=== PATIENT | female | born 1945 | race Caucasian/White ===

== ENCOUNTER → 2018-05-07 13:58 | Outpatient (CLI) | payer MEDICARE, OTHER, SELFPAY ==
--- NOTE | 2018-05-07 | DI.MG.S_ITS ---
BILATERAL DIGITAL SCREENING MAMMOGRAM 3D/2D WITH CAD: 05/07/2018 CLINICAL: Routine screening. Family history of breast cancer. Comparison is made to exams dated: 04/27/2017 mammogram, 04/04/2016 mammogram, and 10/21/2014 mammogram - [facility]. The tissue of both breasts is heterogeneously dense. This may lower the sensitivity of mammography. Current study was also evaluated with a Computer Aided Detection (CAD) system. No significant masses, calcifications, or other findings are seen in either breast. There has been no significant interval change. IMPRESSION: NEGATIVE There is no mammographic evidence of malignancy. A 1 year screening mammogram is recommended. This exam was interpreted at Station ID: [id number]. NOTE: For mammograms, a report in lay terms will be sent to the patient. Approximately 15% of breast malignancies will not be visualized mammographically. In the management of a palpable breast mass, a negative mammogram must not discourage biopsy of a clinically suspicious lesion. Electronically Signed By: Janene odom/allie:05/08/2018 08:43:14 letter sent: Normal Exam ACR BI-RADS Category 1: Negative [id number]
== END ==
PROVIDERS: PCP Family Medicine; Visit Provider Family Medicine
DX: Z12.31 Encounter for screening mammogram for malignant neoplasm of breast (principal); Z80.3 Family history of malignant neoplasm of breast
CPT/HCPCS: 77063; 77067

== ENCOUNTER → 2018-07-06 10:30 | Outpatient (CLI) | payer MEDICARE, OTHER, SELFPAY ==
--- NOTE | 2018-07-06 | DI.RAD.S_ITS ---
PROCEDURE: XR LUMBAR SPINE 2-3V INDICATIONS: LOW BACK PAIN S/P FALL TECHNIQUE: 3 views of the lumbar spine were acquired. COMPARISON: None. FINDINGS: Bones: 5 [id number] vertebrae are present. There is trace retrolithesis of L1 on L2, L2 on L3, L3 on L4. Moderate disc space narrowing is present at L1-2, L2-3. Moderate foraminal narrowing at L5-S1. No vertebral body compression fractures. No suspicious bony lesions. Soft tissues: Overlying bowel gas pattern is normal. No suspicious soft tissue calcifications. IMPRESSION: Multilevel degenerative changes including prominent foraminal narrowing at L5-S1. Dictated by: Deborah El M.D. on 07/06/2018 at 15:38 Approved by: Deborah El M.D. on 07/06/2018 at 15:42
== END ==
PROVIDERS: PCP Family Medicine; Visit Provider Family Medicine
DX: M54.5 Low back pain (principal); M51.36 Other intervertebral disc degeneration, lumbar region; M48.07 Spinal stenosis, lumbosacral region
CPT/HCPCS: 72100

== ENCOUNTER → 2018-07-28 08:38 | Outpatient (CLI) | payer MEDICARE, OTHER, SELFPAY ==
--- NOTE | 2018-07-28 | DI.MRI.S_ITS ---
PROCEDURE: MR LUMBAR SPINE WO CON INDICATIONS: LUMBAR RADICULOPATHY TECHNIQUE: Noncontrast sagittal T1 spin echo and T2 fast echo, sagittal STIR, axial T1 and T2 fast spin echo through the lumbar spine. In cases with scoliosis, additional coronal T2 fast spin echo may be performed. COMPARISON: [facility], CR, XR LUMBAR SPINE 2-3V, 07/06/2018, 10:31. FINDINGS: Image quality: Excellent. Alignment and Curvature: There is trace L1-L2 and L2-L3 retrolisthesis. There is mild L4-L5 anterolisthesis. Bone Marrow: Reactive endplate changes noted adjacent to the L1-L2 and L2-L3 discs. No acute vertebral body compression fractures. Spinal Cord: Conus medullaris terminates at the L1 level. Visualized cord demonstrates normal signal and size. Paraspinous Soft Tissues: No paravertebral masses. L1-L2: Loss of disc signal and height. Mild, diffuse disc bulge. No central stenosis. Mild bilateral neural foraminal narrowing. No neural impingement. L2-L3: Loss of disc signal. Mild, diffuse disc bulge. Mild bilateral facet hypertrophy. Mild narrowing of the central canal. Mild right and moderate left neural foraminal narrowing. No neural impingement. L3-L4: Loss of disc signal. Mild, diffuse disc bulge. Mild bilateral facet hypertrophy. Mild to moderate narrowing of the central canal. Moderate bilateral neural foraminal narrowing. No neural impingement. L4-L5: Loss of disc signal. Mild, diffuse disc bulge. Moderate facet hypertrophy. Moderate narrowing of the central canal. Moderate to severe right and moderate left neural foraminal narrowing with slight flattening deformity exiting right L5 nerve root. Focal high intensity zone noted in the posterior annulus compatible with a fissure. L5-S1: Loss of disc signal. Mild, diffuse disc bulge. Mild bilateral facet hypertrophy. No central stenosis. Mild bilateral neural foraminal narrowing. No neural impingement. Focal high intensity zone noted in the posterior annulus compatible with a fissure. IMPRESSION: 1. Multilevel degenerative disc disease. 2. Multilevel facet arthropathy. 3. Moderate L4-L5 central canal narrowing. [id number] L3-L4 central canal narrowing. Mild L2-L3 central canal narrowing. 4. Moderate to severe right and moderate left L4-L5 neural foraminal narrowing. Moderate bilateral L3-L4 neural foraminal narrowing. Mild right and moderate left L2 and L3 neural foraminal narrowing. Mild bilateral L1-L2 and L2-L3 neural foraminal narrowing. 5. L4-L5 and L5-S1 disc annulus fissures. Dictated by: Genet Oneal MD, PhD on 07/28/2018 at 22:02 Approved by: Genet Oneal MD, PhD on 07/28/2018 at 22:06
== END ==
PROVIDERS: PCP Family Medicine; Visit Provider Family Medicine
DX: M51.16 Intervertebral disc disorders with radiculopathy, lumbar region (principal); M48.061 Spinal stenosis, lumbar region without neurogenic claudication; M47.26 Other spondylosis with radiculopathy, lumbar region
CPT/HCPCS: 72148

== ENCOUNTER 2018-08-02 09:00 | Outpatient (RCR) | payer MEDICARE, OTHER, SELFPAY ==
--- NOTE | 2018-05-31 11:59 | PT.OIE ---
Current Diagnoses Low back pain (05/30/18) Provider Visit Care Team Role Provider Type Clare Hinkle MD Attending Provider Physician Primary Care Provider Specialty: Family Practice Address: [address] [place] [address], [facility] Email: Physical Therapy Initial Evaluation PT-OP-A Visit Information Start: 05/30/18 14:23 Freq: Status: Active Protocol: Document 05/30/18 11:24 [facility] (Rec: 05/31/18 11:58 [facility] [email or web address]) Out-Patient Physical Therapy Visit Information Visit Information Visit Type Initial Evaluation Visit Start Time 10:00 Visit Stop Time 10:45 Total Visit Minutes 45 Visit Number ` Evaluation Information Evaluation Date 05/30/18 PT-OP-B Current Condition Start: 05/30/18 14:23 Freq: Status: Active Protocol: Document 05/30/18 11:24 [facility] (Rec: 05/31/18 11:58 [facility] [email or web address]) Current Condition History of Current Condition Onset Date February 2017 Current Complaints c/o distal hamstring pain and LBP since injury in February2017 History of Current Condition Sophia describes c/o right sided hamstring pain and pain across the low back since a Injury in 2016 in which she was shaving her legs in the shower and slipped falling on her right side in the tub. She heard a audible pop and felt immediate pain into her hamstrings on the right side. Thinking symptoms would get better on their own she went for a road trip a few days later and driving aggravaged her symptoms and she began noticing a considerable amount of swelling in her right thigh region. At one point she measured her thight and it was 2 more in diameter than the left thigh. She began noticing a weakness in her right foot and she notes she was expereincing drop foot. This caused her to fall approximately 3 times in the next month. SHe began noticing low back pain around that time and this low back pain began limiting her activity level. It became difficult for Sophia to do her abdominal work out as crunches bothered her back. She is trying to keep up her activity level but she reports she is sore after a long walk or hike and the next day she has to rest. Treatment Goals Patient/Caregiver Goals Sophia's goals include being able to return to a core strengthening program with out pain and decreasing her LBP and hamstring pain Prior Functional Status Baseline Function- Recreation/Hobbies no limitations Current Functional Impairments (Reported) Functional Limitations- Recreation/ walking and hiking increase Hobbies low back pain and hamstring pain limited in a core strengthening program due to pain PT-OP-C Subjective Start: 05/30/18 14:23 Freq: Status: Active Protocol: Document 05/30/18 11:24 [facility] (Rec: 05/31/18 11:58 [facility] [email or web address]) OP-PT Pain Assessment Pain Assessment Grid Paper Pain Assessment Grid Completed Yes: pain 3/10 Location across the low back and right hamstring Intensity 3 PT-OP-F Manual Assessment Start: 05/30/18 14:23 Freq: Status: Active Protocol: Document 05/30/18 11:24 [facility] (Rec: 05/31/18 11:58 [facility] [email or web address]) Manual Assessments Soft Tissue Assessment Soft Tissue Mobility Assessment atrophy noted of the right medial hamstring attachements as compared to the left, decreased lumbar flexion in standing Joint Mobility Assessment Joint Mobility Assessment + september test for SI instability on the left decreased left sacral nutation , pain with lumbar extension PT-OP-L Special Tests Start: 05/30/18 14:23 Freq: Status: Active Protocol: Document 05/31/18 11:58 [facility] (Rec: 05/31/18 11:59 [facility] [email or web address]) Special Tests Knee Special Tests Straight Leg Raise Comments 75 right with discomfort at the end range 70 left PT-OP-M Strength Start: 05/30/18 14:23 Freq: Status: Active Protocol: Document 05/30/18 11:24 [facility] (Rec: 05/31/18 11:58 [facility] [email or web address]) Trunk Strength Trunk Manual Muscle Testing Core Stabilization decreased core stabilization of the transverse abdominal musculature, + ASLR test B Hip Strength Hip Manual Muscle Testing Right Extension (S1) 4 Good External Rotation 4+ Good+ Knee Strength Knee Manual Muscle Testing Right Flexion (S2) 3+ Fair+ Ankle/Foot Strength Ankle and Foot Manual Muscle Testing Right Dorsiflexion (L4) 4+ Good+ PT-OP-Q Treatments Start: 05/30/18 14:23 Freq: Status: Active Protocol: Document 05/30/18 14:23 [facility] (Rec: 05/30/18 14:25 [facility] [email or web address]) Therapeutic Exercises Other Exercises 2 Other Exercise Name quadraped TA facilitation Reps/Minutes 10 reps 1 Other Exercise Name quadraped cat cow and rose pose PT-OP-T Assessment and Plan Start: 05/30/18 14:23 Freq: Status: Active Protocol: Document 05/30/18 11:24 [facility] (Rec: 05/31/18 11:58 [facility] [email or web address]) Physical Therapy Assessment Rehab Potential Rehabilitation Potential Good Evaluation Complexity Number of Personal Factors/Comorbidities 0 Number of Body Systems Impaired 1-2 Clinical Presentation at Evaluation Stable Impairments Impairments Activity Tolerance Edema Functional Mobility Pain ROM Soft Tissue Mobility Strength Goals Four Impairment SI dysfunction with + tests for instability Short Term Goal (STG) Correct SI dysfunction with manual therapy techniqes and stabilizing exercises STG Duration 6 weeks Three Impairment Sophia is unable to perform her abdominal exercises due to pain Short Term Goal (STG) Sophia is instruced in dymanic core stabilization exercises that she can do without pain. Starting out with transverse abdominal activation statically and progressing to dynamic activation exercises on the ball STG Duration 6 weeks Two Impairment medial hamstring tenderness to palpation and atrophy Aerodynamics Engineer Goal (LTG) Work on strengthening the medial hamstring and decrease tenderness to palpation at the distal attachment site LTG Duration 8 weeks One Impairment pain in the low back and right hamstring aggravated with walking and hiking Mcfp Goal (LTG) Decrease pain enabling Sophia to continue with her recreational activities. Sophia is able to walk without expereincing pain the following day LTG Duration 8 weeks + Assessment Summary Assessment Sophia presents to physical therapy today 15 months s/p hamstring strain and fall. With palpation she is atrophied in the distal medial hamstring attachments and it is possible she suffered a medial hamsting tear. She has weakness on the right with MMT of the hamstrings as compared to the left and increased pain with medial hamstring testing. She is presenting with a SI dysfuction as well as the sacrum is locked in a counter nutated position on the left side. Lumbar extension exercises are difficult to perform and this may be contributing to her back pain following walking. She is trying to stay active but has noticed increasing weakness in her core as she has been unable to lay on her back for abdominal exercises or lay over the ball for crunches as she has done in the past to keep her abdominal wall strong . She is weak in her inner core and has difficulty lifting a straight leg without the pelvis moving. Hamstring length is actually quite good for her injury with SLR of 75 deg right and actually a bit tighter at 70 degrees on the left. She does have pain at end range stretch. Treatment for Sophia will include rehab for the right hamstring, STM, ultrasound, and gradual strengthening as she can tolerate. She would benefit from manual therapy work on her sacrum for improved nutation and to help with low back extension. Stabilization exercises will be introduced for improved SI stability and inner core strength. Thank you for this referral. Physical Therapy Plan Frequency and Duration Frequency of Treatment 2x/Week Duration of Treatment 8 weeks Plan of Care Start Date 05/30/18 Plan of Care End Date 07/25/18 Therapeutic Interventions Therapeutic Interventions Home Exercise Program Joint Mobilizations Manual Therapy Neuromuscular Re-education Patient/Caregiver Education Self-Care/Home Management Soft Tissue Mobilization Therapeutic Exercises
--- NOTE | 2018-06-05 11:57 | PT.OTN ---
Current Diagnoses Low back pain (06/05/18) Physical Therapy Treatment Note PT-OP-A Visit Information Start: 05/30/18 14:23 Freq: Status: Active Protocol: Document 06/05/18 11:50 [facility] (Rec: 06/05/18 11:55 [facility] [email or web address]) Out-Patient Physical Therapy Visit Information Visit Information Visit Type Treatment Note Visit Start Time 09:00 Visit Stop Time 09:45 Total Visit Minutes 45 Visit Number 2 PT-OP-B Current Condition Start: 05/30/18 14:23 Freq: Status: Active Protocol: Document 05/30/18 11:24 [facility] (Rec: 05/31/18 11:58 [facility] [email or web address]) Current Condition History of Current Condition Onset Date February 2017 Current Complaints c/o distal hamstring pain and LBP since injury in February2017 History of Current Condition Sophia describes c/o right sided hamstring pain and pain across the low back since a Injury in 2016 in which she was shaving her legs in the shower and slipped falling on her right side in the tub. She heard a audible pop and felt immediate pain into her hamstrings on the right side. Thinking symptoms would get better on their own she went for a road trip a few days later and driving aggravaged her symptoms and she began noticing a considerable amount of swelling in her right thigh region. At one point she measured her thight and it was 2 more in diameter than the left thigh. She began noticing a weakness in her right foot and she notes she was expereincing drop foot. This caused her to fall approximately 3 times in the next month. SHe began noticing low back pain around that time and this low back pain began limiting her activity level. It became difficult for Sophia to do her abdominal work out as crunches bothered her back. She is trying to keep up her activity level but she reports she is sore after a long walk or hike and the next day she has to rest. Treatment Goals Patient/Caregiver Goals Sophia's goals include being able to return to a core strengthening program with out pain and decreasing her LBP and hamstring pain Prior Functional Status Baseline Function- Recreation/Hobbies no limitations Current Functional Impairments (Reported) Functional Limitations- Recreation/ walking and hiking increase Hobbies low back pain and hamstring pain limited in a core strengthening program due to pain PT-OP-C Subjective Start: 05/30/18 14:23 Freq: Status: Active Protocol: Document 06/05/18 11:50 [facility] (Rec: 06/05/18 11:55 [facility] [email or web address]) OP-PT Subjective Patient Comments Patient Comments Kalie reports her back was a little sore with cat cow. It hurts to go into low back extension. She was a little sore in the hamstring as well PT-OP-F Manual Assessment Start: 05/30/18 14:23 Freq: Status: Active Protocol: Document 05/30/18 11:24 [facility] (Rec: 05/31/18 11:58 [facility] [email or web address]) Manual Assessments Soft Tissue Assessment Soft Tissue Mobility Assessment atrophy noted of the right medial hamstring attachements as compared to the left, decreased lumbar flexion in standing Joint Mobility Assessment Joint Mobility Assessment + september test for SI instability on the left decreased left sacral nutation , pain with lumbar extension PT-OP-L Special Tests Start: 05/30/18 14:23 Freq: Status: Active Protocol: Document 05/31/18 11:58 [facility] (Rec: 05/31/18 11:59 [facility] [email or web address]) Special Tests Knee Special Tests Straight Leg Raise Comments 75 right with discomfort at the end range 70 left PT-OP-M Strength Start: 05/30/18 14:23 Freq: Status: Active Protocol: Document 05/30/18 11:24 [facility] (Rec: 05/31/18 11:58 [facility] [email or web address]) Trunk Strength Trunk Manual Muscle Testing Core Stabilization decreased core stabilization of the transverse abdominal musculature, + ASLR test B Hip Strength Hip Manual Muscle Testing Right Extension (S1) 4 Good External Rotation 4+ Good+ Knee Strength Knee Manual Muscle Testing Right Flexion (S2) 3+ Fair+ Ankle/Foot Strength Ankle and Foot Manual Muscle Testing Right Dorsiflexion (L4) 4+ Good+ PT-OP-Q Treatments Start: 05/30/18 14:23 Freq: Status: Active Protocol: Document 06/05/18 11:50 [facility] (Rec: 06/05/18 11:55 [facility] [email or web address]) Therapeutic Exercises Other Exercises 4 Other Exercise Name supine ball rolls Reps/Minutes 2x10 3 Other Exercise Name prone knee flexion Reps/Minutes x 10 2 Other Exercise Name quadraped TA facilitation Reps/Minutes 10 reps 1 Other Exercise Name quadraped cat cow and rose pose Manual Therapy Treatment Soft Tissue Mobilization 1 Body Location right medial hamstring distal insertion Body Position Prone Joint Mobilizations 1 Joint sacral mobilizations nutation/ counternutation Manual Techniques 1 Type manual piriformis stretch, hip ER Body Position Prone PT-OP-R Modalities Start: 06/05/18 11:56 Freq: Status: Active Protocol: Document 06/05/18 11:56 [facility] (Rec: 06/05/18 11:57 [facility] [email or web address]) Ultrasound Therapy Treatment right medial hamstring attachment Treatment Duration (minutes) 8 Patient Position Prone Applicator Size (cm2) 5 Frequency Setting (mHz) 1 Mode Setting Continuous Duty Cycle 100% Intensity Setting (w/cm2) 1.5 PT-OP-T Assessment and Plan Start: 05/30/18 14:23 Freq: Status: Active Protocol: Document 06/05/18 11:50 [facility] (Rec: 06/05/18 11:55 [facility] [email or web address]) Physical Therapy Assessment Assessment Summary Assessment tender to STM right distal medial hamstring attachment. Much tighter on the right in the piriformis with a lack of hip ER Physical Therapy Plan Frequency and Duration Frequency of Treatment 2x/Week Duration of Treatment 8 weeks Plan of Care Start Date 05/30/18 Plan of Care End Date 07/25/18 Therapeutic Interventions Therapeutic Interventions Home Exercise Program Joint Mobilizations Manual Therapy Neuromuscular Re-education Patient/Caregiver Education Self-Care/Home Management Soft Tissue Mobilization Therapeutic Exercises Next Visit Focus/Plan Next Note Type Treatment Note Next Visit Plan continue working on soft tissue mobility of the hamstring attachment and stability of the spine along with sacral mobilizations
--- NOTE | 2018-06-14 11:27 | PT.OTN ---
Current Diagnoses Low back pain (06/12/18) Physical Therapy Treatment Note PT-OP-A Visit Information Start: 05/30/18 14:23 Freq: Status: Active Protocol: Document 06/12/18 11:21 [facility] (Rec: 06/14/18 11:27 [facility] [email or web address]) Out-Patient Physical Therapy Visit Information Visit Information Visit Type Treatment Note Visit Start Time 09:00 Visit Stop Time 09:45 Total Visit Minutes 45 Visit Number 3 PT-OP-B Current Condition Start: 05/30/18 14:23 Freq: Status: Active Protocol: Document 05/30/18 11:24 [facility] (Rec: 05/31/18 11:58 [facility] [email or web address]) Current Condition History of Current Condition Onset Date February 2017 Current Complaints c/o distal hamstring pain and LBP since injury in February2017 History of Current Condition Sophia describes c/o right sided hamstring pain and pain across the low back since a Injury in 2016 in which she was shaving her legs in the shower and slipped falling on her right side in the tub. She heard a audible pop and felt immediate pain into her hamstrings on the right side. Thinking symptoms would get better on their own she went for a road trip a few days later and driving aggravaged her symptoms and she began noticing a considerable amount of swelling in her right thigh region. At one point she measured her thight and it was 2 more in diameter than the left thigh. She began noticing a weakness in her right foot and she notes she was expereincing drop foot. This caused her to fall approximately 3 times in the next month. SHe began noticing low back pain around that time and this low back pain began limiting her activity level. It became difficult for Sophia to do her abdominal work out as crunches bothered her back. She is trying to keep up her activity level but she reports she is sore after a long walk or hike and the next day she has to rest. Treatment Goals Patient/Caregiver Goals Sophia's goals include being able to return to a core strengthening program with out pain and decreasing her LBP and hamstring pain Prior Functional Status Baseline Function- Recreation/Hobbies no limitations Current Functional Impairments (Reported) Functional Limitations- Recreation/ walking and hiking increase Hobbies low back pain and hamstring pain limited in a core strengthening program due to pain PT-OP-C Subjective Start: 05/30/18 14:23 Freq: Status: Active Protocol: Document 06/12/18 11:21 [facility] (Rec: 06/14/18 11:27 [facility] [email or web address]) OP-PT Subjective Patient Comments Patient Comments Kalie reports she was really sore in her low back again following last visit PT-OP-F Manual Assessment Start: 05/30/18 14:23 Freq: Status: Active Protocol: Document 05/30/18 11:24 [facility] (Rec: 05/31/18 11:58 [facility] [email or web address]) Manual Assessments Soft Tissue Assessment Soft Tissue Mobility Assessment atrophy noted of the right medial hamstring attachements as compared to the left, decreased lumbar flexion in standing Joint Mobility Assessment Joint Mobility Assessment + september test for SI instability on the left decreased left sacral nutation , pain with lumbar extension PT-OP-L Special Tests Start: 05/30/18 14:23 Freq: Status: Active Protocol: Document 05/31/18 11:58 [facility] (Rec: 05/31/18 11:59 [facility] [email or web address]) Special Tests Knee Special Tests Straight Leg Raise Comments 75 right with discomfort at the end range 70 left PT-OP-M Strength Start: 05/30/18 14:23 Freq: Status: Active Protocol: Document 05/30/18 11:24 [facility] (Rec: 05/31/18 11:58 [facility] [email or web address]) Trunk Strength Trunk Manual Muscle Testing Core Stabilization decreased core stabilization of the transverse abdominal musculature, + ASLR test B Hip Strength Hip Manual Muscle Testing Right Extension (S1) 4 Good External Rotation 4+ Good+ Knee Strength Knee Manual Muscle Testing Right Flexion (S2) 3+ Fair+ Ankle/Foot Strength Ankle and Foot Manual Muscle Testing Right Dorsiflexion (L4) 4+ Good+ PT-OP-Q Treatments Start: 05/30/18 14:23 Freq: Status: Active Protocol: Document 06/12/18 11:21 [facility] (Rec: 06/14/18 11:27 [facility] [email or web address]) Therapeutic Exercises Other Exercises 5 Other Exercise Name supine SKTC, DKTC, long sitting stretch 2 Other Exercise Name quadraped TA facilitation Reps/Minutes 10 reps 1 Other Exercise Name quadraped cat cow and rose pose Manual Therapy Treatment Soft Tissue Mobilization 3 Body Location piriformis release bilaterally 2 Body Location prone over body pillow STM to the low back paraspinals and sacral region Manual Techniques 1 Type manual piriformis stretch, hip ER Body Position Prone PT-OP-R Modalities Start: 06/05/18 11:56 Freq: Status: Active Protocol: Document 06/05/18 11:56 [facility] (Rec: 06/05/18 11:57 [facility] [email or web address]) Ultrasound Therapy Treatment right medial hamstring attachment Treatment Duration (minutes) 8 Patient Position Prone Applicator Size (cm2) 5 Frequency Setting (mHz) 1 Mode Setting Continuous Duty Cycle 100% Intensity Setting (w/cm2) 1.5 PT-OP-T Assessment and Plan Start: 05/30/18 14:23 Freq: Status: Active Protocol: Document 06/12/18 11:21 [facility] (Rec: 06/14/18 11:27 [facility] [email or web address]) Physical Therapy Assessment Assessment Summary Assessment tight left greater than right piriformis but limited hip ER on the right. working on flexion based exercises as any extension is causing pain Physical Therapy Plan Frequency and Duration Frequency of Treatment 2x/Week Duration of Treatment 8 weeks Plan of Care Start Date 05/30/18 Plan of Care End Date 07/25/18 Therapeutic Interventions Therapeutic Interventions Home Exercise Program Joint Mobilizations Manual Therapy Neuromuscular Re-education Patient/Caregiver Education Self-Care/Home Management Soft Tissue Mobilization Therapeutic Exercises Next Visit Focus/Plan Next Note Type Treatment Note Next Visit Plan continue working on soft tissue mobility of the hamstring attachment and stability of the spine along with sacral mobilizations
--- NOTE | 2018-06-14 14:19 | PT.OTN ---
Current Diagnoses Low back pain (06/14/18) Physical Therapy Treatment Note PT-OP-A Visit Information Start: 05/30/18 14:23 Freq: Status: Active Protocol: Document 06/14/18 14:05 [facility] (Rec: 06/14/18 14:14 [facility] [email or web address]) Out-Patient Physical Therapy Visit Information Visit Information Visit Type Treatment Note Visit Start Time 13:00 Visit Stop Time 13:55 Total Visit Minutes 45 Visit Number 4 PT-OP-B Current Condition Start: 05/30/18 14:23 Freq: Status: Active Protocol: Document 05/30/18 11:24 [facility] (Rec: 05/31/18 11:58 [facility] [email or web address]) Current Condition History of Current Condition Onset Date February 2017 Current Complaints c/o distal hamstring pain and LBP since injury in February2017 History of Current Condition Sophia describes c/o right sided hamstring pain and pain across the low back since a Injury in 2016 in which she was shaving her legs in the shower and slipped falling on her right side in the tub. She heard a audible pop and felt immediate pain into her hamstrings on the right side. Thinking symptoms would get better on their own she went for a road trip a few days later and driving aggravaged her symptoms and she began noticing a considerable amount of swelling in her right thigh region. At one point she measured her thight and it was 2 more in diameter than the left thigh. She began noticing a weakness in her right foot and she notes she was expereincing drop foot. This caused her to fall approximately 3 times in the next month. SHe began noticing low back pain around that time and this low back pain began limiting her activity level. It became difficult for Sophia to do her abdominal work out as crunches bothered her back. She is trying to keep up her activity level but she reports she is sore after a long walk or hike and the next day she has to rest. Treatment Goals Patient/Caregiver Goals Sophia's goals include being able to return to a core strengthening program with out pain and decreasing her LBP and hamstring pain Prior Functional Status Baseline Function- Recreation/Hobbies no limitations Current Functional Impairments (Reported) Functional Limitations- Recreation/ walking and hiking increase Hobbies low back pain and hamstring pain limited in a core strengthening program due to pain PT-OP-C Subjective Start: 05/30/18 14:23 Freq: Status: Active Protocol: Document 06/14/18 14:05 [facility] (Rec: 06/14/18 14:14 [facility] [email or web address]) OP-PT Subjective Patient Comments Patient Comments Kalie reports she did really well following last visit and has been pretty pain free the last couple of days PT-OP-F Manual Assessment Start: 05/30/18 14:23 Freq: Status: Active Protocol: Document 05/30/18 11:24 [facility] (Rec: 05/31/18 11:58 [facility] [email or web address]) Manual Assessments Soft Tissue Assessment Soft Tissue Mobility Assessment atrophy noted of the right medial hamstring attachements as compared to the left, decreased lumbar flexion in standing Joint Mobility Assessment Joint Mobility Assessment + september test for SI instability on the left decreased left sacral nutation , pain with lumbar extension PT-OP-L Special Tests Start: 05/30/18 14:23 Freq: Status: Active Protocol: Document 05/31/18 11:58 [facility] (Rec: 05/31/18 11:59 [facility] [email or web address]) Special Tests Knee Special Tests Straight Leg Raise Comments 75 right with discomfort at the end range 70 left PT-OP-M Strength Start: 05/30/18 14:23 Freq: Status: Active Protocol: Document 05/30/18 11:24 [facility] (Rec: 05/31/18 11:58 [facility] [email or web address]) Trunk Strength Trunk Manual Muscle Testing Core Stabilization decreased core stabilization of the transverse abdominal musculature, + ASLR test B Hip Strength Hip Manual Muscle Testing Right Extension (S1) 4 Good External Rotation 4+ Good+ Knee Strength Knee Manual Muscle Testing Right Flexion (S2) 3+ Fair+ Ankle/Foot Strength Ankle and Foot Manual Muscle Testing Right Dorsiflexion (L4) 4+ Good+ PT-OP-Q Treatments Start: 05/30/18 14:23 Freq: Status: Active Protocol: Document 06/14/18 14:05 [facility] (Rec: 06/14/18 14:14 [facility] [email or web address]) Therapeutic Exercises Supine Exercises 1 Supine Exercise Name isometric ball squeeze with pelvic floor activation Other Exercises 2 Other Exercise Name quadraped TA facilitation Reps/Minutes 10 reps 1 Other Exercise Name quadraped cat cow and rose pose Comments walk hands to the right with rose pose to open up left side Manual Therapy Treatment Soft Tissue Mobilization 3 Body Location piriformis release bilaterally 2 Body Location prone over body pillow STM to the low back paraspinals and sacral region Manual Techniques 1 Type manual piriformis stretch, hip ER Body Position Prone PT-OP-R Modalities Start: 06/05/18 11:56 Freq: Status: Active Protocol: Document 06/14/18 14:14 [facility] (Rec: 06/14/18 14:15 [facility] [email or web address]) Hot Pack/Cold Pack Treatment Cold Pack Location low back Patient Position Hooklying Patient Tolerance Fair Comments Kalie reports she feels stiff after the ice today Ultrasound Therapy Treatment Left Back Treatment Duration (minutes) 8 Patient Position Prone Coupling Medium Ultrasound Gel Applicator Size (cm2) 5 Frequency Setting (mHz) 1 Mode Setting Continuous Intensity Setting (w/cm2) 1.5 PT-OP-T Assessment and Plan Start: 05/30/18 14:23 Freq: Status: Active Protocol: Document 06/14/18 14:05 [facility] (Rec: 06/14/18 14:14 [facility] [email or web address]) Physical Therapy Assessment Assessment Summary Assessment Kalie tends to tighten her abdominals from the upper abdominal wall, used ball squeeze today to help her faclitate her inner core Physical Therapy Plan Frequency and Duration Frequency of Treatment 2x/Week Duration of Treatment 8 weeks Plan of Care Start Date 05/30/18 Plan of Care End Date 07/25/18 Therapeutic Interventions Therapeutic Interventions Home Exercise Program Joint Mobilizations Manual Therapy Neuromuscular Re-education Patient/Caregiver Education Self-Care/Home Management Soft Tissue Mobilization Therapeutic Exercises Next Visit Focus/Plan Next Note Type Treatment Note Next Visit Plan reassess TA facilitation in supine, quadraped, and standing. Pt notes ice made her stiff so assess ice verses heat next visit
--- NOTE | 2018-06-19 14:20 | PT.OTN ---
Current Diagnoses Low back pain (06/19/18) Physical Therapy Treatment Note PT-OP-A Visit Information Start: 05/30/18 14:23 Freq: Status: Active Protocol: Document 06/19/18 14:11 [facility] (Rec: 06/19/18 14:20 [facility] [email or web address]) Out-Patient Physical Therapy Visit Information Visit Information Visit Type Treatment Note Visit Start Time 09:00 Visit Stop Time 09:45 Total Visit Minutes 45 Visit Number 4 PT-OP-B Current Condition Start: 05/30/18 14:23 Freq: Status: Active Protocol: Document 05/30/18 11:24 [facility] (Rec: 05/31/18 11:58 [facility] [email or web address]) Current Condition History of Current Condition Onset Date February 2017 Current Complaints c/o distal hamstring pain and LBP since injury in February2017 History of Current Condition Sophia describes c/o right sided hamstring pain and pain across the low back since a Injury in 2016 in which she was shaving her legs in the shower and slipped falling on her right side in the tub. She heard a audible pop and felt immediate pain into her hamstrings on the right side. Thinking symptoms would get better on their own she went for a road trip a few days later and driving aggravaged her symptoms and she began noticing a considerable amount of swelling in her right thigh region. At one point she measured her thight and it was 2 more in diameter than the left thigh. She began noticing a weakness in her right foot and she notes she was expereincing drop foot. This caused her to fall approximately 3 times in the next month. SHe began noticing low back pain around that time and this low back pain began limiting her activity level. It became difficult for Sophia to do her abdominal work out as crunches bothered her back. She is trying to keep up her activity level but she reports she is sore after a long walk or hike and the next day she has to rest. Treatment Goals Patient/Caregiver Goals Sophia's goals include being able to return to a core strengthening program with out pain and decreasing her LBP and hamstring pain Prior Functional Status Baseline Function- Recreation/Hobbies no limitations Current Functional Impairments (Reported) Functional Limitations- Recreation/ walking and hiking increase Hobbies low back pain and hamstring pain limited in a core strengthening program due to pain PT-OP-C Subjective Start: 05/30/18 14:23 Freq: Status: Active Protocol: Document 06/19/18 14:11 [facility] (Rec: 06/19/18 14:20 [facility] [email or web address]) OP-PT Subjective Patient Comments Patient Comments Kalie states she did a 6 mile hike monday and was sore in both LE lateral hamstrings afterwards. She also did not tolerate the ice very well after last visit. She is feeling like her back is starting to loosen up some now . PT-OP-F Manual Assessment Start: 05/30/18 14:23 Freq: Status: Active Protocol: Document 05/30/18 11:24 [facility] (Rec: 05/31/18 11:58 [facility] [email or web address]) Manual Assessments Soft Tissue Assessment Soft Tissue Mobility Assessment atrophy noted of the right medial hamstring attachements as compared to the left, decreased lumbar flexion in standing Joint Mobility Assessment Joint Mobility Assessment + september test for SI instability on the left decreased left sacral nutation , pain with lumbar extension PT-OP-L Special Tests Start: 05/30/18 14:23 Freq: Status: Active Protocol: Document 05/31/18 11:58 [facility] (Rec: 05/31/18 11:59 [facility] [email or web address]) Special Tests Knee Special Tests Straight Leg Raise Comments 75 right with discomfort at the end range 70 left PT-OP-M Strength Start: 05/30/18 14:23 Freq: Status: Active Protocol: Document 05/30/18 11:24 [facility] (Rec: 05/31/18 11:58 [facility] [email or web address]) Trunk Strength Trunk Manual Muscle Testing Core Stabilization decreased core stabilization of the transverse abdominal musculature, + ASLR test B Hip Strength Hip Manual Muscle Testing Right Extension (S1) 4 Good External Rotation 4+ Good+ Knee Strength Knee Manual Muscle Testing Right Flexion (S2) 3+ Fair+ Ankle/Foot Strength Ankle and Foot Manual Muscle Testing Right Dorsiflexion (L4) 4+ Good+ PT-OP-Q Treatments Start: 05/30/18 14:23 Freq: Status: Active Protocol: Document 06/19/18 14:11 [facility] (Rec: 06/19/18 14:20 [facility] [email or web address]) Therapeutic Exercises Supine Exercises 4 Supine Exercise Name TA with marching 3 Supine Exercise Name isometric bent knee press with core engagement 2 Supine Exercise Name supine arm slides with core engaged 1 Supine Exercise Name isometric ball squeeze with pelvic floor activation Manual Therapy Treatment Soft Tissue Mobilization 3 Body Location piriformis release bilaterally 2 Body Location prone over body pillow STM to the low back paraspinals and sacral region Joint Mobilizations 1 Joint sacral mobilizations nutation/ counternutation Manual Techniques 1 Type manual piriformis stretch, hip ER Body Position Prone PT-OP-R Modalities Start: 06/05/18 11:56 Freq: Status: Active Protocol: Document 06/14/18 14:14 [facility] (Rec: 06/14/18 14:15 [facility] [email or web address]) Hot Pack/Cold Pack Treatment Cold Pack Location low back Patient Position Hooklying Patient Tolerance Fair Comments Kalie reports she feels stiff after the ice today Ultrasound Therapy Treatment Left Back Treatment Duration (minutes) 8 Patient Position Prone Coupling Medium Ultrasound Gel Applicator Size (cm2) 5 Frequency Setting (mHz) 1 Mode Setting Continuous Intensity Setting (w/cm2) 1.5 PT-OP-T Assessment and Plan Start: 05/30/18 14:23 Freq: Status: Active Protocol: Document 06/19/18 14:11 [facility] (Rec: 06/19/18 14:20 [facility] [email or web address]) Physical Therapy Assessment Assessment Summary Assessment able to get some core facilitation today with isometric bent knee press and added in TA facilitation with annalisa Physical Therapy Plan Frequency and Duration Frequency of Treatment 2x/Week Duration of Treatment 8 weeks Plan of Care Start Date 05/30/18 Plan of Care End Date 07/25/18 Therapeutic Interventions Therapeutic Interventions Home Exercise Program Joint Mobilizations Manual Therapy Neuromuscular Re-education Patient/Caregiver Education Self-Care/Home Management Soft Tissue Mobilization Therapeutic Exercises Next Visit Focus/Plan Next Note Type Treatment Note Next Visit Plan slowly improving TA facilitation. If Kalie is feeling good next visit try shuttle press and foam roll stretch next visit
--- NOTE | 2018-06-21 11:42 | PT.OTN ---
Current Diagnoses Low back pain (06/21/18) Physical Therapy Treatment Note PT-OP-A Visit Information Start: 05/30/18 14:23 Freq: Status: Active Protocol: Document 06/21/18 11:36 [facility] (Rec: 06/21/18 11:42 [facility] [email or web address]) Out-Patient Physical Therapy Visit Information Visit Information Visit Type Treatment Note Visit Start Time 10:30 Visit Stop Time 11:15 Total Visit Minutes 45 Visit Number 5 PT-OP-B Current Condition Start: 05/30/18 14:23 Freq: Status: Active Protocol: Document 05/30/18 11:24 [facility] (Rec: 05/31/18 11:58 [facility] [email or web address]) Current Condition History of Current Condition Onset Date February 2017 Current Complaints c/o distal hamstring pain and LBP since injury in February2017 History of Current Condition Sophia describes c/o right sided hamstring pain and pain across the low back since a Injury in 2016 in which she was shaving her legs in the shower and slipped falling on her right side in the tub. She heard a audible pop and felt immediate pain into her hamstrings on the right side. Thinking symptoms would get better on their own she went for a road trip a few days later and driving aggravaged her symptoms and she began noticing a considerable amount of swelling in her right thigh region. At one point she measured her thight and it was 2 more in diameter than the left thigh. She began noticing a weakness in her right foot and she notes she was expereincing drop foot. This caused her to fall approximately 3 times in the next month. SHe began noticing low back pain around that time and this low back pain began limiting her activity level. It became difficult for Sophia to do her abdominal work out as crunches bothered her back. She is trying to keep up her activity level but she reports she is sore after a long walk or hike and the next day she has to rest. Treatment Goals Patient/Caregiver Goals Sophia's goals include being able to return to a core strengthening program with out pain and decreasing her LBP and hamstring pain Prior Functional Status Baseline Function- Recreation/Hobbies no limitations Current Functional Impairments (Reported) Functional Limitations- Recreation/ walking and hiking increase Hobbies low back pain and hamstring pain limited in a core strengthening program due to pain PT-OP-C Subjective Start: 05/30/18 14:23 Freq: Status: Active Protocol: Document 06/21/18 11:36 [facility] (Rec: 06/21/18 11:42 [facility] [email or web address]) OP-PT Subjective Patient Comments Patient Comments Doing better now and feels much looser in her lumbar musculature PT-OP-F Manual Assessment Start: 05/30/18 14:23 Freq: Status: Active Protocol: Document 05/30/18 11:24 [facility] (Rec: 05/31/18 11:58 [facility] [email or web address]) Manual Assessments Soft Tissue Assessment Soft Tissue Mobility Assessment atrophy noted of the right medial hamstring attachements as compared to the left, decreased lumbar flexion in standing Joint Mobility Assessment Joint Mobility Assessment + september test for SI instability on the left decreased left sacral nutation , pain with lumbar extension PT-OP-L Special Tests Start: 05/30/18 14:23 Freq: Status: Active Protocol: Document 05/31/18 11:58 [facility] (Rec: 05/31/18 11:59 [facility] [email or web address]) Special Tests Knee Special Tests Straight Leg Raise Comments 75 right with discomfort at the end range 70 left PT-OP-M Strength Start: 05/30/18 14:23 Freq: Status: Active Protocol: Document 05/30/18 11:24 [facility] (Rec: 05/31/18 11:58 [facility] [email or web address]) Trunk Strength Trunk Manual Muscle Testing Core Stabilization decreased core stabilization of the transverse abdominal musculature, + ASLR test B Hip Strength Hip Manual Muscle Testing Right Extension (S1) 4 Good External Rotation 4+ Good+ Knee Strength Knee Manual Muscle Testing Right Flexion (S2) 3+ Fair+ Ankle/Foot Strength Ankle and Foot Manual Muscle Testing Right Dorsiflexion (L4) 4+ Good+ PT-OP-Q Treatments Start: 05/30/18 14:23 Freq: Status: Active Protocol: Document 06/21/18 11:36 [facility] (Rec: 06/21/18 11:42 [facility] [email or web address]) Cardio Equipment Rowing Machine Duration (Minutes) 5 Gym Equipment Cable Column (Body Solid) Rows Details seated ROWS Resistance 20# Reps/Time 3x10 Shuttle Recovery Bilateral Squats Details 50 # Shuttle Recovery Platform Stable Reps/Time 3 x10 Therapeutic Exercises Supine Exercises 5 Supine Exercise Name ball rolls 4 Supine Exercise Name TA with marching 3 Supine Exercise Name isometric bent knee press with core engagement 1 Supine Exercise Name isometric ball squeeze with pelvic floor activation Comments with abdominal crunch Manual Therapy Treatment Soft Tissue Mobilization 3 Body Location piriformis release bilaterally 2 Body Location prone over body pillow STM to the low back paraspinals and sacral region Joint Mobilizations 1 Joint sacral mobilizations nutation/ counternutation Manual Techniques 1 Type manual piriformis stretch, hip ER Body Position Prone PT-OP-R Modalities Start: 06/05/18 11:56 Freq: Status: Active Protocol: Document 06/14/18 14:14 [facility] (Rec: 06/14/18 14:15 [facility] [email or web address]) Hot Pack/Cold Pack Treatment Cold Pack Location low back Patient Position Hooklying Patient Tolerance Fair Comments Kalie reports she feels stiff after the ice today Ultrasound Therapy Treatment Left Back Treatment Duration (minutes) 8 Patient Position Prone Coupling Medium Ultrasound Gel Applicator Size (cm2) 5 Frequency Setting (mHz) 1 Mode Setting Continuous Intensity Setting (w/cm2) 1.5 PT-OP-T Assessment and Plan Start: 05/30/18 14:23 Freq: Status: Active Protocol: Document 06/21/18 11:36 [facility] (Rec: 06/21/18 11:42 [facility] [email or web address]) Physical Therapy Assessment Progress Towards Goals Progress Towards Goals Progressing Toward Goals Assessment Summary Assessment Decreased muscle tightness today, improving flexion of the lumbar spine Physical Therapy Plan Frequency and Duration Frequency of Treatment 2x/Week Duration of Treatment 8 weeks Plan of Care Start Date 05/30/18 Plan of Care End Date 07/25/18 Therapeutic Interventions Therapeutic Interventions Home Exercise Program Joint Mobilizations Manual Therapy Neuromuscular Re-education Patient/Caregiver Education Self-Care/Home Management Soft Tissue Mobilization Therapeutic Exercises Next Visit Focus/Plan Next Note Type Treatment Note Next Visit Plan review new exercises next visit and reassess lumbar flexion, trial of foam roll stretch as we did not do that today
--- NOTE | 2018-06-26 16:41 | PT.OTN ---
Current Diagnoses Low back pain (06/26/18) Physical Therapy Treatment Note PT-OP-A Visit Information Start: 05/30/18 14:23 Freq: Status: Active Protocol: Document 06/21/18 11:36 [facility] (Rec: 06/21/18 11:42 [facility] [email or web address]) Out-Patient Physical Therapy Visit Information Visit Information Visit Type Treatment Note Visit Start Time 10:30 Visit Stop Time 11:15 Total Visit Minutes 45 Visit Number 5 PT-OP-B Current Condition Start: 05/30/18 14:23 Freq: Status: Active Protocol: Document 05/30/18 11:24 [facility] (Rec: 05/31/18 11:58 [facility] [email or web address]) Current Condition History of Current Condition Onset Date February 2017 Current Complaints c/o distal hamstring pain and LBP since injury in February2017 History of Current Condition Sophia describes c/o right sided hamstring pain and pain across the low back since a Injury in 2016 in which she was shaving her legs in the shower and slipped falling on her right side in the tub. She heard a audible pop and felt immediate pain into her hamstrings on the right side. Thinking symptoms would get better on their own she went for a road trip a few days later and driving aggravaged her symptoms and she began noticing a considerable amount of swelling in her right thigh region. At one point she measured her thight and it was 2 more in diameter than the left thigh. She began noticing a weakness in her right foot and she notes she was expereincing drop foot. This caused her to fall approximately 3 times in the next month. SHe began noticing low back pain around that time and this low back pain began limiting her activity level. It became difficult for Sophia to do her abdominal work out as crunches bothered her back. She is trying to keep up her activity level but she reports she is sore after a long walk or hike and the next day she has to rest. Treatment Goals Patient/Caregiver Goals Sophia's goals include being able to return to a core strengthening program with out pain and decreasing her LBP and hamstring pain Prior Functional Status Baseline Function- Recreation/Hobbies no limitations Current Functional Impairments (Reported) Functional Limitations- Recreation/ walking and hiking increase Hobbies low back pain and hamstring pain limited in a core strengthening program due to pain PT-OP-C Subjective Start: 05/30/18 14:23 Freq: Status: Active Protocol: Document 06/26/18 16:34 [facility] (Rec: 06/26/18 16:40 [facility] [email or web address]) OP-PT Subjective Patient Comments Patient Comments Sophia reports she tightened up again on monday after last visit. Not as tight as she had been but still tight. PT-OP-F Manual Assessment Start: 05/30/18 14:23 Freq: Status: Active Protocol: Document 05/30/18 11:24 [facility] (Rec: 05/31/18 11:58 [facility] [email or web address]) Manual Assessments Soft Tissue Assessment Soft Tissue Mobility Assessment atrophy noted of the right medial hamstring attachements as compared to the left, decreased lumbar flexion in standing Joint Mobility Assessment Joint Mobility Assessment + september test for SI instability on the left decreased left sacral nutation , pain with lumbar extension PT-OP-L Special Tests Start: 05/30/18 14:23 Freq: Status: Active Protocol: Document 05/31/18 11:58 [facility] (Rec: 05/31/18 11:59 [facility] [email or web address]) Special Tests Knee Special Tests Straight Leg Raise Comments 75 right with discomfort at the end range 70 left PT-OP-M Strength Start: 05/30/18 14:23 Freq: Status: Active Protocol: Document 05/30/18 11:24 [facility] (Rec: 05/31/18 11:58 [facility] [email or web address]) Trunk Strength Trunk Manual Muscle Testing Core Stabilization decreased core stabilization of the transverse abdominal musculature, + ASLR test B Hip Strength Hip Manual Muscle Testing Right Extension (S1) 4 Good External Rotation 4+ Good+ Knee Strength Knee Manual Muscle Testing Right Flexion (S2) 3+ Fair+ Ankle/Foot Strength Ankle and Foot Manual Muscle Testing Right Dorsiflexion (L4) 4+ Good+ PT-OP-Q Treatments Start: 05/30/18 14:23 Freq: Status: Active Protocol: Document 06/26/18 16:34 [facility] (Rec: 06/26/18 16:40 [facility] [email or web address]) Manual Therapy Treatment Soft Tissue Mobilization 3 Body Location piriformis release bilaterally 2 Body Location prone over body pillow STM to the low back paraspinals and sacral region Manual Techniques 1 Type manual piriformis stretch, hip ER Body Position Prone PT-OP-R Modalities Start: 06/05/18 11:56 Freq: Status: Active Protocol: Document 06/26/18 16:40 [facility] (Rec: 06/26/18 16:41 [facility] [email or web address]) Spinal Traction Traction Treatment Lumbar Method Mechanical Patient Position Supine Force Applied (Pounds) 60 Duration of Treatment (Minutes) 10 Heating Pad Applied Yes Ultrasound Therapy Treatment Left Back Treatment Duration (minutes) 8 Patient Position Prone Coupling Medium Ultrasound Gel Applicator Size (cm2) 5 Frequency Setting (mHz) 1 Mode Setting Continuous Intensity Setting (w/cm2) 1.5 PT-OP-T Assessment and Plan Start: 05/30/18 14:23 Freq: Status: Active Protocol: Document 06/26/18 16:34 [facility] (Rec: 06/26/18 16:40 [facility] [email or web address]) Physical Therapy Assessment Assessment Summary Assessment trial of lumbar traction today with supine dexter unit. Assess next visit how this felt Physical Therapy Plan Frequency and Duration Frequency of Treatment 2x/Week Duration of Treatment 8 weeks Plan of Care Start Date 05/30/18 Plan of Care End Date 07/25/18 Therapeutic Interventions Therapeutic Interventions Home Exercise Program Joint Mobilizations Manual Therapy Neuromuscular Re-education Patient/Caregiver Education Self-Care/Home Management Soft Tissue Mobilization Therapeutic Exercises Next Visit Focus/Plan Next Note Type Treatment Note Next Visit Plan review exercises next visit is Kalie is able to and second trial of lumbar traction
--- NOTE | 2018-06-28 13:16 | PT.OTN ---
Current Diagnoses Low back pain (06/28/18) Physical Therapy Treatment Note PT-OP-A Visit Information Start: 05/30/18 14:23 Freq: Status: Active Protocol: Document 06/21/18 11:36 [facility] (Rec: 06/21/18 11:42 [facility] [email or web address]) Out-Patient Physical Therapy Visit Information Visit Information Visit Type Treatment Note Visit Start Time 10:30 Visit Stop Time 11:15 Total Visit Minutes 45 Visit Number 5 PT-OP-B Current Condition Start: 05/30/18 14:23 Freq: Status: Active Protocol: Document 05/30/18 11:24 [facility] (Rec: 05/31/18 11:58 [facility] [email or web address]) Current Condition History of Current Condition Onset Date February 2017 Current Complaints c/o distal hamstring pain and LBP since injury in February2017 History of Current Condition Sophia describes c/o right sided hamstring pain and pain across the low back since a Injury in 2016 in which she was shaving her legs in the shower and slipped falling on her right side in the tub. She heard a audible pop and felt immediate pain into her hamstrings on the right side. Thinking symptoms would get better on their own she went for a road trip a few days later and driving aggravaged her symptoms and she began noticing a considerable amount of swelling in her right thigh region. At one point she measured her thight and it was 2 more in diameter than the left thigh. She began noticing a weakness in her right foot and she notes she was expereincing drop foot. This caused her to fall approximately 3 times in the next month. SHe began noticing low back pain around that time and this low back pain began limiting her activity level. It became difficult for Sophia to do her abdominal work out as crunches bothered her back. She is trying to keep up her activity level but she reports she is sore after a long walk or hike and the next day she has to rest. Treatment Goals Patient/Caregiver Goals Sophia's goals include being able to return to a core strengthening program with out pain and decreasing her LBP and hamstring pain Prior Functional Status Baseline Function- Recreation/Hobbies no limitations Current Functional Impairments (Reported) Functional Limitations- Recreation/ walking and hiking increase Hobbies low back pain and hamstring pain limited in a core strengthening program due to pain PT-OP-C Subjective Start: 05/30/18 14:23 Freq: Status: Active Protocol: Document 06/28/18 13:11 [facility] (Rec: 06/28/18 13:16 [facility] [email or web address]) OP-PT Subjective Patient Comments Patient Comments Back was sore following the traction but then Sophia notes she did better the next day. Feeling overall better today but does not want to do traction today as she is having dinner guests and she does not want to be sore PT-OP-F Manual Assessment Start: 05/30/18 14:23 Freq: Status: Active Protocol: Document 05/30/18 11:24 [facility] (Rec: 05/31/18 11:58 [facility] [email or web address]) Manual Assessments Soft Tissue Assessment Soft Tissue Mobility Assessment atrophy noted of the right medial hamstring attachements as compared to the left, decreased lumbar flexion in standing Joint Mobility Assessment Joint Mobility Assessment + september test for SI instability on the left decreased left sacral nutation , pain with lumbar extension PT-OP-L Special Tests Start: 05/30/18 14:23 Freq: Status: Active Protocol: Document 05/31/18 11:58 [facility] (Rec: 05/31/18 11:59 [facility] [email or web address]) Special Tests Knee Special Tests Straight Leg Raise Comments 75 right with discomfort at the end range 70 left PT-OP-M Strength Start: 05/30/18 14:23 Freq: Status: Active Protocol: Document 05/30/18 11:24 [facility] (Rec: 05/31/18 11:58 [facility] [email or web address]) Trunk Strength Trunk Manual Muscle Testing Core Stabilization decreased core stabilization of the transverse abdominal musculature, + ASLR test B Hip Strength Hip Manual Muscle Testing Right Extension (S1) 4 Good External Rotation 4+ Good+ Knee Strength Knee Manual Muscle Testing Right Flexion (S2) 3+ Fair+ Ankle/Foot Strength Ankle and Foot Manual Muscle Testing Right Dorsiflexion (L4) 4+ Good+ PT-OP-Q Treatments Start: 05/30/18 14:23 Freq: Status: Active Protocol: Document 06/28/18 13:11 [facility] (Rec: 06/28/18 13:16 [facility] [email or web address]) Manual Therapy Treatment Soft Tissue Mobilization 3 Body Location piriformis release bilaterally 2 Body Location prone over body pillow STM to the low back paraspinals and sacral region Joint Mobilizations 1 Joint sacral mobilizations nutation/ counternutation PT-OP-R Modalities Start: 06/05/18 11:56 Freq: Status: Active Protocol: Document 06/28/18 13:11 [facility] (Rec: 06/28/18 13:16 [facility] [email or web address]) Ultrasound Therapy Treatment Left Back Treatment Duration (minutes) 8 Patient Position Prone Coupling Medium Ultrasound Gel Applicator Size (cm2) 5 Frequency Setting (mHz) 1 Mode Setting Continuous Intensity Setting (w/cm2) 1.5 PT-OP-T Assessment and Plan Start: 05/30/18 14:23 Freq: Status: Active Protocol: Document 06/28/18 13:11 [facility] (Rec: 06/28/18 13:16 [facility] [email or web address]) Physical Therapy Assessment Assessment Summary Assessment decreased lumbar tightness today. Will do a trial of ther ex and lumbar traction again next visit Physical Therapy Plan Frequency and Duration Frequency of Treatment 2x/Week Duration of Treatment 8 weeks Plan of Care Start Date 05/30/18 Plan of Care End Date 07/25/18 Therapeutic Interventions Therapeutic Interventions Home Exercise Program Joint Mobilizations Manual Therapy Neuromuscular Re-education Patient/Caregiver Education Self-Care/Home Management Soft Tissue Mobilization Therapeutic Exercises Next Visit Focus/Plan Next Note Type Treatment Note Next Visit Plan possible trial of lumbar traction again next visit, continue with gently stabilizing the spine avoiding increased extension
--- NOTE | 2018-07-05 16:23 | PT.OTN ---
Current Diagnoses Low back pain (07/05/18) Physical Therapy Treatment Note PT-OP-A Visit Information Start: 05/30/18 14:23 Freq: Status: Active Protocol: Document 06/21/18 11:36 [facility] (Rec: 06/21/18 11:42 [facility] [email or web address]) Out-Patient Physical Therapy Visit Information Visit Information Visit Type Treatment Note Visit Start Time 10:30 Visit Stop Time 11:15 Total Visit Minutes 45 Visit Number 5 PT-OP-B Current Condition Start: 05/30/18 14:23 Freq: Status: Active Protocol: Document 05/30/18 11:24 [facility] (Rec: 05/31/18 11:58 [facility] [email or web address]) Current Condition History of Current Condition Onset Date February 2017 Current Complaints c/o distal hamstring pain and LBP since injury in February2017 History of Current Condition Sophia describes c/o right sided hamstring pain and pain across the low back since a Injury in 2016 in which she was shaving her legs in the shower and slipped falling on her right side in the tub. She heard a audible pop and felt immediate pain into her hamstrings on the right side. Thinking symptoms would get better on their own she went for a road trip a few days later and driving aggravaged her symptoms and she began noticing a considerable amount of swelling in her right thigh region. At one point she measured her thight and it was 2 more in diameter than the left thigh. She began noticing a weakness in her right foot and she notes she was expereincing drop foot. This caused her to fall approximately 3 times in the next month. SHe began noticing low back pain around that time and this low back pain began limiting her activity level. It became difficult for Sophia to do her abdominal work out as crunches bothered her back. She is trying to keep up her activity level but she reports she is sore after a long walk or hike and the next day she has to rest. Treatment Goals Patient/Caregiver Goals Sophia's goals include being able to return to a core strengthening program with out pain and decreasing her LBP and hamstring pain Prior Functional Status Baseline Function- Recreation/Hobbies no limitations Current Functional Impairments (Reported) Functional Limitations- Recreation/ walking and hiking increase Hobbies low back pain and hamstring pain limited in a core strengthening program due to pain PT-OP-C Subjective Start: 05/30/18 14:23 Freq: Status: Active Protocol: Document 07/05/18 16:17 [facility] (Rec: 07/05/18 16:23 [facility] [email or web address]) OP-PT Subjective Patient Comments Patient Comments Sophia reports she tolerated last visit well and has been trying to do her exercises but then she had a massage and her pelvis was worked on. She felt pain afterward for the past 3 days. The hamstring is better overall but the low back is still up and down Patient Reported Progress Same PT-OP-F Manual Assessment Start: 05/30/18 14:23 Freq: Status: Active Protocol: Document 05/30/18 11:24 [facility] (Rec: 05/31/18 11:58 [facility] [email or web address]) Manual Assessments Soft Tissue Assessment Soft Tissue Mobility Assessment atrophy noted of the right medial hamstring attachements as compared to the left, decreased lumbar flexion in standing Joint Mobility Assessment Joint Mobility Assessment + september test for SI instability on the left decreased left sacral nutation , pain with lumbar extension PT-OP-L Special Tests Start: 05/30/18 14:23 Freq: Status: Active Protocol: Document 05/31/18 11:58 [facility] (Rec: 05/31/18 11:59 [facility] [email or web address]) Special Tests Knee Special Tests Straight Leg Raise Comments 75 right with discomfort at the end range 70 left PT-OP-M Strength Start: 05/30/18 14:23 Freq: Status: Active Protocol: Document 05/30/18 11:24 [facility] (Rec: 05/31/18 11:58 [facility] [email or web address]) Trunk Strength Trunk Manual Muscle Testing Core Stabilization decreased core stabilization of the transverse abdominal musculature, + ASLR test B Hip Strength Hip Manual Muscle Testing Right Extension (S1) 4 Good External Rotation 4+ Good+ Knee Strength Knee Manual Muscle Testing Right Flexion (S2) 3+ Fair+ Ankle/Foot Strength Ankle and Foot Manual Muscle Testing Right Dorsiflexion (L4) 4+ Good+ PT-OP-Q Treatments Start: 05/30/18 14:23 Freq: Status: Active Protocol: Document 07/05/18 16:17 [facility] (Rec: 07/05/18 16:23 [facility] [email or web address]) Manual Therapy Treatment Soft Tissue Mobilization 3 Body Location piriformis release bilaterally 2 Body Location prone over body pillow STM to the low back paraspinals and sacral region Joint Mobilizations 1 Joint sacral mobilizations nutation/ counternutation Manual Techniques 1 Type manual piriformis stretch, hip ER Body Position Prone PT-OP-R Modalities Start: 06/05/18 11:56 Freq: Status: Active Protocol: Document 07/05/18 16:17 [facility] (Rec: 07/05/18 16:23 [facility] [email or web address]) Ultrasound Therapy Treatment Left Back Treatment Duration (minutes) 8 Patient Position Prone Coupling Medium Ultrasound Gel Applicator Size (cm2) 5 Frequency Setting (mHz) 1 Mode Setting Continuous Intensity Setting (w/cm2) 1.5 PT-OP-T Assessment and Plan Start: 05/30/18 14:23 Freq: Status: Active Protocol: Document 07/05/18 16:17 [facility] (Rec: 07/05/18 16:23 [facility] [email or web address]) Physical Therapy Assessment Assessment Summary Assessment Muscle tightness seemed less today but she reports she was sore the past 3 days. Sophia can tolerate any flexion exercises but not tolerating anything that puts her into extension. The hamstring is doing better overall with decreased swelling. I did put a call in to Dr. Hinkle for possible X-ray Physical Therapy Plan Frequency and Duration Frequency of Treatment 2x/Week Duration of Treatment 8 weeks Plan of Care Start Date 05/30/18 Plan of Care End Date 07/25/18 Therapeutic Interventions Therapeutic Interventions Home Exercise Program Joint Mobilizations Manual Therapy Neuromuscular Re-education Patient/Caregiver Education Self-Care/Home Management Soft Tissue Mobilization Therapeutic Exercises Next Visit Focus/Plan Next Note Type Progress Note Next Visit Plan possible trial of lumbar traction again next visit, continue with gently stabilizing the spine avoiding increased extension
--- NOTE | 2018-07-19 12:07 | PT.OTN ---
Current Diagnoses Low back pain (07/19/18) Physical Therapy Treatment Note PT-OP-A Visit Information Start: 05/30/18 14:23 Freq: Status: Active Protocol: Document 07/19/18 11:54 [facility] (Rec: 07/19/18 12:07 [facility] [email or web address]) Out-Patient Physical Therapy Visit Information Visit Information Visit Type Progress Note Visit Start Time 09:00 Visit Stop Time 09:45 Total Visit Minutes 45 Visit Number 6 Evaluation Information Evaluation Date 05/30/18 PT-OP-B Current Condition Start: 05/30/18 14:23 Freq: Status: Active Protocol: Document 07/19/18 11:54 [facility] (Rec: 07/19/18 12:07 [facility] [email or web address]) Current Condition History of Current Condition Onset Date February 2017 Current Complaints c/o distal hamstring pain and LBP since injury in February2017 History of Current Condition Sophia describes c/o right sided hamstring pain and pain across the low back since a Injury in 2016 in which she was shaving her legs in the shower and slipped falling on her right side in the tub. She heard a audible pop and felt immediate pain into her hamstrings on the right side. Thinking symptoms would get better on their own she went for a road trip a few days later and driving aggravaged her symptoms and she began noticing a considerable amount of swelling in her right thigh region. At one point she measured her thight and it was 2 more in diameter than the left thigh. She began noticing a weakness in her right foot and she notes she was expereincing drop foot. This caused her to fall approximately 3 times in the next month. SHe began noticing low back pain around that time and this low back pain began limiting her activity level. It became difficult for Sophia to do her abdominal work out as crunches bothered her back. She is trying to keep up her activity level but she reports she is sore after a long walk or hike and the next day she has to rest. Future Testing and Treatments Planned x-ray taken 07/06/19 PT-OP-C Subjective Start: 05/30/18 14:23 Freq: Status: Active Protocol: Document 07/19/18 11:54 [facility] (Rec: 07/19/18 12:07 [facility] [email or web address]) OP-PT Subjective Patient Comments Patient Comments Sophia states she has been really sore the past few days and has been staying in the hospital room with her mother as she had a hip replacement. She has noticed pain and coldness down the left leg from her back and she notes her back feels locked up. She reports PT and manual soft tissue work helps her back but as soon as she tries her exercises she flares up again. Patient Reported Progress Same PT-OP-F Manual Assessment Start: 05/30/18 14:23 Freq: Status: Active Protocol: Document 05/30/18 11:24 [facility] (Rec: 05/31/18 11:58 [facility] [email or web address]) Manual Assessments Soft Tissue Assessment Soft Tissue Mobility Assessment atrophy noted of the right medial hamstring attachements as compared to the left, decreased lumbar flexion in standing Joint Mobility Assessment Joint Mobility Assessment + september test for SI instability on the left decreased left sacral nutation , pain with lumbar extension PT-OP-L Special Tests Start: 05/30/18 14:23 Freq: Status: Active Protocol: Document 05/31/18 11:58 [facility] (Rec: 05/31/18 11:59 [facility] [email or web address]) Special Tests Knee Special Tests Straight Leg Raise Comments 75 right with discomfort at the end range 70 left PT-OP-M Strength Start: 05/30/18 14:23 Freq: Status: Active Protocol: Document 05/30/18 11:24 [facility] (Rec: 05/31/18 11:58 [facility] [email or web address]) Trunk Strength Trunk Manual Muscle Testing Core Stabilization decreased core stabilization of the transverse abdominal musculature, + ASLR test B Hip Strength Hip Manual Muscle Testing Right Extension (S1) 4 Good External Rotation 4+ Good+ Knee Strength Knee Manual Muscle Testing Right Flexion (S2) 3+ Fair+ Ankle/Foot Strength Ankle and Foot Manual Muscle Testing Right Dorsiflexion (L4) 4+ Good+ PT-OP-Q Treatments Start: 05/30/18 14:23 Freq: Status: Active Protocol: Document 07/19/18 11:54 [facility] (Rec: 07/19/18 12:07 [facility] [email or web address]) Manual Therapy Treatment Soft Tissue Mobilization 2 Body Location prone over body pillow STM to the low back paraspinals and sacral region Mobilization Type Myofascial Release Comments soft tissue massage to the low back and sacral region, piriformis and gluteals Joint Mobilizations 1 Joint sacral mobilizations nutation/ counternutation Manual Techniques 1 Type manual piriformis stretch, hip ER Body Position Prone Self-Care/Home Management Treatment Education Patient Education Body Mechanics Home Exercise Program Posture Other Education education on avoiding lumbar extension as this aggravates her symptoms PT-OP-R Modalities Start: 06/05/18 11:56 Freq: Status: Active Protocol: Document 07/05/18 16:17 [facility] (Rec: 07/05/18 16:23 [facility] [email or web address]) Ultrasound Therapy Treatment Left Back Treatment Duration (minutes) 8 Patient Position Prone Coupling Medium Ultrasound Gel Applicator Size (cm2) 5 Frequency Setting (mHz) 1 Mode Setting Continuous Intensity Setting (w/cm2) 1.5 PT-OP-T Assessment and Plan Start: 05/30/18 14:23 Freq: Status: Active Protocol: Document 07/19/18 11:54 [facility] (Rec: 07/19/18 12:07 [facility] [email or web address]) Physical Therapy Assessment Impairments Impairments Activity Tolerance Functional Mobility Pain ROM Soft Tissue Mobility Strength Progress Towards Goals Progress Towards Goals Slow Progress due to Activity Tolerance Assessment Summary Assessment Sophia has been seen in PT since May 30. She is continuing to experience low back and sacral pain. Her hamstring pain appears better but as her back flares up this tends to aggravate her hamstring as well. She responds well to soft tissue release of the lumbar paraspinals and gluteals however is not tolerating any exercise. We have been very cautious with her exercise program but she flares up with even gentle exercises. She likes to hike and walk and she has been very limited in this due to pain the next day in her back. I feel at this point she may benefit from a referral to a specialist for further work up. Kalie would like to continue PT over this next month for continued short term relief while she awaits her referral. Thank you and please feel free to call with any questions. Physical Therapy Plan Frequency and Duration Frequency of Treatment 2x/Week Duration of Treatment 6 weeks Plan of Care Start Date 07/19/18 Plan of Care End Date 08/30/18 Therapeutic Interventions Therapeutic Interventions Home Exercise Program Joint Mobilizations Manual Therapy Neuromuscular Re-education Patient/Caregiver Education Self-Care/Home Management Soft Tissue Mobilization Therapeutic Exercises Next Visit Focus/Plan Next Note Type Treatment Note Next Visit Plan possible trial of lumbar traction again next visit, continue with gently stabilizing the spine avoiding increased extension
--- NOTE | 2018-07-19 12:09 | PT.OPPOC ---
Current Diagnoses Low back pain (07/19/18) Provider Visit Care Team Role Provider Type Clare Hinkle MD Attending Provider Physician Primary Care Provider Specialty: Family Practice Address: [address] [place] [address], [id number] Email: Plan Of Care PT-OP-T Assessment and Plan Start: 05/30/18 14:23 Freq: Status: Active Protocol: Document 07/19/18 11:54 [facility] (Rec: 07/19/18 12:07 [facility] [email or web address]) Physical Therapy Assessment Impairments Impairments Activity Tolerance Functional Mobility Pain ROM Soft Tissue Mobility Strength Progress Towards Goals Progress Towards Goals Slow Progress due to Activity Tolerance Assessment Summary Assessment Sophia has been seen in PT since May 30. She is continuing to experience low back and sacral pain. Her hamstring pain appears better but as her back flares up this tends to aggravate her hamstring as well. She responds well to soft tissue release of the lumbar paraspinals and gluteals however is not tolerating any exercise. We have been very cautious with her exercise program but she flares up with even gentle exercises. She likes to hike and walk and she has been very limited in this due to pain the next day in her back. I feel at this point she may benefit from a referral to a specialist for further work up. Kalie would like to continue PT over this next month for continued short term relief while she awaits her referral. Thank you and please feel free to call with any questions. Physical Therapy Plan Frequency and Duration Frequency of Treatment 2x/Week Duration of Treatment 6 weeks Plan of Care Start Date 07/19/18 Plan of Care End Date 08/30/18 Therapeutic Interventions Therapeutic Interventions Home Exercise Program Joint Mobilizations Manual Therapy Neuromuscular Re-education Patient/Caregiver Education Self-Care/Home Management Soft Tissue Mobilization Therapeutic Exercises Next Visit Focus/Plan Next Note Type Treatment Note Next Visit Plan possible trial of lumbar traction again next visit, continue with gently stabilizing the spine avoiding increased extension Plan of Care Dates Plan of Care Start Date 07/19/18 Plan of Care End Date 08/30/18 Please Sign and Return: I have reviewed this Plan of Care and certify that the skilled therapy services above are required to meet the patient?s needs. Physician Signature Date Printed Name and Credentials Clinical Instructor Signature Printed Name and Credentials
--- NOTE | 2018-07-26 10:38 | PT.OTN ---
Current Diagnoses Low back pain (07/26/18) Physical Therapy Treatment Note PT-OP-A Visit Information Start: 05/30/18 14:23 Freq: Status: Active Protocol: Document 07/26/18 10:32 [facility] (Rec: 07/26/18 10:37 [facility] [email or web address]) Out-Patient Physical Therapy Visit Information Visit Information Visit Type Treatment Note Visit Start Time 09:00 Visit Stop Time 09:45 Total Visit Minutes 45 Visit Number 7 Evaluation Information Evaluation Date 05/30/18 PT-OP-B Current Condition Start: 05/30/18 14:23 Freq: Status: Active Protocol: Document 07/19/18 11:54 [facility] (Rec: 07/19/18 12:07 [facility] [email or web address]) Current Condition History of Current Condition Onset Date February 2017 Current Complaints c/o distal hamstring pain and LBP since injury in February2017 History of Current Condition Sophia describes c/o right sided hamstring pain and pain across the low back since a Injury in 2016 in which she was shaving her legs in the shower and slipped falling on her right side in the tub. She heard a audible pop and felt immediate pain into her hamstrings on the right side. Thinking symptoms would get better on their own she went for a road trip a few days later and driving aggravaged her symptoms and she began noticing a considerable amount of swelling in her right thigh region. At one point she measured her thight and it was 2 more in diameter than the left thigh. She began noticing a weakness in her right foot and she notes she was expereincing drop foot. This caused her to fall approximately 3 times in the next month. SHe began noticing low back pain around that time and this low back pain began limiting her activity level. It became difficult for Sophia to do her abdominal work out as crunches bothered her back. She is trying to keep up her activity level but she reports she is sore after a long walk or hike and the next day she has to rest. Future Testing and Treatments Planned x-ray taken 07/06/19 PT-OP-C Subjective Start: 05/30/18 14:23 Freq: Status: Active Protocol: Document 07/26/18 10:32 [facility] (Rec: 07/26/18 10:37 [facility] [email or web address]) OP-PT Subjective Patient Comments Patient Comments Sophia reports she has a MRI scheduled for Monday. She reports she is feeling better overall this week PT-OP-F Manual Assessment Start: 05/30/18 14:23 Freq: Status: Active Protocol: Document 05/30/18 11:24 [facility] (Rec: 05/31/18 11:58 [facility] [email or web address]) Manual Assessments Soft Tissue Assessment Soft Tissue Mobility Assessment atrophy noted of the right medial hamstring attachements as compared to the left, decreased lumbar flexion in standing Joint Mobility Assessment Joint Mobility Assessment + september test for SI instability on the left decreased left sacral nutation , pain with lumbar extension PT-OP-L Special Tests Start: 05/30/18 14:23 Freq: Status: Active Protocol: Document 07/19/18 12:08 [facility] (Rec: 07/19/18 12:09 [facility] [email or web address]) Special Tests Knee Special Tests Straight Leg Raise Comments 80 degrees bilaterally PT-OP-M Strength Start: 05/30/18 14:23 Freq: Status: Active Protocol: Document 05/30/18 11:24 [facility] (Rec: 05/31/18 11:58 [facility] [email or web address]) Trunk Strength Trunk Manual Muscle Testing Core Stabilization decreased core stabilization of the transverse abdominal musculature, + ASLR test B Hip Strength Hip Manual Muscle Testing Right Extension (S1) 4 Good External Rotation 4+ Good+ Knee Strength Knee Manual Muscle Testing Right Flexion (S2) 3+ Fair+ Ankle/Foot Strength Ankle and Foot Manual Muscle Testing Right Dorsiflexion (L4) 4+ Good+ PT-OP-Q Treatments Start: 05/30/18 14:23 Freq: Status: Active Protocol: Document 07/26/18 10:32 [facility] (Rec: 07/26/18 10:37 [facility] [email or web address]) Therapeutic Exercises Supine Exercises 5 Supine Exercise Name seated forward bend 4 Supine Exercise Name piriformis stretch 2 Supine Exercise Name hamstring stretch with strap 1 Supine Exercise Name foam roll stretch Comments vertical and horizontal roll placement Manual Therapy Treatment Soft Tissue Mobilization 2 Body Location prone over body pillow STM to the low back paraspinals and sacral region Mobilization Type Myofascial Release Comments soft tissue massage to the thoracic and low back region Joint Mobilizations 2 Joint thoracic spinal mobilizations Grade II Body Position Prone PT-OP-R Modalities Start: 06/05/18 11:56 Freq: Status: Active Protocol: Document 07/05/18 16:17 [facility] (Rec: 07/05/18 16:23 [facility] [email or web address]) Ultrasound Therapy Treatment Left Back Treatment Duration (minutes) 8 Patient Position Prone Coupling Medium Ultrasound Gel Applicator Size (cm2) 5 Frequency Setting (mHz) 1 Mode Setting Continuous Intensity Setting (w/cm2) 1.5 PT-OP-T Assessment and Plan Start: 05/30/18 14:23 Freq: Status: Active Protocol: Document 07/26/18 10:32 [facility] (Rec: 07/26/18 10:37 [facility] [email or web address]) Physical Therapy Assessment Assessment Summary Assessment Low bakc pain has calmed down from where it was last visit. Trial of foam roll stretching today and gentle thoracic mobilizations. PT to have MRI sat Physical Therapy Plan Frequency and Duration Frequency of Treatment 2x/Week Duration of Treatment 6 weeks Plan of Care Start Date 07/19/18 Plan of Care End Date 08/30/18 Therapeutic Interventions Therapeutic Interventions Home Exercise Program Joint Mobilizations Manual Therapy Neuromuscular Re-education Patient/Caregiver Education Self-Care/Home Management Soft Tissue Mobilization Therapeutic Exercises Next Visit Focus/Plan Next Note Type Treatment Note Next Visit Plan continue working on muscle relaxation, gentle stretching and pain relief
--- NOTE | 2018-08-02 11:58 | PT.OTN ---
Current Diagnoses Low back pain (08/02/18) Physical Therapy Treatment Note PT-OP-A Visit Information Start: 05/30/18 14:23 Freq: Status: Active Protocol: Document 08/02/18 11:47 [facility] (Rec: 08/02/18 11:58 [facility] [email or web address] Out-Patient Physical Therapy Visit Information Visit Information Visit Type Treatment Note Visit Start Time 09:00 Visit Stop Time 09:35 Total Visit Minutes 35 Visit Number 8 Evaluation Information Evaluation Date 05/30/18 PT-OP-B Current Condition Start: 05/30/18 14:23 Freq: Status: Active Protocol: Document 07/19/18 11:54 [facility] (Rec: 07/19/18 12:07 [facility] [email or web address]) Current Condition History of Current Condition Onset Date February 2017 Current Complaints c/o distal hamstring pain and LBP since injury in February2017 History of Current Condition Sophia describes c/o right sided hamstring pain and pain across the low back since a Injury in 2016 in which she was shaving her legs in the shower and slipped falling on her right side in the tub. She heard a audible pop and felt immediate pain into her hamstrings on the right side. Thinking symptoms would get better on their own she went for a road trip a few days later and driving aggravaged her symptoms and she began noticing a considerable amount of swelling in her right thigh region. At one point she measured her thight and it was 2 more in diameter than the left thigh. She began noticing a weakness in her right foot and she notes she was expereincing drop foot. This caused her to fall approximately 3 times in the next month. SHe began noticing low back pain around that time and this low back pain began limiting her activity level. It became difficult for Sophia to do her abdominal work out as crunches bothered her back. She is trying to keep up her activity level but she reports she is sore after a long walk or hike and the next day she has to rest. Future Testing and Treatments Planned x-ray taken 07/06/19 PT-OP-C Subjective Start: 05/30/18 14:23 Freq: Status: Active Protocol: Document 08/02/18 11:47 [facility] (Rec: 08/02/18 11:58 [facility] [email or web address]) OP-PT Subjective Patient Comments Patient Comments Sophia reports she saw Dr. Hinkle last week and was given Meloxicam. This has helped a great deal and her back is not hurting today. She has been very busy helping her mother recover from a broken hip so needs to cx her next visit. She is then leaving for [place] so this may be her last visit for awhile PT-OP-F Manual Assessment Start: 05/30/18 14:23 Freq: Status: Active Protocol: Document 05/30/18 11:24 [facility] (Rec: 05/31/18 11:58 [facility] [email or web address]) Manual Assessments Soft Tissue Assessment Soft Tissue Mobility Assessment atrophy noted of the right medial hamstring attachements as compared to the left, decreased lumbar flexion in standing Joint Mobility Assessment Joint Mobility Assessment + september test for SI instability on the left decreased left sacral nutation , pain with lumbar extension PT-OP-L Special Tests Start: 05/30/18 14:23 Freq: Status: Active Protocol: Document 07/19/18 12:08 [facility] (Rec: 07/19/18 12:09 [facility] [email or web address]) Special Tests Knee Special Tests Straight Leg Raise Comments 80 degrees bilaterally PT-OP-M Strength Start: 05/30/18 14:23 Freq: Status: Active Protocol: Document 05/30/18 11:24 [facility] (Rec: 05/31/18 11:58 [facility] [email or web address]) Trunk Strength Trunk Manual Muscle Testing Core Stabilization decreased core stabilization of the transverse abdominal musculature, + ASLR test B Hip Strength Hip Manual Muscle Testing Right Extension (S1) 4 Good External Rotation 4+ Good+ Knee Strength Knee Manual Muscle Testing Right Flexion (S2) 3+ Fair+ Ankle/Foot Strength Ankle and Foot Manual Muscle Testing Right Dorsiflexion (L4) 4+ Good+ PT-OP-Q Treatments Start: 05/30/18 14:23 Freq: Status: Active Protocol: Document 08/02/18 11:47 [facility] (Rec: 08/02/18 11:58 [facility] [email or web address]) Manual Therapy Treatment Soft Tissue Mobilization 3 Body Location piriformis release bilaterally 2 Body Location prone over body pillow STM to the low back paraspinals and sacral region Mobilization Type Myofascial Release Comments soft tissue massage to the thoracic and low back region 1 Body Location right medial hamstring distal insertion Body Position Prone Joint Mobilizations 2 Joint thoracic spinal mobilizations Grade II Body Position Prone 1 Joint sacral mobilizations nutation/ counternutation Manual Techniques 1 Type manual piriformis stretch, hip ER Body Position Prone PT-OP-R Modalities Start: 06/05/18 11:56 Freq: Status: Active Protocol: Document 07/05/18 16:17 [facility] (Rec: 07/05/18 16:23 [facility] [email or web address]) Ultrasound Therapy Treatment Left Back Treatment Duration (minutes) 8 Patient Position Prone Coupling Medium Ultrasound Gel Applicator Size (cm2) 5 Frequency Setting (mHz) 1 Mode Setting Continuous Intensity Setting (w/cm2) 1.5 PT-OP-T Assessment and Plan Start: 05/30/18 14:23 Freq: Status: Active Protocol: Document 08/02/18 11:47 [facility] (Rec: 08/02/18 11:58 [facility] [email or web address]) Physical Therapy Assessment Assessment Summary Assessment pain levels decreased with anti-infamatory on board. Will review MRI results with Physical Therapy Plan Next Visit Focus/Plan Next Note Type Treatment Note Next Visit Plan continue working on muscle relaxation, gentle stretching and pain relief
--- NOTE | 2018-08-15 11:47 | PT.OPDS ---
Current Diagnoses Low back pain (08/02/18) Provider Visit Care Team Role Provider Type Clare Hinkle MD Attending Provider Physician Primary Care Provider Specialty: Family Practice Address: [address] [place] [address], [facility] Email: Visit Number Visit Number 8 Discharge Summary PT-OP-B Current Condition Start: 05/30/18 14:23 Freq: Status: Active Protocol: Document 07/19/18 11:54 [facility] (Rec: 07/19/18 12:07 AMH [email or web address]) Current Condition History of Current Condition Onset Date February 2017 Current Complaints c/o distal hamstring pain and LBP since injury in February2017 History of Current Condition Sohpia describes c/o right sided hamstring pain and pain across the low back since a Injury in 2016 in which she was shaving her legs in the shower and slipped falling on her right side in the tub. She heard a audible pop and felt immediate pain into her hamstrings on the right side. Thinking symptoms would get better on their own she went for a road trip a few days later and driving aggravaged her symptoms and she began noticing a considerable amount of swelling in her right thigh region. At one point she measured her thight and it was 2 more in diameter than the left thigh. She began noticing a weakness in her right foot and she notes she was expereincing drop foot. This caused her to fall approximately 3 times in the next month. SHe began noticing low back pain around that time and this low back pain began limiting her activity level. It became difficult for Sophia to do her abdominal work out as crunches bothered her back. She is trying to keep up her activity level but she reports she is sore after a long walk or hike and the next day she has to rest. Future Testing and Treatments Planned x-ray taken 07/06/19 PT-OP-C Subjective Start: 05/30/18 14:23 Freq: Status: Active Protocol: Document 08/02/18 11:47 AM[facility] (Rec: 08/02/18 11:58 AMH [email or web address]) OP-PT Subjective Patient Comments Patient Comments Sophia reports she saw Dr. Hinkle last week and was given Meloxicam. This has helped a great deal and her back is not hurting today. She has been very busy helping her mother recover from a broken hip so needs to cx her next visit. She is then leaving for [place] so this may be her last visit for awhile PT-OP-F Manual Assessment Start: 05/30/18 14:23 Freq: Status: Active Protocol: Document 05/30/18 11:24 AMH (Rec: 05/31/18 11:58 AMH [email or web address]) Manual Assessments Soft Tissue Assessment Soft Tissue Mobility Assessment atrophy noted of the right medial hamstring attachements as compared to the left, decreased lumbar flexion in standing Joint Mobility Assessment Joint Mobility Assessment + september test for SI instability on the left decreased left sacral nutation , pain with lumbar extension PT-OP-L Special Tests Start: 05/30/18 14:23 Freq: Status: Active Protocol: Document 07/19/18 12:08 AMH (Rec: 07/19/18 12:09 AMH [email or web address]) Special Tests Knee Special Tests Straight Leg Raise Comments 80 degrees bilaterally PT-OP-M Strength Start: 05/30/18 14:23 Freq: Status: Active Protocol: Document 05/30/18 11:24 AMH (Rec: 05/31/18 11:58 AMH [email or web address]) Trunk Strength Trunk Manual Muscle Testing Core Stabilization decreased core stabilization of the transverse abdominal musculature, + ASLR test B Hip Strength Hip Manual Muscle Testing Right Extension (S1) 4 Good External Rotation 4+ Good+ Knee Strength Knee Manual Muscle Testing Right Flexion (S2) 3+ Fair+ Ankle/Foot Strength Ankle and Foot Manual Muscle Testing Right Dorsiflexion (L4) 4+ Good+ PT-OP-T Assessment and Plan Start: 05/30/18 14:23 Freq: Status: Active Protocol: Document 08/15/18 11:45 AMH (Rec: 08/15/18 11:46 AMH [email or web address]) Physical Therapy Assessment Assessment Summary Assessment per conversation with Kalie she is doing better and she will hold off on PT at this time as she is headed out of town soon for [place] Physical Therapy Plan Discharge Physical Therapy Discharge Reasons Patient Request
== END 2018-08-15 14:15 ==
LOC: PHYS 09:00
PROVIDERS: PCP Family Medicine; Visit Provider Family Medicine
DX: M54.5 Low back pain (principal)
CPT/HCPCS: 97035; 97110; 97140; 97161

== ENCOUNTER 2019-01-04 13:00 | Outpatient (RCR) | payer MEDICARE, OTHER, SELFPAY ==
--- NOTE | 2018-11-15 17:57 | PT.OIE ---
Current Diagnoses Strain of muscle, fascia and tendon of the posterior muscle group at thigh level, unspecified thigh, initial encounter (11/15/18) Provider Visit Care Team Role Provider Type Clare Hinkle MD Primary Care Provider Physician Specialty: Family Practice Address: [address] [place] [address], [id number] Email: Jhonatan Asencio DO Attending Provider Physician Specialty: Physiatry Pain Management Address: [address] [place] [address], [id number] Email: Physical Therapy Initial Evaluation PT-OP-A Visit Information Start: 11/15/18 12:49 Freq: Status: Active Protocol: Document 11/15/18 12:05 HH (Rec: 11/15/18 13:03 [email or web address]) Out-Patient Physical Therapy Visit Information Visit Information Visit Type Initial Evaluation Visit Start Time 12:05 Visit Stop Time 12:50 Total Visit Minutes 45 Visit Number 1 Number of PIECE HAND Visits 0 Evaluation Information Evaluation Date 11/15/18 PT-OP-B Current Condition Start: 11/15/18 12:49 Freq: Status: Active Protocol: Document 11/15/18 12:05 (Rec: 11/15/18 13:03 [email or web address]) Current Condition History of Current Condition Onset Date February 2017 Current Complaints R distal hamstring weakness, limited activity tolerance History of Current Condition Pt had a partial hamstring tear in Feb, 2017 after a fall in the tub. Pt went throught outpatient rehab from May, 2018 to Jul, 2018 with good progress. Pt denies hamstring pain at this point but she went to see Dr. Asencio last week and had ultrasound screening. Result showed there is still scarring at lateral hamstring tissue. Dr. Asencio referred her to outpatient PT with a prescription of eccentric hamstring strengthening. Pt's current only c/o is R LE weakness and some achy / soreness sensation with hiking or after a long walk. Pt also stated she had difficult time picking up her R LE over curbs and kick her R ankle back at seated position sometimes. Prior Treatments and Tests Ultrasound screen with Dr. Asencio from last week which show poor healing process at R lateral hamstring Prior outpatient rehab at for LBP and hamstring strengthening and flexibility training. Treatment Goals Patient/Caregiver Goals 1. To be able to constantly clear off curbs/ obstacles safely 2. To be able to tolerate long walk and hike without soreness/ pain sensation 3. To strengthen her lower back and hamstring. Current Functional Impairments (Reported) Functional Limitations- Mobility/Gait prolonged walking and hiking increase hamstring discomfort and soreness Functional Limitations- Recreation/ prolonged walking and hiking Hobbies increase hamstring discomfort and soreness PT-OP-C Subjective Start: 11/15/18 12:49 Freq: Status: Active Protocol: Document 11/15/18 12:05 (Rec: 11/15/18 13:03 [email or web address]) OP-PT Subjective Patient Comments Patient Comments My hamstring feels pretty good but there is still noticeable weakness. Patient Questionnaires Lower Extremity Functional Scale LEFS Score 71 LEFS Impairment 1 to 19% Impaired (Score 63-79 ) OP-PT Pain Assessment Location R hamstring Intensity 2 Scale Used Numeric (1 - 10) Description Aching Dull Frequency Frequent Pain Aggravating Factors Exercise Walking Pain Alleviating Factors Inactivity Massage PT-OP-F Manual Assessment Start: 11/15/18 12:49 Freq: Status: Active Protocol: Document 11/15/18 12:05 (Rec: 11/15/18 13:22 [email or web address]) Manual Assessments Soft Tissue Assessment Soft Tissue Mobility Assessment Moderate tenderness with pressure at R lateral distal hamstring mild atrophy noted of B distal hamstring PT-OP-K Range of Motion Start: 11/15/18 12:49 Freq: Status: Active Protocol: Document 11/15/18 12:05 (Rec: 11/15/18 13:22 [email or web address]) Knee Goniometric Range of Motion Knee Measured in Degrees Right Knee ROM WFL Yes Patient Position Supine Flexion Active (degrees) 127 Flexion Passive (degrees) 135 Extension Active (degrees) 0 Extension Passive (degrees) 0 Left Knee ROM WFL Yes Patient Position Supine Flexion Active (degrees) 135 Flexion Passive (degrees) 145 Extension Passive (degrees) 0 Knee ROM Limitations Knee ROM Limitations Soft Tissue Tightness Muscle Weakness Pain Comments Pain reproduced during resisted R knee active flexion from 60degrees to end range pain reproduced during R TKE PT-OP-L Special Tests Start: 11/15/18 12:49 Freq: Status: Active Protocol: Document 11/15/18 12:05 (Rec: 11/15/18 13:22 [email or web address]) Special Tests Hip Special Tests Mihai Test Results +Ve Comments R thigh non paralle to table Knee Special Tests Straight Leg Raise Comments discomfort with pain at 80 degrees on RLE stretching sensation only at L LE PT-OP-M Strength Start: 11/15/18 12:49 Freq: Status: Active Protocol: Document 11/15/18 12:05 (Rec: 11/15/18 13:22 [email or web address]) Hip Strength Hip Manual Muscle Testing Right Flexion (L2) 4+ Good+ Extension (S1) 4- Good- Abduction 4 Good Adduction 4+ Good+ Left Flexion (L2) 4+ Good+ Extension (S1) 4+ Good+ Abduction 4+ Good+ Adduction 4+ Good+ Knee Strength Knee Manual Muscle Testing Right Flexion (S2) 4- Good- Extension (L3) 4 Good Comments pain reproduced during resisted R knee flexion and R TKE Left Flexion (S2) 4+ Good+ Extension (L3) 4+ Good+ PT-OP-Q Treatments Start: 11/15/18 12:49 Freq: Status: Active Protocol: Document 11/15/18 12:05 (Rec: 11/15/18 13:22 [email or web address]) Therapeutic Exercises Standing Exercises R lateral HS stretch Side right Reps/Minutes 5 mins Comments stagger stance with R foot turn in to bias R lateral hamstring R hip flexor stretch Side right Reps/Minutes 5 mins Comments foot on table Manual Therapy Treatment Soft Tissue Mobilization R lateral HS Mobilization Type Cross-Friction Myofascial Release Strumming Sustained Pressure Intensity/Depth Moderate Body Position Prone Comments with passive knee flexion and extension Manual Techniques MET Type knee flexion and extension Body Position Prone Reps/Duration 5 secs tempo Comments eccentric knee flexion on R PT-OP-T Assessment and Plan Start: 11/15/18 12:49 Freq: Status: Active Protocol: Document 11/15/18 12:05 (Rec: 11/15/18 13:22 [email or web address]) Physical Therapy Assessment Rehab Potential Rehabilitation Potential Excellent Evaluation Complexity Number of Personal Factors/Comorbidities 1-2 Number of Body Systems Impaired 1-2 Clinical Presentation at Evaluation Stable Impairments Impairments Activity Tolerance Functional Activities Functional Mobility Gait Pain ROM Soft Tissue Mobility Strength Goals HEP Impairment does not have a HS flexibility and strengthening home program Alf Goal (LTG) Pt will safely perform HEP independently with proper body mechanics to improve her overall HS flexibility and strength. LTG Duration 6 weeks Pain Impairment tenderness with pressure on HS and pain during active flexion Alf Goal (LTG) Decrease her overall discomfort and pain enabling pt to cont with her recreational activities such as prolonged walking/ hiking. LTG Duration 8 weeks Strength Impairment decreased knee flexor strength Alf Goal (LTG) Pt will increase 1 MMT on R knee flexor and extensor strength in order to perform seated heel slide with same ranged as L LE so she could reach for her stool at home without difficulty. LTG Duration 8 weeks LEFS Impairment pt scores LEFS at 71 (1-19% impairments) Alf Goal (LTG) Pt will be able to reach 0% impairment to improver overall quality of life, such as no difficulty with squatting and hiking. LTG Duration 8 weeks Assessment Summary Assessment Pt is low complexity with a partial hamstring tear from [address] Asencio referred pt to outpatient PT with a prescription of eccentric hamstring strengthening. Pt currently does not have any major functional limitation or significant ROM/ strength loss. However, pt c/o discomfort at R distal lateral hamstring during resisted R active knee flexion, R TKE. There's also noticeable R hip flexors tightness, along with slight muscle atrophy at R hamstring. Today's tx focused on manual therapy both quad and HS, isotonic (conc/ eccentric) knee flexion exercises and gave HEP with hip flexor and quad stretch along with lateral HS stretch in stagger stance position ( foot turn in). Pt will benefit from skilled physical therapy to improve her overall HS mobility, strength in order to improver her quality of life such as returning to running, hiking in pain free. Physical Therapy Plan Frequency and Duration Frequency of Treatment 2x/Week Duration of Treatment 8 weeks Plan of Care Start Date 11/15/18 Plan of Care End Date 01/15/19 Therapeutic Interventions Therapeutic Interventions Aquatic Therapy Balance Training Gait Training Home Exercise Program Joint Mobilizations Manual Therapy Neuromuscular Re-education Patient/Caregiver Education Self-Care/Home Management Soft Tissue Mobilization Taping Therapeutic Activities Therapeutic Exercises Modalities Cold Pack/Ice Massage Electric Stimulation Hot Packs Infrared Therapy Ultrasound Next Visit Focus/Plan Next Note Type Treatment Note Next Visit Plan reassess HEP HS flexibility training supine SAQ with hip 90 degrees toe in hamstring stretch machine knee extension RDL hip hinge
--- NOTE | 2018-11-15 17:57 | PT.OPPOC ---
Current Diagnoses Strain of muscle, fascia and tendon of the posterior muscle group at thigh level, unspecified thigh, initial encounter (11/15/18) Provider Visit Care Team Role Provider Type Clare Hinkle MD Primary Care Provider Physician Specialty: Family Practice Address: [address] [place] [address], [id number] Email: Jhonatan Asencio DO Attending Provider Physician Specialty: Physiatry Pain Management Address: [address] [place] [address], [id number] Email: Plan Of Care PT-OP-T Assessment and Plan Start: 11/15/18 12:49 Freq: Status: Active Protocol: Document 11/15/18 12:05 (Rec: 11/15/18 13:22 [email or web address]) Physical Therapy Assessment Rehab Potential Rehabilitation Potential Excellent Evaluation Complexity Number of Personal Factors/Comorbidities 1-2 Number of Body Systems Impaired 1-2 Clinical Presentation at Evaluation Stable Impairments Impairments Activity Tolerance Functional Activities Functional Mobility Gait Pain ROM Soft Tissue Mobility Strength Goals HEP Impairment does not have a HS flexibility and strengthening home program Group Home Goal (LTG) Pt will safely perform HEP independently with proper body mechanics to improve her overall HS flexibility and strength. LTG Duration 6 weeks Pain Impairment tenderness with pressure on HS and pain during active flexion Group Home Goal (LTG) Decrease her overall discomfort and pain enabling pt to cont with her recreational activities such as prolonged walking/ hiking. LTG Duration 8 weeks Strength Impairment decreased knee flexor strength Group Home Goal (LTG) Pt will increase 1 MMT on R knee flexor and extensor strength in order to perform seated heel slide with same ranged as L LE so she could reach for her stool at home without difficulty. LTG Duration 8 weeks LEFS Impairment pt scores LEFS at 71 (1-19% impairments) Group Home Goal (LTG) Pt will be able to reach 0% impairment to improver overall quality of life, such as no difficulty with squatting and hiking. LTG Duration 8 weeks Assessment Summary Assessment Pt is low complexity with a partial hamstring tear from [address] Asencio referred pt to outpatient PT with a prescription of eccentric hamstring strengthening. Pt currently does not have any major functional limitation or significant ROM/ strength loss. However, pt c/o discomfort at R distal lateral hamstring during resisted R active knee flexion, R TKE. There's also noticeable R hip flexors tightness, along with slight muscle atrophy at R hamstring. Today's tx focused on manual therapy both quad and HS, isotonic (conc/ eccentric) knee flexion exercises and gave HEP with hip flexor and quad stretch along with lateral HS stretch in stagger stance position ( foot turn in). Pt will benefit from skilled physical therapy to improve her overall HS mobility, strength in order to improver her quality of life such as returning to running, hiking in pain free. Physical Therapy Plan Frequency and Duration Frequency of Treatment 2x/Week Duration of Treatment 8 weeks Plan of Care Start Date 11/15/18 Plan of Care End Date 01/15/19 Therapeutic Interventions Therapeutic Interventions Aquatic Therapy Balance Training Gait Training Home Exercise Program Joint Mobilizations Manual Therapy Neuromuscular Re-education Patient/Caregiver Education Self-Care/Home Management Soft Tissue Mobilization Taping Therapeutic Activities Therapeutic Exercises Modalities Cold Pack/Ice Massage Electric Stimulation Hot Packs Infrared Therapy Ultrasound Next Visit Focus/Plan Next Note Type Treatment Note Next Visit Plan reassess HEP HS flexibility training supine SAQ with hip 90 degrees toe in hamstring stretch machine knee extension RDL hip hinge Plan of Care Dates Plan of Care Start Date 11/15/18 Plan of Care End Date 01/15/19 Please Sign and Return: I have reviewed this Plan of Care and certify that the skilled therapy services above are required to meet the patient?s needs. Physician Signature Date Printed Name and Credentials Clinical Instructor Signature Printed Name and Credentials
--- NOTE | 2018-11-20 14:41 | PT.OTN ---
Current Diagnoses Strain of muscle, fascia and tendon of the posterior muscle group at thigh level, unspecified thigh, initial encounter (11/20/18) Physical Therapy Treatment Note PT-OP-A Visit Information Start: 11/15/18 12:49 Freq: Status: Active Protocol: Document 11/20/18 13:45 DCW (Rec: 11/20/18 14:40 DCW [id number]) Out-Patient Physical Therapy Visit Information Visit Information Visit Type Treatment Note Visit Start Time 13:45 Visit Stop Time 14:30 Total Visit Minutes 45 Visit Number 2 Number of PIPELINER Visits 0 Evaluation Information Evaluation Date 11/15/18 PT-OP-B Current Condition Start: 11/15/18 12:49 Freq: Status: Active Protocol: Document 11/15/18 12:05 HH (Rec: 11/15/18 13:03 HH [email or web address]) Current Condition History of Current Condition Onset Date February 2017 Current Complaints R distal hamstring weakness, limited activity tolerance History of Current Condition Pt had a partial hamstring tear in Feb, 2017 after a fall in the tub. Pt went throught outpatient rehab from May, 2018 to Jul, 2018 with good progress. Pt denies hamstring pain at this point but she went to see Dr. Asencio last week and had ultrasound screening. Result showed there is still scarring at lateral hamstring tissue. Dr. Asencio referred her to outpatient PT with a prescription of eccentric hamstring strengthening. Pt's current only c/o is R LE weakness and some achy / soreness sensation with hiking or after a long walk. Pt also stated she had difficult time picking up her R LE over curbs and kick her R ankle back at seated position sometimes. Prior Treatments and Tests Ultrasound screen with Dr. Asencio from last week which show poor healing process at R lateral hamstring Prior outpatient rehab at for LBP and hamstring strengthening and flexibility training. Treatment Goals Patient/Caregiver Goals 1. To be able to constantly clear off curbs/ obstacles safely 2. To be able to tolerate long walk and hike without soreness/ pain sensation 3. To strengthen her lower back and hamstring. Current Functional Impairments (Reported) Functional Limitations- Mobility/Gait prolonged walking and hiking increase hamstring discomfort and soreness Functional Limitations- Recreation/ prolonged walking and hiking Hobbies increase hamstring discomfort and soreness PT-OP-C Subjective Start: 11/15/18 12:49 Freq: Status: Active Protocol: Document 11/20/18 13:45 DCW (Rec: 11/20/18 14:40 DCW [id number]) OP-PT Subjective Patient Comments Patient Comments My hamstring feels better, but my back has been worse. I really think they're pretty closely related. PT-OP-F Manual Assessment Start: 11/15/18 12:49 Freq: Status: Active Protocol: Document 11/15/18 12:05 (Rec: 11/15/18 13:22 [email or web address]) Manual Assessments Soft Tissue Assessment Soft Tissue Mobility Assessment Moderate tenderness with pressure at R lateral distal hamstring mild atrophy noted of B distal hamstring PT-OP-K Range of Motion Start: 11/15/18 12:49 Freq: Status: Active Protocol: Document 11/15/18 12:05 HH (Rec: 11/15/18 13:22 HH [email or web address]) Knee Goniometric Range of Motion Knee Measured in Degrees Right Knee ROM WFL Yes Patient Position Supine Flexion Active (degrees) 127 Flexion Passive (degrees) 135 Extension Active (degrees) 0 Extension Passive (degrees) 0 Left Knee ROM WFL Yes Patient Position Supine Flexion Active (degrees) 135 Flexion Passive (degrees) 145 Extension Passive (degrees) 0 Knee ROM Limitations Knee ROM Limitations Soft Tissue Tightness Muscle Weakness Pain Comments Pain reproduced during resisted R knee active flexion from 60degrees to end range pain reproduced during R TKE PT-OP-L Special Tests Start: 11/15/18 12:49 Freq: Status: Active Protocol: Document 11/15/18 12:05 (Rec: 11/15/18 13:22 [email or web address]) Special Tests Hip Special Tests Mihai Test Results +Ve Comments R thigh non paralle to table Knee Special Tests Straight Leg Raise Comments discomfort with pain at 80 degrees on RLE stretching sensation only at L LE PT-OP-M Strength Start: 11/15/18 12:49 Freq: Status: Active Protocol: Document 11/15/18 12:05 (Rec: 11/15/18 13:22 HH [email or web address]) Hip Strength Hip Manual Muscle Testing Right Flexion (L2) 4+ Good+ Extension (S1) 4- Good- Abduction 4 Good Adduction 4+ Good+ Left Flexion (L2) 4+ Good+ Extension (S1) 4+ Good+ Abduction 4+ Good+ Adduction 4+ Good+ Knee Strength Knee Manual Muscle Testing Right Flexion (S2) 4- Good- Extension (L3) 4 Good Comments pain reproduced during resisted R knee flexion and R TKE Left Flexion (S2) 4+ Good+ Extension (L3) 4+ Good+ PT-OP-Q Treatments Start: 11/15/18 12:49 Freq: Status: Active Protocol: Document 11/20/18 13:45 DCW (Rec: 11/20/18 14:40 DCW [id number]) Gym Equipment Therapeutic Ball Knee Flexion/Extension Exercise Details Knee Flexion/Ext /c feet on T- ball Ball Size/Color Blue - 45 cm Lv 2 T-band Body Position Supine Comments L concentric, B eccentric Therapeutic Exercises Supine Exercises 2 Supine Exercise Name Piriformis Stretch Side right Comments Manual 1 Supine Exercise Name Hamstring Stretch Side right Comments Manual Prone Exercises Hamstring Curls Prone Exercise Name Eccentric HS curls vs T-band resistance Side right Resistance Lv 3 Equipment Used T-band Sitting Exercises Hamstring Curl Sitting Exercise Name Eccentric HS curl Side right Resistance Lv 3 Equipment Used T-band Manual Therapy Treatment Soft Tissue Mobilization R lateral HS Mobilization Type Cross-Friction Myofascial Release Strumming Sustained Pressure Intensity/Depth Moderate Body Position Prone Comments with passive knee flexion and extension 2 Body Location STM to Lumbar paraspinals and sacral region Mobilization Type Myofascial Release Strumming Sustained Pressure Body Position Prone Manual Techniques MET Type knee flexion and extension Body Position Prone Reps/Duration 5 secs tempo Comments eccentric knee flexion on R PT-OP-T Assessment and Plan Start: 11/15/18 12:49 Freq: Status: Active Protocol: Document 11/20/18 13:45 DCW (Rec: 11/20/18 14:40 DCW [id number]) Physical Therapy Assessment Impairments Impairments Activity Tolerance Functional Activities Functional Mobility Gait Pain ROM Soft Tissue Mobility Strength Goals HEP Impairment does not have a HS flexibility and strengthening home program Fpc Goal (LTG) Pt will safely perform HEP independently with proper body mechanics to improve her overall HS flexibility and strength. LTG Duration 6 weeks Pain Impairment tenderness with pressure on HS and pain during active flexion Fpc Goal (LTG) Decrease her overall discomfort and pain enabling pt to cont with her recreational activities such as prolonged walking/ hiking. LTG Duration 8 weeks Strength Impairment decreased knee flexor strength Rivet Hole Machine Operator Goal (LTG) Pt will increase 1 MMT on R knee flexor and extensor strength in order to perform seated heel slide with same ranged as L LE so she could reach for her stool at home without difficulty. LTG Duration 8 weeks LEFS Impairment pt scores LEFS at 71 (1-19% impairments) Rivet Hole Machine Operator Goal (LTG) Pt will be able to reach 0% impairment to improver overall quality of life, such as no difficulty with squatting and hiking. LTG Duration 8 weeks Assessment Summary Assessment Pt very agreeable to work hard on her HEP, doing well with her stretching. Pt did complain of being completely unable to do anything after her last appointment due to fatigue. Therapist recommend ice following treatment, however pt had a meeting to get to. Physical Therapy Plan Frequency and Duration Frequency of Treatment 2x/Week Duration of Treatment 8 weeks Plan of Care Start Date 11/15/18 Plan of Care End Date 01/15/19 Therapeutic Interventions Therapeutic Interventions Aquatic Therapy Balance Training Gait Training Home Exercise Program Joint Mobilizations Manual Therapy Neuromuscular Re-education Patient/Caregiver Education Self-Care/Home Management Soft Tissue Mobilization Taping Therapeutic Activities Therapeutic Exercises Modalities Cold Pack/Ice Massage Electric Stimulation Hot Packs Infrared Therapy Ultrasound Next Visit Focus/Plan Next Note Type Treatment Note Next Visit Plan reassess HEP HS flexibility training supine SAQ with hip 90 degrees toe in hamstring stretch machine knee extension RDL hip hinge
--- NOTE | 2018-11-22 16:58 | PT.OTN ---
Current Diagnoses Strain of muscle, fascia and tendon of the posterior muscle group at thigh level, unspecified thigh, initial encounter (11/22/18) Physical Therapy Treatment Note PT-OP-A Visit Information Start: 11/15/18 12:49 Freq: Status: Active Protocol: Document 11/22/18 13:00 HH (Rec: 11/22/18 16:58 HH [email or web address]) Out-Patient Physical Therapy Visit Information Visit Information Visit Type Treatment Note Visit Start Time 13:00 Visit Stop Time 13:45 Total Visit Minutes 45 Visit Number 3 Number of PATTERN CHART WRITER Visits 0 PT-OP-B Current Condition Start: 11/15/18 12:49 Freq: Status: Active Protocol: Document 11/15/18 12:05 HH (Rec: 11/15/18 13:03 [email or web address]) Current Condition History of Current Condition Onset Date February 2017 Current Complaints R distal hamstring weakness, limited activity tolerance History of Current Condition Pt had a partial hamstring tear in Feb, 2017 after a fall in the tub. Pt went throught outpatient rehab from May, 2018 to Jul, 2018 with good progress. Pt denies hamstring pain at this point but she went to see Dr. Asencio last week and had ultrasound screening. Result showed there is still scarring at lateral hamstring tissue. Dr. Asencio referred her to outpatient PT with a prescription of eccentric hamstring strengthening. Pt's current only c/o is R LE weakness and some achy / soreness sensation with hiking or after a long walk. Pt also stated she had difficult time picking up her R LE over curbs and kick her R ankle back at seated position sometimes. Prior Treatments and Tests Ultrasound screen with Dr. Asencio from last week which show poor healing process at R lateral hamstring Prior outpatient rehab at for LBP and hamstring strengthening and flexibility training. Treatment Goals Patient/Caregiver Goals 1. To be able to constantly clear off curbs/ obstacles safely 2. To be able to tolerate long walk and hike without soreness/ pain sensation 3. To strengthen her lower back and hamstring. Current Functional Impairments (Reported) Functional Limitations- Mobility/Gait prolonged walking and hiking increase hamstring discomfort and soreness Functional Limitations- Recreation/ prolonged walking and hiking Hobbies increase hamstring discomfort and soreness PT-OP-C Subjective Start: 11/15/18 12:49 Freq: Status: Active Protocol: Document 11/22/18 13:00 (Rec: 11/22/18 16:58 [email or web address]) OP-PT Subjective Patient Comments Patient Comments My hamstring feels better, but my back has been worse. I really think they're pretty closely related. I like my eccentric exercises. PT-OP-F Manual Assessment Start: 11/15/18 12:49 Freq: Status: Active Protocol: Document 11/15/18 12:05 (Rec: 11/15/18 13:22 [email or web address]) Manual Assessments Soft Tissue Assessment Soft Tissue Mobility Assessment Moderate tenderness with pressure at R lateral distal hamstring mild atrophy noted of B distal hamstring PT-OP-K Range of Motion Start: 11/15/18 12:49 Freq: Status: Active Protocol: Document 11/15/18 12:05 (Rec: 11/15/18 13:22 [email or web address]) Knee Goniometric Range of Motion Knee Measured in Degrees Right Knee ROM WFL Yes Patient Position Supine Flexion Active (degrees) 127 Flexion Passive (degrees) 135 Extension Active (degrees) 0 Extension Passive (degrees) 0 Left Knee ROM WFL Yes Patient Position Supine Flexion Active (degrees) 135 Flexion Passive (degrees) 145 Extension Passive (degrees) 0 Knee ROM Limitations Knee ROM Limitations Soft Tissue Tightness Muscle Weakness Pain Comments Pain reproduced during resisted R knee active flexion from 60degrees to end range pain reproduced during R TKE PT-OP-L Special Tests Start: 11/15/18 12:49 Freq: Status: Active Protocol: Document 11/15/18 12:05 (Rec: 11/15/18 13:22 [email or web address]) Special Tests Hip Special Tests Mihai Test Results +Ve Comments R thigh non paralle to table Knee Special Tests Straight Leg Raise Comments discomfort with pain at 80 degrees on RLE stretching sensation only at L LE PT-OP-M Strength Start: 11/15/18 12:49 Freq: Status: Active Protocol: Document 11/15/18 12:05 (Rec: 11/15/18 13:22 [email or web address]) Hip Strength Hip Manual Muscle Testing Right Flexion (L2) 4+ Good+ Extension (S1) 4- Good- Abduction 4 Good Adduction 4+ Good+ Left Flexion (L2) 4+ Good+ Extension (S1) 4+ Good+ Abduction 4+ Good+ Adduction 4+ Good+ Knee Strength Knee Manual Muscle Testing Right Flexion (S2) 4- Good- Extension (L3) 4 Good Comments pain reproduced during resisted R knee flexion and R TKE Left Flexion (S2) 4+ Good+ Extension (L3) 4+ Good+ PT-OP-Q Treatments Start: 11/15/18 12:49 Freq: Status: Active Protocol: Document 11/22/18 13:00 (Rec: 11/22/18 16:58 [email or web address]) Cardio Equipment Recumbent Bicycle Duration (Minutes) 6 Resistance 4 Other forward and backward pedaling Therapeutic Exercises Supine Exercises bridging Side bilateral Resistance body weight Reps/Minutes 5 secs hold Comments neutral spine supine 90 hip and knee ext Side right Reps/Minutes 3 secs hold at TKe x 8 x 2 Comments hip at 90 degrees Prone Exercises eccentric HS curls Prone Exercise Name Eccentric HS curls Side right Reps/Minutes 3 secs down, 1 sec up x 5mins Hamstring Curls Prone Exercise Name Eccentric HS curls vs T-band resistance Side right Resistance Lv 3 Equipment Used T-band Sitting Exercises Hamstring Curl Sitting Exercise Name Eccentric HS curl Side right Resistance Lv 3 Equipment Used T-band Standing Exercises hip hinge good morning Standing Exercise Name stagger stance Side right Equipment Used 5 mins Reps/Minutes neutral spine with hip hinge prem curls Side bilateral Equipment Used 15# DB Reps/Minutes 5 x 2 Comments segmental trunk control Other Exercises child pose Reps/Minutes 5 mins Comments cues for PPT Cat camel Reps/Minutes 5 mins Comments cues for PPT PT-OP-T Assessment and Plan Start: 11/15/18 12:49 Freq: Status: Active Protocol: Document 11/22/18 13:00 (Rec: 11/22/18 16:58 [email or web address]) Physical Therapy Assessment Goals HEP Impairment does not have a HS flexibility and strengthening home program Usp Goal (LTG) Pt will safely perform HEP independently with proper body mechanics to improve her overall HS flexibility and strength. LTG Duration 6 weeks Pain Impairment tenderness with pressure on HS and pain during active flexion Senior Underwriting Assistant Goal (LTG) Decrease her overall discomfort and pain enabling pt to cont with her recreational activities such as prolonged walking/ hiking. LTG Duration 8 weeks Strength Impairment decreased knee flexor strength Usp Goal (LTG) Pt will increase 1 MMT on R knee flexor and extensor strength in order to perform seated heel slide with same ranged as L LE so she could reach for her stool at home without difficulty. LTG Duration 8 weeks LEFS Impairment pt scores LEFS at 71 (1-19% impairments) Senior Underwriting Assistant Goal (LTG) Pt will be able to reach 0% impairment to improver overall quality of life, such as no difficulty with squatting and hiking. LTG Duration 8 weeks Assessment Summary Assessment Pt penny tx well today with trunk segmental mobility exercises. pt tends to activate lumbar musculature during hamstring exercise. Required cues to maintain neutral spine. Added good monrnings, hip hinge , prem curl and bridge to therex today. Physical Therapy Plan Next Visit Focus/Plan Next Note Type Treatment Note Next Visit Plan reassess HEP and symptoms HS flexibility training supine SAQ with hip 90 degrees toe in hamstring stretch machine knee extension RDL hip hinge
--- NOTE | 2018-12-04 09:29 | PT.OTN ---
Current Diagnoses Strain of muscle, fascia and tendon of the posterior muscle group at thigh level, unspecified thigh, initial encounter (12/03/18) Physical Therapy Treatment Note PT-OP-A Visit Information Start: 11/15/18 12:49 Freq: Status: Active Protocol: Document 12/03/18 15:15 HH (Rec: 12/04/18 09:29 HH [email or web address]) Out-Patient Physical Therapy Visit Information Visit Information Visit Type Treatment Note Visit Start Time 15:15 Visit Stop Time 16:00 Total Visit Minutes 45 Visit Number 5 Number of RAILROAD ACCOUNTANT Visits 0 PT-OP-B Current Condition Start: 11/15/18 12:49 Freq: Status: Active Protocol: Document 11/15/18 12:05 HH (Rec: 11/15/18 13:03 HH [email or web address]) Current Condition History of Current Condition Onset Date February 2017 Current Complaints R distal hamstring weakness, limited activity tolerance History of Current Condition Pt had a partial hamstring tear in Feb, 2017 after a fall in the tub. Pt went throught outpatient rehab from May, 2018 to Jul, 2018 with good progress. Pt denies hamstring pain at this point but she went to see Dr. Asencio last week and had ultrasound screening. Result showed there is still scarring at lateral hamstring tissue. Dr. Asencio referred her to outpatient PT with a prescription of eccentric hamstring strengthening. Pt's current only c/o is R LE weakness and some achy / soreness sensation with hiking or after a long walk. Pt also stated she had difficult time picking up her R LE over curbs and kick her R ankle back at seated position sometimes. Prior Treatments and Tests Ultrasound screen with Dr. Asencio from last week which show poor healing process at R lateral hamstring Prior outpatient rehab at for LBP and hamstring strengthening and flexibility training. Treatment Goals Patient/Caregiver Goals 1. To be able to constantly clear off curbs/ obstacles safely 2. To be able to tolerate long walk and hike without soreness/ pain sensation 3. To strengthen her lower back and hamstring. Current Functional Impairments (Reported) Functional Limitations- Mobility/Gait prolonged walking and hiking increase hamstring discomfort and soreness Functional Limitations- Recreation/ prolonged walking and hiking Hobbies increase hamstring discomfort and soreness PT-OP-C Subjective Start: 11/15/18 12:49 Freq: Status: Active Protocol: Document 12/03/18 15:15 HH (Rec: 12/04/18 09:29 [email or web address]) OP-PT Subjective Patient Comments Patient Comments My back got very sore and painful from last session especially hamstring curls. But i do feel my hamstring are getting stronger PT-OP-F Manual Assessment Start: 11/15/18 12:49 Freq: Status: Active Protocol: Document 11/15/18 12:05 HH (Rec: 11/15/18 13:22 [email or web address]) Manual Assessments Soft Tissue Assessment Soft Tissue Mobility Assessment Moderate tenderness with pressure at R lateral distal hamstring mild atrophy noted of B distal hamstring PT-OP-K Range of Motion Start: 11/15/18 12:49 Freq: Status: Active Protocol: Document 11/15/18 12:05 HH (Rec: 11/15/18 13:22 [email or web address]) Knee Goniometric Range of Motion Knee Measured in Degrees Right Knee ROM WFL Yes Patient Position Supine Flexion Active (degrees) 127 Flexion Passive (degrees) 135 Extension Active (degrees) 0 Extension Passive (degrees) 0 Left Knee ROM WFL Yes Patient Position Supine Flexion Active (degrees) 135 Flexion Passive (degrees) 145 Extension Passive (degrees) 0 Knee ROM Limitations Knee ROM Limitations Soft Tissue Tightness Muscle Weakness Pain Comments Pain reproduced during resisted R knee active flexion from 60degrees to end range pain reproduced during R TKE PT-OP-L Special Tests Start: 11/15/18 12:49 Freq: Status: Active Protocol: Document 11/15/18 12:05 (Rec: 11/15/18 13:22 [email or web address]) Special Tests Hip Special Tests Mihai Test Results +Ve Comments R thigh non paralle to table Knee Special Tests Straight Leg Raise Comments discomfort with pain at 80 degrees on RLE stretching sensation only at L LE PT-OP-M Strength Start: 11/15/18 12:49 Freq: Status: Active Protocol: Document 11/15/18 12:05 (Rec: 11/15/18 13:22 [email or web address]) Hip Strength Hip Manual Muscle Testing Right Flexion (L2) 4+ Good+ Extension (S1) 4- Good- Abduction 4 Good Adduction 4+ Good+ Left Flexion (L2) 4+ Good+ Extension (S1) 4+ Good+ Abduction 4+ Good+ Adduction 4+ Good+ Knee Strength Knee Manual Muscle Testing Right Flexion (S2) 4- Good- Extension (L3) 4 Good Comments pain reproduced during resisted R knee flexion and R TKE Left Flexion (S2) 4+ Good+ Extension (L3) 4+ Good+ PT-OP-Q Treatments Start: 11/15/18 12:49 Freq: Status: Active Protocol: Document 12/03/18 15:15 (Rec: 12/04/18 09:29 [email or web address]) Therapeutic Exercises Supine Exercises supine 90 hip and knee ext Side right Reps/Minutes 5 secs hold at TKe x 8 x 2 Comments hip at 90 degrees Prone Exercises eccentric HS curls Prone Exercise Name Eccentric HS curls Side right Resistance 3# Reps/Minutes 3 secs down, 1 sec up x 5mins Comments with pillows underneath pelvis Hamstring Curls Prone Exercise Name concentric and eccentric Side right Equipment Used 2# ankle weight Reps/Minutes 10 mins Comments with pillows underneath pelvis Sitting Exercises Hamstring Curl Sitting Exercise Name Eccentric HS curl Side right Resistance Lv 3 Equipment Used T-band Standing Exercises Sami deadlift Side right Equipment Used 10lbs DB Reps/Minutes 5 mins Comments neutral spine with hip hinge hip hinge good morning Side right Equipment Used 10 lbs db Reps/Minutes 5 mins Comments neutral spine with hip hinge prem curls Side bilateral Equipment Used 15# DB Reps/Minutes 5 x 2 Comments segmental trunk control PT-OP-T Assessment and Plan Start: 11/15/18 12:49 Freq: Status: Active Protocol: Document 12/03/18 15:15 (Rec: 12/04/18 09:29 [email or web address]) Physical Therapy Assessment Goals HEP Impairment does not have a HS flexibility and strengthening home program Halfway Goal (LTG) Pt will safely perform HEP independently with proper body mechanics to improve her overall HS flexibility and strength. LTG Duration 6 weeks Pain Impairment tenderness with pressure on HS and pain during active flexion Pairer Inspector Goal (LTG) Decrease her overall discomfort and pain enabling pt to cont with her recreational activities such as prolonged walking/ hiking. LTG Duration 8 weeks Strength Impairment decreased knee flexor strength Halfway Goal (LTG) Pt will increase 1 MMT on R knee flexor and extensor strength in order to perform seated heel slide with same ranged as L LE so she could reach for her stool at home without difficulty. LTG Duration 8 weeks LEFS Impairment pt scores LEFS at 71 (1-19% impairments) Pairer Inspector Goal (LTG) Pt will be able to reach 0% impairment to improver overall quality of life, such as no difficulty with squatting and hiking. LTG Duration 8 weeks Assessment Summary Assessment Gave HEP to pt with HS stretch , RDL, good mornings, 90 hip flexion with knee extension. Pt demonstrates good mechanics today to isolate HS activation for aforementioned HEP. Pt presents decreased activation of trunk musculature with pillow underneath pelvis during prone hamstring curls. Physical Therapy Plan Next Visit Focus/Plan Next Note Type Treatment Note Next Visit Plan reivew HEP, assess pt's back symptoms cont HS conc and ecc gentle trunk extensors strengthening strengthening cues on inhibiting back extensors activation
--- NOTE | 2018-12-05 14:30 | PT.OTN ---
Current Diagnoses Strain of muscle, fascia and tendon of the posterior muscle group at thigh level, unspecified thigh, initial encounter (12/05/18) Physical Therapy Treatment Note PT-OP-A Visit Information Start: 11/15/18 12:49 Freq: Status: Active Protocol: Document 12/05/18 14:30 DLM (Rec: 12/05/18 15:59 DLM [id number]) Out-Patient Physical Therapy Visit Information Visit Information Visit Type Treatment Note Visit Start Time 14:30 Visit Stop Time 15:20 Total Visit Minutes 50 Visit Number 6 Number of MIXING PICKER TENDER Visits 0 Evaluation Information Evaluation Date 11/15/18 PT-OP-B Current Condition Start: 11/15/18 12:49 Freq: Status: Active Protocol: Document 11/15/18 12:05 HH (Rec: 11/15/18 13:03 HH [email or web address]) Current Condition History of Current Condition Onset Date February 2017 Current Complaints R distal hamstring weakness, limited activity tolerance History of Current Condition Pt had a partial hamstring tear in Feb, 2017 after a fall in the tub. Pt went throught outpatient rehab from May, 2018 to Jul, 2018 with good progress. Pt denies hamstring pain at this point but she went to see Dr. Asencio last week and had ultrasound screening. Result showed there is still scarring at lateral hamstring tissue. Dr. Asencio referred her to outpatient PT with a prescription of eccentric hamstring strengthening. Pt's current only c/o is R LE weakness and some achy / soreness sensation with hiking or after a long walk. Pt also stated she had difficult time picking up her R LE over curbs and kick her R ankle back at seated position sometimes. Prior Treatments and Tests Ultrasound screen with Dr. Asencio from last week which show poor healing process at R lateral hamstring Prior outpatient rehab at for LBP and hamstring strengthening and flexibility training. Treatment Goals Patient/Caregiver Goals 1. To be able to constantly clear off curbs/ obstacles safely 2. To be able to tolerate long walk and hike without soreness/ pain sensation 3. To strengthen her lower back and hamstring. Current Functional Impairments (Reported) Functional Limitations- Mobility/Gait prolonged walking and hiking increase hamstring discomfort and soreness Functional Limitations- Recreation/ prolonged walking and hiking Hobbies increase hamstring discomfort and soreness PT-OP-C Subjective Start: 11/15/18 12:49 Freq: Status: Active Protocol: Document 12/05/18 14:30 DLM (Rec: 12/05/18 16:00 DLM [id number]) OP-PT Subjective Patient Comments Patient Comments She has been doing her exercises at home Patient Reported Progress Improving PT-OP-F Manual Assessment Start: 11/15/18 12:49 Freq: Status: Active Protocol: Document 11/15/18 12:05 HH (Rec: 11/15/18 13:22 HH [email or web address]) Manual Assessments Soft Tissue Assessment Soft Tissue Mobility Assessment Moderate tenderness with pressure at R lateral distal hamstring mild atrophy noted of B distal hamstring PT-OP-K Range of Motion Start: 11/15/18 12:49 Freq: Status: Active Protocol: Document 11/15/18 12:05 HH (Rec: 11/15/18 13:22 HH [email or web address]) Knee Goniometric Range of Motion Knee Measured in Degrees Right Knee ROM WFL Yes Patient Position Supine Flexion Active (degrees) 127 Flexion Passive (degrees) 135 Extension Active (degrees) 0 Extension Passive (degrees) 0 Left Knee ROM WFL Yes Patient Position Supine Flexion Active (degrees) 135 Flexion Passive (degrees) 145 Extension Passive (degrees) 0 Knee ROM Limitations Knee ROM Limitations Soft Tissue Tightness Muscle Weakness Pain Comments Pain reproduced during resisted R knee active flexion from 60degrees to end range pain reproduced during R TKE PT-OP-L Special Tests Start: 11/15/18 12:49 Freq: Status: Active Protocol: Document 11/15/18 12:05 HH (Rec: 11/15/18 13:22 [email or web address]) Special Tests Hip Special Tests Mihai Test Results +Ve Comments R thigh non paralle to table Knee Special Tests Straight Leg Raise Comments discomfort with pain at 80 degrees on RLE stretching sensation only at L LE PT-OP-M Strength Start: 11/15/18 12:49 Freq: Status: Active Protocol: Document 11/15/18 12:05 HH (Rec: 11/15/18 13:22 [email or web address]) Hip Strength Hip Manual Muscle Testing Right Flexion (L2) 4+ Good+ Extension (S1) 4- Good- Abduction 4 Good Adduction 4+ Good+ Left Flexion (L2) 4+ Good+ Extension (S1) 4+ Good+ Abduction 4+ Good+ Adduction 4+ Good+ Knee Strength Knee Manual Muscle Testing Right Flexion (S2) 4- Good- Extension (L3) 4 Good Comments pain reproduced during resisted R knee flexion and R TKE Left Flexion (S2) 4+ Good+ Extension (L3) 4+ Good+ PT-OP-Q Treatments Start: 11/15/18 12:49 Freq: Status: Active Protocol: Document 12/05/18 14:30 DLM (Rec: 12/05/18 15:59 DLM [id number]) Cardio Equipment Recumbent Bicycle Duration (Minutes) 5 Resistance 3 Other forward Therapeutic Exercises Supine Exercises supine 90 hip and knee ext Side right Reps/Minutes 5 secs hold at TKE 2 x 10 reps Comments hip at 90 degrees Prone Exercises Hip IR/ER Prone Exercise Name hold knee flexed at 90 degrees Side bilateral Resistance 1# Reps/Minutes 2 x 10 reps each eccentric HS curls Prone Exercise Name Eccentric HS curls Side bilateral Resistance 3# Reps/Minutes 3 secs down, 1 sec up, x 10 reps Comments with pillows underneath pelvis Hamstring Curls Prone Exercise Name concentric and eccentric Side bilateral Equipment Used 2# ankle weight Reps/Minutes 2 x 10 reps each Comments with pillows underneath pelvis Sitting Exercises Hamstring Curl Sitting Exercise Name Eccentric HS curl Side bilateral Resistance Lv 3 Equipment Used T-band Reps/Minutes 2 x 10 reps right and x 10 reps left Comments 3 sec hold Standing Exercises Dutch deadlift Side right Equipment Used 10lbs DB Reps/Minutes 5 mins Comments neutral spine with hip hinge prem curls Side bilateral Equipment Used 10# DB Reps/Minutes 5 reps x 2 Comments segmental trunk control R lateral HS stretch Side right Reps/Minutes 5 mins Comments stagger stance with R foot turn in to bias R lateral hamstring PT-OP-T Assessment and Plan Start: 11/15/18 12:49 Freq: Status: Active Protocol: Document 12/05/18 14:30 DLM (Rec: 12/05/18 15:59 DLM [id number]) Physical Therapy Assessment Goals HEP Impairment does not have a HS flexibility and strengthening home program Assisted Goal (LTG) Pt will safely perform HEP independently with proper body mechanics to improve her overall HS flexibility and strength. LTG Duration 6 weeks Pain Impairment tenderness with pressure on HS and pain during active flexion Rn Chemical Dependency Goal (LTG) Decrease her overall discomfort and pain enabling pt to cont with her recreational activities such as prolonged walking/ hiking. LTG Duration 8 weeks Strength Impairment decreased knee flexor strength Assisted Goal (LTG) Pt will increase 1 MMT on R knee flexor and extensor strength in order to perform seated heel slide with same ranged as L LE so she could reach for her stool at home without difficulty. LTG Duration 8 weeks LEFS Impairment pt scores LEFS at 71 (1-19% impairments) Assisted Goal (LTG) Pt will be able to reach 0% impairment to improver overall quality of life, such as no difficulty with squatting and hiking. LTG Duration 8 weeks Progress Towards Goals Progress Towards Goals Progressing Toward Goals Assessment Summary Assessment She reports good progress over -all. She tolerated her exercises well this visit with hamstring fatigue after exercises. Physical Therapy Plan Frequency and Duration Frequency of Treatment 2x/Week Duration of Treatment 8 weeks Plan of Care Start Date 11/15/18 Plan of Care End Date 01/15/19 Therapeutic Interventions Therapeutic Interventions Aquatic Therapy Balance Training Gait Training Home Exercise Program Joint Mobilizations Manual Therapy Neuromuscular Re-education Patient/Caregiver Education Self-Care/Home Management Soft Tissue Mobilization Taping Therapeutic Activities Therapeutic Exercises Modalities Cold Pack/Ice Massage Electric Stimulation Hot Packs Infrared Therapy Ultrasound Next Visit Focus/Plan Next Note Type Treatment Note Next Visit Plan continue to monitor exercises to decrease back pain/stress
--- NOTE | 2018-12-11 13:45 | PT.OTN ---
Current Diagnoses Strain of muscle, fascia and tendon of the posterior muscle group at thigh level, unspecified thigh, initial encounter (12/11/18) Physical Therapy Treatment Note PT-OP-A Visit Information Start: 11/15/18 12:49 Freq: Status: Active Protocol: Document 12/11/18 13:45 DLM (Rec: 12/11/18 14:55 DLM [id number]) Out-Patient Physical Therapy Visit Information Visit Information Visit Type Treatment Note Visit Start Time 13:45 Visit Stop Time 14:30 Total Visit Minutes 45 Visit Number 7 Evaluation Information Evaluation Date 11/15/18 Precautions Precautions hx low back pain PT-OP-B Current Condition Start: 11/15/18 12:49 Freq: Status: Active Protocol: Document 11/15/18 12:05 HH (Rec: 11/15/18 13:03 HH [email or web address]) Current Condition History of Current Condition Onset Date February 2017 Current Complaints R distal hamstring weakness, limited activity tolerance History of Current Condition Pt had a partial hamstring tear in Feb, 2017 after a fall in the tub. Pt went throught outpatient rehab from May, 2018 to Jul, 2018 with good progress. Pt denies hamstring pain at this point but she went to see Dr. Asencio last week and had ultrasound screening. Result showed there is still scarring at lateral hamstring tissue. Dr. Asencio referred her to outpatient PT with a prescription of eccentric hamstring strengthening. Pt's current only c/o is R LE weakness and some achy / soreness sensation with hiking or after a long walk. Pt also stated she had difficult time picking up her R LE over curbs and kick her R ankle back at seated position sometimes. Prior Treatments and Tests Ultrasound screen with Dr. Asencio from last week which show poor healing process at R lateral hamstring Prior outpatient rehab at for LBP and hamstring strengthening and flexibility training. Treatment Goals Patient/Caregiver Goals 1. To be able to constantly clear off curbs/ obstacles safely 2. To be able to tolerate long walk and hike without soreness/ pain sensation 3. To strengthen her lower back and hamstring. Current Functional Impairments (Reported) Functional Limitations- Mobility/Gait prolonged walking and hiking increase hamstring discomfort and soreness Functional Limitations- Recreation/ prolonged walking and hiking Hobbies increase hamstring discomfort and soreness PT-OP-C Subjective Start: 11/15/18 12:49 Freq: Status: Active Protocol: Document 12/11/18 13:45 DLM (Rec: 12/11/18 14:55 DLM [id number]) OP-PT Subjective Patient Comments Patient Comments She developed increased low back pain after sweeping on Monday. She can not do her hamstring exercises due to her back pain PT-OP-F Manual Assessment Start: 11/15/18 12:49 Freq: Status: Active Protocol: Document 11/15/18 12:05 HH (Rec: 11/15/18 13:22 [email or web address]) Manual Assessments Soft Tissue Assessment Soft Tissue Mobility Assessment Moderate tenderness with pressure at R lateral distal hamstring mild atrophy noted of B distal hamstring PT-OP-K Range of Motion Start: 11/15/18 12:49 Freq: Status: Active Protocol: Document 11/15/18 12:05 HH (Rec: 11/15/18 13:22 HH [email or web address]) Knee Goniometric Range of Motion Knee Measured in Degrees Right Knee ROM WFL Yes Patient Position Supine Flexion Active (degrees) 127 Flexion Passive (degrees) 135 Extension Active (degrees) 0 Extension Passive (degrees) 0 Left Knee ROM WFL Yes Patient Position Supine Flexion Active (degrees) 135 Flexion Passive (degrees) 145 Extension Passive (degrees) 0 Knee ROM Limitations Knee ROM Limitations Soft Tissue Tightness Muscle Weakness Pain Comments Pain reproduced during resisted R knee active flexion from 60degrees to end range pain reproduced during R TKE PT-OP-L Special Tests Start: 11/15/18 12:49 Freq: Status: Active Protocol: Document 11/15/18 12:05 (Rec: 11/15/18 13:22 [email or web address]) Special Tests Hip Special Tests Mihai Test Results +Ve Comments R thigh non paralle to table Knee Special Tests Straight Leg Raise Comments discomfort with pain at 80 degrees on RLE stretching sensation only at L LE PT-OP-M Strength Start: 11/15/18 12:49 Freq: Status: Active Protocol: Document 11/15/18 12:05 (Rec: 11/15/18 13:22 HH [email or web address]) Hip Strength Hip Manual Muscle Testing Right Flexion (L2) 4+ Good+ Extension (S1) 4- Good- Abduction 4 Good Adduction 4+ Good+ Left Flexion (L2) 4+ Good+ Extension (S1) 4+ Good+ Abduction 4+ Good+ Adduction 4+ Good+ Knee Strength Knee Manual Muscle Testing Right Flexion (S2) 4- Good- Extension (L3) 4 Good Comments pain reproduced during resisted R knee flexion and R TKE Left Flexion (S2) 4+ Good+ Extension (L3) 4+ Good+ PT-OP-Q Treatments Start: 11/15/18 12:49 Freq: Status: Active Protocol: Document 12/11/18 13:45 DLM (Rec: 12/11/18 14:55 DLM [id number]) Cardio Equipment Recumbent Bicycle Other pt unable due to back pain Therapeutic Exercises Prone Exercises Hip IR/ER Prone Exercise Name hold knee flexed at 90 degrees Side bilateral Resistance active only Reps/Minutes 2 x 5 reps each Comments assisted to manage low back pain Manual Therapy Treatment Soft Tissue Mobilization R lateral HS Body Location right hamstring Mobilization Type Rolling Strumming Sustained Pressure Intensity/Depth Moderate Body Position Prone Comments scar tissue noted central and medially 2 Body Location STM to Lumbar paraspinals and sacral region Mobilization Type Strumming Sustained Pressure Intensity/Depth Moderate Body Position Prone Comments pillow under abdomen Joint Mobilizations 1 Joint sacral/pelvic mobs Body Position Prone Comments to reduce right posterior pelvic rotation PT-OP-T Assessment and Plan Start: 11/15/18 12:49 Freq: Status: Active Protocol: Document 12/11/18 13:45 DLM (Rec: 12/11/18 14:55 DLM [id number]) Physical Therapy Assessment Goals HEP Impairment does not have a HS flexibility and strengthening home program Salesperson Furs Goal (LTG) Pt will safely perform HEP independently with proper body mechanics to improve her overall HS flexibility and strength. LTG Duration 6 weeks Pain Impairment tenderness with pressure on HS and pain during active flexion [facility] Goal (LTG) Decrease her overall discomfort and pain enabling pt to cont with her recreational activities such as prolonged walking/ hiking. LTG Duration 8 weeks Strength Impairment decreased knee flexor strength [facility] Goal (LTG) Pt will increase 1 MMT on R knee flexor and extensor strength in order to perform seated heel slide with same ranged as L LE so she could reach for her stool at home without difficulty. LTG Duration 8 weeks LEFS Impairment pt scores LEFS at 71 (1-19% impairments) [facility] Goal (LTG) Pt will be able to reach 0% impairment to improver overall quality of life, such as no difficulty with squatting and hiking. LTG Duration 8 weeks Assessment Summary Assessment She had an exacerbation of her low back pain. She is unable to do her normal hamstring exercises. Right hamstring tightness improved with manual therapy. Improved her lumbosacral alignment with manual techniques. She reports less back pain and able to stand more erect at end of visit. She describes right hamstring as bruised feeling after STM. May need to modify exercise routine to further protect her low back. Held her exercises this visit due to the severity of her low back pain. Physical Therapy Plan Frequency and Duration Frequency of Treatment 2x/Week Duration of Treatment 8 weeks Plan of Care Start Date 11/15/18 Plan of Care End Date 01/15/19 Therapeutic Interventions Therapeutic Interventions Aquatic Therapy Balance Training Gait Training Home Exercise Program Joint Mobilizations Manual Therapy Neuromuscular Re-education Patient/Caregiver Education Self-Care/Home Management Soft Tissue Mobilization Taping Therapeutic Activities Therapeutic Exercises Modalities Cold Pack/Ice Massage Electric Stimulation Hot Packs Infrared Therapy Ultrasound Next Visit Focus/Plan Next Note Type Treatment Note Next Visit Plan pt plans to be out next week due to travel plans, anticipate return the following week with focus on modifying her HS exercises to better manage her low back
--- NOTE | 2018-12-25 15:49 | PT.OTN ---
Current Diagnoses Strain of muscle, fascia and tendon of the posterior muscle group at thigh level, unspecified thigh, initial encounter (12/25/18) Physical Therapy Treatment Note PT-OP-A Visit Information Start: 11/15/18 12:49 Freq: Status: Active Protocol: Document 12/25/18 13:00 HH (Rec: 12/25/18 15:49 HH [email or web address]) Out-Patient Physical Therapy Visit Information Visit Information Visit Type Treatment Note Visit Note CO today. Pt returned from 10 days vacation. Visit Start Time 13:00 Visit Stop Time 13:45 Total Visit Minutes 45 Visit Number 8 Number of PROOF SORTER Visits 0 PT-OP-B Current Condition Start: 11/15/18 12:49 Freq: Status: Active Protocol: Document 11/15/18 12:05 HH (Rec: 11/15/18 13:03 HH [email or web address]) Current Condition History of Current Condition Onset Date February 2017 Current Complaints R distal hamstring weakness, limited activity tolerance History of Current Condition Pt had a partial hamstring tear in Feb, 2017 after a fall in the tub. Pt went throught outpatient rehab from May, 2018 to Jul, 2018 with good progress. Pt denies hamstring pain at this point but she went to see Dr. Asencio last week and had ultrasound screening. Result showed there is still scarring at lateral hamstring tissue. Dr. Asencio referred her to outpatient PT with a prescription of eccentric hamstring strengthening. Pt's current only c/o is R LE weakness and some achy / soreness sensation with hiking or after a long walk. Pt also stated she had difficult time picking up her R LE over curbs and kick her R ankle back at seated position sometimes. Prior Treatments and Tests Ultrasound screen with Dr. Asencio from last week which show poor healing process at R lateral hamstring Prior outpatient rehab at for LBP and hamstring strengthening and flexibility training. Treatment Goals Patient/Caregiver Goals 1. To be able to constantly clear off curbs/ obstacles safely 2. To be able to tolerate long walk and hike without soreness/ pain sensation 3. To strengthen her lower back and hamstring. Current Functional Impairments (Reported) Functional Limitations- Mobility/Gait prolonged walking and hiking increase hamstring discomfort and soreness Functional Limitations- Recreation/ prolonged walking and hiking Hobbies increase hamstring discomfort and soreness PT-OP-C Subjective Start: 11/15/18 12:49 Freq: Status: Active Protocol: Document 12/25/18 13:00 (Rec: 12/25/18 15:49 [email or web address]) OP-PT Subjective Patient Comments Patient Comments I havent been exercise much during vacation. But overall my hamstring is getting stronger and better. My back is also getting better after last visit. Patient Reported Progress Improving PT-OP-F Manual Assessment Start: 11/15/18 12:49 Freq: Status: Active Protocol: Document 11/15/18 12:05 HH (Rec: 11/15/18 13:22 [email or web address]) Manual Assessments Soft Tissue Assessment Soft Tissue Mobility Assessment Moderate tenderness with pressure at R lateral distal hamstring mild atrophy noted of B distal hamstring PT-OP-K Range of Motion Start: 11/15/18 12:49 Freq: Status: Active Protocol: Document 11/15/18 12:05 HH (Rec: 11/15/18 13:22 [email or web address]) Knee Goniometric Range of Motion Knee Measured in Degrees Right Knee ROM WFL Yes Patient Position Supine Flexion Active (degrees) 127 Flexion Passive (degrees) 135 Extension Active (degrees) 0 Extension Passive (degrees) 0 Left Knee ROM WFL Yes Patient Position Supine Flexion Active (degrees) 135 Flexion Passive (degrees) 145 Extension Passive (degrees) 0 Knee ROM Limitations Knee ROM Limitations Soft Tissue Tightness Muscle Weakness Pain Comments Pain reproduced during resisted R knee active flexion from 60degrees to end range pain reproduced during R TKE PT-OP-L Special Tests Start: 11/15/18 12:49 Freq: Status: Active Protocol: Document 11/15/18 12:05 (Rec: 11/15/18 13:22 [email or web address]) Special Tests Hip Special Tests Mihai Test Results +Ve Comments R thigh non paralle to table Knee Special Tests Straight Leg Raise Comments discomfort with pain at 80 degrees on RLE stretching sensation only at L LE PT-OP-M Strength Start: 11/15/18 12:49 Freq: Status: Active Protocol: Document 11/15/18 12:05 (Rec: 11/15/18 13:22 [email or web address]) Hip Strength Hip Manual Muscle Testing Right Flexion (L2) 4+ Good+ Extension (S1) 4- Good- Abduction 4 Good Adduction 4+ Good+ Left Flexion (L2) 4+ Good+ Extension (S1) 4+ Good+ Abduction 4+ Good+ Adduction 4+ Good+ Knee Strength Knee Manual Muscle Testing Right Flexion (S2) 4- Good- Extension (L3) 4 Good Comments pain reproduced during resisted R knee flexion and R TKE Left Flexion (S2) 4+ Good+ Extension (L3) 4+ Good+ PT-OP-Q Treatments Start: 11/15/18 12:49 Freq: Status: Active Protocol: Document 12/25/18 13:00 (Rec: 12/25/18 15:49 [email or web address]) Cardio Equipment Recumbent Bicycle Duration (Minutes) 5 Resistance 5 Therapeutic Exercises Supine Exercises supine HS curl Supine Exercise Name supine HS curl with bridging Equipment Used rolling board Reps/Minutes 10 x 2 Comments cues for neutral spine Prone Exercises Hamstring Curls Prone Exercise Name concentric and eccentric Side bilateral Equipment Used #6 ankle weight Reps/Minutes 10 x 3 each side Comments with pillows underneath pelvis Sitting Exercises long sit stretch Side bilateral Reps/Minutes 10 x 2 Standing Exercises deadlift Standing Exercise Name isometric Equipment Used 10lbs Reps/Minutes 10 secs hold x3 Comments neutral spine Other Exercises birddog Other Exercise Name LE only Side bilateral Reps/Minutes 10 x 2 Comments neutral spine child pose Side bilateral Reps/Minutes 15 reps Cat camel Side bilateral Reps/Minutes 15 reps Manual Therapy Treatment Soft Tissue Mobilization 2 Body Location STM to Lumbar paraspinals and sacral region Mobilization Type Strumming Sustained Pressure Intensity/Depth Moderate Body Position Prone Comments pillow under abdomen PT-OP-T Assessment and Plan Start: 11/15/18 12:49 Freq: Status: Active Protocol: Document 12/25/18 13:00 (Rec: 12/25/18 15:49 [email or web address]) Physical Therapy Assessment Goals Back pain Impairment c/O LBP with hamstring ex Polymer Tester Goal (LTG) Pt will be able to isolate HS activation without lumbar compensation to reduce back pain LTG Duration 8 weeks HEP Impairment does not have a HS flexibility and strengthening home program Halfway Goal (LTG) Goal met:12/25 pt has been following HEP Pt will safely perform HEP independently with proper body mechanics to improve her overall HS flexibility and strength. Pain Impairment tenderness with pressure on HS and pain during active flexion Halfway Goal (LTG) 12/25: did not c/o tenderness today. Decrease her overall discomfort and pain enabling pt to cont with her recreational activities such as prolonged walking/ hiking. Strength Impairment decreased knee flexor strength Halfway Goal (LTG) 12/25/18: 4+/5 for R knee flexor Pt will be able to perform HS curl with bridging (rolling board) x 10 LTG Duration 8 weeks LEFS Impairment pt scores LEFS at 71 (1-19% impairments) Polymer Tester Goal (LTG) Pt will be able to reach 0% impairment to improver overall quality of life, such as no difficulty with squatting and hiking. LTG Duration 8 weeks Progress Towards Goals Progress Towards Goals Progressing Toward Goals Assessment Summary Assessment Pt progress fairly well since IE. There;s noticeable increase in R HS strength from today assessment. Pt cont need constant cues to facilitate neutral spine to inhibit lumbar paraspinals compensation. New HEP given today with iso deadlift, birddog, prone HS curl and therapy ball HS curl Physical Therapy Plan Next Visit Focus/Plan Next Note Type Treatment Note Next Visit Plan reassess HS/ paraspinals activation during HEP cont bridge with HS curl prone HS ex back strengthening ISO-conc- ecc
--- NOTE | 2018-12-27 14:26 | PT.OTN ---
Current Diagnoses Strain of muscle, fascia and tendon of the posterior muscle group at thigh level, unspecified thigh, initial encounter (12/27/18) Physical Therapy Treatment Note PT-OP-A Visit Information Start: 11/15/18 12:49 Freq: Status: Active Protocol: Document 12/27/18 13:00 HH (Rec: 12/27/18 14:26 HH [email or web address]) Out-Patient Physical Therapy Visit Information Visit Information Visit Type Treatment Note Visit Start Time 13:00 Visit Stop Time 13:45 Total Visit Minutes 45 Visit Number 9 Number of REAL ESTATE DEVELOPER Visits 0 PT-OP-B Current Condition Start: 11/15/18 12:49 Freq: Status: Active Protocol: Document 11/15/18 12:05 HH (Rec: 11/15/18 13:03 HH [email or web address]) Current Condition History of Current Condition Onset Date February 2017 Current Complaints R distal hamstring weakness, limited activity tolerance History of Current Condition Pt had a partial hamstring tear in Feb, 2017 after a fall in the tub. Pt went throught outpatient rehab from May, 2018 to Jul, 2018 with good progress. Pt denies hamstring pain at this point but she went to see Dr. Asencio last week and had ultrasound screening. Result showed there is still scarring at lateral hamstring tissue. Dr. Asencio referred her to outpatient PT with a prescription of eccentric hamstring strengthening. Pt's current only c/o is R LE weakness and some achy / soreness sensation with hiking or after a long walk. Pt also stated she had difficult time picking up her R LE over curbs and kick her R ankle back at seated position sometimes. Prior Treatments and Tests Ultrasound screen with Dr. Asencio from last week which show poor healing process at R lateral hamstring Prior outpatient rehab at for LBP and hamstring strengthening and flexibility training. Treatment Goals Patient/Caregiver Goals 1. To be able to constantly clear off curbs/ obstacles safely 2. To be able to tolerate long walk and hike without soreness/ pain sensation 3. To strengthen her lower back and hamstring. Current Functional Impairments (Reported) Functional Limitations- Mobility/Gait prolonged walking and hiking increase hamstring discomfort and soreness Functional Limitations- Recreation/ prolonged walking and hiking Hobbies increase hamstring discomfort and soreness PT-OP-C Subjective Start: 11/15/18 12:49 Freq: Status: Active Protocol: Document 12/27/18 13:00 (Rec: 12/27/18 14:26 [email or web address]) OP-PT Subjective Patient Comments Patient Comments My back and hamstring feel really good lately. No c/o at all. I also walked 6 miles yesterday. PT-OP-F Manual Assessment Start: 11/15/18 12:49 Freq: Status: Active Protocol: Document 11/15/18 12:05 (Rec: 11/15/18 13:22 [email or web address]) Manual Assessments Soft Tissue Assessment Soft Tissue Mobility Assessment Moderate tenderness with pressure at R lateral distal hamstring mild atrophy noted of B distal hamstring PT-OP-K Range of Motion Start: 11/15/18 12:49 Freq: Status: Active Protocol: Document 11/15/18 12:05 (Rec: 11/15/18 13:22 [email or web address]) Knee Goniometric Range of Motion Knee Measured in Degrees Right Knee ROM WFL Yes Patient Position Supine Flexion Active (degrees) 127 Flexion Passive (degrees) 135 Extension Active (degrees) 0 Extension Passive (degrees) 0 Left Knee ROM WFL Yes Patient Position Supine Flexion Active (degrees) 135 Flexion Passive (degrees) 145 Extension Passive (degrees) 0 Knee ROM Limitations Knee ROM Limitations Soft Tissue Tightness Muscle Weakness Pain Comments Pain reproduced during resisted R knee active flexion from 60degrees to end range pain reproduced during R TKE PT-OP-L Special Tests Start: 11/15/18 12:49 Freq: Status: Active Protocol: Document 11/15/18 12:05 (Rec: 11/15/18 13:22 [email or web address]) Special Tests Hip Special Tests Mihai Test Results +Ve Comments R thigh non paralle to table Knee Special Tests Straight Leg Raise Comments discomfort with pain at 80 degrees on RLE stretching sensation only at L LE PT-OP-M Strength Start: 11/15/18 12:49 Freq: Status: Active Protocol: Document 11/15/18 12:05 (Rec: 11/15/18 13:22 [email or web address]) Hip Strength Hip Manual Muscle Testing Right Flexion (L2) 4+ Good+ Extension (S1) 4- Good- Abduction 4 Good Adduction 4+ Good+ Left Flexion (L2) 4+ Good+ Extension (S1) 4+ Good+ Abduction 4+ Good+ Adduction 4+ Good+ Knee Strength Knee Manual Muscle Testing Right Flexion (S2) 4- Good- Extension (L3) 4 Good Comments pain reproduced during resisted R knee flexion and R TKE Left Flexion (S2) 4+ Good+ Extension (L3) 4+ Good+ PT-OP-Q Treatments Start: 11/15/18 12:49 Freq: Status: Active Protocol: Document 12/27/18 13:00 HH (Rec: 12/27/18 14:26 [email or web address]) Cardio Equipment Bicycle (Upright) Duration (Minutes) 5 Resistance 5 Therapeutic Exercises Supine Exercises supine HS curl Supine Exercise Name supine HS curl with bridging Equipment Used rolling board Reps/Minutes 10 x 2 Comments cues for neutral spine bridging Equipment Used on rolling board Reps/Minutes 8 x2 Prone Exercises Hamstring Curls Prone Exercise Name concentric and eccentric Side bilateral Equipment Used #7 ankle weight Reps/Minutes 10 x 3 each side Comments with pillows underneath pelvis Standing Exercises deadlift Standing Exercise Name isometric first then conc/ ecc Equipment Used 10lbs Reps/Minutes 10 secs hold x3; 8 x 3 Comments neutral spine Luxembourgish deadlift Side right Equipment Used 10lbs ball Reps/Minutes 5mins Comments cues for weight distribution on R hip. prem curls Side bilateral Equipment Used 10# ball Reps/Minutes 5 x2 Comments segmental trunk control Other Exercises child pose Side bilateral Reps/Minutes 15 reps Cat camel Side bilateral Reps/Minutes 15 reps PT-OP-T Assessment and Plan Start: 11/15/18 12:49 Freq: Status: Active Protocol: Document 12/27/18 13:00 HH (Rec: 12/27/18 14:26 [email or web address]) Physical Therapy Assessment Assessment Summary Assessment Pt progress very well with improved isolation of hamstring and lumbar muscles activation. Added stagger stance deadlift and traditional deadlift today to improve low back strength and hamstring strength. Expect pt to be d/c in 2 weeks. Physical Therapy Plan Next Visit Focus/Plan Next Note Type Treatment Note Next Visit Plan reassess HS/ paraspinals activation during HEP cont bridge with HS curl prone HS ex back strengthening ISO-conc- ecc deadlift/ uni deadlift
--- NOTE | 2019-01-01 18:09 | PT.OTN ---
Current Diagnoses Strain of muscle, fascia and tendon of the posterior muscle group at thigh level, unspecified thigh, initial encounter (01/01/19) Physical Therapy Treatment Note PT-OP-A Visit Information Start: 11/15/18 12:49 Freq: Status: Active Protocol: Document 01/01/19 13:00 HH (Rec: 01/01/19 18:08 HH [email or web address]) Out-Patient Physical Therapy Visit Information Visit Information Visit Type Treatment Note Visit Note Will have follow up with Dr. Asencio in early January Visit Start Time 13:00 Visit Stop Time 13:45 Total Visit Minutes 45 Visit Number 10 Number of LEARNING SUPPORT AIDE Visits 0 PT-OP-B Current Condition Start: 11/15/18 12:49 Freq: Status: Active Protocol: Document 11/15/18 12:05 (Rec: 11/15/18 13:03 [email or web address]) Current Condition History of Current Condition Onset Date February 2017 Current Complaints R distal hamstring weakness, limited activity tolerance History of Current Condition Pt had a partial hamstring tear in Feb, 2017 after a fall in the tub. Pt went throught outpatient rehab from May, 2018 to Jul, 2018 with good progress. Pt denies hamstring pain at this point but she went to see Dr. Asencio last week and had ultrasound screening. Result showed there is still scarring at lateral hamstring tissue. Dr. Asencio referred her to outpatient PT with a prescription of eccentric hamstring strengthening. Pt's current only c/o is R LE weakness and some achy / soreness sensation with hiking or after a long walk. Pt also stated she had difficult time picking up her R LE over curbs and kick her R ankle back at seated position sometimes. Prior Treatments and Tests Ultrasound screen with Dr. Asencio from last week which show poor healing process at R lateral hamstring Prior outpatient rehab at for LBP and hamstring strengthening and flexibility training. Treatment Goals Patient/Caregiver Goals 1. To be able to constantly clear off curbs/ obstacles safely 2. To be able to tolerate long walk and hike without soreness/ pain sensation 3. To strengthen her lower back and hamstring. Current Functional Impairments (Reported) Functional Limitations- Mobility/Gait prolonged walking and hiking increase hamstring discomfort and soreness Functional Limitations- Recreation/ prolonged walking and hiking Hobbies increase hamstring discomfort and soreness PT-OP-C Subjective Start: 11/15/18 12:49 Freq: Status: Active Protocol: Document 01/01/19 13:00 (Rec: 01/01/19 18:08 [email or web address]) OP-PT Subjective Patient Comments Patient Comments My back got very sore after a nap yesterday and i do not know why. But my hamstring feels pretty good. PT-OP-F Manual Assessment Start: 11/15/18 12:49 Freq: Status: Active Protocol: Document 11/15/18 12:05 (Rec: 11/15/18 13:22 [email or web address]) Manual Assessments Soft Tissue Assessment Soft Tissue Mobility Assessment Moderate tenderness with pressure at R lateral distal hamstring mild atrophy noted of B distal hamstring PT-OP-K Range of Motion Start: 11/15/18 12:49 Freq: Status: Active Protocol: Document 11/15/18 12:05 (Rec: 11/15/18 13:22 [email or web address]) Knee Goniometric Range of Motion Knee Right Knee ROM WFL Yes Patient Position Supine Flexion Active (degrees) 127 Flexion Passive (degrees) 135 Extension Active (degrees) 0 Extension Passive (degrees) 0 Left Knee ROM WFL Yes Patient Position Supine Flexion Active (degrees) 135 Flexion Passive (degrees) 145 Extension Passive (degrees) 0 Knee ROM Limitations Knee ROM Limitations Soft Tissue Tightness Muscle Weakness Pain Comments Pain reproduced during resisted R knee active flexion from 60degrees to end range pain reproduced during R TKE PT-OP-L Special Tests Start: 11/15/18 12:49 Freq: Status: Active Protocol: Document 11/15/18 12:05 (Rec: 11/15/18 13:22 [email or web address]) Special Tests Hip Special Tests Mihai Test Results +Ve Comments R thigh non paralle to table Knee Special Tests Straight Leg Raise Comments discomfort with pain at 80 degrees on RLE stretching sensation only at L LE PT-OP-M Strength Start: 11/15/18 12:49 Freq: Status: Active Protocol: Document 11/15/18 12:05 (Rec: 11/15/18 13:22 [email or web address]) Hip Strength Hip Manual Muscle Testing Right Flexion (L2) 4+ Good+ Extension (S1) 4- Good- Abduction 4 Good Adduction 4+ Good+ Left Flexion (L2) 4+ Good+ Extension (S1) 4+ Good+ Abduction 4+ Good+ Adduction 4+ Good+ Knee Strength Knee Manual Muscle Testing Right Flexion (S2) 4- Good- Extension (L3) 4 Good Comments pain reproduced during resisted R knee flexion and R TKE Left Flexion (S2) 4+ Good+ Extension (L3) 4+ Good+ PT-OP-Q Treatments Start: 11/15/18 12:49 Freq: Status: Active Protocol: Document 01/01/19 13:00 (Rec: 01/01/19 18:08 [email or web address]) Cardio Equipment Bicycle (Upright) Duration (Minutes) 5 Resistance 5 Other reverse Gym Equipment Sport Cord Hip hinge Cord/Resistance blue Reps/Duration 5 mins Comments ruler to keep neutral spine Therapeutic Exercises Supine Exercises supine HS curl Supine Exercise Name supine HS curl with bridging Equipment Used rolling board Reps/Minutes 10 x 2 Comments cues for neutral spine Sitting Exercises long sit stretch Side bilateral Reps/Minutes 10 x 2 Comments cues for lumbar flexion Standing Exercises pelvic tilt Standing Exercise Name PPT Side bilateral Reps/Minutes 4 mins Comments in standing position. deadlift Standing Exercise Name isometric first then conc/ ecc Equipment Used 10lbs Reps/Minutes 10 secs hold x3; 8 x 3 Comments neutral spine Danish deadlift Side right Equipment Used 10lbs ball Reps/Minutes 5mins Comments cues for weight distribution on R hip. prem curls Side bilateral Equipment Used 10# ball Reps/Minutes 5 x2 Comments segmental trunk control Manual Therapy Treatment Soft Tissue Mobilization 2 Body Location STM to Lumbar paraspinals and sacral region Mobilization Type Strumming Sustained Pressure Intensity/Depth Moderate Body Position Prone Comments pillow under abdomen Joint Mobilizations PA mob on lumbar spine Direction PA Grade II Body Position Sitting Comments long sit position PT-OP-T Assessment and Plan Start: 11/15/18 12:49 Freq: Status: Active Protocol: Document 01/01/19 13:00 (Rec: 01/01/19 18:08 [email or web address]) Physical Therapy Assessment Goals Back pain Impairment c/O LBP with hamstring ex Instructional Coach Goal (LTG) Pt will be able to isolate HS activation without lumbar compensation to reduce back pain LTG Duration 8 weeks HEP Impairment does not have a HS flexibility and strengthening home program Prison Goal (LTG) Goal met:12/25 pt has been following HEP Pt will safely perform HEP independently with proper body mechanics to improve her overall HS flexibility and strength. LTG Duration 6 weeks Pain Impairment tenderness with pressure on HS and pain during active flexion Instructional Coach Goal (LTG) 12/25: did not c/o tenderness today. Decrease her overall discomfort and pain enabling pt to cont with her recreational activities such as prolonged walking/ hiking. LTG Duration 6 weeks Strength Impairment decreased knee flexor strength Instructional Coach Goal (LTG) 12/25/18: 4+/5 for R knee flexor Pt will be able to perform HS curl with bridging (rolling board) x 10 LTG Duration 8 weeks LEFS Impairment pt scores LEFS at 71 (1-19% impairments) Instructional Coach Goal (LTG) Pt will be able to reach 0% impairment to improver overall quality of life, such as no difficulty with squatting and hiking. LTG Duration 8 weeks Assessment Summary Assessment Tx focused on decreasing paraspinals activation. Pt reports significant reduce in pain at the end of session. pt presents improved hip hinge pattern with cues of using ruler to keep neutral spine. will cont hamstring strengthening protocol Physical Therapy Plan Next Visit Focus/Plan Next Note Type Treatment Note Next Visit Plan reassess HS/ paraspinals activation during HEP cont bridge with HS curl prone HS ex back strengthening ISO-conc- ecc deadlift/ uni deadlift
--- NOTE | 2019-01-04 16:19 | PT.OTN ---
Current Diagnoses Strain of muscle, fascia and tendon of the posterior muscle group at thigh level, unspecified thigh, initial encounter (01/04/19) Physical Therapy Treatment Note PT-OP-A Visit Information Start: 11/15/18 12:49 Freq: Status: Active Protocol: Document 01/04/19 13:00 HH (Rec: 01/04/19 16:19 HH [email or web address]) Out-Patient Physical Therapy Visit Information Visit Information Visit Type Treatment Note Visit Start Time 13:00 Visit Stop Time 13:45 Total Visit Minutes 45 Visit Number 11 Number of KNIFE SETTER ASSEMBLER Visits 0 PT-OP-B Current Condition Start: 11/15/18 12:49 Freq: Status: Active Protocol: Document 11/15/18 12:05 HH (Rec: 11/15/18 13:03 [email or web address]) Current Condition History of Current Condition Onset Date February 2017 Current Complaints R distal hamstring weakness, limited activity tolerance History of Current Condition Pt had a partial hamstring tear in Feb, 2017 after a fall in the tub. Pt went throught outpatient rehab from May, 2018 to Jul, 2018 with good progress. Pt denies hamstring pain at this point but she went to see Dr. Asencio last week and had ultrasound screening. Result showed there is still scarring at lateral hamstring tissue. Dr. Asencio referred her to outpatient PT with a prescription of eccentric hamstring strengthening. Pt's current only c/o is R LE weakness and some achy / soreness sensation with hiking or after a long walk. Pt also stated she had difficult time picking up her R LE over curbs and kick her R ankle back at seated position sometimes. Prior Treatments and Tests Ultrasound screen with Dr. Asencio from last week which show poor healing process at R lateral hamstring Prior outpatient rehab at for LBP and hamstring strengthening and flexibility training. Treatment Goals Patient/Caregiver Goals 1. To be able to constantly clear off curbs/ obstacles safely 2. To be able to tolerate long walk and hike without soreness/ pain sensation 3. To strengthen her lower back and hamstring. Current Functional Impairments (Reported) Functional Limitations- Mobility/Gait prolonged walking and hiking increase hamstring discomfort and soreness Functional Limitations- Recreation/ prolonged walking and hiking Hobbies increase hamstring discomfort and soreness PT-OP-C Subjective Start: 11/15/18 12:49 Freq: Status: Active Protocol: Document 01/04/19 13:00 (Rec: 01/04/19 16:19 [email or web address]) OP-PT Subjective Patient Comments Patient Comments My back feels great again. But i want to learn a back stretch for my usual morning stiffness. Patient Reported Progress Improving PT-OP-F Manual Assessment Start: 11/15/18 12:49 Freq: Status: Active Protocol: Document 11/15/18 12:05 HH (Rec: 11/15/18 13:22 [email or web address]) Manual Assessments Soft Tissue Assessment Soft Tissue Mobility Assessment Moderate tenderness with pressure at R lateral distal hamstring mild atrophy noted of B distal hamstring PT-OP-K Range of Motion Start: 11/15/18 12:49 Freq: Status: Active Protocol: Document 11/15/18 12:05 (Rec: 11/15/18 13:22 [email or web address]) Knee Goniometric Range of Motion Knee Right Knee ROM WFL Yes Patient Position Supine Flexion Active (degrees) 127 Flexion Passive (degrees) 135 Extension Active (degrees) 0 Extension Passive (degrees) 0 Left Knee ROM WFL Yes Patient Position Supine Flexion Active (degrees) 135 Flexion Passive (degrees) 145 Extension Passive (degrees) 0 Knee ROM Limitations Knee ROM Limitations Soft Tissue Tightness Muscle Weakness Pain Comments Pain reproduced during resisted R knee active flexion from 60degrees to end range pain reproduced during R TKE PT-OP-L Special Tests Start: 11/15/18 12:49 Freq: Status: Active Protocol: Document 11/15/18 12:05 (Rec: 11/15/18 13:22 [email or web address]) Special Tests Hip Special Tests Mihai Test Results +Ve Comments R thigh non paralle to table Knee Special Tests Straight Leg Raise Comments discomfort with pain at 80 degrees on RLE stretching sensation only at L LE PT-OP-M Strength Start: 11/15/18 12:49 Freq: Status: Active Protocol: Document 11/15/18 12:05 (Rec: 11/15/18 13:22 [email or web address]) Hip Strength Hip Manual Muscle Testing Right Flexion (L2) 4+ Good+ Extension (S1) 4- Good- Abduction 4 Good Adduction 4+ Good+ Left Flexion (L2) 4+ Good+ Extension (S1) 4+ Good+ Abduction 4+ Good+ Adduction 4+ Good+ Knee Strength Knee Manual Muscle Testing Right Flexion (S2) 4- Good- Extension (L3) 4 Good Comments pain reproduced during resisted R knee flexion and R TKE Left Flexion (S2) 4+ Good+ Extension (L3) 4+ Good+ PT-OP-Q Treatments Start: 11/15/18 12:49 Freq: Status: Active Protocol: Document 01/04/19 13:00 HH (Rec: 01/04/19 16:19 [email or web address]) Cardio Equipment Bicycle (Upright) Duration (Minutes) 5 Resistance 5 Other reverse Therapeutic Exercises Supine Exercises supine HS curl Supine Exercise Name supine HS curl with bridging Equipment Used rolling board and therapy ball Reps/Minutes 5 x2 and 5 x 2 Comments cues for neutral spine Prone Exercises Hamstring Curls Prone Exercise Name concentric and eccentric Side bilateral Equipment Used 10# Reps/Minutes 10 x 3 each side Comments with pillows underneath pelvis Sitting Exercises seated back stretch Sitting Exercise Name long sit position Side bilateral Equipment Used on stool Reps/Minutes 10 secs x 5 x2 Comments hands on bottom support Standing Exercises front squat Equipment Used 10lbs ball Reps/Minutes 10 x2 Comments cues on neutral spine deadlift Standing Exercise Name isometric first then conc/ ecc Equipment Used 10lbs Reps/Minutes 10 secs hold x3; 8 x 3 Comments neutral spine Icelandic deadlift Side right Equipment Used 10lbs ball Reps/Minutes 5mins Comments cues for weight distribution on R hip. PT-OP-T Assessment and Plan Start: 11/15/18 12:49 Freq: Status: Active Protocol: Document 01/04/19 13:00 HH (Rec: 01/04/19 16:19 [email or web address]) Physical Therapy Assessment Assessment Summary Assessment Pt has improved understanding on deadlift and squat mechanics. She is also able to perform all hamstring ex without utilizing lumbar musculatures. Expect pt to be d/c after next week due to her progress, good understanding on self training. Physical Therapy Plan Next Visit Focus/Plan Next Note Type Treatment Note Next Visit Plan reassess HS/ paraspinals activation during HEP cont bridge with HS curl prone HS ex back strengthening ISO-conc- ecc deadlift/ uni deadlift
== END 2019-01-09 16:24 | disposition home or self-care (01) ==
LOC: PHYS 13:00
PROVIDERS: PCP Family Medicine; Visit Provider Physical Medicine & Rehabilitation
DX: S76.319A Strain of muscle, fascia and tendon of the posterior muscle group at thigh level, unspecified thigh, initial encounter (principal)
CPT/HCPCS: 97110; 97140; 97161

== ENCOUNTER → 2019-05-31 11:09 | Outpatient (CLI) | payer MEDICARE, OTHER, SELFPAY ==
--- NOTE | 2019-05-31 | DI.MG.S_ITS ---
BILATERAL DIGITAL SCREENING MAMMOGRAM 3D/2D WITH CAD: 05/31/2019 CLINICAL: Routine screening. Family history of breast cancer. Comparison is made to exams dated: 05/07/2018 mammogram, 04/27/2017 mammogram, and 04/04/2016 mammogram - [facility]. The tissue of both breasts is heterogeneously dense. This may lower the sensitivity of mammography. Current study was also evaluated with a Computer Aided Detection (CAD) system. No significant masses, calcifications, or other findings are seen in either breast. There has been no significant interval change. IMPRESSION: NEGATIVE There is no mammographic evidence of malignancy. A 1 year screening mammogram is recommended. This exam was interpreted at Station ID: [id number]. NOTE: For mammograms, a report in lay terms will be sent to the patient. Approximately 15% of breast malignancies will not be visualized mammographically. In the management of a palpable breast mass, a negative mammogram must not discourage biopsy of a clinically suspicious lesion. Electronically Signed By: Arnaldo stone/allie:05/31/2019 14:37:52 letter sent: Normal Exam ACR BI-RADS Category 1: Negative [id number]
== END ==
PROVIDERS: PCP Family Medicine; Visit Provider Family Medicine
DX: Z12.31 Encounter for screening mammogram for malignant neoplasm of breast (principal); Z80.3 Family history of malignant neoplasm of breast
CPT/HCPCS: 77063; 77067

== ENCOUNTER 2019-07-19 11:47 | Day surgery (SDC) | payer MEDICARE, OTHER, SELFPAY ==
--- NOTE | 2019-07-19 | PATH_ITS ---
[facility] Accession Number: [id number] . 01 Material submitted: . colon - CECAL POLYP 6MM . 01 Clinical history: . SCREENING COLONOSCOPY . 02 Diagnosis: Cecum, Polyp 6 mm, Biopsy: Tubular adenoma. MRV 07/22/2019 0944 Local . 02 Electronically signed: . Sully Singh MD, Pathologist NPI- [id number] . 01 Gross description: . CECAL POLYP 6MM: Received in formalin are 3 fragment(s) of acuña, soft tissue measuring 0.2 x 0.2 x 0.1 cm to 0.4 x 0.2 x 0.2 cm submitted entirely in 1 cassette(s) /[facility] 07/19/2019 2119 Local . 02 Pathologist provided ICD-10: D12.0 . 02 CPT . 668898 Performed at: 01 [facility] [address], [place], [place] [id number] MD Arnaldo Mckeon MD Phone: [phone] Performed at: 02 [facility] [address] [place], [place] [id number] MD Sully Singh MD Phone: [phone]
--- NOTE | 2019-07-19 11:52 | PM.HP.1 ---
History of Present Illness History of Present Illness Date Patient Seen: 07/19/19 Chief complaint: [id number] SCREENING COLONOSCOPY Narrative: 74 year old female comes in today for consideration of a screening colonoscopy. Has had one lifetime colonoscopy on 10/18/2012, cecal polyp, small, 5 year recall. There have been no lower GI symptoms suggesting disease such as change in bowel habits, bleeding, abdominal pain or anemia. Her father had colon polyps. Overall health issues have been stable, including no major cardiac events for at least 6 weeks. PCP: Dr. Hinkle Past medical history: Osteopenia Chronic kidney disease stage 1 Hyperlipidemia Lumbar radiculopathy Perioral dermatitis Hamstring tendinitis Low back pain Past surgical history: Tonsillectomy Colonoscopy Family history: Unremarkable Social history: 2006, lives alone. Retired. Meds Home Medications and Allergies Home Medications Medication Instructions Recorded Confirmed Type ASCORBIC ACID (VITAMIN C (ER)) 2,000 mg PO Q DAY #30 11/09/12 11/08/18 Rx Lutein (#LUTEIN) 20 mg PO QDAY #30 11/09/12 Rx [OMEGA 3] #0 11/09/12 History [probiotic] 1 PO QDAY #0 04/18/13 History ascorbate calcium (vitamin C) 500 500 mg PO DAILY 11/08/18 11/08/18 History mg tablet aspirin 81 mg tablet,delayed 81 mg PO DAILY 11/08/18 11/08/18 History release biotin 1 mg capsule 1 mg PO DAILY 11/08/18 11/08/18 History cholecalciferol (vitamin D3) 1,000 2,000 unit PO DAILY 11/08/18 11/08/18 History unit capsule d-mannose each PO gram 11/08/18 11/08/18 History flaxseed oil 1,000 mg capsule 1,000 mg PO BID 11/08/18 11/08/18 History fluticasone propionate 50 1 spray NASAL DAILY 11/08/18 11/08/18 History mcg/actuation nasal spray,suspension lactobacillus combination no.8 3 3,000 mmu cells PO DAILY 11/08/18 11/08/18 History billion cell capsule lutein 20 mg capsule 20 mg PO DAILY 11/08/18 11/08/18 History meloxicam 7.5 mg tablet 7.5 mg PO DAILY 11/08/18 11/08/18 History trazodone 100 mg tablet 100 mg PO BEDTIME PRN 11/08/18 11/08/18 History vitamin B complex 1 tab PO DAILY 11/08/18 11/08/18 History Allergies Allergy/AdvReac Type Severity Reaction Status Date / Time nitrofurantoin Allergy Unknown Verified 07/19/19 12:12 [NITROFURANTOIN] Penicillins [PENICILLINS] Allergy Unknown Verified 07/19/19 12:12 Sulfa (Sulfonamide Allergy Unknown Verified 07/19/19 12:12 Antibiotics) [SULFA (SULFONAMIDE ANTIBIOTICS)] sulfamethoxazole Allergy Unknown Verified 07/19/19 12:12 [SULFAMETHOXAZOLE] trimethoprim [TRIMETHOPRIM] Allergy Unknown Verified 07/19/19 12:12 Review of Systems Review of Systems ROS Unobtainable: All systems reviewed & are unremarkable except as noted in HPI and below Exam Narrative Exam Narrative: GENERAL: Alert and oriented, appearing stated age and in no acute distress. HEENT: Head normocephalic/atraumatic. LUNGS: Clear to ausculation bilaterally, no wheezes, rhonchi or rales. CV: Normal S1 and S2 with regular rate and rhythm, no audible murmurs, rubs or gallops. ABDOMEN: Soft, non-tender, non-distended, no organomegaly. Positive bowel sounds. EXTREMITIES: No clubbing, cyanosis, or edema. NEURO: Cranial nerves II through XII grossly intact, no focal deficits. PSYCH: Alert and oriented x 3. SKIN: No concerning lesions. Assessment & Plan Assessment & Plan narrative: 1. History of colon polyps 2. Family history of colon polyps 3. Screening for colon cancer Plan for colonoscopy. The nature and character of the procedure as well as anticipated results were discussed. The possibility of not completing the procedure was also discussed. Possible complications including aspiration pneumonia, bleeding, perforation and reaction to medications either for sedation or preparation and missed lesions were discussed. Questions were answered and proceeding to the colonoscopy was elected. Informed consent signed. I sincerely appreciate the referral allowing me to participate in this patient's care. Please contact me with any questions or concerns.
--- NOTE | 2019-07-19 12:00 | PM.OP.ENDO ---
Operative Date/Time/Diagnoses Date of procedure: 07/19/19 Time of procedure: 13:00 Pre-op diagnosis: 1. History of colon polyps 2. Screening for colon cancer Post-op diagnosis: other (Cecal polyp, 6 mm, lifted with methylene blue and removed with cold snare) Procedure & Clinicians Study performed: Colonoscopy Same procedure as scheduled: Yes Indications: 1. History of colon polyps 2. Screening for colon cancer Surgeon: Piper Rahman Procedure Notes SCOAP/Timeout: 13:00 Procedure in detail: ENDOSCOPIST: Piper Rahman MD Sedation RN: Sandy Newman RN Sedation start time: 13:03 Sedation end time: 13:25 PROCEDURE: Colonoscopy with methylene blue left and cold snare biopsy INDICATIONS: 1. History of colon polyps 2. Family history of colon polyps 3. Screening for colon cancer MEDICATION: Levsin 0.125 mg sublingual, incremental doses of Versed and fentanyl until appropriate level sedation achieved. ASA CLASS: 2 CECAL WITHDRAWAL TIME: 11 minutes COMPLICATIONS: None. EXTENT OF PROCEDURE: Cecum. QUALITY OF PREP: Good with portions of liquid stool. PROCEDURE: Prior to insertion of the colonoscope, a digital rectal examination was accomplished with circumferential palpation of the distal rectal mucosa without significant findings being noted. The high-definition pediatric colonoscope was passed into the rectum in the usual fashion and advanced over to the cecum without difficulty. The ileocecal valve, appendiceal stoma, and medial wall all could be inspected and a 6 mm sessile polyp was noted, lifted with methylene blue and removed with cold snare, excellent hemostasis. ASCENDING COLON: As the colonoscope was withdrawn, care was taken to expose and inspect the haustral folds and no abnormalities were seen. HEPATIC FLEXURE: Normal no polyps, diverticula or other abnormalities. TRANSVERSE COLON: Normal no polyps, diverticula or other abnormalities. DESCENDING COLON: Normal no polyps, diverticula or other abnormalities. SIGMOID COLON: Normal no polyps, diverticula or other abnormalities. RECTUM: Normal. J maneuver was produced. There was no significant perianal disease. The J maneuver was broken. The remainder of the rectum was inspected and there was no external hemorrhoid disease. The scope was withdrawn. IMPRESSION: 1. Cecal polyp x1, 6 mm, with methylene blue and removed cold snare PLAN: 1. Follow-up in clinic status post pathology results. The possibility of a missed lesion including a malignancy has been discussed with the patient previously. Potential alarm symptoms have been discussed and should be reported immediately. Scope withdrawal time: 11 minutes Sedation minutes: 25 Findings: polyp Specimen(s): other Complications: none Impression: As above. Post-procedure Recommendations: Will call with biopsy results Follow up: weeks (2) Disposition: PACU
[2019-07-19 12:05] VITALS: BP 148/88; PULSE 63; RESP 15; TEMP 36.6; O2SAT 98; BMI 24.5
[2019-07-19] MEDS: SODIUM CHLORIDE 0.9% 1,000 ML 200 ML IV (12:20)
[2019-07-19] MEDS: fentaNYL 250 MCG/5 ML INJ IV (13:01)
[2019-07-19] MEDS: MIDAZOLAM 5 MG/5 ML VIAL IV (13:02)
--- NOTE | 2019-07-19 13:05 | SUR.OPER ---
GLASSES IN LABELED BAG TO PACU WITH PATIENT.
[2019-07-19] MEDS: METHYLENE BLUE 50 MG/10 ML VIAL INJ (13:27)
[2019-07-19 13:32] VITALS: BP 108/61; PULSE 75; RESP 15; TEMP 36.2; O2SAT 97
[2019-07-19 13:37] VITALS: BP 104/71; PULSE 70; RESP 17; O2SAT 98
[2019-07-19 13:42] VITALS: BP 115/76; PULSE 63; RESP 20; O2SAT 97
[2019-07-19 13:47] VITALS: BP 125/81; PULSE 58; RESP 14; O2SAT 98
[2019-07-19 13:55] VITALS: BP 132/75; PULSE 55; RESP 14; TEMP 36.7; O2SAT 99
== END 2019-07-19 12:03 | disposition home or self-care (01) ==
PROVIDERS: PCP Family Medicine; Visit Provider Student in an Organized Health Care Education/Training Program
PROC: 0DJD8ZZ Inspection of Lower Intestinal Tract, Via Natural or Artificial Opening Endoscopic (ICD-10-PCS; CPT 45378; principal; 2019-07-19 13:00)
DX: Z12.11 Encounter for screening for malignant neoplasm of colon (principal); Z86.010 Personal history of colon polyps; D12.0 Benign neoplasm of cecum
CPT/HCPCS: 45381; 45385; J2250; J3010; Q9968

== ENCOUNTER → 2019-12-27 14:20 | Outpatient (CLI) | payer MEDICARE, OTHER, SELFPAY | PROVIDERS: PCP Family Medicine; Referring Provider Family Medicine; Visit Provider Family Medicine | DX: M85.88 Other specified disorders of bone density and structure, other site (principal); Z78.0 Asymptomatic menopausal state; Z82.62 Family history of osteoporosis | CPT/HCPCS: 77080 ==

== ENCOUNTER → 2020-03-28 11:38 | Outpatient (CLI) | payer MEDICARE, OTHER, SELFPAY ==
--- NOTE | 2020-03-28 | DI.MRI.S_ITS ---
PROCEDURE: MR LUMBAR SPINE WO CON INDICATIONS: LUMBAR RADICULOPATHY TECHNIQUE: Noncontrast sagittal T1 spin echo and T2 fast echo, coronal T2, sagittal STIR, axial T1 and T2 fast spin echo through the lumbar spine. COMPARISON: [facility], MR, MR LUMBAR SPINE WO CON, 07/28/2018, 8:48. [facility], CR, XR LUMBAR SPINE 2-3V, 07/06/2018, 10:31. FINDINGS: Image quality: Excellent. Alignment and Curvature: 5 lumbar type vertebral bodies are present by plain film. There is mild grade 1 retrolisthesis of L1 on L2, L2 on L3, and L3 on L4. Mild grade 1 anterolisthesis of L4 on L5 and L5 on S1. Bone Marrow: Marrow is of normal overall signal. No acute vertebral body compression fractures. Moderate reactive signal within the endplates adjacent to the L1-L2, L2-L3 and L5-S1 intervertebral discs. Mild reactive signal within the endplates adjacent to the L3-L4 and L4-L5 intervertebral discs. Spinal Cord: Conus medullaris terminates at the lower L1 level. Visualized cord demonstrates normal signal and size. Paraspinous Soft Tissues: No paravertebral masses. L1-L2: Moderate disc height loss and desiccation. Moderate diffuse disc bulge. Mild bilateral facet and ligamentum flavum hypertrophy. Mild canal stenosis. Mild bilateral foraminal stenosis. No change. L2-L3: Moderate disc height loss and desiccation. Mild diffuse disc bulge with small superimposed broad-based left far lateral protrusion. Mild facet hypertrophy bilaterally. Mild canal stenosis. Moderate left and mild right foraminal stenosis. No change. L3-L4: Moderate disc height loss and desiccation. Mild diffuse disc bulge. Mild facet and ligamentum flavum hypertrophy. Mild canal stenosis. Mild bilateral foraminal stenosis. No change. L4-L5: Moderate disc height loss and desiccation. Moderate diffuse disc bulge. Moderate facet and ligamentum flavum hypertrophy. Moderate canal stenosis. Mild bilateral foraminal stenosis. No change. L5-S1: Severe disc height loss and desiccation. Moderate diffuse disc bulge. Moderate bilateral facet hypertrophy. Mild canal stenosis. Moderate bilateral foraminal stenosis. No change. IMPRESSION: 1. Multilevel degenerative disc and facet disease, as well as ligamentum flavum hypertrophy and epidural lipomatosis. 2. Multilevel canal stenosis, worst at L4-L5, where there is moderate canal stenosis. 3. Multilevel foraminal stenoses, worst at L2-L3 and L5-S1, where there are moderate foraminal stenoses as described above. Dictated by: Pam Messina M.D. on 03/30/2020 at 11:23 Approved by: Pam Messina M.D. on 03/30/2020 at 11:26
== END ==
PROVIDERS: PCP Family Medicine; Referring Provider Family Medicine; Visit Provider Family Medicine
DX: M51.16 Intervertebral disc disorders with radiculopathy, lumbar region (principal); M51.17 Intervertebral disc disorders with radiculopathy, lumbosacral region; M48.07 Spinal stenosis, lumbosacral region; M48.061 Spinal stenosis, lumbar region without neurogenic claudication
CPT/HCPCS: 72148

== ENCOUNTER → 2020-06-01 10:24 | Outpatient (CLI) | payer MEDICARE, OTHER, SELFPAY ==
--- NOTE | 2020-06-01 | DI.RAD.S_ITS ---
PROCEDURE: XR LUMBAR SPINE 2-3V INDICATIONS: LUMBAR RADICULOPATHY TECHNIQUE: 3 views of the lumbar spine were acquired. COMPARISON: [facility], CR, XR LUMBAR SPINE 2-3V, 07/06/2018, 10:31. FINDINGS: Bones: No fracture. Multilevel degenerative endplate sclerosis and spurring. Diffuse facet arthropathy. Grade 1 retrolisthesis of L1 on L2 and L2 on L3. Grade 1 retrolisthesis of L3 on L4 and grade 1 anterolisthesis of L4 on L5. Moderate to severe diffuse disc space narrowing throughout the lumbar spine most pronounced at L1-L2 and L5-S1. Partially visualized lateral curvature of the spine. Soft tissues: Overlying bowel gas pattern is normal. No suspicious soft tissue calcifications. IMPRESSION: Diffuse lumbar spondylosis and facet arthropathy, progressed since 07/06/18, in particular at L5-S1. Dictated by: Darwin Ware M.D. on 06/01/2020 at 13:09 Approved by: Darwin Ware M.D. on 06/01/2020 at 13:16
== END ==
PROVIDERS: PCP Family Medicine; Referring Provider Family Medicine; Visit Provider Family Medicine
DX: M47.27 Other spondylosis with radiculopathy, lumbosacral region (principal)
CPT/HCPCS: 72100

== ENCOUNTER → 2020-06-08 13:07 | Outpatient (CLI) | payer MEDICARE, OTHER, SELFPAY ==
[2020-06-08 14:01] LABS: COVID19 -Nasal RAPID Negative (Negative)
== END ==
PROVIDERS: PCP Family Medicine; Visit Provider Physician Assistant
DX: Z11.59 Encounter for screening for other viral diseases (principal)
CPT/HCPCS: 87635

== ENCOUNTER 2020-06-09 09:00 | Outpatient (CLI) | payer MEDICARE, OTHER, SELFPAY ==
[2020-06-09] VITALS (10 sets, daily range): BP systolic 118–181; BP diastolic 67–95; PULSE 58–64; RESP 15–18; TEMP 36; O2SAT 96–99
--- NOTE | 2020-06-09 09:03 | DI.RAD.S_ITS ---
PROCEDURE: PAIN L INTERLAMINAR/CAUDAL INJ INDICATIONS: SPONDYLOSIS COMPARISON: None. FINDINGS: Fluoroscopic spot filming was performed to verify placement of spinal needles at the L4-5 dorsal translaminar level(s), as labeled on the films. Appropriate location(s) of the needle tip(s) was confirmed by injection of iodinated contrast. IMPRESSION: Successful dorsal midline needle tip localization for L4-5 epidural steroid injection. Dictated by: Trino Chaparro M.D. on 06/09/2020 at 10:43 Approved by: Trino Chaparro M.D. on 06/09/2020 at 10:44
[2020-06-09] MEDS: MIDAZOLAM 5 MG/5 ML VIAL IV (09:53)
[2020-06-09] MEDS: fentaNYL 100 MCG/2 ML INJ 50 MCG IV (09:58)
[2020-06-09] MEDS: IOPAMIDOL 15 ML VIAL 3 ML INJ (10:01)
[2020-06-09] MEDS: BUPIVACAINE 0.25% (PF) VIAL 2 ML INJ (10:01)
[2020-06-09] MEDS: BETAMETHASONE 30 MG/5 ML MDV 6 MG INJ (10:02)
[2020-06-09] MEDS: DEXAMETHASONE 10 MG/ML VIAL 20 MG INJ (10:04)
--- NOTE | 2020-06-09 10:07 | P.PCN_ITS ---
Date/Time/Diagnoses Date of procedure: 06/09/20 Time of procedure: 10:07 Pre-procedure diagnosis: 1. HNP WITH RADICULAR FEATURES, 2. MULTILEVEL CENTRAL STENOSIS, Post-procedure diagnosis: same Procedure Notes Procedure: 1. FLUOROSCOPICALLY GUIDED CONTRAST CONTROLLED INTERLAMINAR EPIDURAL STEROID INJECTION -L4/5 Indications: Sophia is referred by Dr. Hinkle for treatment of Bilateral Foraminal Stenosis R>L LE symptoms. Physician: Jhonatan Asencio Total Fluoroscopy time (seconds): 6 Total sedation minutes: 11 Complications: none Procedure in detail & Post-procedure care: FINDINGS Multilevel Central Spinal Stenosis with Nerve Root Compression DESCRIPTION OF PROCEDURE Fluoroscopically guided, contrast-controlled L4/5 translaminar epidural steroid injection. Following review of allergy and review of potential side effects and complications, including, but not necessarily limited to, infection, allergic reaction, local tissue breakdown, temporary as well as permanent nerve injury, paralysis, stroke and possible , the patient indicated that the patient understood and agreed to proceed. An informed consent document was signed by the patient, witnessed by a nurse, and placed in the patient's chart. Additionally, other treatment options including modalities, medications, and physical therapy were reviewed with the patient. After review of previous anaesthesic history and IV conscious sedation the patient was deemed safe to proceed with today?s procedure with IV conscious sedation as ASA class II designation. Safety time-out was performed to confirm patient ID, procedure to be performed and site of procedure. IV sedation was accomplished with a combination of 2mg of Versed and 25mcg of Fentanyl was administered by the RN after DO order, titrated to patient comfort during the course of the procedure while the patient remained responsive to all verbal commands In the prone position, following sterile prep and drape of the lumbar region, the L4/5 translaminar space was identified fluoroscopically. The skin was anesthetized via a 25-gauge, 1.5inch needle with 1% lidocaine solution. At this point, a 22-gauge short bevel spinal needle was atraumatically introduced and advanced under fluoroscopic guidance into the region of the L4/5 translaminar space. Depth was confirmed on lateral view. Radiological data, including multiple fluoroscopic views of the lumbar spine, reveal a spinal needle at the L4/5 translaminar space. Lateral views then show placement of the needle in the epidural space. Subsequent views show contrast material flowing superiorly and inferiorly in the epidural space. No vascular or intrathecal uptake is observed. At this point, using loss of resistance technique with saline and air, the epidural space was entered. This was confirmed following negative aspiration with injection of approximately 1.5cc of Isovue 200, showing excellent epidural flow without vascular or intrathecal uptake. At this point, 1cc of 1% lidocaine solution combined with 3cc or 20mg of dexamethasone and 6mg betamethasone was injected without incident. The patient tolerated the procedure well without signs or symptoms of com plications prior to transfer to the recovery area continued monitoring without incident. The patient was then transferred to the recovery area where they were observed for an appropriate period of time after the injection. The patient reported a VAS score of 6 prior to the procedure and a post- procedure VAS of 0. POST OP INSTRUCTIONS The patient was provided a Pain Log to continue to record their response to the target-specific procedure prior to follow-up visit with their referring physician. Additionally, specific post-injection care instructions and a contact number to our office were provided if concerns arise regarding possible complications associated with the procedure are suspected.
== END 2020-06-09 10:35 | disposition home or self-care (01) ==
LOC: RAD 09:01
PROVIDERS: PCP Family Medicine; Referring Provider Physical Medicine & Rehabilitation; Visit Provider Physical Medicine & Rehabilitation
DX: M51.16 Intervertebral disc disorders with radiculopathy, lumbar region; M48.061 Spinal stenosis, lumbar region without neurogenic claudication
CPT/HCPCS: 62323; 99152; J0702; J1100; J2250; J3010

== ENCOUNTER 2020-07-07 13:00 | Outpatient (RCR) | payer MEDICARE, OTHER, SELFPAY ==
--- NOTE | 2020-02-01 14:54 | PT.OIE ---
Current Diagnoses Radiculopathy, lumbar region (01/30/20) Visit Care Team Role Provider Type Clare Hinkle MD Attending Provider Physician Primary Care Provider Referring Provider Specialty: Family Practice Address: [address] [place] [address], [facility] [place], [facility] Email: [email or web address] Physical Therapy Initial Evaluation PT-OP-A Visit Information Start: 01/30/20 13:34 Freq: Status: Active Protocol: Document 01/30/20 13:45 [facility] (Rec: 02/01/20 14:52 [facility] [email or web address]) Out-Patient Physical Therapy Visit Information Visit Information Visit Type Initial Evaluation Visit Start Time 13:45 Visit Stop Time 14:30 Total Visit Minutes 45 Visit Number 1 Evaluation Information Evaluation Date 01/30/20 PT-OP-B Current Condition Start: 01/30/20 13:34 Freq: Status: Active Protocol: Document 01/30/20 13:45 [facility] (Rec: 02/01/20 14:52 [facility] [email or web address]) Current Condition History of Current Condition Onset Date December 2019 Current Complaints left sided radiculopathy and B SI/sacral pain History of Current Condition Sophia has been seen previously for PT for Sacral pain and sciatic symptoms. She notes she had been doing well and then gradually began having c/o left sided radicular symptoms. She reports she has been home by herself during and hadn' t been able to do her regular exercise routine at the gym. She felt that she was sitting a lot and was often at the computer. In early December she had soil delivered for her yard and she notes she had pain trying to move the soil. She recently took a road trip and during this time her symptoms progresses includinging tingling into B feet and pain with standing and rolling over in bed. Kalie reports she has started trying to stretch and work on her posture and this has helped some but she is still noting left sided radicular symptoms and B pain in the gluteals Treatment Goals Patient/Caregiver Goals Kalie would like to continue to exercise, travel, and walk without pain. Current Functional Impairments (Reported) Functional Limitations- ADL's normal ADL's increase her pain Functional Limitations- Mobility/Gait pain with standing more than 10 minutes, pain with traveling and walking Functional Limitations- Recreation/ Limited with gardening Hobbies activities due to pain PT-OP-C Subjective Start: 01/30/20 13:34 Freq: Status: Active Protocol: Document 01/30/20 13:45 [facility] (Rec: 02/01/20 14:52 [facility] [email or web address]) Patient Questionnaires Oswestry Low Back Index Oswestry Impairment 20 to 39% Impaired (Score 20- 39) OP-PT Pain Assessment Pain Assessment Grid Paper Pain Assessment Grid Completed Yes Location B SI joint and gluteals Pain Location Details B SI joint, sacrum and gluteal region Intensity 6 Scale Used Numeric (0 - 10) left LE Pain Location Details radicular symptoms down the left LE Intensity 6 PT-OP-F Manual Assessment Start: 01/30/20 13:34 Freq: Status: Active Protocol: Document 01/30/20 13:45 [facility] (Rec: 02/01/20 14:52 [facility] [email or web address]) Manual Assessments Soft Tissue Assessment Soft Tissue Mobility Assessment There is guarding and muscle spasm in the psoas attachments left greater than R, guarding upper lumbar spine paraspinals, pirformis guarding and tightness left greater than R Joint Mobility Assessment Joint Mobility Assessment Decreased lumbar mobility into flexion, decreased hip mobility into flexion The sacrum is help in a nutated positon PT-OP-J Posture/Palpation/Skin Start: 01/30/20 13:34 Freq: Status: Active Protocol: Document 01/30/20 13:45 [facility] (Rec: 02/01/20 14:52 [facility] [email or web address]) Palpation Assessment Location 3 Palpation Location low back muscles spasm and soft tissue tightness Palpation Findings Soft Tissue Tightness,Spasm, Muscle Guarding Two Palpation Location left piriformis Palpation Findings Soft Tissue Tightness,Muscle Guarding One Palpation Location sacrum Palpation Details held in a nutated position, tightness and guarding at the CONY region B PT-OP-K Range of Motion Start: 02/01/20 14:52 Freq: Status: Active Protocol: Document 01/30/20 14:30 [facility] (Rec: 02/01/20 14:54 [facility] [email or web address]) Lumbar Spine Range of Motion Lumbar Spine Active Testing Position Standing Flexion 60 Extension 5 Rotation Left 15 Rotation Right 15 Lateral Flexion Left 10 Lateral Flexion Right 5 ROM Limitations Soft Tissue Tightness,Pain Hip Goniometric Range of Motion Hip Right Flexion w/Knee Flexed 100 Straight Leg Raise 50 Hip ROM Limitations Comments right sided hamstring is still tight from her history of hamstring strain PT-OP-L Special Tests Start: 01/30/20 13:34 Freq: Status: Active Protocol: Document 01/30/20 14:30 [facility] (Rec: 02/01/20 14:54 [facility] [email or web address]) Special Tests Hip Special Tests Mihai Test Results + for iliopsoas tightness Comments R thigh non paralle to table PT-OP-M Strength Start: 01/30/20 13:34 Freq: Status: Active Protocol: Document 01/30/20 13:45 [facility] (Rec: 02/01/20 14:52 [facility] [email or web address]) Trunk Strength Trunk Manual Muscle Testing Core Stabilization decreased core stabilization of the transverse abdominal musculature, + ASLR test B PT-OP-Q Treatments Start: 01/30/20 13:34 Freq: Status: Active Protocol: Document 01/30/20 13:45 [facility] (Rec: 02/01/20 14:52 [facility] [email or web address]) Therapeutic Exercises Supine Exercises 1 Supine Exercise Name single knee to chest stretch Side bilateral Other Exercises Bilateral iliopsoas stretch Other Exercise Name Mihai test position iliopsoas stretch Side bilateral Reps/Minutes hold 1 min each side repeat child pose Other Exercise Name rose pose Side bilateral Manual Therapy Treatment Soft Tissue Mobilization 2 Body Location STM to Lumbar paraspinals and sacral region Mobilization Type Strumming,Sustained Pressure Intensity/Depth Moderate Body Position Prone Comments pillow under abdomen Manual Techniques 2 Type manual sacral decompression and mobilizations into counter nutation Body Position Prone Comments prone on body pillow MET Body Position Prone Reps/Duration 5 secs tempo Comments eccentric knee flexion on R 1 Type manual piriformis stretch, hip ER Body Position Prone Comments prone on body pillow PT-OP-T Assessment and Plan Start: 01/30/20 13:34 Freq: Status: Active Protocol: Document 01/30/20 13:45 [facility] (Rec: 02/01/20 14:52 [facility] [email or web address]) Physical Therapy Assessment Goals reduced ROM Impairment Reduced Lumbar and hip ROM Short Term Goal (STG) PT is educated on a home flexibility program for her lumbar spine and hips to improve pain free mobility STG Duration 5 weeks [employer] Goal (LTG) Kalie is able to perform pain free lumbar pain ROM in all planes, she also demonstrates improved mobility into hip extenstion from improved flexibility of the psoas muscle LTG Duration 8 weeks Back pain [employer] Counter Clerk Goal (LTG) Pt will be able to isolate HS activation without lumbar compensation to reduce back pain LTG Duration 8 weeks HEP Impairment does not have a HS flexibility and strengthening home program [facility] Goal (LTG) Goal met:12/25 pt has been following HEP Pt will safely perform HEP independently with proper body mechanics to improve her overall HS flexibility and strength. LTG Duration 6 weeks Pain Impairment Low back and sacral pain, left radicular pain symptoms [facility] Goal (LTG) Kalie is no longer experiencing radicular symptoms and c/o pain in the low back and sacrum are reduced from 12/24 to 1-2/10 Strength Impairment decreased knee flexor strength [facility] Goal (LTG) 12/25/18: 4+/5 for R knee flexor Pt will be able to perform HS curl with bridging (rolling board) x 10 LTG Duration 8 weeks LEFS [employer] Counter Clerk Goal (LTG) Pt will be able to reach 0% impairment to improver overall quality of life, such as no difficulty with squatting and hiking. LTG Duration 8 weeks Four Impairment SI dysfunction with + tests for instability Short Term Goal (STG) Correct SI dysfunction with manual therapy techniqes and stabilizing exercises STG Duration 6 weeks Three Impairment Sophia is unable to perform her abdominal exercises due to pain Short Term Goal (STG) Sophia is instruced in dymanic core stabilization exercises that she can do without pain. Starting out with transverse abdominal activation statically and progressing to dynamic activation exercises on the ball STG Duration 6 weeks Assessment Summary Assessment Kalie presents to physical therapy today with c/o radicular symptoms in the left LE and SI/Sacral pain. She reports her symptoms have gradually progressed and became worse during quarentine due to covid 19 pandemic as she wasn't able to go to the gym or socialize. She notes she spent more time on the computer than she was used to. In December she had 2 yards of soil delivered to her house and she became increasingly sore trying to move the soil. At this point her pain is rated 6/10 in her lower back and SI region with nerve pain downt he left leg rated 2/10. Kalie states she has recently started working on her posture and she feels this has helped some. With evaluation today Kalie in limited in lumar flexion movements. Lumbar extension increases her pain. Her sacrum is help in a nutated position and there is guarding of the lumbar parapsinal muscules. She is restricted in her psoas muscles left > right. I started her today with a flexion based stretching program. I also began MFR/STM work on her low back as well as sacral mobilizations into a counternutated position. She is a good candidate for PT focusing on decreasing the radicular symptoms using stretching, posture, and manual therapy techniques. Treatment will then progress to stabilization exercises for her lumbar spine Physical Therapy Plan Frequency and Duration Frequency of Treatment 2x/Week Duration of Treatment 8 Plan of Care Start Date 01/30/20 Plan of Care End Date 03/26/20 Therapeutic Interventions Therapeutic Interventions Home Exercise Program,Manual Therapy,Patient/Caregiver Education,Self-Care/Home Management,Soft Tissue Mobilization,Therapeutic Exercises Modalities Hot Packs Next Visit Focus/Plan Next Note Type Treatment Note Next Visit Plan review stretches given for HEP , STM/MFR techniques for the low back and sacral region, psoas release and manual stretches, trial of foam roll stretching for posture.
--- NOTE | 2020-02-01 14:54 | PT.OPPOC ---
Physical, Occupational & Speech Therapy At [facility] Current Diagnoses Radiculopathy, lumbar region (01/30/20) Visit Care Team Role Provider Type Clare iHnkle MD Attending Provider Physician Primary Care Provider Referring Provider Specialty: Family Practice Address: [address] [place] [address], [facility] [place] [place], [address] Email: [email or web address] Plan Of Care PT-OP-T Assessment and Plan Start: 01/30/20 13:34 Freq: Status: Active Protocol: Document 01/30/20 13:45 [facility] (Rec: 02/01/20 14:52 [facility] [email or web address]) Physical Therapy Assessment Goals reduced ROM Impairment Reduced Lumbar and hip ROM Short Term Goal (STG) Pt is educated on a home flexibility program for her lumbar spine and hips to improve pain free mobility STG Duration 5 weeks [employer] Supervisor Goal (LTG) Kalie is able to perform pain free lumbar pain ROM in all planes, she also demonstrates improved mobility into hip extension from improved flexibility of the psoas muscle LTG Duration 8 weeks Back pain [facility] Goal (LTG) Pt will be able to isolate HS activation without lumbar compensation to reduce back pain LTG Duration 8 weeks HEP Impairment does not have a HS flexibility and strengthening home program [employer] W[employer] Supervisor Goal (LTG) Goal met:12/25 pt has been following HEP Pt will safely perform HEP independently with proper body mechanics to improve her overall HS flexibility and strength. LTG Duration 6 weeks Pain Impairment Low back and sacral pain, left radicular pain symptoms [employer] Wrapping Supervisor Goal (LTG) Kalie is no longer experiencing radicular symptoms and c/o pain in the low back and sacrum are reduced from 12/24 to 1-2/10 Strength Impairment decreased knee flexor strength [facility] Goal (LTG) 12/25/18: 4+/5 for R knee flexor Pt will be able to perform HS curl with bridging (rolling board) x 10 LTG Duration 8 weeks LEFS [employer] W[employer] Supervisor Goal (LTG) Pt will be able to reach 0% impairment to improver overall quality of life, such as no difficulty with squatting and hiking. LTG Duration 8 weeks Four Impairment SI dysfunction with + tests for instability Short Term Goal (STG) Correct SI dysfunction with manual therapy techniques and stabilizing exercises STG Duration 6 weeks Three Impairment Sophia is unable to perform her abdominal exercises due to pain Short Term Goal (STG) Sophia is instructed in dynamic core stabilization exercises that she can do without pain. Starting out with transverse abdominal activation statically and progressing to dynamic activation exercises on the ball STG Duration 6 weeks Assessment Summary Assessment Kalie presents to physical therapy today with c/o radicular symptoms in the left LE and SI/Sacral pain. She reports her symptoms have gradually progressed and became worse during quarantine due to covid 19 pandemic as she wasn't able to go to the gym or socialize. She notes she spent more time on the computer than she was used to. In December she had 2 yards of soil delivered to her house and she became increasingly sore trying to move the soil. At this point her pain is rated 6/10 in her lower back and SI region with nerve pain downt he left leg rated 2/10. Kalie states she has recently started working on her posture and she feels this has helped some. With evaluation today Kalie in limited in lumar flexion movements. Lumbar extension increases her pain. Her sacrum is help in a nutated position and there is guarding of the lumbar paraspinal muscles. She is restricted in her psoas muscles left > right. I started her today with a flexion based stretching program. I also began MFR/STM work on her low back as well as sacral mobilizations into a counter nutated position. She is a good candidate for PT focusing on decreasing the radicular symptoms using stretching, posture, and manual therapy techniques. Treatment will then progress to stabilization exercises for her lumbar spine Physical Therapy Plan Frequency and Duration Frequency of Treatment 2x/Week Duration of Treatment 8 Plan of Care Start Date 01/30/20 Plan of Care End Date 03/26/20 Therapeutic Interventions Therapeutic Interventions Home Exercise Program,Manual Therapy,Patient/Caregiver Education,Self-Care/Home Management,Soft Tissue Mobilization,Therapeutic Exercises Modalities Hot Packs Next Visit Focus/Plan Next Note Type Treatment Note Next Visit Plan review stretches given for HEP , STM/MFR techniques for the low back and sacral region, psoas release and manual stretches, trial of foam roll stretching for posture. Plan of Care Dates Plan of Care Start Date 01/30/20 Plan of Care End Date 03/26/20 Electronically Signed by: Jamaica Antony PT 02/01/20 [id number] Please Sign and Return: I have reviewed this Plan of Care and certify that the skilled therapy services above are required to meet the patient?s needs. Physician Signature Date Printed Name and Credentials Clinical Instructor Signature Printed Name and Credentials
--- NOTE | 2020-02-19 15:44 | PT.OTN ---
Current Diagnoses Radiculopathy, lumbar region (02/19/20) Physical Therapy Treatment Note PT-OP-A Visit Information Start: 01/30/20 13:34 Freq: Status: Active Protocol: Document 02/19/20 15:34 [facility] (Rec: 02/19/20 15:44 [facility] [id number]) Out-Patient Physical Therapy Visit Information Visit Information Visit Type Treatment Note Visit Start Time 12:10 Visit Stop Time 12:55 Total Visit Minutes 45 Visit Number 2 PT-OP-B Current Condition Start: 01/30/20 13:34 Freq: Status: Active Protocol: Document 01/30/20 13:45 [facility] (Rec: 02/01/20 14:52 [facility] [email or web address]) Current Condition History of Current Condition Onset Date December 2019 Current Complaints left sided radiculopathy and B SI/sacral pain History of Current Condition Sophia has been seen previously for PT for Sacral pain and sciatic symptoms. She notes she had been doing well and then gradually began having c/o left sided radicular symptoms. She reports she has been home by herself during and hadn' t been able to do her regular exercise routine at the gym. She felt that she was sitting a lot and was often at the computer. In early December she had soil delivered for her yard and she notes she had pain trying to move the soil. She recently took a road trip and during this time her symptoms progresses includinging tingling into B feet and pain with standing and rolling over in bed. Kalie reports she has started trying to stretch and work on her posture and this has helped some but she is still noting left sided radicular symptoms and B pain in the gluteals Treatment Goals Patient/Caregiver Goals Kalie would like to continue to exercise, travel, and walk without pain. Current Functional Impairments (Reported) Functional Limitations- ADL's normal ADL's increase her pain Functional Limitations- Mobility/Gait pain with standing more than 10 minutes, pain with traveling and walking Functional Limitations- Recreation/ Limited with gardening Hobbies activities due to pain PT-OP-C Subjective Start: 01/30/20 13:34 Freq: Status: Active Protocol: Document 02/19/20 15:34 [facility] (Rec: 02/19/20 15:44 [facility] [id number]) OP-PT Subjective Patient Comments Patient Comments Kalie reports she did really well after last visit and pain levels are much decreased. She is still having difficulty with feeling unsupported if she is sitting or standing without lumbar support. She is alsos till experiencing some leg symptoms however this is also improving. She is working on her hip flexor stretching PT-OP-F Manual Assessment Start: 01/30/20 13:34 Freq: Status: Active Protocol: Document 01/30/20 13:45 [facility] (Rec: 02/01/20 14:52 [facility] [email or web address]) Manual Assessments Soft Tissue Assessment Soft Tissue Mobility Assessment There is guarding and muscle spasm in the psoas attachments left greater than R, guarding upper lumbar spine paraspinals, pirformis guarding and tightness left greater than R Joint Mobility Assessment Joint Mobility Assessment Decreased lumbar mobility into flexion, decreased hip mobility into flexion The sacrum is help in a nutated positon PT-OP-J Posture/Palpation/Skin Start: 01/30/20 13:34 Freq: Status: Active Protocol: Document 01/30/20 13:45 [facility] (Rec: 02/01/20 14:52 [facility] [email or web address]) Palpation Assessment Location 3 Palpation Location low back muscles spasm and soft tissue tightness Palpation Findings Soft Tissue Tightness,Spasm, Muscle Guarding Two Palpation Location left piriformis Palpation Findings Soft Tissue Tightness,Muscle Guarding One Palpation Location sacrum Palpation Details held in a nutated position, tightness and guarding at the [place] region B PT-OP-K Range of Motion Start: 02/01/20 14:52 Freq: Status: Active Protocol: Document 01/30/20 14:30 [facility] (Rec: 02/01/20 14:54 [facility] [email or web address]) Lumbar Spine Range of Motion Lumbar Spine Active Testing Position Standing Flexion 60 Extension 5 Rotation Left 15 Rotation Right 15 Lateral Flexion Left 10 Lateral Flexion Right 5 ROM Limitations Soft Tissue Tightness,Pain Hip Goniometric Range of Motion Hip Right Flexion w/Knee Flexed 100 Straight Leg Raise 50 Hip ROM Limitations Comments right sided hamstring is still tight from her history of hamstring strain PT-OP-L Special Tests Start: 01/30/20 13:34 Freq: Status: Active Protocol: Document 01/30/20 14:30 [facility] (Rec: 02/01/20 14:54 [facility] [email or web address]) Special Tests Hip Special Tests Mihai Test Results + for iliopsoas tightness Comments R thigh non paralle to table PT-OP-M Strength Start: 01/30/20 13:34 Freq: Status: Active Protocol: Document 01/30/20 13:45 [facility] (Rec: 02/01/20 14:52 [facility] [email or web address]) Trunk Strength Trunk Manual Muscle Testing Core Stabilization decreased core stabilization of the transverse abdominal musculature, + ASLR test B PT-OP-Q Treatments Start: 01/30/20 13:34 Freq: Status: Active Protocol: Document 02/19/20 15:34 [facility] (Rec: 02/19/20 15:44 [facility] [id number]) Therapeutic Exercises Supine Exercises 5 Supine Exercise Name Happy baby stretch 4 Supine Exercise Name LA progression level 1 b Reps/Minutes x 10 3 Supine Exercise Name TA facilitation with marches Reps/Minutes x 10 Sidelying Exercises 1 Sidelying Exercise Name TA facilitation in sidelying Other Exercises quadraped TA facilitation Other Exercise Name Quadraped TA facilitations Reps/Minutes x 10 reps Bilateral iliopsoas stretch Other Exercise Name Mihai test position iliopsoas stretch Side bilateral Reps/Minutes hold 1 min each side repeat Self-Care/Home Management Treatment Education Patient Education Home Exercise Program Other Education core stabilization exercises were reviewed and Sophia was educated about facilitating her inner core prior to her abdominal crunches. PT-OP-T Assessment and Plan Start: 01/30/20 13:34 Freq: Status: Active Protocol: Document 02/19/20 15:34 [facility] (Rec: 02/19/20 15:44 [facility] [id number]) Physical Therapy Assessment Assessment Summary Assessment Sophia has been able to release her sacrum at home with stretches and did really well after last visit. She is still having some right sided hamstring residual pain and cramping and also in the tibialis anterior on both sides. We worked primarily on her core today to help with stabilization of her lumbar spine Physical Therapy Plan Frequency and Duration Frequency of Treatment 2x/Week Duration of Treatment 8 Plan of Care Start Date 01/30/20 Plan of Care End Date 03/26/20 Next Visit Focus/Plan Next Note Type Treatment Note Next Visit Plan review stabilization exercise next visit and progress as tolerated. Also add in the foam roll stretching
--- NOTE | 2020-02-25 16:53 | PT.OTN ---
Current Diagnoses Radiculopathy, lumbar region (02/25/20) Physical Therapy Treatment Note PT-OP-A Visit Information Start: 01/30/20 13:34 Freq: Status: Active Protocol: Document 02/25/20 16:32 [facility] (Rec: 02/25/20 16:53 [facility] [email or web address]) Out-Patient Physical Therapy Visit Information Visit Information Visit Type Treatment Note Visit Start Time 10:30 Visit Stop Time 11:15 Total Visit Minutes 45 Visit Number 3 PT-OP-B Current Condition Start: 01/30/20 13:34 Freq: Status: Active Protocol: Document 01/30/20 13:45 [facility] (Rec: 02/01/20 14:52 [facility] [email or web address]) Current Condition History of Current Condition Onset Date December 2019 Current Complaints left sided radiculopathy and B SI/sacral pain History of Current Condition Sophia has been seen previously for PT for Sacral pain and sciatic symptoms. She notes she had been doing well and then gradually began having c/o left sided radicular symptoms. She reports she has been home by herself during and hadn' t been able to do her regular exercise routine at the gym. She felt that she was sitting a lot and was often at the computer. In early December she had soil delivered for her yard and she notes she had pain trying to move the soil. She recently took a road trip and during this time her symptoms progresses includinging tingling into B feet and pain with standing and rolling over in bed. Kalie reports she has started trying to stretch and work on her posture and this has helped some but she is still noting left sided radicular symptoms and B pain in the gluteals Treatment Goals Patient/Caregiver Goals Kalie would like to continue to exercise, travel, and walk without pain. Current Functional Impairments (Reported) Functional Limitations- ADL's normal ADL's increase her pain Functional Limitations- Mobility/Gait pain with standing more than 10 minutes, pain with traveling and walking Functional Limitations- Recreation/ Limited with gardening Hobbies activities due to pain PT-OP-C Subjective Start: 01/30/20 13:34 Freq: Status: Active Protocol: Document 02/25/20 16:32 [facility] (Rec: 02/25/20 16:53 [facility] [email or web address]) OP-PT Subjective Patient Comments Patient Comments Doing much better overall. Kalie is wondering if laying on her back for the abdominal exercises is bothering her sacrum as it feels tender when she lays on her back. PT-OP-F Manual Assessment Start: 01/30/20 13:34 Freq: Status: Active Protocol: Document 01/30/20 13:45 [facility] (Rec: 02/01/20 14:52 [facility] [email or web address]) Manual Assessments Soft Tissue Assessment Soft Tissue Mobility Assessment There is guarding and muscle spasm in the psoas attachments left greater than R, guarding upper lumbar spine paraspinals, pirformis guarding and tightness left greater than R Joint Mobility Assessment Joint Mobility Assessment Decreased lumbar mobility into flexion, decreased hip mobility into flexion The sacrum is help in a nutated positon PT-OP-J Posture/Palpation/Skin Start: 01/30/20 13:34 Freq: Status: Active Protocol: Document 01/30/20 13:45 [facility] (Rec: 02/01/20 14:52 [facility] [email or web address]) Palpation Assessment Location 3 Palpation Location low back muscles spasm and soft tissue tightness Palpation Findings Soft Tissue Tightness,Spasm, Muscle Guarding Two Palpation Location left piriformis Palpation Findings Soft Tissue Tightness,Muscle Guarding One Palpation Location sacrum Palpation Details held in a nutated position, tightness and guarding at the [place] region B PT-OP-K Range of Motion Start: 02/01/20 14:52 Freq: Status: Active Protocol: Document 01/30/20 14:30 [facility] (Rec: 02/01/20 14:54 [facility] [email or web address]) Lumbar Spine Range of Motion Lumbar Spine Active Testing Position Standing Flexion 60 Extension 5 Rotation Left 15 Rotation Right 15 Lateral Flexion Left 10 Lateral Flexion Right 5 ROM Limitations Soft Tissue Tightness,Pain Hip Goniometric Range of Motion Hip Right Flexion w/Knee Flexed 100 Straight Leg Raise 50 Hip ROM Limitations Comments right sided hamstring is still tight from her history of hamstring strain PT-OP-L Special Tests Start: 01/30/20 13:34 Freq: Status: Active Protocol: Document 01/30/20 14:30 [facility] (Rec: 02/01/20 14:54 [facility] [email or web address]) Special Tests Hip Special Tests Mihai Test Results + for iliopsoas tightness Comments R thigh non paralle to table PT-OP-M Strength Start: 01/30/20 13:34 Freq: Status: Active Protocol: Document 01/30/20 13:45 [facility] (Rec: 02/01/20 14:52 [facility] [email or web address]) Trunk Strength Trunk Manual Muscle Testing Core Stabilization decreased core stabilization of the transverse abdominal musculature, + ASLR test B PT-OP-Q Treatments Start: 01/30/20 13:34 Freq: Status: Active Protocol: Document 02/25/20 16:32 [facility] (Rec: 02/25/20 16:53 [facility] [email or web address]) Therapeutic Exercises Other Exercises 1 Other Exercise Name quadruped sidebends quadraped TA facilitation Other Exercise Name Quadraped TA facilitations Reps/Minutes x 10 reps Bilateral iliopsoas stretch Other Exercise Name Mihai test position iliopsoas stretch Side bilateral Reps/Minutes hold 1 min each side repeat birddog Other Exercise Name opp arm , opp leg with TA engagement child pose Other Exercise Name rose pose Side bilateral Cat camel Side bilateral Reps/Minutes 15 reps Manual Therapy Treatment Soft Tissue Mobilization 2 Body Location STM to Lumbar paraspinals and sacral region Mobilization Type Strumming,Sustained Pressure Intensity/Depth Moderate Body Position Prone Comments pillow under abdomen Joint Mobilizations 2 Joint thoracic spinal mobilizations Grade II Body Position Prone 1 Joint sacral/pelvic mobs Body Position Prone Comments to reduce right posterior pelvic rotation Manual Techniques 2 Type manual sacral decompression and mobilizations into counter nutation Body Position Prone Comments prone on body pillow 1 Type manual piriformis stretch, hip ER Body Position Prone Comments prone on body pillow PT-OP-T Assessment and Plan Start: 01/30/20 13:34 Freq: Status: Active Protocol: Document 02/25/20 16:32 [facility] (Rec: 02/25/20 16:53 [facility] [email or web address]) Physical Therapy Assessment Assessment Summary Assessment I worked on sacral decompression today with Sophia. She tolerated this well. I added in TA stabilization in quadruped and we held off on supine march as this may be too much for her spine at this time. I also showed her the miracle balls to place on either side of her sacrum for a self sacral release. Physical Therapy Plan Frequency and Duration Frequency of Treatment 2x/Week Duration of Treatment 8 Plan of Care Start Date 01/30/20 Plan of Care End Date 03/26/20 Therapeutic Interventions Therapeutic Interventions Home Exercise Program,Manual Therapy,Patient/Caregiver Education,Self-Care/Home Management,Soft Tissue Mobilization,Therapeutic Exercises Modalities Hot Packs Next Visit Focus/Plan Next Note Type Treatment Note Next Visit Plan recheck sacral alignment next visit and continue with stabilization exercises. Review happy baby next visit.
--- NOTE | 2020-03-03 17:21 | PT.OTN ---
Current Diagnoses Radiculopathy, lumbar region (03/03/20) Physical Therapy Treatment Note PT-OP-A Visit Information Start: 01/30/20 13:34 Freq: Status: Active Protocol: Document 03/03/20 17:08 [facility] (Rec: 03/03/20 17:21 [facility] [id number]) Out-Patient Physical Therapy Visit Information Visit Information Visit Type Treatment Note Visit Start Time 14:40 Visit Stop Time 15:25 Total Visit Minutes 45 Visit Number 4 PT-OP-B Current Condition Start: 01/30/20 13:34 Freq: Status: Active Protocol: Document 01/30/20 13:45 [facility] (Rec: 02/01/20 14:52 [facility] [email or web address]) Current Condition History of Current Condition Onset Date December 2019 Current Complaints left sided radiculopathy and B SI/sacral pain History of Current Condition Sophia has been seen previously for PT for Sacral pain and sciatic symptoms. She notes she had been doing well and then gradually began having c/o left sided radicular symptoms. She reports she has been home by herself during and hadn' t been able to do her regular exercise routine at the gym. She felt that she was sitting a lot and was often at the computer. In early December she had soil delivered for her yard and she notes she had pain trying to move the soil. She recently took a road trip and during this time her symptoms progresses includinging tingling into B feet and pain with standing and rolling over in bed. Kalie reports she has started trying to stretch and work on her posture and this has helped some but she is still noting left sided radicular symptoms and B pain in the gluteals Treatment Goals Patient/Caregiver Goals Kalie would like to continue to exercise, travel, and walk without pain. Current Functional Impairments (Reported) Functional Limitations- ADL's normal ADL's increase her pain Functional Limitations- Mobility/Gait pain with standing more than 10 minutes, pain with traveling and walking Functional Limitations- Recreation/ Limited with gardening Hobbies activities due to pain PT-OP-C Subjective Start: 01/30/20 13:34 Freq: Status: Active Protocol: Document 03/03/20 17:08 [facility] (Rec: 03/03/20 17:21 [facility] [id number]) OP-PT Subjective Patient Comments Patient Comments pt reports she feels that when she tries to do the stabilization exercise she gets pain. She was really sore monday and sitting in her neighbors hot tub with the jets on the left side of her back really helped. Monday and monday she couldnt get the relief. and she feels it on the left side of her sacrum. She also asks about a support brace she could wear. PT-OP-F Manual Assessment Start: 01/30/20 13:34 Freq: Status: Active Protocol: Document 01/30/20 13:45 [facility] (Rec: 02/01/20 14:52 [facility] [email or web address]) Manual Assessments Soft Tissue Assessment Soft Tissue Mobility Assessment There is guarding and muscle spasm in the psoas attachments left greater than R, guarding upper lumbar spine paraspinals, pirformis guarding and tightness left greater than R Joint Mobility Assessment Joint Mobility Assessment Decreased lumbar mobility into flexion, decreased hip mobility into flexion The sacrum is help in a nutated positon PT-OP-J Posture/Palpation/Skin Start: 01/30/20 13:34 Freq: Status: Active Protocol: Document 01/30/20 13:45 [facility] (Rec: 02/01/20 14:52 [facility] [email or web address]) Palpation Assessment Location 3 Palpation Location low back muscles spasm and soft tissue tightness Palpation Findings Soft Tissue Tightness,Spasm, Muscle Guarding Two Palpation Location left piriformis Palpation Findings Soft Tissue Tightness,Muscle Guarding One Palpation Location sacrum Palpation Details held in a nutated position, tightness and guarding at the [place] region B PT-OP-K Range of Motion Start: 02/01/20 14:52 Freq: Status: Active Protocol: Document 01/30/20 14:30 [facility] (Rec: 02/01/20 14:54 [facility] [email or web address]) Lumbar Spine Range of Motion Lumbar Spine Active Testing Position Standing Flexion 60 Extension 5 Rotation Left 15 Rotation Right 15 Lateral Flexion Left 10 Lateral Flexion Right 5 ROM Limitations Soft Tissue Tightness,Pain Hip Goniometric Range of Motion Hip Right Flexion w/Knee Flexed 100 Straight Leg Raise 50 Hip ROM Limitations Comments right sided hamstring is still tight from her history of hamstring strain PT-OP-L Special Tests Start: 01/30/20 13:34 Freq: Status: Active Protocol: Document 01/30/20 14:30 [facility] (Rec: 02/01/20 14:54 [facility] [email or web address]) Special Tests Hip Special Tests Mihai Test Results + for iliopsoas tightness Comments R thigh non paralle to table PT-OP-M Strength Start: 01/30/20 13:34 Freq: Status: Active Protocol: Document 01/30/20 13:45 [facility] (Rec: 02/01/20 14:52 [facility] [email or web address]) Trunk Strength Trunk Manual Muscle Testing Core Stabilization decreased core stabilization of the transverse abdominal musculature, + ASLR test B PT-OP-Q Treatments Start: 01/30/20 13:34 Freq: Status: Active Protocol: Document 03/03/20 17:08 [facility] (Rec: 03/03/20 17:21 [facility] [id number]) Therapeutic Exercises Other Exercises child pose Other Exercise Name rose pose Side bilateral Manual Therapy Treatment Soft Tissue Mobilization 2 Body Location STM to Lumbar paraspinals and sacral region Mobilization Type Strumming,Sustained Pressure Intensity/Depth Moderate Body Position Prone Comments body pillow 1 Body Location left gastroc muscle Joint Mobilizations 1 Joint sacral mobs into counternutation Body Position Prone Comments to decrease sacral nutation and lumbar sacral compression Self-Care/Home Management Treatment Education Patient Education Home Exercise Program,Pain Management Other Education pt given SI belt to try today for SI stabilization and sacral support PT-OP-T Assessment and Plan Start: 01/30/20 13:34 Freq: Status: Active Protocol: Document 03/03/20 17:08 [facility] (Rec: 03/03/20 17:21 [facility] [id number]) Physical Therapy Assessment Assessment Summary Assessment pt to use her miracle balls on piriformis and left side of the sacrum, I also talked to her about trying out the pool for water walking as walking on land right now is painful Physical Therapy Plan Frequency and Duration Frequency of Treatment 2x/Week Duration of Treatment 8 Plan of Care Start Date 01/30/20 Plan of Care End Date 03/26/20 Therapeutic Interventions Therapeutic Interventions Home Exercise Program,Manual Therapy,Patient/Caregiver Education,Self-Care/Home Management,Soft Tissue Mobilization,Therapeutic Exercises Modalities Hot Packs Next Visit Focus/Plan Next Note Type Treatment Note Next Visit Plan check sacral alignment, happy baby and lumbar flexion exercises, psoas release
--- NOTE | 2020-03-10 17:28 | PT.OTN ---
Current Diagnoses Radiculopathy, lumbar region (03/10/20) Physical Therapy Treatment Note PT-OP-A Visit Information Start: 01/30/20 13:34 Freq: Status: Active Protocol: Document 03/10/20 17:09 [facility] (Rec: 03/10/20 17:14 [facility] [id number]) Out-Patient Physical Therapy Visit Information Visit Information Visit Type Treatment Note Visit Start Time 10:30 Visit Stop Time 11:15 Total Visit Minutes 45 Visit Number 5 PT-OP-B Current Condition Start: 01/30/20 13:34 Freq: Status: Active Protocol: Document 01/30/20 13:45 [facility] (Rec: 02/01/20 14:52 [facility] [email or web address]) Current Condition History of Current Condition Onset Date December 2019 Current Complaints left sided radiculopathy and B SI/sacral pain History of Current Condition Sophia has been seen previously for PT for Sacral pain and sciatic symptoms. She notes she had been doing well and then gradually began having c/o left sided radicular symptoms. She reports she has been home by herself during and hadn' t been able to do her regular exercise routine at the gym. She felt that she was sitting a lot and was often at the computer. In early December she had soil delivered for her yard and she notes she had pain trying to move the soil. She recently took a road trip and during this time her symptoms progresses includinging tingling into B feet and pain with standing and rolling over in bed. Kalie reports she has started trying to stretch and work on her posture and this has helped some but she is still noting left sided radicular symptoms and B pain in the gluteals Treatment Goals Patient/Caregiver Goals Kalie would like to continue to exercise, travel, and walk without pain. Current Functional Impairments (Reported) Functional Limitations- ADL's normal ADL's increase her pain Functional Limitations- Mobility/Gait pain with standing more than 10 minutes, pain with traveling and walking Functional Limitations- Recreation/ Limited with gardening Hobbies activities due to pain PT-OP-C Subjective Start: 01/30/20 13:34 Freq: Status: Active Protocol: Document 03/10/20 17:09 [facility] (Rec: 03/10/20 17:14 [facility] [id number]) OP-PT Subjective Patient Comments Patient Comments Kalie reports the muscles in the front of her shins are really in spasm today. Her low back is doing better today but shins are really tight PT-OP-F Manual Assessment Start: 01/30/20 13:34 Freq: Status: Active Protocol: Document 01/30/20 13:45 [facility] (Rec: 02/01/20 14:52 [facility] [email or web address]) Manual Assessments Soft Tissue Assessment Soft Tissue Mobility Assessment There is guarding and muscle spasm in the psoas attachments left greater than R, guarding upper lumbar spine paraspinals, pirformis guarding and tightness left greater than R Joint Mobility Assessment Joint Mobility Assessment Decreased lumbar mobility into flexion, decreased hip mobility into flexion The sacrum is help in a nutated positon PT-OP-J Posture/Palpation/Skin Start: 01/30/20 13:34 Freq: Status: Active Protocol: Document 01/30/20 13:45 [facility] (Rec: 02/01/20 14:52 [facility] [email or web address]) Palpation Assessment Location 3 Palpation Location low back muscles spasm and soft tissue tightness Palpation Findings Soft Tissue Tightness,Spasm, Muscle Guarding Two Palpation Location left piriformis Palpation Findings Soft Tissue Tightness,Muscle Guarding One Palpation Location sacrum Palpation Details held in a nutated position, tightness and guarding at the CON[place] region B PT-OP-K Range of Motion Start: 02/01/20 14:52 Freq: Status: Active Protocol: Document 01/30/20 14:30 [facility] (Rec: 02/01/20 14:54 [facility] [email or web address]) Lumbar Spine Range of Motion Lumbar Spine Active Testing Position Standing Flexion 60 Extension 5 Rotation Left 15 Rotation Right 15 Lateral Flexion Left 10 Lateral Flexion Right 5 ROM Limitations Soft Tissue Tightness,Pain Hip Goniometric Range of Motion Hip Right Flexion w/Knee Flexed 100 Straight Leg Raise 50 Hip ROM Limitations Comments right sided hamstring is still tight from her history of hamstring strain PT-OP-L Special Tests Start: 01/30/20 13:34 Freq: Status: Active Protocol: Document 01/30/20 14:30 [facility] (Rec: 02/01/20 14:54 [facility] [email or web address]) Special Tests Hip Special Tests Mihai Test Results + for iliopsoas tightness Comments R thigh non paralle to table PT-OP-M Strength Start: 01/30/20 13:34 Freq: Status: Active Protocol: Document 01/30/20 13:45 [facility] (Rec: 02/01/20 14:52 [facility] [email or web address]) Trunk Strength Trunk Manual Muscle Testing Core Stabilization decreased core stabilization of the transverse abdominal musculature, + ASLR test B PT-OP-Q Treatments Start: 01/30/20 13:34 Freq: Status: Active Protocol: Document 03/10/20 17:09 [facility] (Rec: 03/10/20 17:14 [facility] [id number]) Manual Therapy Treatment Soft Tissue Mobilization tibialis anterior release Body Location MFR for the anterior shins/ tibialis anterior Body Position Supine Comments pt in 90/90 position with legs over the traction stool, good tolerance for MFR PT-OP-R Modalities Start: 03/10/20 17:14 Freq: Status: Active Protocol: Document 03/10/20 17:14 [facility] (Rec: 03/10/20 17:15 [facility] [id number]) Hot Pack/Cold Pack Treatment Ice Massage Location tibialis anterior bilaterally Patient Position Supine Treatment Duration (minutes) 3 Patient Tolerance Good Ultrasound Therapy Treatment left tibialis anterior Treatment Duration (minutes) 8 Patient Position Supine Coupling Medium Ultrasound Gel Applicator Size (cm2) 5 Mode Setting Continuous Intensity Setting (w/cm2) 1.5 PT-OP-T Assessment and Plan Start: 01/30/20 13:34 Freq: Status: Active Protocol: Document 03/10/20 17:15 [facility] (Rec: 03/10/20 17:26 [facility] [id number]) Physical Therapy Assessment Assessment Summary Assessment Kalie was really tight in the tibialis anterior bilaterally, left greater than right. I strength tested her DF again today and she is weaker on the left side. Her L5 nerve root may be compromised some and she is having to work harder to use her tibialis anterior muscles to walk. She tolerated treatment well today but did not like the ice massage. I did give her a thera band to begin working on ankle DF at home Physical Therapy Plan Frequency and Duration Frequency of Treatment 2x/Week Duration of Treatment 8 Plan of Care Start Date 01/30/20 Plan of Care End Date 03/26/20 Therapeutic Interventions Therapeutic Interventions Home Exercise Program,Manual Therapy,Patient/Caregiver Education,Self-Care/Home Management,Soft Tissue Mobilization,Therapeutic Exercises Modalities Hot Packs Next Visit Focus/Plan Next Note Type Treatment Note Next Visit Plan recheck tib anterior and exercises for home, psoas release, happy baby
--- NOTE | 2020-03-17 11:57 | PT.OTN ---
Current Diagnoses Radiculopathy, lumbar region (03/17/20) Physical Therapy Treatment Note PT-OP-A Visit Information Start: 01/30/20 13:34 Freq: Status: Active Protocol: Document 03/17/20 11:49 [facility] (Rec: 03/17/20 11:57 [facility] [id number]) Out-Patient Physical Therapy Visit Information Visit Information Visit Type Treatment Note Visit Start Time 10:35 Visit Stop Time 11:20 Total Visit Minutes 45 Visit Number 6 PT-OP-B Current Condition Start: 01/30/20 13:34 Freq: Status: Active Protocol: Document 01/30/20 13:45 [facility] (Rec: 02/01/20 14:52 [facility] [email or web address]) Current Condition History of Current Condition Onset Date December 2019 Current Complaints left sided radiculopathy and B SI/sacral pain History of Current Condition Sophia has been seen previously for PT for Sacral pain and sciatic symptoms. She notes she had been doing well and then gradually began having c/o left sided radicular symptoms. She reports she has been home by herself during and hadn' t been able to do her regular exercise routine at the gym. She felt that she was sitting a lot and was often at the computer. In early December she had soil delivered for her yard and she notes she had pain trying to move the soil. She recently took a road trip and during this time her symptoms progresses includinging tingling into B feet and pain with standing and rolling over in bed. Kalie reports she has started trying to stretch and work on her posture and this has helped some but she is still noting left sided radicular symptoms and B pain in the gluteals Treatment Goals Patient/Caregiver Goals Kalie would like to continue to exercise, travel, and walk without pain. Current Functional Impairments (Reported) Functional Limitations- ADL's normal ADL's increase her pain Functional Limitations- Mobility/Gait pain with standing more than 10 minutes, pain with traveling and walking Functional Limitations- Recreation/ Limited with gardening Hobbies activities due to pain PT-OP-C Subjective Start: 01/30/20 13:34 Freq: Status: Active Protocol: Document 03/17/20 11:49 [facility] (Rec: 03/17/20 11:57 [facility] [id number]) OP-PT Subjective Patient Comments Patient Comments Kalie reports she did really well after last visit but then by Monday she could not get rid of the tightness in her shins. She feels really tight today in her lowback and sacral region. She did take 1 IBU which she doesn't like taking but it really helps. She is wondering if there is a anti inflammatory cream she can take to rub on her back. The muscle relaxors were working but they seemed to have stopped working. She is trying to wear the SI belt for a few hours a day as well PT-OP-F Manual Assessment Start: 01/30/20 13:34 Freq: Status: Active Protocol: Document 01/30/20 13:45 [facility] (Rec: 02/01/20 14:52 [facility] [email or web address]) Manual Assessments Soft Tissue Assessment Soft Tissue Mobility Assessment There is guarding and muscle spasm in the psoas attachments left greater than R, guarding upper lumbar spine paraspinals, pirformis guarding and tightness left greater than R Joint Mobility Assessment Joint Mobility Assessment Decreased lumbar mobility into flexion, decreased hip mobility into flexion The sacrum is help in a nutated positon PT-OP-J Posture/Palpation/Skin Start: 01/30/20 13:34 Freq: Status: Active Protocol: Document 01/30/20 13:45 [facility] (Rec: 02/01/20 14:52 [facility] [email or web address]) Palpation Assessment Location 3 Palpation Location low back muscles spasm and soft tissue tightness Palpation Findings Soft Tissue Tightness,Spasm, Muscle Guarding Two Palpation Location left piriformis Palpation Findings Soft Tissue Tightness,Muscle Guarding One Palpation Location sacrum Palpation Details held in a nutated position, tightness and guarding at the [place] region B PT-OP-K Range of Motion Start: 02/01/20 14:52 Freq: Status: Active Protocol: Document 01/30/20 14:30 [facility] (Rec: 02/01/20 14:54 [facility] [email or web address]) Lumbar Spine Range of Motion Lumbar Spine Active Testing Position Standing Flexion 60 Extension 5 Rotation Left 15 Rotation Right 15 Lateral Flexion Left 10 Lateral Flexion Right 5 ROM Limitations Soft Tissue Tightness,Pain Hip Goniometric Range of Motion Hip Right Flexion w/Knee Flexed 100 Straight Leg Raise 50 Hip ROM Limitations Comments right sided hamstring is still tight from her history of hamstring strain PT-OP-L Special Tests Start: 01/30/20 13:34 Freq: Status: Active Protocol: Document 07/16/20 14:30 [facility] (Rec: 02/01/20 14:54 [facility] [email or web address]) Special Tests Hip Special Tests Mihai Test Results + for iliopsoas tightness Comments R thigh non paralle to table PT-OP-M Strength Start: 01/30/20 13:34 Freq: Status: Active Protocol: Document 01/30/20 13:45 [facility] (Rec: 02/01/20 14:52 [facility] [email or web address]) Trunk Strength Trunk Manual Muscle Testing Core Stabilization decreased core stabilization of the transverse abdominal musculature, + ASLR test B PT-OP-Q Treatments Start: 01/30/20 13:34 Freq: Status: Active Protocol: Document 03/17/20 11:49 [facility] (Rec: 03/17/20 11:57 [facility] [id number]) Therapeutic Exercises Supine Exercises hip ER B with roll outs Supine Exercise Name supine hip ER Reps/Minutes 3 x 10 reps Comments to work on balancing out the hip ER to take pressure off the sacrum Other Exercises quadraped sidebends Other Exercise Name quadruped sidebends Reps/Minutes x 5 each child pose Other Exercise Name rose pose Manual Therapy Treatment Soft Tissue Mobilization 3 Body Location piriformis release bilaterally 2 Body Location STM to Lumbar paraspinals and sacral region Mobilization Type Strumming,Sustained Pressure Intensity/Depth Moderate Body Position Prone Comments body pillow 1 Body Location sacral decompression STM Comments prone over a body pillow Joint Mobilizations 1 Joint sacral mobs into counternutation Body Position Prone Comments to decrease sacral nutation and lumbar sacral compression PT-OP-R Modalities Start: 03/10/20 17:14 Freq: Status: Active Protocol: Document 03/10/20 17:14 [facility] (Rec: 03/10/20 17:15 [facility] [id number]) Hot Pack/Cold Pack Treatment Ice Massage Location tibialis anterior bilaterally Patient Position Supine Treatment Duration (minutes) 3 Patient Tolerance Good Ultrasound Therapy Treatment left tibialis anterior Treatment Duration (minutes) 8 Patient Position Supine Coupling Medium Ultrasound Gel Applicator Size (cm2) 5 Mode Setting Continuous Intensity Setting (w/cm2) 1.5 PT-OP-T Assessment and Plan Start: 01/30/20 13:34 Freq: Status: Active Protocol: Document 03/17/20 11:49 [facility] (Rec: 03/17/20 11:57 [facility] [id number]) Physical Therapy Assessment Assessment Summary Assessment I dispensed a SI belt for Kalie today as the stabilization has helped her some. She responds well to sacral decompression and I am hoping using the belt along with her stretches will give her some relief. She notes today the nerve pain is not as bad. She still feels quite a bit of tightness in her low back that limites her activity level. Physical Therapy Plan Frequency and Duration Frequency of Treatment 2x/Week Duration of Treatment 8 Plan of Care Start Date 01/30/20 Plan of Care End Date 03/26/20 Next Visit Focus/Plan Next Note Type Treatment Note Next Visit Plan check in with hip ER exercise, continue to try and give decompression to the sacrum.
--- NOTE | 2020-03-24 17:51 | PT.OPPOC ---
Physical, Occupational & Speech Therapy At [facility] Current Diagnoses Radiculopathy, lumbar region (03/24/20) Visit Care Team Role Provider Type Clare Hinkle MD Attending Provider Physician Primary Care Provider Referring Provider Specialty: Family Practice Address: [address] [place] [address], [facility] [place], [address] Email: [email or web address] Plan Of Care PT-OP-T Assessment and Plan Start: 01/30/20 13:34 Freq: Status: Active Protocol: Document 03/24/20 12:14 [facility] (Rec: 03/24/20 12:16 [facility] [email or web address]) Physical Therapy Assessment Goals reduced ROM Impairment Reduced Lumbar and hip ROM Short Term Goal (STG) PT is educated on a home flexibility program for her lumbar spine and hips to improve pain free mobility EXCELLENT PROGRESS STG Duration 5 weeks Detention Goal (LTG) Kalie is able to perform pain free lumbar pain ROM in all planes, she also demonstrates improved mobility into hip extenstion from improved flexibility of the psoas muscle LTG Duration 8 weeks HEP Impairment does not have a HS flexibility and strengthening home program Detention Goal (LTG) Goal met:12/25 pt has been following HEP Pt will safely perform HEP independently with proper body mechanics to improve her overall HS flexibility and strength. LTG Duration 6 weeks Pain Impairment Low back and sacral pain, left radicular pain symptoms Detention Goal (LTG) Kalie is no longer experiencing radicular symptoms and c/o pain in the low back and sacrum are reduced from 12/24 to 1-2/10 GOOD PROGRESS Strength Impairment decreased knee flexor strength Detention Goal (LTG) 12/25/18: 4+/5 for R knee flexor Pt will be able to perform HS curl with bridging (rolling board) x 10 LTG Duration 8 weeks LEFS Ice Grinder Goal (LTG) Pt will be able to reach 0% impairment to improver overall quality of life, such as no difficulty with squatting and hiking. LTG Duration 8 weeks Four Impairment SI dysfunction with + tests for instability Short Term Goal (STG) Correct SI dysfunction with manual therapy techniqes and stabilizing exercises GOOD PROGRESS STG Duration 6 weeks Three Impairment Sophia is unable to perform her abdominal exercises due to pain Short Term Goal (STG) Sophia is instructed in dynamic core stabilization exercises that she can do without pain. Starting out with transverse abdominal activation statically and progressing to dynamic activation exercises on the ball GOOD PROGRESS SOPHIA CAN TOLERATE ISOLATION OF HER CORE NOW. SHE STILL HAS PAIN WITH DYNAMIC STABILIZATION EXERCISES STG Duration 6 weeks Assessment Summary Assessment Kalie is doing better overall. She has been working hard on her stretches and really feels like the iliopsoas stretch and hamstring stretch help to release her low back and sacral region. I have dispensed a SI belt for Kalie as well as she was having pain increase any time I tried to add in stabilization exercises . She is finally able to tolerate some stabilization exercises without increased pain in her low back. She also tends to get cramping in her anterior shins which I feel may be nerve related. She has some slight weakness on her right side in the L4-5 nerve root. Kalie would benefit from continued PT to progress her stabilization exercises Physical Therapy Plan Frequency and Duration Frequency of Treatment 2x/Week Duration of Treatment 8 Plan of Care Start Date 03/24/20 Plan of Care End Date 05/19/20 Therapeutic Interventions Therapeutic Interventions Home Exercise Program,Manual Therapy,Patient/Caregiver Education,Self-Care/Home Management,Soft Tissue Mobilization,Therapeutic Exercises Modalities Hot Packs Next Visit Focus/Plan Next Note Type Treatment Note Next Visit Plan check in with hip ER exercise, continue to try and give decompression to the sacrum. Plan of Care Dates Plan of Care Start Date 03/24/20 Plan of Care End Date 05/19/20 Electronically Signed by: Jamaica Antony, PT 03/24/20 [id number] Please Sign and Return: I have reviewed this Plan of Care and certify that the skilled therapy services above are required to meet the patient?s needs. Physician Signature Date Printed Name and Credentials Clinical Instructor Signature Printed Name and Credentials
--- NOTE | 2020-03-24 17:51 | PT.OTN ---
Current Diagnoses Radiculopathy, lumbar region (03/24/20) Physical Therapy Treatment Note PT-OP-A Visit Information Start: 01/30/20 13:34 Freq: Status: Active Protocol: Document 03/24/20 10:26 [facility] (Rec: 03/24/20 10:41 [facility] [id number]) Out-Patient Physical Therapy Visit Information Visit Information Visit Type Treatment Note Visit Start Time 10:30 Visit Stop Time 11:15 Total Visit Minutes 45 Visit Number 7 PT-OP-B Current Condition Start: 01/30/20 13:34 Freq: Status: Active Protocol: Document 01/30/20 13:45 [facility] (Rec: 02/01/20 14:52 [facility] [email or web address]) Current Condition History of Current Condition Onset Date December 2019 Current Complaints left sided radiculopathy and B SI/sacral pain History of Current Condition Sophia has been seen previously for PT for Sacral pain and sciatic symptoms. She notes she had been doing well and then gradually began having c/o left sided radicular symptoms. She reports she has been home by herself during and hadn' t been able to do her regular exercise routine at the gym. She felt that she was sitting a lot and was often at the computer. In early December she had soil delivered for her yard and she notes she had pain trying to move the soil. She recently took a road trip and during this time her symptoms progresses includinging tingling into B feet and pain with standing and rolling over in bed. Kalie reports she has started trying to stretch and work on her posture and this has helped some but she is still noting left sided radicular symptoms and B pain in the gluteals Treatment Goals Patient/Caregiver Goals Kalie would like to continue to exercise, travel, and walk without pain. Current Functional Impairments (Reported) Functional Limitations- ADL's normal ADL's increase her pain Functional Limitations- Mobility/Gait pain with standing more than 10 minutes, pain with traveling and walking Functional Limitations- Recreation/ Limited with gardening Hobbies activities due to pain PT-OP-C Subjective Start: 01/30/20 13:34 Freq: Status: Active Protocol: Document 03/24/20 10:26 [facility] (Rec: 03/24/20 10:41 [facility] [id number]) OP-PT Subjective Patient Comments Patient Comments Monday night she took a 5 mg muscles relaxant. SHe had a great day monday. she had to take her mom to the doctor. That night she hurt bad and the muscle spasms in her shins were back. Monday morning it was really bad. She started doing quad stretches in standing and hamstring stretch with her leg up the wall. She has been doing these since monday. monday and monday she hasn't been in as much pain. PT-OP-F Manual Assessment Start: 01/30/20 13:34 Freq: Status: Active Protocol: Document 01/30/20 13:45 [facility] (Rec: 02/01/20 14:52 [facility] [email or web address]) Manual Assessments Soft Tissue Assessment Soft Tissue Mobility Assessment There is guarding and muscle spasm in the psoas attachments left greater than R, guarding upper lumbar spine paraspinals, pirformis guarding and tightness left greater than R Joint Mobility Assessment Joint Mobility Assessment Decreased lumbar mobility into flexion, decreased hip mobility into flexion The sacrum is help in a nutated positon PT-OP-J Posture/Palpation/Skin Start: 01/30/20 13:34 Freq: Status: Active Protocol: Document 01/30/20 13:45 [facility] (Rec: 02/01/20 14:52 [facility] [email or web address]) Palpation Assessment Location 3 Palpation Location low back muscles spasm and soft tissue tightness Palpation Findings Soft Tissue Tightness,Spasm, Muscle Guarding Two Palpation Location left piriformis Palpation Findings Soft Tissue Tightness,Muscle Guarding One Palpation Location sacrum Palpation Details held in a nutated position, tightness and guarding at the [place] region B PT-OP-K Range of Motion Start: 02/01/20 14:52 Freq: Status: Active Protocol: Document 01/30/20 14:30 [facility] (Rec: 02/01/20 14:54 [facility] [email or web address]) Lumbar Spine Range of Motion Lumbar Spine Active Testing Position Standing Flexion 60 Extension 5 Rotation Left 15 Rotation Right 15 Lateral Flexion Left 10 Lateral Flexion Right 5 ROM Limitations Soft Tissue Tightness,Pain Hip Goniometric Range of Motion Hip Right Flexion w/Knee Flexed 100 Straight Leg Raise 50 Hip ROM Limitations Comments right sided hamstring is still tight from her history of hamstring strain PT-OP-L Special Tests Start: 01/30/20 13:34 Freq: Status: Active Protocol: Document 01/30/20 14:30 [facility] (Rec: 02/01/20 14:54 [facility] [email or web address]) Special Tests Hip Special Tests Mihai Test Results + for iliopsoas tightness Comments R thigh non paralle to table PT-OP-M Strength Start: 01/30/20 13:34 Freq: Status: Active Protocol: Document 01/30/20 13:45 [facility] (Rec: 02/01/20 14:52 [facility] [email or web address]) Trunk Strength Trunk Manual Muscle Testing Core Stabilization decreased core stabilization of the transverse abdominal musculature, + ASLR test B PT-OP-Q Treatments Start: 01/30/20 13:34 Freq: Status: Active Protocol: Document 03/24/20 17:27 [facility] (Rec: 03/24/20 17:39 [facility] [email or web address]) Therapeutic Exercises Supine Exercises hip ER B with roll outs Supine Exercise Name supine hip ER Reps/Minutes 3 x 10 reps Comments to work on balancing out the hip ER to take pressure off the sacrum 2 Supine Exercise Name Piriformis Stretch Side right Comments Manual 1 Supine Exercise Name single knee to chest stretch Side bilateral Sidelying Exercises 1 Sidelying Exercise Name sidelying clam shells Reps/Minutes 2 x 10 reps Comments needed cues to keep her pelvis forward Other Exercises quadraped sidebends Other Exercise Name quadruped sidebends Reps/Minutes x 5 each quadraped TA facilitation Other Exercise Name Quadraped TA facilitations Reps/Minutes x 10 reps Bilateral iliopsoas stretch Other Exercise Name Mihai test position iliopsoas stretch Side bilateral Reps/Minutes hold 1 min each side repeat child pose Other Exercise Name rose pose Cat camel Side bilateral Reps/Minutes 15 reps Manual Therapy Treatment Manual Techniques manual iliopsoas stretch Type manual iliopsoas stretch PT-OP-R Modalities Start: 03/10/20 17:14 Freq: Status: Active Protocol: Document 03/10/20 17:14 [facility] (Rec: 03/10/20 17:15 [facility] [id number]) Hot Pack/Cold Pack Treatment Ice Massage Location tibialis anterior bilaterally Patient Position Supine Treatment Duration (minutes) 3 Patient Tolerance Good Ultrasound Therapy Treatment left tibialis anterior Treatment Duration (minutes) 8 Patient Position Supine Coupling Medium Ultrasound Gel Applicator Size (cm2) 5 Mode Setting Continuous Intensity Setting (w/cm2) 1.5 PT-OP-T Assessment and Plan Start: 01/30/20 13:34 Freq: Status: Active Protocol: Document 03/24/20 12:14 [facility] (Rec: 03/24/20 12:16 [facility] [email or web address]) Physical Therapy Assessment Goals reduced ROM Impairment Reduced Lumbar and hip ROM Short Term Goal (STG) PT is educated on a home flexibility program for her lumbar spine and hips to improve pain free mobility EXCELLENT PROGRESS STG Duration 5 weeks Snf Goal (LTG) Kalie is able to perform pain free lumbar pain ROM in all planes, she also demonstrates improved mobility into hip extenstion from improved flexibility of the psoas muscle LTG Duration 8 weeks HEP Impairment does not have a HS flexibility and strengthening home program Snf Goal (LTG) Goal met:12/25 pt has been following HEP Pt will safely perform HEP independently with proper body mechanics to improve her overall HS flexibility and strength. LTG Duration 6 weeks Pain Impairment Low back and sacral pain, left radicular pain symptoms Snf Goal (LTG) Kalie is no longer experiencing radicular symptoms and c/o pain in the low back and sacrum are reduced from 12/24 to 1-2/10 GOOD PROGRESS Strength Impairment decreased knee flexor strength Anchorer Goal (LTG) 12/25/18: 4+/5 for R knee flexor Pt will be able to perform HS curl with bridging (rolling board) x 10 LTG Duration 8 weeks LEFS Anchorer Goal (LTG) Pt will be able to reach 0% impairment to improver overall quality of life, such as no difficulty with squatting and hiking. LTG Duration 8 weeks Four Impairment SI dysfunction with + tests for instability Short Term Goal (STG) Correct SI dysfunction with manual therapy techniqes and stabilizing exercises GOOD PROGRESS STG Duration 6 weeks Three Impairment Sophia is unable to perform her abdominal exercises due to pain Short Term Goal (STG) Sophia is instructed in dymanic core stabilization exercises that she can do without pain. Starting out with transverse abdominal activation statically and progressing to dynamic activation exercises on the ball GOOD PROGRESS SOPHIA CAN TOLERATE ISOLATION OF HER CORE NOW. SHE STILL HAS PAIN WITH DYNAMIC STABILIZATION EXERCISES STG Duration 6 weeks Assessment Summary Assessment Kalie is doing better overall. She has been working hard on her stretches and really feels like the iliopsoas stretch and hamstring stretch help to release her low back and sacral region. I have dispensed a SI belt for Kalie as well as she was having pain increase any time I tried to add in stabilization exercises . She is finally able to tolerate some stabilization exercises without increased pain in her low back. She also tends to get cramping in her anterior shins which I feel may be nerve related. She has some slight weakness on her right side in the L4-5 nerve root. Kalie would benefit from continued PT to progress her stabilization exercises Physical Therapy Plan Frequency and Duration Frequency of Treatment 2x/Week Duration of Treatment 8 Plan of Care Start Date 03/24/20 Plan of Care End Date 05/19/20 Therapeutic Interventions Therapeutic Interventions Home Exercise Program,Manual Therapy,Patient/Caregiver Education,Self-Care/Home Management,Soft Tissue Mobilization,Therapeutic Exercises Modalities Hot Packs Next Visit Focus/Plan Next Note Type Treatment Note Next Visit Plan check in with hip ER exercise, continue to try and give decompression to the sacrum.
--- NOTE | 2020-04-14 12:20 | PT.OTN ---
Current Diagnoses Radiculopathy, lumbar region (04/14/20) Physical Therapy Treatment Note PT-OP-A Visit Information Start: 01/30/20 13:34 Freq: Status: Active Protocol: Document 04/14/20 11:34 [facility] (Rec: 04/14/20 12:07 [facility] [id number]) Out-Patient Physical Therapy Visit Information Visit Information Visit Type Treatment Note Visit Start Time 11:20 Visit Stop Time 12:05 Total Visit Minutes 45 Visit Number 1 PT-OP-B Current Condition Start: 01/30/20 13:34 Freq: Status: Active Protocol: Document 01/30/20 13:45 [facility] (Rec: 02/01/20 14:52 [facility] [email or web address]) Current Condition History of Current Condition Onset Date December 2019 Current Complaints left sided radiculopathy and B SI/sacral pain History of Current Condition Sophia has been seen previously for PT for Sacral pain and sciatic symptoms. She notes she had been doing well and then gradually began having c/o left sided radicular symptoms. She reports she has been home by herself during and hadn' t been able to do her regular exercise routine at the gym. She felt that she was sitting a lot and was often at the computer. In early December she had soil delivered for her yard and she notes she had pain trying to move the soil. She recently took a road trip and during this time her symptoms progresses includinging tingling into B feet and pain with standing and rolling over in bed. Kalie reports she has started trying to stretch and work on her posture and this has helped some but she is still noting left sided radicular symptoms and B pain in the gluteals Treatment Goals Patient/Caregiver Goals Kalie would like to continue to exercise, travel, and walk without pain. Current Functional Impairments (Reported) Functional Limitations- ADL's normal ADL's increase her pain Functional Limitations- Mobility/Gait pain with standing more than 10 minutes, pain with traveling and walking Functional Limitations- Recreation/ Limited with gardening Hobbies activities due to pain PT-OP-C Subjective Start: 01/30/20 13:34 Freq: Status: Active Protocol: Document 04/14/20 11:34 [facility] (Rec: 04/14/20 12:07 [facility] [id number]) OP-PT Subjective Patient Comments Patient Comments Kalie was able to stain 4 sections of her deck this past week. She did get a 6 day course of prednisone and this really helped her back. PT-OP-F Manual Assessment Start: 01/30/20 13:34 Freq: Status: Active Protocol: Document 01/30/20 13:45 [facility] (Rec: 02/01/20 14:52 [facility] [email or web address]) Manual Assessments Soft Tissue Assessment Soft Tissue Mobility Assessment There is guarding and muscle spasm in the psoas attachments left greater than R, guarding upper lumbar spine paraspinals, pirformis guarding and tightness left greater than R Joint Mobility Assessment Joint Mobility Assessment Decreased lumbar mobility into flexion, decreased hip mobility into flexion The sacrum is help in a nutated positon PT-OP-J Posture/Palpation/Skin Start: 01/30/20 13:34 Freq: Status: Active Protocol: Document 01/30/20 13:45 [facility] (Rec: 02/01/20 14:52 [facility] [email or web address]) Palpation Assessment Location 3 Palpation Location low back muscles spasm and soft tissue tightness Palpation Findings Soft Tissue Tightness,Spasm, Muscle Guarding Two Palpation Location left piriformis Palpation Findings Soft Tissue Tightness,Muscle Guarding One Palpation Location sacrum Palpation Details held in a nutated position, tightness and guarding at the [place] region B PT-OP-K Range of Motion Start: 02/01/20 14:52 Freq: Status: Active Protocol: Document 01/30/20 14:30 [facility] (Rec: 02/01/20 14:54 [facility] [email or web address]) Lumbar Spine Range of Motion Lumbar Spine Active Testing Position Standing Flexion 60 Extension 5 Rotation Left 15 Rotation Right 15 Lateral Flexion Left 10 Lateral Flexion Right 5 ROM Limitations Soft Tissue Tightness,Pain Hip Goniometric Range of Motion Hip Right Flexion w/Knee Flexed 100 Straight Leg Raise 50 Hip ROM Limitations Comments right sided hamstring is still tight from her history of hamstring strain PT-OP-L Special Tests Start: 01/30/20 13:34 Freq: Status: Active Protocol: Document 01/30/20 14:30 [facility] (Rec: 02/01/20 14:54 [facility] [email or web address]) Special Tests Hip Special Tests Mihai Test Results + for iliopsoas tightness Comments R thigh non paralle to table PT-OP-M Strength Start: 01/30/20 13:34 Freq: Status: Active Protocol: Document 01/30/20 13:45 [facility] (Rec: 02/01/20 14:52 [facility] [email or web address]) Trunk Strength Trunk Manual Muscle Testing Core Stabilization decreased core stabilization of the transverse abdominal musculature, + ASLR test B PT-OP-Q Treatments Start: 01/30/20 13:34 Freq: Status: Active Protocol: Document 04/14/20 11:34 [facility] (Rec: 04/14/20 12:07 [facility] [id number]) Therapeutic Exercises Supine Exercises hip ER B with roll outs Supine Exercise Name supine hip ER Reps/Minutes 3 x 10 reps Comments to work on balancing out the hip ER to take pressure off the sacrum 5 Supine Exercise Name TA with heel slides 4 Supine Exercise Name TA with marches 2 Supine Exercise Name Piriformis Stretch Side right Comments Manual 1 Supine Exercise Name ball squeeze with pelvic floor contraction Side bilateral Reps/Minutes 2 x 10 Other Exercises quadraped TA facilitation Other Exercise Name Quadraped TA facilitations Reps/Minutes x 10 reps Comments added in opp arm lifts child pose Other Exercise Name rose pose Manual Therapy Treatment Soft Tissue Mobilization 2 Body Location STM to Lumbar paraspinals and sacral region Mobilization Type Strumming,Sustained Pressure Intensity/Depth Moderate Body Position Prone Comments body pillow 1 Body Location sacral decompression STM Comments prone over a body pillow Joint Mobilizations 1 Joint sacral mobs into counternutation Body Position Prone Comments to decrease sacral nutation and lumbar sacral compression PT-OP-R Modalities Start: 03/10/20 17:14 Freq: Status: Active Protocol: Document 03/10/20 17:14 [facility] (Rec: 03/10/20 17:15 [facility] [id number]) Hot Pack/Cold Pack Treatment Ice Massage Location tibialis anterior bilaterally Patient Position Supine Treatment Duration (minutes) 3 Patient Tolerance Good Ultrasound Therapy Treatment left tibialis anterior Treatment Duration (minutes) 8 Patient Position Supine Coupling Medium Ultrasound Gel Applicator Size (cm2) 5 Mode Setting Continuous Intensity Setting (w/cm2) 1.5 PT-OP-T Assessment and Plan Start: 01/30/20 13:34 Freq: Status: Active Protocol: Document 04/14/20 12:18 [facility] (Rec: 04/14/20 12:20 [facility] [id number]) Physical Therapy Assessment Assessment Summary Assessment Kalie is doind much better with the addition of the prednisone. She is able to do bridges now and doing more yard work with decreased pain. I emphasized working on her stetches daily Physical Therapy Plan Frequency and Duration Frequency of Treatment 2x/Week Duration of Treatment 8 Plan of Care Start Date 03/24/20 Plan of Care End Date 05/19/20 Next Visit Focus/Plan Next Note Type Treatment Note Next Visit Plan continue to review stabilization exercises and stretches
--- NOTE | 2020-04-21 11:50 | PT.OTN ---
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 She notes she had been doing well and then gradually began having c/o left sided radicular symptoms. She reports she has been home by herself during and hadn' t been able to do her regular exercise routine at the gym. She felt that she was sitting a lot and was often at the computer. In early December she had soil delivered for her yard and she notes she had pain trying to move the soil. She recently took a road trip and during this time her symptoms progresses includinging tingling into B feet and pain with standing and rolling over in bed. Kalie reports she has started trying to stretch and work on her posture and this has helped some but she is still noting left sided radicular symptoms and B pain in the gluteals Treatment Goals Patient/Caregiver Goals Kalie would like to continue to exercise, travel, and walk without pain. Current Functional Impairments (Reported) Functional Limitations- ADL's normal ADL's increase her pain Functional Limitations- Mobility/Gait pain with standing more than 10 minutes, pain with traveling and walking Functional Limitations- Recreation/ Limited with gardening Hobbies activities due to pain PT-OP-C Subjective Start: 01/30/20 13:34 Freq: Status: Active Protocol: Document 04/21/20 11:44 [facility] (Rec: 04/21/20 11:50 [facility] [id number]) OP-PT Subjective Patient Comments Patient Comments Kalie reports the tingling feeling in her feet is gone now. She was able to work in her back yard for 3 days last week. Doing all her stretches . She does feel slightly out in her sacrum today. PT-OP-F Manual Assessment Start: 01/30/20 13:34 Freq: Status: Active Protocol: Document 01/30/20 13:45 [facility] (Rec: 02/01/20 14:52 [facility] [email or web address]) Manual Assessments Soft Tissue Assessment Soft Tissue Mobility Assessment There is guarding and muscle spasm in the psoas attachments left greater than R, guarding upper lumbar spine paraspinals, pirformis guarding and tightness left greater than R Joint Mobility Assessment Joint Mobility Assessment Decreased lumbar mobility into flexion, decreased hip mobility into flexion The sacrum is help in a nutated positon PT-OP-J Posture/Palpation/Skin Start: 01/30/20 13:34 Freq: Status: Active Protocol: Document 01/30/20 13:45 [facility] (Rec: 02/01/20 14:52 [facility] [email or web address]) Palpation Assessment Location 3 Palpation Location low back muscles spasm and soft tissue tightness Palpation Findings Soft Tissue Tightness,Spasm, Muscle Guarding Two Palpation Location left piriformis Palpation Findings Soft Tissue Tightness,Muscle Guarding One Palpation Location sacrum Palpation Details held in a nutated position, tightness and guarding at the CON[place] region B PT-OP-K Range of Motion Start: 02/01/20 14:52 Freq: Status: Active Protocol: Document 01/30/20 14:30 [facility] (Rec: 02/01/20 14:54 [facility] [email or web address]) Lumbar Spine Range of Motion Lumbar Spine Active Testing Position Standing Flexion 60 Extension 5 Rotation Left 15 Rotation Right 15 Lateral Flexion Left 10 Lateral Flexion Right 5 ROM Limitations Soft Tissue Tightness,Pain Hip Goniometric Range of Motion Hip Right Flexion w/Knee Flexed 100 Straight Leg Raise 50 Hip ROM Limitations Comments right sided hamstring is still tight from her history of hamstring strain PT-OP-L Special Tests Start: 01/30/20 13:34 Freq: Status: Active Protocol: Document 01/30/20 14:30 [facility] (Rec: 02/01/20 14:54 [facility] [email or web address]) Special Tests Hip Special Tests Mihai Test Results + for iliopsoas tightness Comments R thigh non paralle to table PT-OP-M Strength Start: 01/30/20 13:34 Freq: Status: Active Protocol: Document 01/30/20 13:45 [facility] (Rec: 02/01/20 14:52 [facility] [email or web address]) Trunk Strength Trunk Manual Muscle Testing Core Stabilization decreased core stabilization of the transverse abdominal musculature, + ASLR test B PT-OP-Q Treatments Start: 01/30/20 13:34 Freq: Status: Active Protocol: Document 04/21/20 11:44 [facility] (Rec: 04/21/20 11:50 [facility] [id number]) Therapeutic Exercises Supine Exercises iliopsoas stretch in supine Supine Exercise Name iliopsoas stretch in supine mihai test Comments good tolerance today for stretches 5 Supine Exercise Name TA with heel slides 4 Supine Exercise Name TA with marches Comments progressed to level 1b with good tolerance bridging Reps/Minutes x 10 2 Supine Exercise Name Piriformis Stretch Side right Comments Manual 1 Supine Exercise Name ball squeeze with pelvic floor contraction Side bilateral Reps/Minutes 2 x 10 Other Exercises quadraped TA facilitation Other Exercise Name Quadraped TA facilitations Reps/Minutes x 10 reps Comments added in opp arm lifts child pose Other Exercise Name rose pose Cat camel Side bilateral Reps/Minutes 15 reps Manual Therapy Treatment Soft Tissue Mobilization 2 Body Location STM to Lumbar paraspinals and sacral region Mobilization Type Strumming,Sustained Pressure Intensity/Depth Moderate Body Position Prone Comments body pillow 1 Body Location sacral decompression STM Comments prone over a body pillow PT-OP-R Modalities Start: 03/10/20 17:14 Freq: Status: Active Protocol: Document 03/10/20 17:14 [facility] (Rec: 03/10/20 17:15 [facility] [id number]) Hot Pack/Cold Pack Treatment Ice Massage Location tibialis anterior bilaterally Patient Position Supine Treatment Duration (minutes) 3 Patient Tolerance Good Ultrasound Therapy Treatment left tibialis anterior Treatment Duration (minutes) 8 Patient Position Supine Coupling Medium Ultrasound Gel Applicator Size (cm2) 5 Mode Setting Continuous Intensity Setting (w/cm2) 1.5 PT-OP-T Assessment and Plan Start: 01/30/20 13:34 Freq: Status: Active Protocol: Document 04/21/20 11:44 [facility] (Rec: 04/21/20 11:50 [facility] [id number]) Physical Therapy Assessment Assessment Summary Assessment Kalie is tolerating more and more activities of daily living without having the pain . She is able to bridge now as well without pain symptoms. Her sacrum was in a nutated position today so I worked on this manually. She is doing all her stretches at home to stretch her hips and lumbar paraspinals. I talked to her too today about her thoracic spine and continuing with her foam roll Physical Therapy Plan Frequency and Duration Frequency of Treatment 2x/Week Duration of Treatment 8 Plan of Care Start Date 03/24/20 Plan of Care End Date 05/19/20 Therapeutic Interventions Therapeutic Interventions Home Exercise Program,Manual Therapy,Patient/Caregiver Education,Self-Care/Home Management,Soft Tissue Mobilization,Therapeutic Exercises Modalities Hot Packs Next Visit Focus/Plan Next Note Type Treatment Note Next Visit Plan continue to review stabilization exercises and stretches, review throacic spine stabilization and strerches next visit
--- NOTE | 2020-05-07 18:05 | PT.OTN ---
Current Diagnoses Radiculopathy, lumbar region (05/07/20) Physical Therapy Treatment Note PT-OP-A Visit Information Start: 01/30/20 13:34 Freq: Status: Active Protocol: Document 05/07/20 09:45 [facility] (Rec: 05/07/20 09:45 [facility] [id number]) Out-Patient Physical Therapy Visit Information Visit Information Visit Type Treatment Note Visit Start Time 09:45 Visit Stop Time 10:30 Total Visit Minutes 45 Visit Number 10 PT-OP-B Current Condition Start: 01/30/20 13:34 Freq: Status: Active Protocol: Document 01/30/20 13:45 [facility] (Rec: 02/01/20 14:52 [facility] [email or web address]) Current Condition History of Current Condition Onset Date December 2019 Current Complaints left sided radiculopathy and B SI/sacral pain History of Current Condition Sophia has been seen previously for PT for Sacral pain and sciatic symptoms. She notes she had been doing well and then gradually began having c/o left sided radicular symptoms. She reports she has been home by herself during and hadn' t been able to do her regular exercise routine at the gym. She felt that she was sitting a lot and was often at the computer. In early December she had soil delivered for her yard and she notes she had pain trying to move the soil. She recently took a road trip and during this time her symptoms progresses includinging tingling into B feet and pain with standing and rolling over in bed. Kalie reports she has started trying to stretch and work on her posture and this has helped some but she is still noting left sided radicular symptoms and B pain in the gluteals Treatment Goals Patient/Caregiver Goals Kalie would like to continue to exercise, travel, and walk without pain. Current Functional Impairments (Reported) Functional Limitations- ADL's normal ADL's increase her pain Functional Limitations- Mobility/Gait pain with standing more than 10 minutes, pain with traveling and walking Functional Limitations- Recreation/ Limited with gardening Hobbies activities due to pain PT-OP-C Subjective Start: 01/30/20 13:34 Freq: Status: Active Protocol: Document 05/07/20 09:45 [facility] (Rec: 05/07/20 09:52 [facility] [id number]) OP-PT Subjective Patient Comments Patient Comments Kalie returns from [place] on Monday[place] 25. She feels she is doing much better. SHe did vaccum last Monday and this cuased pain. The tingling in her feet is gone, the phan pain still comes and goes and the ache in her back is there but she is really working hard on her stretches. Patient Reported Progress Improving PT-OP-F Manual Assessment Start: 01/30/20 13:34 Freq: Status: Active Protocol: Document 01/30/20 13:45 [facility] (Rec: 02/01/20 14:52 [facility] [email or web address]) Manual Assessments Soft Tissue Assessment Soft Tissue Mobility Assessment There is guarding and muscle spasm in the psoas attachments left greater than R, guarding upper lumbar spine paraspinals, pirformis guarding and tightness left greater than R Joint Mobility Assessment Joint Mobility Assessment Decreased lumbar mobility into flexion, decreased hip mobility into flexion The sacrum is help in a nutated positon PT-OP-J Posture/Palpation/Skin Start: 01/30/20 13:34 Freq: Status: Active Protocol: Document 01/30/20 13:45 [facility] (Rec: 02/01/20 14:52 [facility] [email or web address]) Palpation Assessment Location 3 Palpation Location low back muscles spasm and soft tissue tightness Palpation Findings Soft Tissue Tightness,Spasm, Muscle Guarding Two Palpation Location left piriformis Palpation Findings Soft Tissue Tightness,Muscle Guarding One Palpation Location sacrum Palpation Details held in a nutated position, tightness and guarding at the [place] region B PT-OP-K Range of Motion Start: 02/01/20 14:52 Freq: Status: Active Protocol: Document 01/30/20 14:30 [facility] (Rec: 02/01/20 14:54 [facility] [email or web address]) Lumbar Spine Range of Motion Lumbar Spine Active Testing Position Standing Flexion 60 Extension 5 Rotation Left 15 Rotation Right 15 Lateral Flexion Left 10 Lateral Flexion Right 5 ROM Limitations Soft Tissue Tightness,Pain Hip Goniometric Range of Motion Hip Right Flexion w/Knee Flexed 100 Straight Leg Raise 50 Hip ROM Limitations Comments right sided hamstring is still tight from her history of hamstring strain PT-OP-L Special Tests Start: 01/30/20 13:34 Freq: Status: Active Protocol: Document 01/30/20 14:30 [facility] (Rec: 02/01/20 14:54 [facility] [email or web address]) Special Tests Hip Special Tests Mihai Test Results + for iliopsoas tightness Comments R thigh non paralle to table PT-OP-M Strength Start: 01/30/20 13:34 Freq: Status: Active Protocol: Document 01/30/20 13:45 [facility] (Rec: 02/01/20 14:52 [facility] [email or web address]) Trunk Strength Trunk Manual Muscle Testing Core Stabilization decreased core stabilization of the transverse abdominal musculature, + ASLR test B PT-OP-Q Treatments Start: 01/30/20 13:34 Freq: Status: Active Protocol: Document 05/07/20 18:03 [facility] (Rec: 05/07/20 18:05 [facility] [email or web address]) Therapeutic Exercises Other Exercises child pose Other Exercise Name rose pose Cat camel Side bilateral Reps/Minutes 15 reps Manual Therapy Treatment Soft Tissue Mobilization 2 Body Location STM to Lumbar paraspinals and sacral region Mobilization Type Strumming,Sustained Pressure Intensity/Depth Moderate Body Position Prone Comments body pillow 1 Body Location sacral decompression STM Comments prone over a body pillow Joint Mobilizations 2 Joint thoracic spinal mobilizations Grade II Body Position Prone 1 Joint sacral mobs into counternutation Body Position Prone Comments to decrease sacral nutation and lumbar sacral compression PT-OP-R Modalities Start: 03/10/20 17:14 Freq: Status: Active Protocol: Document 03/10/20 17:14 [facility] (Rec: 03/10/20 17:15 [facility] [id number]) Hot Pack/Cold Pack Treatment Ice Massage Location tibialis anterior bilaterally Patient Position Supine Treatment Duration (minutes) 3 Patient Tolerance Good Ultrasound Therapy Treatment left tibialis anterior Treatment Duration (minutes) 8 Patient Position Supine Coupling Medium Ultrasound Gel Applicator Size (cm2) 5 Mode Setting Continuous Intensity Setting (w/cm2) 1.5 PT-OP-T Assessment and Plan Start: 01/30/20 13:34 Freq: Status: Active Protocol: Document 05/07/20 18:03 [facility] (Rec: 05/07/20 18:05 [facility] [email or web address]) Physical Therapy Assessment Assessment Summary Assessment Kalie is demonstrating improved lumbar ROM and mobility, I did work on sacral counternutation today and decompression. She leaves for [place] for 2 weeks and then we will resume PT Physical Therapy Plan Frequency and Duration Frequency of Treatment 2x/Week Duration of Treatment 8 Plan of Care Start Date 03/24/20 Plan of Care End Date 05/19/20
--- NOTE | 2020-05-28 14:50 | PT.OTN ---
Current Diagnoses Radiculopathy, lumbar region (05/28/20) Physical Therapy Treatment Note PT-OP-A Visit Information Start: 01/30/20 13:34 Freq: Status: Active Protocol: Document 05/28/20 13:47 [facility] (Rec: 05/28/20 13:59 [facility] [id number]) Out-Patient Physical Therapy Visit Information Visit Information Visit Type Progress Note Visit Start Time 13:45 Visit Stop Time 14:30 Total Visit Minutes 45 Visit Number 11 PT-OP-B Current Condition Start: 01/30/20 13:34 Freq: Status: Active Protocol: Document 01/30/20 13:45 [facility] (Rec: 02/01/20 14:52 [facility] [email or web address]) Current Condition History of Current Condition Onset Date December 2019 Current Complaints left sided radiculopathy and B SI/sacral pain History of Current Condition Sophia has been seen previously for PT for Sacral pain and sciatic symptoms. She notes she had been doing well and then gradually began having c/o left sided radicular symptoms. She reports she has been home by herself during and hadn' t been able to do her regular exercise routine at the gym. She felt that she was sitting a lot and was often at the computer. In early December she had soil delivered for her yard and she notes she had pain trying to move the soil. She recently took a road trip and during this time her symptoms progresses includinging tingling into B feet and pain with standing and rolling over in bed. Kalie reports she has started trying to stretch and work on her posture and this has helped some but she is still noting left sided radicular symptoms and B pain in the gluteals Treatment Goals Patient/Caregiver Goals Kalie would like to continue to exercise, travel, and walk without pain. Current Functional Impairments (Reported) Functional Limitations- ADL's normal ADL's increase her pain Functional Limitations- Mobility/Gait pain with standing more than 10 minutes, pain with traveling and walking Functional Limitations- Recreation/ Limited with gardening Hobbies activities due to pain PT-OP-C Subjective Start: 01/30/20 13:34 Freq: Status: Active Protocol: Document 05/28/20 13:47 [facility] (Rec: 05/28/20 13:59 [facility] [id number]) OP-PT Subjective Patient Comments Patient Comments Kalie reports she got three really good massages when she was in [place] and it really helped her back. This also helped the cramping in her legs. The first 3 days she was there she experienced a great deal of crampin in her shins and needd to stop walking. She did notice later that she could walk in the sand okay just not the pavement Patient Reported Progress Improving PT-OP-F Manual Assessment Start: 01/30/20 13:34 Freq: Status: Active Protocol: Document 01/30/20 13:45 [facility] (Rec: 02/01/20 14:52 [facility] [email or web address]) Manual Assessments Soft Tissue Assessment Soft Tissue Mobility Assessment There is guarding and muscle spasm in the psoas attachments left greater than R, guarding upper lumbar spine paraspinals, pirformis guarding and tightness left greater than R Joint Mobility Assessment Joint Mobility Assessment Decreased lumbar mobility into flexion, decreased hip mobility into flexion The sacrum is help in a nutated positon PT-OP-J Posture/Palpation/Skin Start: 01/30/20 13:34 Freq: Status: Active Protocol: Document 01/30/20 13:45 [facility] (Rec: 02/01/20 14:52 [facility] [email or web address]) Palpation Assessment Location 3 Palpation Location low back muscles spasm and soft tissue tightness Palpation Findings Soft Tissue Tightness,Spasm, Muscle Guarding Two Palpation Location left piriformis Palpation Findings Soft Tissue Tightness,Muscle Guarding One Palpation Location sacrum Palpation Details held in a nutated position, tightness and guarding at the [place] region B PT-OP-K Range of Motion Start: 02/01/20 14:52 Freq: Status: Active Protocol: Document 01/30/20 14:30 [facility] (Rec: 02/01/20 14:54 [facility] [email or web address]) Lumbar Spine Range of Motion Lumbar Spine Active Testing Position Standing Flexion 60 Extension 5 Rotation Left 15 Rotation Right 15 Lateral Flexion Left 10 Lateral Flexion Right 5 ROM Limitations Soft Tissue Tightness,Pain Hip Goniometric Range of Motion Hip Right Flexion w/Knee Flexed 100 Straight Leg Raise 50 Hip ROM Limitations Comments right sided hamstring is still tight from her history of hamstring strain PT-OP-L Special Tests Start: 01/30/20 13:34 Freq: Status: Active Protocol: Document 01/30/20 14:30 [facility] (Rec: 02/01/20 14:54 [facility] [email or web address]) Special Tests Hip Special Tests Mihai Test Results + for iliopsoas tightness Comments R thigh non paralle to table PT-OP-M Strength Start: 01/30/20 13:34 Freq: Status: Active Protocol: Document 01/30/20 13:45 [facility] (Rec: 02/01/20 14:52 [facility] [email or web address]) Trunk Strength Trunk Manual Muscle Testing Core Stabilization decreased core stabilization of the transverse abdominal musculature, + ASLR test B PT-OP-Q Treatments Start: 01/30/20 13:34 Freq: Status: Active Protocol: Document 05/28/20 14:40 [facility] (Rec: 05/28/20 14:50 [facility] [id number]) Manual Therapy Treatment Soft Tissue Mobilization 3 Body Location piriformis release bilaterally 2 Body Location STM to Lumbar paraspinals and sacral region Mobilization Type Strumming,Sustained Pressure Intensity/Depth Moderate Body Position Prone Comments body pillow 1 Body Location sacral decompression STM Comments prone over a body pillow PT-OP-R Modalities Start: 03/10/20 17:14 Freq: Status: Active Protocol: Document 03/10/20 17:14 [facility] (Rec: 03/10/20 17:15 [facility] [id number]) Hot Pack/Cold Pack Treatment Ice Massage Location tibialis anterior bilaterally Patient Position Supine Treatment Duration (minutes) 3 Patient Tolerance Good Ultrasound Therapy Treatment left tibialis anterior Treatment Duration (minutes) 8 Patient Position Supine Coupling Medium Ultrasound Gel Applicator Size (cm2) 5 Mode Setting Continuous Intensity Setting (w/cm2) 1.5 PT-OP-T Assessment and Plan Start: 01/30/20 13:34 Freq: Status: Active Protocol: Document 05/28/20 14:40 [facility] (Rec: 05/28/20 14:50 [facility] [id number]) Physical Therapy Assessment Goals reduced ROM Impairment Reduced Lumbar and hip ROM Short Term Goal (STG) PT is educated on a home flexibility program for her lumbar spine and hips to improve pain free mobillity GOAL MET STG Duration 5 weeks Fdc Goal (LTG) Kalie is able to perform pain free lumbar pain ROM in all planes, she also demonstrates improved mobility into hip extenstion from improved flexibility of the psoas muscle EXCELLENT PROGRESS LTG Duration 8 weeks Pain Impairment Low back and sacral pain, left radicular pain symptoms [employer] Goal (LTG) Kalie is no longer experiencing radicular symptoms and c/o pain in the low back and sacrum are reduced from /10 to 1-2/10 GOOD PROGRESS Four Impairment SI dysfunction with + tests for instability Short Term Goal (STG) Correct SI dysfunction with manual therapy techniqes and stabilizing exercises GOOD PROGRESS, Kalie's sacrum tends to pull forward into nutation. She is working on both pelvi cfloor strengthening as well as relaxing the gluteals and piriformis to help with this STG Duration 6 weeks Two LTG Duration 8 weeks Assessment Summary Assessment Treatment for Kalie has focused on decompression of the lower back and sacrum, working with stretches to openup the spine and sacral region and manual therapy techniques to mobilize the sacrum. Kalie did really well following the steroid prescription. She now is experiencing intermitent symptoms. She was able to travel to [place] and her first three days experienced a great deal of cramping in the anterior shins. She stopped walking and got a few massages that seemed to calm this down . She returns to PT today doing pretty well and working on all her stretches at home. Kalie does have a appointment with Dr. Asencio tomorrow. She would like continued PT. Physical Therapy Plan Frequency and Duration Frequency of Treatment 1x/Week Duration of Treatment 8 Plan of Care Start Date 05/28/20 Plan of Care End Date 07/23/20 Therapeutic Interventions Therapeutic Interventions Home Exercise Program,Manual Therapy,Patient/Caregiver Education,Self-Care/Home Management,Soft Tissue Mobilization,Therapeutic Exercises Next Visit Focus/Plan Next Note Type Treatment Note Next Visit Plan continue to review stabilization exercises and stretches, review throacic spine stabilization and strerches next visit
--- NOTE | 2020-05-28 14:51 | PT.OPPOC ---
Physical, Occupational & Speech Therapy At [facility] Current Diagnoses Radiculopathy, lumbar region (05/28/20) Visit Care Team Role Provider Type Clare Hinkle MD Attending Provider Physician Primary Care Provider Referring Provider Specialty: Family Practice Address: [address] [place] [address], [facility] [place], [address] Email: [email or web address] Plan Of Care PT-OP-T Assessment and Plan Start: 01/30/20 13:34 Freq: Status: Active Protocol: Document 05/28/20 14:40 [facility] (Rec: 05/28/20 14:50 [facility] [id number]) Physical Therapy Assessment Goals reduced ROM Impairment Reduced Lumbar and hip ROM Short Term Goal (STG) PT is educated on a home flexibility program for her lumbar spine and hips to improve pain free mobility GOAL MET STG Duration 5 weeks Prison Goal (LTG) Kalie is able to perform pain free lumbar pain ROM in all planes, she also demonstrates improved mobility into hip extension from improved flexibility of the psoas muscle EXCELLENT PROGRESS LTG Duration 8 weeks Pain Impairment Low back and sacral pain, left radicular pain symptoms Prison Goal (LTG) Kalie is no longer experiencing radicular symptoms and c/o pain in the low back and sacrum are reduced from 6/10 to 1-2/10 GOOD PROGRESS Four Impairment SI dysfunction with + tests for instability Short Term Goal (STG) Correct SI dysfunction with manual therapy techniqes and stabilizing exercises GOOD PROGRESS, Kalie's sacrum tends to pull forward into nutation. She is working on both pelvic floor strengthening as well as relaxing the gluteals and piriformis to help with this STG Duration 6 weeks Two LTG Duration 8 weeks Assessment Summary Assessment Treatment for Kalie has focused on decompression of the lower back and sacrum, working with stretches to openup the spine and sacral region and manual therapy techniques to mobilize the sacrum. Kalie did really well following the steroid prescription. She now is experiencing intermittent symptoms. She was able to travel to [place] and her first three days experienced a great deal of cramping in the anterior shins. She stopped walking and got a few massages that seemed to calm this down . She returns to PT today doing pretty well and working on all her stretches at home. Kalie does have a appointment with Dr. Asencio tomorrow. She would like continued PT. Physical Therapy Plan Frequency and Duration Frequency of Treatment 1x/Week Duration of Treatment 8 Plan of Care Start Date 05/28/20 Plan of Care End Date 07/23/20 Therapeutic Interventions Therapeutic Interventions Home Exercise Program,Manual Therapy,Patient/Caregiver Education,Self-Care/Home Management,Soft Tissue Mobilization,Therapeutic Exercises Next Visit Focus/Plan Next Note Type Treatment Note Next Visit Plan continue to review stabilization exercises and stretches, review thoracic spine stabilization and stretches next visit Plan of Care Dates Plan of Care Start Date 05/28/20 Plan of Care End Date 07/23/20 Electronically Signed by: Jamaica Antony, PT 05/28/20 [id number] Please Sign and Return: I have reviewed this Plan of Care and certify that the skilled therapy services above are required to meet the patient?s needs. Physician Signature Date Printed Name and Credentials Clinical Instructor Signature Printed Name and Credentials
--- NOTE | 2020-06-02 17:56 | PT.OTN ---
Current Diagnoses Radiculopathy, lumbar region (06/02/20) Physical Therapy Treatment Note PT-OP-A Visit Information Start: 01/30/20 13:34 Freq: Status: Active Protocol: Document 06/02/20 12:57 [facility] (Rec: 06/02/20 12:57 [facility] [email or web address]) Out-Patient Physical Therapy Visit Information Visit Information Visit Type Treatment Note Visit Start Time 13:00 Visit Stop Time 13:45 Total Visit Minutes 45 Visit Number 12 PT-OP-B Current Condition Start: 01/30/20 13:34 Freq: Status: Active Protocol: Document 01/30/20 13:45 [facility] (Rec: 02/01/20 14:52 [facility] [email or web address]) Current Condition History of Current Condition Onset Date December 2019 Current Complaints left sided radiculopathy and B SI/sacral pain History of Current Condition Sophia has been seen previously for PT for Sacral pain and sciatic symptoms. She notes she had been doing well and then gradually began having c/o left sided radicular symptoms. She reports she has been home by herself during and hadn' t been able to do her regular exercise routine at the gym. She felt that she was sitting a lot and was often at the computer. In early December she had soil delivered for her yard and she notes she had pain trying to move the soil. She recently took a road trip and during this time her symptoms progresses includinging tingling into B feet and pain with standing and rolling over in bed. Kalie reports she has started trying to stretch and work on her posture and this has helped some but she is still noting left sided radicular symptoms and B pain in the gluteals Treatment Goals Patient/Caregiver Goals Kalie would like to continue to exercise, travel, and walk without pain. Current Functional Impairments (Reported) Functional Limitations- ADL's normal ADL's increase her pain Functional Limitations- Mobility/Gait pain with standing more than 10 minutes, pain with traveling and walking Functional Limitations- Recreation/ Limited with gardening Hobbies activities due to pain PT-OP-C Subjective Start: 01/30/20 13:34 Freq: Status: Active Protocol: Document 06/02/20 12:58 [facility] (Rec: 06/02/20 13:05 [facility] [id number]) OP-PT Subjective Patient Comments Patient Comments Kalie reports she was pretty good until last night. She got really tight in the lumbar area and has the spasms in the shins. Standing still for long periods of time she has themost issues. PT-OP-F Manual Assessment Start: 01/30/20 13:34 Freq: Status: Active Protocol: Document 01/30/20 13:45 [facility] (Rec: 02/01/20 14:52 [facility] [email or web address]) Manual Assessments Soft Tissue Assessment Soft Tissue Mobility Assessment There is guarding and muscle spasm in the psoas attachments left greater than R, guarding upper lumbar spine paraspinals, pirformis guarding and tightness left greater than R Joint Mobility Assessment Joint Mobility Assessment Decreased lumbar mobility into flexion, decreased hip mobility into flexion The sacrum is help in a nutated positon PT-OP-J Posture/Palpation/Skin Start: 01/30/20 13:34 Freq: Status: Active Protocol: Document 01/30/20 13:45 [facility] (Rec: 02/01/20 14:52 [facility] [email or web address]) Palpation Assessment Location 3 Palpation Location low back muscles spasm and soft tissue tightness Palpation Findings Soft Tissue Tightness,Spasm, Muscle Guarding Two Palpation Location left piriformis Palpation Findings Soft Tissue Tightness,Muscle Guarding One Palpation Location sacrum Palpation Details held in a nutated position, tightness and guarding at the CONY region B PT-OP-K Range of Motion Start: 02/01/20 14:52 Freq: Status: Active Protocol: Document 01/30/20 14:30 [facility] (Rec: 02/01/20 14:54 [facility] [email or web address]) Lumbar Spine Range of Motion Lumbar Spine Active Testing Position Standing Flexion 60 Extension 5 Rotation Left 15 Rotation Right 15 Lateral Flexion Left 10 Lateral Flexion Right 5 ROM Limitations Soft Tissue Tightness,Pain Hip Goniometric Range of Motion Hip Right Flexion w/Knee Flexed 100 Straight Leg Raise 50 Hip ROM Limitations Comments right sided hamstring is still tight from her history of hamstring strain PT-OP-L Special Tests Start: 01/30/20 13:34 Freq: Status: Active Protocol: Document 01/30/20 14:30 [facility] (Rec: 02/01/20 14:54 [facility] [email or web address]) Special Tests Hip Special Tests Mihai Test Results + for iliopsoas tightness Comments R thigh non paralle to table PT-OP-M Strength Start: 01/30/20 13:34 Freq: Status: Active Protocol: Document 01/30/20 13:45 [facility] (Rec: 02/01/20 14:52 [facility] [email or web address]) Trunk Strength Trunk Manual Muscle Testing Core Stabilization decreased core stabilization of the transverse abdominal musculature, + ASLR test B PT-OP-Q Treatments Start: 01/30/20 13:34 Freq: Status: Active Protocol: Document 06/02/20 17:51 [facility] (Rec: 06/02/20 17:56 [facility] [id number]) Manual Therapy Treatment Soft Tissue Mobilization 2 Body Location STM to Lumbar paraspinals and sacral region Mobilization Type Strumming,Sustained Pressure Intensity/Depth Moderate Body Position Prone Comments body pillow 1 Body Location sacral decompression STM Comments prone over a body pillow Manual Techniques 1 Type manual piriformis stretch, hip ER Body Position Prone Comments prone on body pillow Self-Care/Home Management Treatment Activities Self-Care/Home Management Activities standing posture check and advice on how to stand without out gluteal tightening PT-OP-R Modalities Start: 03/10/20 17:14 Freq: Status: Active Protocol: Document 03/10/20 17:14 [facility] (Rec: 03/10/20 17:15 [facility] [id number]) Hot Pack/Cold Pack Treatment Ice Massage Location tibialis anterior bilaterally Patient Position Supine Treatment Duration (minutes) 3 Patient Tolerance Good Ultrasound Therapy Treatment left tibialis anterior Treatment Duration (minutes) 8 Patient Position Supine Coupling Medium Ultrasound Gel Applicator Size (cm2) 5 Mode Setting Continuous Intensity Setting (w/cm2) 1.5 PT-OP-T Assessment and Plan Start: 01/30/20 13:34 Freq: Status: Active Protocol: Document 06/02/20 17:51 [facility] (Rec: 06/02/20 17:56 [facility] [id number]) Physical Therapy Assessment Assessment Summary Assessment Kalie has her appointment with Dr. Asencio tomorrow for cortisone injection. She also purchased a pair of birkenstocks for home use as standing for long periods of time on her barefeet increase her pain. We worked on standing posture today and Kalie continues to use the foam roller to stretch. She is stretching faithfully at home. Physical Therapy Plan Frequency and Duration Frequency of Treatment 1x/Week Duration of Treatment 8 Plan of Care Start Date 05/28/20 Plan of Care End Date 07/23/20 Therapeutic Interventions Therapeutic Interventions Home Exercise Program,Manual Therapy,Patient/Caregiver Education,Self-Care/Home Management,Soft Tissue Mobilization,Therapeutic Exercises Next Visit Focus/Plan Next Note Type Treatment Note Next Visit Plan recheck in after Kalie has her cortisone injection next visit
--- NOTE | 2020-06-16 14:11 | PT.OTN ---
Current Diagnoses Radiculopathy, lumbar region (06/16/20) Physical Therapy Treatment Note PT-OP-A Visit Information Start: 01/30/20 13:34 Freq: Status: Active Protocol: Document 06/16/20 12:59 [facility] (Rec: 06/16/20 12:59 [facility] [email or web address]) Out-Patient Physical Therapy Visit Information Visit Information Visit Type Treatment Note Visit Start Time 13:00 Visit Stop Time 13:45 Total Visit Minutes 45 Visit Number 13 PT-OP-B Current Condition Start: 01/30/20 13:34 Freq: Status: Active Protocol: Document 01/30/20 13:45 [facility] (Rec: 02/01/20 14:52 [facility] [email or web address]) Current Condition History of Current Condition Onset Date December 2019 Current Complaints left sided radiculopathy and B SI/sacral pain History of Current Condition Sophia has been seen previously for PT for Sacral pain and sciatic symptoms. She notes she had been doing well and then gradually began having c/o left sided radicular symptoms. She reports she has been home by herself during and hadn' t been able to do her regular exercise routine at the gym. She felt that she was sitting a lot and was often at the computer. In early December she had soil delivered for her yard and she notes she had pain trying to move the soil. She recently took a road trip and during this time her symptoms progresses includinging tingling into B feet and pain with standing and rolling over in bed. Kalie reports she has started trying to stretch and work on her posture and this has helped some but she is still noting left sided radicular symptoms and B pain in the gluteals Treatment Goals Patient/Caregiver Goals Kalie would like to continue to exercise, travel, and walk without pain. Current Functional Impairments (Reported) Functional Limitations- ADL's normal ADL's increase her pain Functional Limitations- Mobility/Gait pain with standing more than 10 minutes, pain with traveling and walking Functional Limitations- Recreation/ Limited with gardening Hobbies activities due to pain PT-OP-C Subjective Start: 01/30/20 13:34 Freq: Status: Active Protocol: Document 06/16/20 13:59 [facility] (Rec: 06/16/20 14:11 [facility] [id number]) OP-PT Subjective Patient Comments Patient Comments Kalie reports her pain is a 5/ 10 at this time. She feels sore from the injection but does not have the relief at this point that she was hoping for. The stretches do not seem to be helping as much as they were before the injection Patient Reported Progress Worse PT-OP-F Manual Assessment Start: 01/30/20 13:34 Freq: Status: Active Protocol: Document 01/30/20 13:45 [facility] (Rec: 02/01/20 14:52 [facility] [email or web address]) Manual Assessments Soft Tissue Assessment Soft Tissue Mobility Assessment There is guarding and muscle spasm in the psoas attachments left greater than R, guarding upper lumbar spine paraspinals, pirformis guarding and tightness left greater than R Joint Mobility Assessment Joint Mobility Assessment Decreased lumbar mobility into flexion, decreased hip mobility into flexion The sacrum is help in a nutated positon PT-OP-J Posture/Palpation/Skin Start: 01/30/20 13:34 Freq: Status: Active Protocol: Document 01/30/20 13:45 [facility] (Rec: 02/01/20 14:52 [facility] [email or web address]) Palpation Assessment Location 3 Palpation Location low back muscles spasm and soft tissue tightness Palpation Findings Soft Tissue Tightness,Spasm, Muscle Guarding Two Palpation Location left piriformis Palpation Findings Soft Tissue Tightness,Muscle Guarding One Palpation Location sacrum Palpation Details held in a nutated position, tightness and guarding at the CON[place] region B PT-OP-K Range of Motion Start: 02/01/20 14:52 Freq: Status: Active Protocol: Document 01/30/20 14:30 [facility] (Rec: 02/01/20 14:54 [facility] [email or web address]) Lumbar Spine Range of Motion Lumbar Spine Active Testing Position Standing Flexion 60 Extension 5 Rotation Left 15 Rotation Right 15 Lateral Flexion Left 10 Lateral Flexion Right 5 ROM Limitations Soft Tissue Tightness,Pain Hip Goniometric Range of Motion Hip Right Flexion w/Knee Flexed 100 Straight Leg Raise 50 Hip ROM Limitations Comments right sided hamstring is still tight from her history of hamstring strain PT-OP-L Special Tests Start: 01/30/20 13:34 Freq: Status: Active Protocol: Document 01/30/20 14:30 [facility] (Rec: 02/01/20 14:54 [facility] [email or web address]) Special Tests Hip Special Tests Mihai Test Results + for iliopsoas tightness Comments R thigh non paralle to table PT-OP-M Strength Start: 01/30/20 13:34 Freq: Status: Active Protocol: Document 01/30/20 13:45 [facility] (Rec: 02/01/20 14:52 [facility] [email or web address]) Trunk Strength Trunk Manual Muscle Testing Core Stabilization decreased core stabilization of the transverse abdominal musculature, + ASLR test B PT-OP-Q Treatments Start: 01/30/20 13:34 Freq: Status: Active Protocol: Document 06/16/20 13:59 [facility] (Rec: 06/16/20 14:11 [facility] [id number]) Therapeutic Exercises Supine Exercises 3 Supine Exercise Name TA facilitation isometric Reps/Minutes x 5 reps 2 Supine Exercise Name lower trunk rotation 1 Supine Exercise Name hamstring stretch Reps/Minutes supine, pt using door way at home Other Exercises 1 Other Exercise Name cat cow Reps/Minutes x 10 reps quadraped TA facilitation Reps/Minutes 10 second hold time x 10 reps child pose Reps/Minutes hold 30-60 seconds Comments side stretch in rose pose Self-Care/Home Management Treatment Education Patient Education Body Mechanics,Home Exercise Program Other Education education on applying ice to her low back and a review of the stretches and exercises that would be helpful at this time PT-OP-R Modalities Start: 03/10/20 17:14 Freq: Status: Active Protocol: Document 03/10/20 17:14 [facility] (Rec: 03/10/20 17:15 [facility] [id number]) Hot Pack/Cold Pack Treatment Ice Massage Location tibialis anterior bilaterally Patient Position Supine Treatment Duration (minutes) 3 Patient Tolerance Good Ultrasound Therapy Treatment left tibialis anterior Treatment Duration (minutes) 8 Patient Position Supine Coupling Medium Ultrasound Gel Applicator Size (cm2) 5 Mode Setting Continuous Intensity Setting (w/cm2) 1.5 PT-OP-T Assessment and Plan Start: 01/30/20 13:34 Freq: Status: Active Protocol: Document 06/16/20 13:59 [facility] (Rec: 06/16/20 14:11 [facility] [id number]) Physical Therapy Assessment Assessment Summary Assessment Kalie is c/o left side knee giving out on her since her injection. I worked on stabilization for the lumbar spine especially L4-S1 today as she is hurting with positional changes such as rolling in bed. We reviewed TA facilitation on hands and knees and in supine after wer went through her flexion based stretches. I talked to Kalie about how it can take a few weeks for the injection to begin helping as well. Physical Therapy Plan Frequency and Duration Frequency of Treatment 1x/Week Duration of Treatment 8 Plan of Care Start Date 05/28/20 Plan of Care End Date 07/23/20 Therapeutic Interventions Therapeutic Interventions Home Exercise Program,Manual Therapy,Patient/Caregiver Education,Self-Care/Home Management,Soft Tissue Mobilization,Therapeutic Exercises Next Visit Focus/Plan Next Note Type Treatment Note Next Visit Plan progress to hip stabilization if pt is able to progress. Review abdominal stabilization exercises
--- NOTE | 2020-06-25 17:42 | PT.OTN ---
Current Diagnoses Radiculopathy, lumbar region (06/25/20) Physical Therapy Treatment Note PT-OP-A Visit Information Start: 01/30/20 13:34 Freq: Status: Active Protocol: Document 06/25/20 17:37 [facility] (Rec: 06/25/20 17:37 [facility] [id number]) Out-Patient Physical Therapy Visit Information Visit Information Visit Type Treatment Note Visit Start Time 13:00 Visit Stop Time 13:45 Total Visit Minutes 45 Visit Number 14 PT-OP-B Current Condition Start: 01/30/20 13:34 Freq: Status: Active Protocol: Document 01/30/20 13:45 [facility] (Rec: 02/01/20 14:52 [facility] [email or web address]) Current Condition History of Current Condition Onset Date December 2019 Current Complaints left sided radiculopathy and B SI/sacral pain History of Current Condition Sophia has been seen previously for PT for Sacral pain and sciatic symptoms. She notes she had been doing well and then gradually began having c/o left sided radicular symptoms. She reports she has been home by herself during and hadn' t been able to do her regular exercise routine at the gym. She felt that she was sitting a lot and was often at the computer. In early December she had soil delivered for her yard and she notes she had pain trying to move the soil. She recently took a road trip and during this time her symptoms progresses includinging tingling into B feet and pain with standing and rolling over in bed. Kalie reports she has started trying to stretch and work on her posture and this has helped some but she is still noting left sided radicular symptoms and B pain in the gluteals Treatment Goals Patient/Caregiver Goals Kalie would like to continue to exercise, travel, and walk without pain. Current Functional Impairments (Reported) Functional Limitations- ADL's normal ADL's increase her pain Functional Limitations- Mobility/Gait pain with standing more than 10 minutes, pain with traveling and walking Functional Limitations- Recreation/ Limited with gardening Hobbies activities due to pain PT-OP-C Subjective Start: 01/30/20 13:34 Freq: Status: Active Protocol: Document 06/25/20 13:01 [facility] (Rec: 06/25/20 13:13 [facility] [id number]) OP-PT Subjective Patient Comments Patient Comments Kalie reports she drove her mom to her eye appt. That went okay but monday was in more pain. She was taking the gabbapentin. She had bad vertigo. She stopped taking the gabbapentin and the vertigo went away. This was the first time she had taken the gabbapentin. By monday she was better. SHe has had a lot of pain but the spasms in her legs are not as bad. But then she got a UTI and is now on cipro. She feels now like her back pain is decreased. She was able to be up on her feet all afternoon yesterday. Patient Reported Progress Improving PT-OP-F Manual Assessment Start: 01/30/20 13:34 Freq: Status: Active Protocol: Document 01/30/20 13:45 [facility] (Rec: 02/01/20 14:52 [facility] [email or web address]) Manual Assessments Soft Tissue Assessment Soft Tissue Mobility Assessment There is guarding and muscle spasm in the psoas attachments left greater than R, guarding upper lumbar spine paraspinals, pirformis guarding and tightness left greater than R Joint Mobility Assessment Joint Mobility Assessment Decreased lumbar mobility into flexion, decreased hip mobility into flexion The sacrum is help in a nutated positon PT-OP-J Posture/Palpation/Skin Start: 01/30/20 13:34 Freq: Status: Active Protocol: Document 01/30/20 13:45 [facility] (Rec: 02/01/20 14:52 [facility] [email or web address]) Palpation Assessment Location 3 Palpation Location low back muscles spasm and soft tissue tightness Palpation Findings Soft Tissue Tightness,Spasm, Muscle Guarding Two Palpation Location left piriformis Palpation Findings Soft Tissue Tightness,Muscle Guarding One Palpation Location sacrum Palpation Details held in a nutated position, tightness and guarding at the CON[place] region B PT-OP-K Range of Motion Start: 02/01/20 14:52 Freq: Status: Active Protocol: Document 01/30/20 14:30 [facility] (Rec: 02/01/20 14:54 [facility] [email or web address]) Lumbar Spine Range of Motion Lumbar Spine Active Testing Position Standing Flexion 60 Extension 5 Rotation Left 15 Rotation Right 15 Lateral Flexion Left 10 Lateral Flexion Right 5 ROM Limitations Soft Tissue Tightness,Pain Hip Goniometric Range of Motion Hip Right Flexion w/Knee Flexed 100 Straight Leg Raise 50 Hip ROM Limitations Comments right sided hamstring is still tight from her history of hamstring strain PT-OP-L Special Tests Start: 01/30/20 13:34 Freq: Status: Active Protocol: Document 01/30/20 14:30 [facility] (Rec: 02/01/20 14:54 [facility] [email or web address]) Special Tests Hip Special Tests Mihai Test Results + for iliopsoas tightness Comments R thigh non paralle to table PT-OP-M Strength Start: 01/30/20 13:34 Freq: Status: Active Protocol: Document 01/30/20 13:45 [facility] (Rec: 02/01/20 14:52 [facility] [email or web address]) Trunk Strength Trunk Manual Muscle Testing Core Stabilization decreased core stabilization of the transverse abdominal musculature, + ASLR test B PT-OP-Q Treatments Start: 01/30/20 13:34 Freq: Status: Active Protocol: Document 06/25/20 13:31 [facility] (Rec: 06/25/20 13:47 [facility] [id number]) Therapeutic Exercises Supine Exercises piriformis stretch Supine Exercise Name piriformis stretch Comments figure 4 stretch ball squeeze with pelvic tilt Supine Exercise Name ball squeeze with the pelvic tilt iliopsoas stretch in supine Reps/Minutes 2 x 30 seconds 3 Supine Exercise Name double knee to chest Side bilateral Other Exercises 1 Other Exercise Name cat cow Reps/Minutes x 10 reps quadraped TA facilitation Reps/Minutes 10 second hold time x 10 reps child pose Reps/Minutes hold 30-60 seconds Comments side stretch in rose pose Self-Care/Home Management Treatment Education Patient Education Home Exercise Program,Joint Protection,Pain Management, Posture Other Education joint protection with legs in a 90/90 position over a bolster or couch PT-OP-R Modalities Start: 03/10/20 17:14 Freq: Status: Active Protocol: Document 03/10/20 17:14 [facility] (Rec: 03/10/20 17:15 [facility] [id number]) Hot Pack/Cold Pack Treatment Ice Massage Location tibialis anterior bilaterally Patient Position Supine Treatment Duration (minutes) 3 Patient Tolerance Good Ultrasound Therapy Treatment left tibialis anterior Treatment Duration (minutes) 8 Patient Position Supine Coupling Medium Ultrasound Gel Applicator Size (cm2) 5 Mode Setting Continuous Intensity Setting (w/cm2) 1.5 PT-OP-T Assessment and Plan Start: 01/30/20 13:34 Freq: Status: Active Protocol: Document 06/25/20 17:39 [facility] (Rec: 06/25/20 17:41 [facility] [email or web address]) Physical Therapy Assessment Assessment Summary Assessment Kalie seemed to be doing better today but has had a long week with side effects from the gabapentin. She did not have the phan cramping and pain today that she has been having. We reviewed stretches for her for home to relax her back and her hips. She tolerated these well today and was able to perform a bridge without increased pain Physical Therapy Plan Frequency and Duration Frequency of Treatment 1x/Week Duration of Treatment 8 Plan of Care Start Date 05/28/20 Plan of Care End Date 07/23/20 Therapeutic Interventions Therapeutic Interventions Home Exercise Program,Manual Therapy,Patient/Caregiver Education,Self-Care/Home Management,Soft Tissue Mobilization,Therapeutic Exercises Next Visit Focus/Plan Next Note Type Treatment Note Next Visit Plan progress to hip stabilization if pt is able to progress. Review abdominal stabilization exercises
--- NOTE | 2020-07-02 15:59 | PT.OTN ---
Current Diagnoses Radiculopathy, lumbar region (07/02/20) Physical Therapy Treatment Note PT-OP-A Visit Information Start: 01/30/20 13:34 Freq: Status: Active Protocol: Document 07/02/20 15:54 [facility] (Rec: 07/02/20 15:55 [facility] [id number]) Out-Patient Physical Therapy Visit Information Visit Information Visit Type Treatment Note Visit Start Time 13:45 Visit Stop Time 14:30 Total Visit Minutes 45 Visit Number 15 PT-OP-B Current Condition Start: 01/30/20 13:34 Freq: Status: Active Protocol: Document 01/30/20 13:45 [facility] (Rec: 02/01/20 14:52 [facility] [email or web address]) Current Condition History of Current Condition Onset Date December 2019 Current Complaints left sided radiculopathy and B SI/sacral pain History of Current Condition Sophia has been seen previously for PT for Sacral pain and sciatic symptoms. She notes she had been doing well and then gradually began having c/o left sided radicular symptoms. She reports she has been home by herself during and hadn' t been able to do her regular exercise routine at the gym. She felt that she was sitting a lot and was often at the computer. In early December she had soil delivered for her yard and she notes she had pain trying to move the soil. She recently took a road trip and during this time her symptoms progresses includinging tingling into B feet and pain with standing and rolling over in bed. Kalie reports she has started trying to stretch and work on her posture and this has helped some but she is still noting left sided radicular symptoms and B pain in the gluteals Treatment Goals Patient/Caregiver Goals Kalie would like to continue to exercise, travel, and walk without pain. Current Functional Impairments (Reported) Functional Limitations- ADL's normal ADL's increase her pain Functional Limitations- Mobility/Gait pain with standing more than 10 minutes, pain with traveling and walking Functional Limitations- Recreation/ Limited with gardening Hobbies activities due to pain PT-OP-C Subjective Start: 01/30/20 13:34 Freq: Status: Active Protocol: Document 07/02/20 13:49 [facility] (Rec: 07/02/20 14:34 [facility] [id number]) OP-PT Subjective Patient Comments Patient Comments pt reports she went to the store yesterday and today is really sore. She stopped taking her antibiotic yesterday. SHe was able to get back on the gabbapenten but she has had mixed results and is frustrated. SHe also notes now that sometimes after the stretches she feels worse . PT-OP-F Manual Assessment Start: 01/30/20 13:34 Freq: Status: Active Protocol: Document 01/30/20 13:45 [facility] (Rec: 02/01/20 14:52 [facility] [email or web address]) Manual Assessments Soft Tissue Assessment Soft Tissue Mobility Assessment There is guarding and muscle spasm in the psoas attachments left greater than R, guarding upper lumbar spine paraspinals, pirformis guarding and tightness left greater than R Joint Mobility Assessment Joint Mobility Assessment Decreased lumbar mobility into flexion, decreased hip mobility into flexion The sacrum is help in a nutated positon PT-OP-J Posture/Palpation/Skin Start: 01/30/20 13:34 Freq: Status: Active Protocol: Document 01/30/20 13:45 [facility] (Rec: 02/01/20 14:52 [facility] [email or web address]) Palpation Assessment Location 3 Palpation Location low back muscles spasm and soft tissue tightness Palpation Findings Soft Tissue Tightness,Spasm, Muscle Guarding Two Palpation Location left piriformis Palpation Findings Soft Tissue Tightness,Muscle Guarding One Palpation Location sacrum Palpation Details held in a nutated position, tightness and guarding at the [place] region B PT-OP-K Range of Motion Start: 02/01/20 14:52 Freq: Status: Active Protocol: Document 01/30/20 14:30 [facility] (Rec: 02/01/20 14:54 [facility] [email or web address]) Lumbar Spine Range of Motion Lumbar Spine Active Testing Position Standing Flexion 60 Extension 5 Rotation Left 15 Rotation Right 15 Lateral Flexion Left 10 Lateral Flexion Right 5 ROM Limitations Soft Tissue Tightness,Pain Hip Goniometric Range of Motion Hip Right Flexion w/Knee Flexed 100 Straight Leg Raise 50 Hip ROM Limitations Comments right sided hamstring is still tight from her history of hamstring strain PT-OP-L Special Tests Start: 01/30/20 13:34 Freq: Status: Active Protocol: Document 01/30/20 14:30 [facility] (Rec: 02/01/20 14:54 [facility] [email or web address]) Special Tests Hip Special Tests Mihai Test Results + for iliopsoas tightness Comments R thigh non paralle to table PT-OP-M Strength Start: 01/30/20 13:34 Freq: Status: Active Protocol: Document 01/30/20 13:45 [facility] (Rec: 02/01/20 14:52 [facility] [email or web address]) Trunk Strength Trunk Manual Muscle Testing Core Stabilization decreased core stabilization of the transverse abdominal musculature, + ASLR test B PT-OP-Q Treatments Start: 01/30/20 13:34 Freq: Status: Active Protocol: Document 07/02/20 13:49 [facility] (Rec: 07/02/20 14:34 [facility] [id number]) Therapeutic Exercises Other Exercises child pose Reps/Minutes hold 30-60 seconds Comments side stretch in rose pose Manual Therapy Treatment Soft Tissue Mobilization pirifmormis release Body Location pirifmormis release B Comments left greater than right sided tightness 2 Body Location STM to Lumbar paraspinals and sacral region Mobilization Type Strumming,Sustained Pressure Intensity/Depth Moderate Body Position Prone Comments body pillow 1 Body Location sacral decompression STM Comments prone over a body pillow PT-OP-R Modalities Start: 03/10/20 17:14 Freq: Status: Active Protocol: Document 03/10/20 17:14 [facility] (Rec: 03/10/20 17:15 [facility] [id number]) Hot Pack/Cold Pack Treatment Ice Massage Location tibialis anterior bilaterally Patient Position Supine Treatment Duration (minutes) 3 Patient Tolerance Good Ultrasound Therapy Treatment left tibialis anterior Treatment Duration (minutes) 8 Patient Position Supine Coupling Medium Ultrasound Gel Applicator Size (cm2) 5 Mode Setting Continuous Intensity Setting (w/cm2) 1.5 PT-OP-T Assessment and Plan Start: 01/30/20 13:34 Freq: Status: Active Protocol: Document 07/02/20 15:57 [facility] (Rec: 07/02/20 15:59 [facility] [id number]) Physical Therapy Assessment Assessment Summary Assessment Kalie has had intermittent pain but today tolerated manual work well. We held off on exercises due to her nerve pain in the shins today. I would like to review all her stabilzation exercises next visit. Recheck in with stetches at it seems since the cortisone injection stretches have made her symptoms worse. Physical Therapy Plan Frequency and Duration Frequency of Treatment 1x/Week Duration of Treatment 8 Plan of Care Start Date 05/28/20 Plan of Care End Date 07/23/20 Next Visit Focus/Plan Next Note Type Treatment Note Next Visit Plan review all exercises next visit if pt is able to as this is her last scheduled visit
--- NOTE | 2020-07-07 17:30 | PT.OTN ---
Current Diagnoses Radiculopathy, lumbar region (07/07/20) Physical Therapy Treatment Note PT-OP-A Visit Information Start: 01/30/20 13:34 Freq: Status: Active Protocol: Document 07/07/20 13:04 [facility] (Rec: 07/07/20 13:11 [facility] [id number]) Out-Patient Physical Therapy Visit Information Visit Information Visit Type Treatment Note Visit Start Time 13:00 Visit Stop Time 13:45 Total Visit Minutes 45 Visit Number 16 PT-OP-B Current Condition Start: 01/30/20 13:34 Freq: Status: Active Protocol: Document 01/30/20 13:45 [facility] (Rec: 02/01/20 14:52 [facility] [email or web address]) Current Condition History of Current Condition Onset Date December 2019 Current Complaints left sided radiculopathy and B SI/sacral pain History of Current Condition Sophia has been seen previously for PT for Sacral pain and sciatic symptoms. She notes she had been doing well and then gradually began having c/o left sided radicular symptoms. She reports she has been home by herself during and hadn' t been able to do her regular exercise routine at the gym. She felt that she was sitting a lot and was often at the computer. In early December she had soil delivered for her yard and she notes she had pain trying to move the soil. She recently took a road trip and during this time her symptoms progresses includinging tingling into B feet and pain with standing and rolling over in bed. Kalie reports she has started trying to stretch and work on her posture and this has helped some but she is still noting left sided radicular symptoms and B pain in the gluteals Treatment Goals Patient/Caregiver Goals Kalie would like to continue to exercise, travel, and walk without pain. Current Functional Impairments (Reported) Functional Limitations- ADL's normal ADL's increase her pain Functional Limitations- Mobility/Gait pain with standing more than 10 minutes, pain with traveling and walking Functional Limitations- Recreation/ Limited with gardening Hobbies activities due to pain PT-OP-C Subjective Start: 01/30/20 13:34 Freq: Status: Active Protocol: Document 07/07/20 13:04 [facility] (Rec: 07/07/20 13:11 [facility] [id number]) OP-PT Subjective Patient Comments Patient Comments Kalie reports she does better if she isn't standing for long periods of time. She is up to 200 mg of gabba pentan. She is taking it between 12-2: 00and has been on the 200 mg x 4 days. She hasn't had bad spams in her phan which forces her to sit down since yesterday moring. PT-OP-F Manual Assessment Start: 01/30/20 13:34 Freq: Status: Active Protocol: Document 01/30/20 13:45 [facility] (Rec: 02/01/20 14:52 [facility] [email or web address]) Manual Assessments Soft Tissue Assessment Soft Tissue Mobility Assessment There is guarding and muscle spasm in the psoas attachments left greater than R, guarding upper lumbar spine paraspinals, pirformis guarding and tightness left greater than R Joint Mobility Assessment Joint Mobility Assessment Decreased lumbar mobility into flexion, decreased hip mobility into flexion The sacrum is help in a nutated positon PT-OP-J Posture/Palpation/Skin Start: 01/30/20 13:34 Freq: Status: Active Protocol: Document 01/30/20 13:45 [facility] (Rec: 02/01/20 14:52 [facility] [email or web address]) Palpation Assessment Location 3 Palpation Location low back muscles spasm and soft tissue tightness Palpation Findings Soft Tissue Tightness,Spasm, Muscle Guarding Two Palpation Location left piriformis Palpation Findings Soft Tissue Tightness,Muscle Guarding One Palpation Location sacrum Palpation Details held in a nutated position, tightness and guarding at the [place] region B PT-OP-K Range of Motion Start: 02/01/20 14:52 Freq: Status: Active Protocol: Document 01/30/20 14:30 [facility] (Rec: 02/01/20 14:54 [facility] [email or web address]) Lumbar Spine Range of Motion Lumbar Spine Active Testing Position Standing Flexion 60 Extension 5 Rotation Left 15 Rotation Right 15 Lateral Flexion Left 10 Lateral Flexion Right 5 ROM Limitations Soft Tissue Tightness,Pain Hip Goniometric Range of Motion Hip Right Flexion w/Knee Flexed 100 Straight Leg Raise 50 Hip ROM Limitations Comments right sided hamstring is still tight from her history of hamstring strain PT-OP-L Special Tests Start: 01/30/20 13:34 Freq: Status: Active Protocol: Document 01/30/20 14:30 [facility] (Rec: 02/01/20 14:54 [facility] [email or web address]) Special Tests Hip Special Tests Mihai Test Results + for iliopsoas tightness Comments R thigh non paralle to table PT-OP-M Strength Start: 01/30/20 13:34 Freq: Status: Active Protocol: Document 01/30/20 13:45 [facility] (Rec: 02/01/20 14:52 [facility] [email or web address]) Trunk Strength Trunk Manual Muscle Testing Core Stabilization decreased core stabilization of the transverse abdominal musculature, + ASLR test B PT-OP-Q Treatments Start: 01/30/20 13:34 Freq: Status: Active Protocol: Document 07/07/20 13:21 [facility] (Rec: 07/07/20 13:22 [facility] [id number]) Therapeutic Exercises Standing Exercises standing pelvic tilt against the wall Standing Exercise Name standing pelvic tilt against the wall Manual Therapy Treatment Soft Tissue Mobilization pirifmormis release Body Location pirifmormis release B Comments left greater than right sided tightness 2 Body Location STM to Lumbar paraspinals and sacral region Mobilization Type Strumming,Sustained Pressure Intensity/Depth Moderate Body Position Prone Comments body pillow 1 Body Location sacral decompression STM Comments prone over a body pillow Self-Care/Home Management Treatment Education Patient Education Home Exercise Program,Posture PT-OP-R Modalities Start: 03/10/20 17:14 Freq: Status: Active Protocol: Document 03/10/20 17:14 [facility] (Rec: 03/10/20 17:15 [facility] [id number]) Hot Pack/Cold Pack Treatment Ice Massage Location tibialis anterior bilaterally Patient Position Supine Treatment Duration (minutes) 3 Patient Tolerance Good Ultrasound Therapy Treatment left tibialis anterior Treatment Duration (minutes) 8 Patient Position Supine Coupling Medium Ultrasound Gel Applicator Size (cm2) 5 Mode Setting Continuous Intensity Setting (w/cm2) 1.5 PT-OP-T Assessment and Plan Start: 01/30/20 13:34 Freq: Status: Active Protocol: Document 07/07/20 17:26 [facility] (Rec: 07/07/20 17:28 [facility] [id number]) Physical Therapy Assessment Assessment Summary Assessment Today was Kalie's last scheduled appointment with PT. She has her HEP but has not always been able to do her exercises due to pain. She notes that since her injection she has not been able to stretch as it seems to make her worse. She does do her core exercises when she can. She continues to feel the nerve pain in B anterior shins . The cortisone doesn't seem to have made a big difference for her. Her greatest relief came when she was on the prednisone. SHe has a follow up appointment with Dr. Asencio next week. SHe will be dishcarged from PT at this time Physical Therapy Plan Discharge Physical Therapy Discharge Reasons Plateau in Progress
--- NOTE | 2020-10-28 10:23 | PT.OPDS ---
Current Diagnoses Radiculopathy, lumbar region (07/07/20) Visit Care Team Role Provider Type Clare Hinkle MD Attending Provider Physician Primary Care Provider Referring Provider Specialty: Family Practice Address: [address] [place] [address], [facility] [place], [place], [facility] Email: [email or web address] Visit Number Visit Number 16 Discharge Summary PT-OP-B Current Condition Start: 01/30/20 13:34 Freq: Status: Active Protocol: Document 01/30/20 13:45 [facility] (Rec: 02/01/20 14:52 [facility] [email or web address]) Current Condition History of Current Condition Onset Date December 2019 Current Complaints left sided radiculopathy and B SI/sacral pain History of Current Condition Sophia has been seen previously for PT for Sacral pain and sciatic symptoms. She notes she had been doing well and then gradually began having c/o left sided radicular symptoms. She reports she has been home by herself during and hadn' t been able to do her regular exercise routine at the gym. She felt that she was sitting a lot and was often at the computer. In early December she had soil delivered for her yard and she notes she had pain trying to move the soil. She recently took a road trip and during this time her symptoms progresses includinging tingling into B feet and pain with standing and rolling over in bed. Kalie reports she has started trying to stretch and work on her posture and this has helped some but she is still noting left sided radicular symptoms and B pain in the gluteals Treatment Goals Patient/Caregiver Goals Kalie would like to continue to exercise, travel, and walk without pain. Current Functional Impairments (Reported) Functional Limitations- ADL's normal ADL's increase her pain Functional Limitations- Mobility/Gait pain with standing more than 10 minutes, pain with traveling and walking Functional Limitations- Recreation/ Limited with gardening Hobbies activities due to pain PT-OP-C Subjective Start: 01/30/20 13:34 Freq: Status: Active Protocol: Document 07/07/20 13:04 [facility] (Rec: 07/07/20 13:11 [facility] [id number]) OP-PT Subjective Patient Comments Patient Comments Kalie reports she does better if she isn't standing for long periods of time. She is up to 200 mg of gabba pentan. She is taking it between 12-2: 00and has been on the 200 mg x 4 days. She hasn't had bad spams in her phan which forces her to sit down since yesterday moring. PT-OP-F Manual Assessment Start: 01/30/20 13:34 Freq: Status: Active Protocol: Document 01/30/20 13:45 [facility] (Rec: 02/01/20 14:52 [facility] [email or web address]) Manual Assessments Soft Tissue Assessment Soft Tissue Mobility Assessment There is guarding and muscle spasm in the psoas attachments left greater than R, guarding upper lumbar spine paraspinals, pirformis guarding and tightness left greater than R Joint Mobility Assessment Joint Mobility Assessment Decreased lumbar mobility into flexion, decreased hip mobility into flexion The sacrum is help in a nutated positon PT-OP-J Posture/Palpation/Skin Start: 01/30/20 13:34 Freq: Status: Active Protocol: Document 01/30/20 13:45 [facility] (Rec: 02/01/20 14:52 [facility] [email or web address]) Palpation Assessment Location 3 Palpation Location low back muscles spasm and soft tissue tightness Palpation Findings Soft Tissue Tightness,Spasm, Muscle Guarding Two Palpation Location left piriformis Palpation Findings Soft Tissue Tightness,Muscle Guarding One Palpation Location sacrum Palpation Details held in a nutated position, tightness and guarding at the CONY region B PT-OP-K Range of Motion Start: 02/01/20 14:52 Freq: Status: Active Protocol: Document 01/30/20 14:30 [facility] (Rec: 02/01/20 14:54 [facility] [email or web address]) Lumbar Spine Range of Motion Lumbar Spine Active Testing Position Standing Flexion 60 Extension 5 Rotation Left 15 Rotation Right 15 Lateral Flexion Left 10 Lateral Flexion Right 5 ROM Limitations Soft Tissue Tightness,Pain Hip Goniometric Range of Motion Hip Right Flexion w/Knee Flexed 100 Straight Leg Raise 50 Hip ROM Limitations Comments right sided hamstring is still tight from her history of hamstring strain PT-OP-L Special Tests Start: 01/30/20 13:34 Freq: Status: Active Protocol: Document 01/30/20 14:30 [facility] (Rec: 02/01/20 14:54 [facility] [email or web address]) Special Tests Hip Special Tests Mihai Test Results + for iliopsoas tightness Comments R thigh non paralle to table PT-OP-M Strength Start: 01/30/20 13:34 Freq: Status: Active Protocol: Document 01/30/20 13:45 [facility] (Rec: 02/01/20 14:52 [facility] [email or web address]) Trunk Strength Trunk Manual Muscle Testing Core Stabilization decreased core stabilization of the transverse abdominal musculature, + ASLR test B PT-OP-T Assessment and Plan Start: 01/30/20 13:34 Freq: Status: Active Protocol: Document 07/07/20 17:26 [facility] (Rec: 07/07/20 17:28 [facility] [id number]) Physical Therapy Assessment Assessment Summary Assessment Today was Kalie's last scheduled appointment with PT. She has her HEP but has not always been able to do her exercises due to pain. She notes that since her injection she has not been able to stretch as it seems to make her worse. She does do her core exercises when she can. She continues to feel the nerve pain in B anterior shins . The cortisone doesn't seem to have made a big difference for her. Her greatest relief came when she was on the prednisone. SHe has a follow up appointment with Dr. Asencio next week. SHe will be dishcarged from PT at this time Physical Therapy Plan Discharge Physical Therapy Discharge Reasons Plateau in Progress
== END 2020-07-07 14:00 ==
LOC: PHYS 13:00
PROVIDERS: PCP Family Medicine; Referring Provider Family Medicine; Visit Provider Family Medicine
DX: M54.16 Radiculopathy, lumbar region (principal)
CPT/HCPCS: 97035; 97110; 97140; 97161; 97535

== ENCOUNTER → 2020-07-23 11:52 | Outpatient (CLI) | payer MEDICARE, OTHER, SELFPAY ==
--- NOTE | 2020-07-23 | DI.MG.S_ITS ---
BILATERAL DIGITAL SCREENING MAMMOGRAM 3D/2D WITH CAD: 07/23/2020 CLINICAL: Routine screening. Family history of breast cancer. Comparison is made to exams dated: 05/31/2019 mammogram, 05/07/2018 mammogram, and 04/27/2017 mammogram - [facility]. The tissue of both breasts is heterogeneously dense. This may lower the sensitivity of mammography. Current study was also evaluated with a Computer Aided Detection (CAD) system. No significant masses, calcifications, or other findings are seen in either breast. There has been no significant interval change. IMPRESSION: NEGATIVE There is no mammographic evidence of malignancy. A 1 year screening mammogram is recommended. This exam was interpreted at Station ID: [id number]. NOTE: For mammograms, a report in lay terms will be sent to the patient. Approximately 15% of breast malignancies will not be visualized mammographically. In the management of a palpable breast mass, a negative mammogram must not discourage biopsy of a clinically suspicious lesion. Electronically Signed By: Mahad Alfaro acr/allie:07/23/2020 12:23:27 letter sent: Normal Exam ACR BI-RADS Category 1: Negative [id number]
== END ==
PROVIDERS: PCP Family Medicine; Referring Provider Family Medicine; Visit Provider Family Medicine
DX: Z12.31 Encounter for screening mammogram for malignant neoplasm of breast (principal); Z80.3 Family history of malignant neoplasm of breast
CPT/HCPCS: 77063; 77067

== ENCOUNTER 2021-01-26 14:30 | Outpatient (RCR) | payer MEDICARE, OTHER, SELFPAY ==
--- NOTE | 2020-11-03 14:25 | PT.OIE ---
Current Diagnoses Radiculopathy, lumbar region (10/28/20) Past Medical History (Last Reviewed 07/15/20 @ 12:55 by Jhonatan Asencio DO) Facet arthropathy, lumbar Hearing impairment Herniated nucleus pulposus, L4-5 Scoliosis Visit Care Team Role Provider Type Clare Hinkle MD Attending Provider Physician Primary Care Provider Referring Provider Specialty: [facility] Address: [address] [place] [address], [facility] [place], [place], [facility] Email: [email or web address] Physical Therapy Initial Evaluation PT-OP-A Visit Information Start: 10/28/20 10:01 Freq: Status: Active Protocol: Document 10/28/20 12:12 [facility] (Rec: 10/28/20 12:33 [facility] [id number]) Out-Patient Physical Therapy Visit Information Visit Information Visit Type Initial Evaluation Visit Start Time 12:00 Visit Stop Time 12:45 Total Visit Minutes 45 Visit Number 1 Evaluation Information Evaluation Date 10/28/20 PT-OP-B Current Condition Start: 10/28/20 10:01 Freq: Status: Active Protocol: Document 10/28/20 12:12 [facility] (Rec: 10/28/20 12:33 [facility] [id number]) Current Condition History of Current Condition Current Complaints low back and sacral pain with intermittent radicular symptoms History of Current Condition Pt reports she had been in pain until September she was inconstant pain. No she hasn' t had a bad day since September 15. Her gabbapenton was upped to 300 mg per day. She also started taking Malocixan pills 15 mg in the AM, she also started taking CBD capsules 25 mg in the AM and 25 mg in the evening. She is doing her exercises at least one time per day and she feels this has helped as well. She is getting massages every 3-4 weeks Prior Treatments and Tests October 09 was her second vaccine. Treatment Goals Patient/Caregiver Goals At this time Sophia would like to progress her home exercise program to include full body, she would like the position of her sacrum checked as well to make sure she is in alignment Current Functional Impairments (Reported) Functional Limitations- ADL's limited with bending and lifting type activities Functional Limitations- Recreation/ pt loves to travel and is Hobbies limited due to pain PT-OP-C Subjective Start: 10/28/20 10:01 Freq: Status: Active Protocol: Document 10/28/20 12:00 [facility] (Rec: 11/03/20 14:24 [facility] [email or web address]) OP-PT Pain Assessment Location B SI joint and gluteals Intensity 3 Scale Used Numeric (0 - 10) left LE Intensity 3 Scale Used Numeric (0 - 10) Description Radiating PT-OP-F Manual Assessment Start: 10/28/20 10:01 Freq: Status: Active Protocol: Document 10/28/20 12:00 [facility] (Rec: 11/03/20 14:24 [facility] [email or web address]) Manual Assessments Soft Tissue Assessment Soft Tissue Mobility Assessment There is guarding and muscle spasm in the psoas attachments left greater than R, guarding upper lumbar spine paraspinals, pirformis guarding and tightness left greater than R Joint Mobility Assessment Joint Mobility Assessment Decreased lumbar mobility into flexion, decreased hip mobility into flexion The sacrum is help in a nutated positon PT-OP-J Posture/Palpation/Skin Start: 10/28/20 10:01 Freq: Status: Active Protocol: Document 10/28/20 12:00 [facility] (Rec: 11/03/20 14:24 [facility] [email or web address]) Posture Evaluation Comments Posture Comments 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 She does have a forward lean of her upper trunk in standing Palpation Assessment Location 3 Palpation Location low back muscles spasm and soft tissue tightness Palpation Findings Soft Tissue Tightness,Spasm, Muscle Guarding Two Palpation Location left piriformis Palpation Findings Soft Tissue Tightness,Muscle Guarding One Palpation Location sacrum Palpation Details held in a nutated position, tightness and guarding at the CONY region B PT-OP-K Range of Motion Start: 10/28/20 10:01 Freq: Status: Active Protocol: Document 10/28/20 12:00 [facility] (Rec: 11/03/20 14:24 [facility] [email or web address]) Lumbar Spine Range of Motion Lumbar Spine Active Flexion 60 Extension 5 Rotation Left 15 Rotation Right 15 Lateral Flexion Left 10 Lateral Flexion Right 5 ROM Limitations Soft Tissue Tightness PT-OP-M Strength Start: 10/28/20 10:01 Freq: Status: Active Protocol: Document 10/28/20 12:00 [facility] (Rec: 11/03/20 14:24 [facility] [email or web address]) Trunk Strength Trunk Manual Muscle Testing Core Stabilization decreased core stabilization of the transverse abdominal musculature, + ASLR test B PT-OP-Q Treatments Start: 10/28/20 10:01 Freq: Status: Active Protocol: Document 10/28/20 12:00 [facility] (Rec: 11/03/20 14:24 [facility] [email or web address]) Manual Therapy Treatment Soft Tissue Mobilization pirifmormis release Body Location pirifmormis release B Comments left greater than right sided tightness Joint Mobilizations 1 Joint sacral mobs into counternutation Grade II Body Position Prone Comments pt positioned in prone with a pillow under her abdomen for support PT-OP-T Assessment and Plan Start: 10/28/20 10:01 Freq: Status: Active Protocol: Document 10/28/20 12:00 [facility] (Rec: 11/03/20 14:24 [facility] [email or web address]) Physical Therapy Assessment Goals reduced ROM Impairment Reduced Lumbar and hip ROM Short Term Goal (STG) PT is educated on a home flexibility program for her lumbar spine and hips to improve pain free mobillity External Relations Director Goal (LTG) Kalie is able to perform pain free lumbar pain ROM in all planes, she also demonstrates improved mobility into hip extenstion from improved flexibility of the psoas muscle Back pain Impairment Low back pain rated 3/10, pain prevents Kalie from standing > 1hr Longterm Goal (LTG) Kalie is educated on postural corrections that can help with standing positions and pain is reduced in standing to 1-2/ 10 LTG Duration 8 weeks HEP Impairment Pt does not have a overall conditioning and strengthening home program External Relations Director Goal (LTG) Pt will safely perform HEP independently with proper body mechanics to improve her overall flexibility and strength. LTG Duration 8 weeks Assessment Summary Assessment Sophia is a 75 year old female with chronic history of Low back and sacral pain with spondylolisthesis. She has had quite a bit of pain in her LE with radicular symptoms. Recently though she feels her radicular symptoms have lessened and her medication for pain management seems to be working. Her low back pain is 3/10 currently and radicular symptoms have been minimzed. Her goals out of PT are to work on a strengthening program for her UE and LE and to keep her sacrum in the proper place. She is getting massage therapy regularly which is a big benefit to her as her lumbar paraspinals are still tight and guarded. Sophia could move better today than I have seen in the past. Treatment will address posture as she does have a forward lean, core stabilization, a gentle progressive exercise program and manual therapy techniques Physical Therapy Plan Frequency and Duration Frequency of Treatment 1x/Week Duration of Treatment 8 Plan of Care Start Date 10/28/20 Plan of Care End Date 12/23/20 Therapeutic Interventions Therapeutic Interventions Home Exercise Program,Manual Therapy,Patient/Caregiver Education,Self-Care/Home Management,Soft Tissue Mobilization,Therapeutic Exercises Next Visit Focus/Plan Next Note Type Treatment Note Next Visit Plan Begin working on a progressive stabilization exercise program with education on keeping spine in neutral. Recheck sacral alignment next visit.
--- NOTE | 2020-11-03 14:25 | PT.OPPOC ---
Physical, Occupational & Speech Therapy At [facility] Current Diagnoses Radiculopathy, lumbar region (10/28/20) Visit Care Team Role Provider Type Clare Hinkle MD Attending Provider Physician Primary Care Provider Referring Provider Specialty: Family Practice Address: [address] [place] [address], [facility] [place], [address] Email: [email or web address] Plan Of Care PT-OP-T Assessment and Plan Start: 10/28/20 10:01 Freq: Status: Active Protocol: Document 10/28/20 12:00 [facility] (Rec: 11/03/20 14:24 [facility] [email or web address]) Physical Therapy Assessment Goals reduced ROM Impairment Reduced Lumbar and hip ROM Short Term Goal (STG) PT is educated on a home flexibility program for her lumbar spine and hips to improve pain free mobility Buckle Wire Inserter Goal (LTG) Kalie is able to perform pain free lumbar pain ROM in all planes, she also demonstrates improved mobility into hip extension from improved flexibility of the psoas muscle Back pain Impairment Low back pain rated 3/10, pain prevents Kalie from standing > 1hr Nursing Home Goal (LTG) Kalie is educated on postural corrections that can help with standing positions and pain is reduced in standing to 1-2/ 10 LTG Duration 8 weeks HEP Impairment Pt does not have a overall conditioning and strengthening home program Buckle Wire Inserter Goal (LTG) Pt will safely perform HEP independently with proper body mechanics to improve her overall flexibility and strength. LTG Duration 8 weeks Assessment Summary Assessment Sophia is a 75 year old female with chronic history of Low back and sacral pain with spondylolisthesis. She has had quite a bit of pain in her LE with radicular symptoms. Recently though she feels her radicular symptoms have lessened and her medication for pain management seems to be working. Her low back pain is 3/10 currently and radicular symptoms have been minimized. Her goals out of PT are to work on a strengthening program for her UE and LE and to keep her sacrum in the proper place. She is getting massage therapy regularly which is a big benefit to her as her lumbar paraspinals are still tight and guarded. Sophia could move better today than I have seen in the past. Treatment will address posture as she does have a forward lean, core stabilization, a gentle progressive exercise program and manual therapy techniques Physical Therapy Plan Frequency and Duration Frequency of Treatment 1x/Week Duration of Treatment 8 Plan of Care Start Date 10/28/20 Plan of Care End Date 12/23/20 Therapeutic Interventions Therapeutic Interventions Home Exercise Program,Manual Therapy,Patient/Caregiver Education,Self-Care/Home Management,Soft Tissue Mobilization,Therapeutic Exercises Next Visit Focus/Plan Next Note Type Treatment Note Next Visit Plan Begin working on a progressive stabilization exercise program with education on keeping spine in neutral. Recheck sacral alignment next visit. Plan of Care Dates Plan of Care Start Date 10/28/20 Plan of Care End Date 12/23/20 Electronically Signed by: Jamaica Antony, PT 11/03/20 [id number] Please Sign and Return: I have reviewed this Plan of Care and certify that the skilled therapy services above are required to meet the patient?s needs. Physician Signature Date Printed Name and Credentials Clinical Instructor Signature Printed Name and Credentials
--- NOTE | 2020-11-03 17:03 | PT.OTN ---
Current Diagnoses Radiculopathy, lumbar region (11/03/20) Physical Therapy Treatment Note PT-OP-A Visit Information Start: 10/28/20 10:01 Freq: Status: Active Protocol: Document 11/03/20 14:50 [facility] (Rec: 11/03/20 14:51 [facility] [id number]) Out-Patient Physical Therapy Visit Information Visit Information Visit Type Treatment Note Visit Start Time 14:30 Visit Stop Time 15:15 Total Visit Minutes 45 Visit Number 2 PT-OP-B Current Condition Start: 10/28/20 10:01 Freq: Status: Active Protocol: Document 10/28/20 12:12 [facility] (Rec: 10/28/20 12:33 [facility] [id number]) Current Condition History of Current Condition Current Complaints low back and sacral pain with intermittent radicular symptoms History of Current Condition Pt reports she had been in pain until September she was inconstant pain. No she hasn' t had a bad day since September 15. Her gabbapenton was upped to 300 mg per day. She also started taking Malocixan pills 15 mg in the AM, she also started taking CBD capsules 25 mg in the AM and 25 mg in the evening. She is doing her exercises at least one time per day and she feels this has helped as well. She is getting massages every 3-4 weeks Prior Treatments and Tests October 09 was her second vaccine. Treatment Goals Patient/Caregiver Goals At this time Sophia would like to progress her home exercise program to include full body, she would like the position of her sacrum checked as well to make sure she is in alignment Current Functional Impairments (Reported) Functional Limitations- ADL's limited with bending and lifting type activities Functional Limitations- Recreation/ pt loves to travel and is Hobbies limited due to pain PT-OP-C Subjective Start: 10/28/20 10:01 Freq: Status: Active Protocol: Document 11/03/20 14:50 [facility] (Rec: 11/03/20 14:51 [facility] [id number]) OP-PT Subjective Patient Comments Patient Comments pt notes she swept her garage floor and feels tight in her low back PT-OP-F Manual Assessment Start: 10/28/20 10:01 Freq: Status: Active Protocol: Document 10/28/20 12:00 [facility] (Rec: 11/03/20 14:24 [facility] [email or web address]) Manual Assessments Soft Tissue Assessment Soft Tissue Mobility Assessment There is guarding and muscle spasm in the psoas attachments left greater than R, guarding upper lumbar spine paraspinals, pirformis guarding and tightness left greater than R Joint Mobility Assessment Joint Mobility Assessment Decreased lumbar mobility into flexion, decreased hip mobility into flexion The sacrum is help in a nutated positon PT-OP-J Posture/Palpation/Skin Start: 10/28/20 10:01 Freq: Status: Active Protocol: Document 10/28/20 12:00 [facility] (Rec: 11/03/20 14:24 [facility] [email or web address]) Posture Evaluation Comments Posture Comments 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 She does have a forward lean of her upper trunk in standing Palpation Assessment Location 3 Palpation Location low back muscles spasm and soft tissue tightness Palpation Findings Soft Tissue Tightness,Spasm, Muscle Guarding Two Palpation Location left piriformis Palpation Findings Soft Tissue Tightness,Muscle Guarding One Palpation Location sacrum Palpation Details held in a nutated position, tightness and guarding at the CONY region B PT-OP-K Range of Motion Start: 10/28/20 10:01 Freq: Status: Active Protocol: Document 10/28/20 12:00 [facility] (Rec: 11/03/20 14:24 [facility] [email or web address]) Lumbar Spine Range of Motion Lumbar Spine Active Flexion 60 Extension 5 Rotation Left 15 Rotation Right 15 Lateral Flexion Left 10 Lateral Flexion Right 5 ROM Limitations Soft Tissue Tightness PT-OP-M Strength Start: 10/28/20 10:01 Freq: Status: Active Protocol: Document 10/28/20 12:00 [facility] (Rec: 11/03/20 14:24 [facility] [email or web address]) Trunk Strength Trunk Manual Muscle Testing Core Stabilization decreased core stabilization of the transverse abdominal musculature, + ASLR test B PT-OP-Q Treatments Start: 10/28/20 10:01 Freq: Status: Active Protocol: Document 11/03/20 16:58 [facility] (Rec: 11/03/20 17:03 [facility] [email or web address]) Therapeutic Exercises Other Exercises seated sidebend stretch Reps/Minutes 1-2 reps each side seated bicep curls Reps/Minutes 8# 2 x 10 theraband Other Exercise Name Theraband Equipment Used level 1 theraband Reps/Minutes 3 x 10 rep Comments rows, lat pull down, seated horizontal abduction Manual Therapy Treatment Soft Tissue Mobilization 2 Body Location STM to Lumbar paraspinals and sacral region Mobilization Type Strumming,Sustained Pressure Intensity/Depth Moderate Body Position Prone Comments body pillow 1 Body Location sacral decompression STM Comments prone over a body pillow Joint Mobilizations 1 Joint sacral mobs into counternutation Grade II Body Position Prone Comments pt positioned in prone with a pillow under her abdomen for support PT-OP-T Assessment and Plan Start: 10/28/20 10:01 Freq: Status: Active Protocol: Document 11/03/20 16:58 [facility] (Rec: 11/03/20 17:03 [facility] [email or web address]) Physical Therapy Assessment Assessment Summary Assessment Kalie was a little more tight in her low back today as she had been sweeping her garage. I did a little soft tissue and mobilized her sacrum prior to her exercises today and h tolerated this well. We then started resisted exercises she can do at home with spine in neutral. SHe tends to get some nerve pain on the left if she stands too long so we modified the exercises so that she can do them sitting as well. Physical Therapy Plan Frequency and Duration Frequency of Treatment 1x/Week Duration of Treatment 8 Plan of Care Start Date 10/28/20 Plan of Care End Date 12/23/20 Therapeutic Interventions Therapeutic Interventions Home Exercise Program,Manual Therapy,Patient/Caregiver Education,Self-Care/Home Management,Soft Tissue Mobilization,Therapeutic Exercises Discharge Physical Therapy Discharge Reasons Plateau in Progress Next Visit Focus/Plan Next Note Type Treatment Note Next Visit Plan continue working on a progressive stabilization exercise program with education on keeping spine in neutral. Recheck sacral alignment next visit.
--- NOTE | 2020-11-10 16:48 | PT.OTN ---
Current Diagnoses Radiculopathy, lumbar region (11/10/20) Physical Therapy Treatment Note PT-OP-A Visit Information Start: 10/28/20 10:01 Freq: Status: Active Protocol: Document 11/10/20 14:34 [facility] (Rec: 11/10/20 14:42 [facility] [id number]) Out-Patient Physical Therapy Visit Information Visit Information Visit Type Treatment Note Visit Start Time 14:30 Visit Stop Time 15:15 Total Visit Minutes 45 Visit Number 3 PT-OP-B Current Condition Start: 10/28/20 10:01 Freq: Status: Active Protocol: Document 10/28/20 12:12 [facility] (Rec: 10/28/20 12:33 [facility] [id number]) Current Condition History of Current Condition Current Complaints low back and sacral pain with intermittent radicular symptoms History of Current Condition Pt reports she had been in pain until September she was inconstant pain. No she hasn' t had a bad day since September 15. Her gabbapenton was upped to 300 mg per day. She also started taking Malocixan pills 15 mg in the AM, she also started taking CBD capsules 25 mg in the AM and 25 mg in the evening. She is doing her exercises at least one time per day and she feels this has helped as well. She is getting massages every 3-4 weeks Prior Treatments and Tests October 09 was her second vaccine. Treatment Goals Patient/Caregiver Goals At this time Sophia would like to progress her home exercise program to include full body, she would like the position of her sacrum checked as well to make sure she is in alignment Current Functional Impairments (Reported) Functional Limitations- ADL's limited with bending and lifting type activities Functional Limitations- Recreation/ pt loves to travel and is Hobbies limited due to pain PT-OP-C Subjective Start: 10/28/20 10:01 Freq: Status: Active Protocol: Document 11/10/20 14:34 [facility] (Rec: 11/10/20 14:42 [facility] [id number]) OP-PT Subjective Patient Comments Patient Comments pt hiked 3.1 miles yesterday am. She felt really good after her hike but today she feels a little more in the front of her phan. She also did a 4 mile walk SHe notes tightness in the left anterior phan and left gluteal muscle. PT-OP-F Manual Assessment Start: 10/28/20 10:01 Freq: Status: Active Protocol: Document 10/28/20 12:00 [facility] (Rec: 11/03/20 14:24 [facility] [email or web address]) Manual Assessments Soft Tissue Assessment Soft Tissue Mobility Assessment There is guarding and muscle spasm in the psoas attachments left greater than R, guarding upper lumbar spine paraspinals, pirformis guarding and tightness left greater than R Joint Mobility Assessment Joint Mobility Assessment Decreased lumbar mobility into flexion, decreased hip mobility into flexion The sacrum is help in a nutated positon PT-OP-J Posture/Palpation/Skin Start: 10/28/20 10:01 Freq: Status: Active Protocol: Document 10/28/20 12:00 [facility] (Rec: 11/03/20 14:24 [facility] [email or web address]) Posture Evaluation Comments Posture Comments 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 She does have a forward lean of her upper trunk in standing Palpation Assessment Location 3 Palpation Location low back muscles spasm and soft tissue tightness Palpation Findings Soft Tissue Tightness,Spasm, Muscle Guarding Two Palpation Location left piriformis Palpation Findings Soft Tissue Tightness,Muscle Guarding One Palpation Location sacrum Palpation Details held in a nutated position, tightness and guarding at the CON[place] region B PT-OP-K Range of Motion Start: 10/28/20 10:01 Freq: Status: Active Protocol: Document 10/28/20 12:00 [facility] (Rec: 11/03/20 14:24 [facility] [email or web address]) Lumbar Spine Range of Motion Lumbar Spine Active Flexion 60 Extension 5 Rotation Left 15 Rotation Right 15 Lateral Flexion Left 10 Lateral Flexion Right 5 ROM Limitations Soft Tissue Tightness PT-OP-M Strength Start: 10/28/20 10:01 Freq: Status: Active Protocol: Document 10/28/20 12:00 [facility] (Rec: 11/03/20 14:24 [facility] [email or web address]) Trunk Strength Trunk Manual Muscle Testing Core Stabilization decreased core stabilization of the transverse abdominal musculature, + ASLR test B PT-OP-Q Treatments Start: 10/28/20 10:01 Freq: Status: Active Protocol: Document 11/10/20 14:30 [facility] (Rec: 11/10/20 16:48 [facility] [email or web address]) Manual Therapy Treatment Soft Tissue Mobilization pirifmormis release Body Location pirifmormis release B Comments left greater than right sided tightness 2 Body Location STM to Lumbar paraspinals and sacral region Mobilization Type Strumming,Sustained Pressure Intensity/Depth Moderate Body Position Prone 1 Body Location sacral decompression STM Comments prone with pillow under the abdomen PT-OP-T Assessment and Plan Start: 10/28/20 10:01 Freq: Status: Active Protocol: Document 11/10/20 14:30 [facility] (Rec: 11/10/20 16:48 [facility] [email or web address]) Physical Therapy Assessment Assessment Summary Assessment Pt had decreased muscle guarding and spasm in her lumbar paraspinals today. Still tight left side of sacrum and piriformis. She is tolerating more activity and has been doing her weights at home without a problem. She will continue to hike only 1 time per week but is tolerating walking more during the week. Physical Therapy Plan Frequency and Duration Frequency of Treatment 1x/Week Duration of Treatment 8 Plan of Care Start Date 10/28/20 Plan of Care End Date 12/23/20 Therapeutic Interventions Therapeutic Interventions Home Exercise Program,Manual Therapy,Patient/Caregiver Education,Self-Care/Home Management,Soft Tissue Mobilization,Therapeutic Exercises Next Visit Focus/Plan Next Note Type Treatment Note Next Visit Plan continue working on a progressive stabilization exercise program with education on keeping spine in neutral. Recheck sacral alignment next visit.
--- NOTE | 2020-11-17 16:23 | PT.OTN ---
Current Diagnoses Radiculopathy, lumbar region (11/17/20) Physical Therapy Treatment Note PT-OP-A Visit Information Start: 10/28/20 10:01 Freq: Status: Active Protocol: Document 11/17/20 14:29 [facility] (Rec: 11/17/20 14:45 [facility] [id number]) Out-Patient Physical Therapy Visit Information Visit Information Visit Type Treatment Note Visit Start Time 14:30 Visit Stop Time 15:15 Total Visit Minutes 45 Visit Number 4 PT-OP-B Current Condition Start: 10/28/20 10:01 Freq: Status: Active Protocol: Document 10/28/20 12:12 [facility] (Rec: 10/28/20 12:33 [facility] [id number]) Current Condition History of Current Condition Current Complaints low back and sacral pain with intermittent radicular symptoms History of Current Condition Pt reports she had been in pain until September she was inconstant pain. No she hasn' t had a bad day since September 15. Her gabbapenton was upped to 300 mg per day. She also started taking Malocixan pills 15 mg in the AM, she also started taking CBD capsules 25 mg in the AM and 25 mg in the evening. She is doing her exercises at least one time per day and she feels this has helped as well. She is getting massages every 3-4 weeks Prior Treatments and Tests October 09 was her second vaccine. Treatment Goals Patient/Caregiver Goals At this time Sophia would like to progress her home exercise program to include full body, she would like the position of her sacrum checked as well to make sure she is in alignment Current Functional Impairments (Reported) Functional Limitations- ADL's limited with bending and lifting type activities Functional Limitations- Recreation/ pt loves to travel and is Hobbies limited due to pain PT-OP-C Subjective Start: 10/28/20 10:01 Freq: Status: Active Protocol: Document 11/17/20 14:29 [facility] (Rec: 11/17/20 14:45 [facility] [id number]) OP-PT Subjective Patient Comments Patient Comments The last walk she went on was monday and during the walk she had leg pain symptoms. She walked 2.5 miles. HEr massage is scheduled for . Kalie reports she still feels this is the best her back has been in a long time even with the set back. She worked hard in her yard on monday and she is wondering if this may have contributed to her symptoms PT-OP-F Manual Assessment Start: 10/28/20 10:01 Freq: Status: Active Protocol: Document 10/28/20 12:00 [facility] (Rec: 11/03/20 14:24 [facility] [email or web address]) Manual Assessments Soft Tissue Assessment Soft Tissue Mobility Assessment There is guarding and muscle spasm in the psoas attachments left greater than R, guarding upper lumbar spine paraspinals, pirformis guarding and tightness left greater than R Joint Mobility Assessment Joint Mobility Assessment Decreased lumbar mobility into flexion, decreased hip mobility into flexion The sacrum is help in a nutated positon PT-OP-J Posture/Palpation/Skin Start: 10/28/20 10:01 Freq: Status: Active Protocol: Document 10/28/20 12:00 [facility] (Rec: 11/03/20 14:24 [facility] [email or web address]) Posture Evaluation Comments Posture Comments 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 She does have a forward lean of her upper trunk in standing Palpation Assessment Location 3 Palpation Location low back muscles spasm and soft tissue tightness Palpation Findings Soft Tissue Tightness,Spasm, Muscle Guarding Two Palpation Location left piriformis Palpation Findings Soft Tissue Tightness,Muscle Guarding One Palpation Location sacrum Palpation Details held in a nutated position, tightness and guarding at the [place] region B PT-OP-K Range of Motion Start: 10/28/20 10:01 Freq: Status: Active Protocol: Document 10/28/20 12:00 [facility] (Rec: 11/03/20 14:24 [facility] [email or web address]) Lumbar Spine Range of Motion Lumbar Spine Active Flexion 60 Extension 5 Rotation Left 15 Rotation Right 15 Lateral Flexion Left 10 Lateral Flexion Right 5 ROM Limitations Soft Tissue Tightness PT-OP-M Strength Start: 10/28/20 10:01 Freq: Status: Active Protocol: Document 10/28/20 12:00 [facility] (Rec: 11/03/20 14:24 [facility] [email or web address]) Trunk Strength Trunk Manual Muscle Testing Core Stabilization decreased core stabilization of the transverse abdominal musculature, + ASLR test B PT-OP-Q Treatments Start: 10/28/20 10:01 Freq: Status: Active Protocol: Document 11/17/20 14:30 [facility] (Rec: 11/17/20 16:21 [facility] [email or web address]) Manual Therapy Treatment Soft Tissue Mobilization pirifmormis release Body Location pirifmormis release B Comments left greater than right sided tightness 2 Body Location STM to Lumbar paraspinals and sacral region Mobilization Type Strumming,Sustained Pressure Intensity/Depth Moderate Body Position Prone Manual Techniques 2 Type manual sacral decompression and mobilizations into counter nutation Body Position Prone Comments prone on body pillow PT-OP-T Assessment and Plan Start: 10/28/20 10:01 Freq: Status: Active Protocol: Document 11/17/20 14:30 [facility] (Rec: 11/17/20 16:21 [facility] [email or web address]) Physical Therapy Assessment Assessment Summary Assessment pt is encouraged that even though she experienced some pain she was able to rest and her pain decreased. Her plan is to have soft tissue massage every three weeks to help keep her muscles out of a spasmed stated. Physical Therapy Plan Frequency and Duration Frequency of Treatment 1x/Week Duration of Treatment 8 Plan of Care Start Date 10/28/20 Plan of Care End Date 12/23/20 Therapeutic Interventions Therapeutic Interventions Home Exercise Program,Manual Therapy,Patient/Caregiver Education,Self-Care/Home Management,Soft Tissue Mobilization,Therapeutic Exercises Next Visit Focus/Plan Next Note Type Treatment Note Next Visit Plan continue working on a progressive stabilization exercise program with education on keeping spine in neutral. Recheck sacral alignment next visit.
--- NOTE | 2020-12-08 16:58 | PT.OTN ---
Current Diagnoses Radiculopathy, lumbar region (12/08/20) Physical Therapy Treatment Note PT-OP-A Visit Information Start: 10/28/20 10:01 Freq: Status: Active Protocol: Document 12/08/20 16:07 [facility] (Rec: 12/08/20 16:14 [facility] [id number]) Out-Patient Physical Therapy Visit Information Visit Information Visit Type Treatment Note Visit Start Time 16:00 Visit Stop Time 16:45 Total Visit Minutes 45 Visit Number 5 PT-OP-B Current Condition Start: 10/28/20 10:01 Freq: Status: Active Protocol: Document 10/28/20 12:12 [facility] (Rec: 10/28/20 12:33 [facility] [id number]) Current Condition History of Current Condition Current Complaints low back and sacral pain with intermittent radicular symptoms History of Current Condition Pt reports she had been in pain until September she was inconstant pain. No she hasn' t had a bad day since September 15. Her gabbapenton was upped to 300 mg per day. She also started taking Malocixan pills 15 mg in the AM, she also started taking CBD capsules 25 mg in the AM and 25 mg in the evening. She is doing her exercises at least one time per day and she feels this has helped as well. She is getting massages every 3-4 weeks Prior Treatments and Tests October 09 was her second vaccine. Treatment Goals Patient/Caregiver Goals At this time Sophia would like to progress her home exercise program to include full body, she would like the position of her sacrum checked as well to make sure she is in alignment Current Functional Impairments (Reported) Functional Limitations- ADL's limited with bending and lifting type activities Functional Limitations- Recreation/ pt loves to travel and is Hobbies limited due to pain PT-OP-C Subjective Start: 10/28/20 10:01 Freq: Status: Active Protocol: Document 12/08/20 16:07 [facility] (Rec: 12/08/20 16:14 [facility] [id number]) OP-PT Subjective Patient Comments Patient Comments hiked on her trip, did three miles round trip oine day and she did get some left leg achey. She did rose pose every night and reports it felt good to work her legs. PT-OP-F Manual Assessment Start: 10/28/20 10:01 Freq: Status: Active Protocol: Document 10/28/20 12:00 [facility] (Rec: 11/03/20 14:24 [facility] [email or web address]) Manual Assessments Soft Tissue Assessment Soft Tissue Mobility Assessment There is guarding and muscle spasm in the psoas attachments left greater than R, guarding upper lumbar spine paraspinals, pirformis guarding and tightness left greater than R Joint Mobility Assessment Joint Mobility Assessment Decreased lumbar mobility into flexion, decreased hip mobility into flexion The sacrum is help in a nutated positon PT-OP-J Posture/Palpation/Skin Start: 10/28/20 10:01 Freq: Status: Active Protocol: Document 10/28/20 12:00 [facility] (Rec: 11/03/20 14:24 [facility] [email or web address]) Posture Evaluation Comments Posture Comments 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 She does have a forward lean of her upper trunk in standing Palpation Assessment Location 3 Palpation Location low back muscles spasm and soft tissue tightness Palpation Findings Soft Tissue Tightness,Spasm, Muscle Guarding Two Palpation Location left piriformis Palpation Findings Soft Tissue Tightness,Muscle Guarding One Palpation Location sacrum Palpation Details held in a nutated position, tightness and guarding at the [place] region B PT-OP-K Range of Motion Start: 10/28/20 10:01 Freq: Status: Active Protocol: Document 10/28/20 12:00 [facility] (Rec: 11/03/20 14:24 [facility] [email or web address]) Lumbar Spine Range of Motion Lumbar Spine Active Flexion 60 Extension 5 Rotation Left 15 Rotation Right 15 Lateral Flexion Left 10 Lateral Flexion Right 5 ROM Limitations Soft Tissue Tightness PT-OP-M Strength Start: 10/28/20 10:01 Freq: Status: Active Protocol: Document 10/28/20 12:00 [facility] (Rec: 11/03/20 14:24 [facility] [email or web address]) Trunk Strength Trunk Manual Muscle Testing Core Stabilization decreased core stabilization of the transverse abdominal musculature, + ASLR test B PT-OP-Q Treatments Start: 10/28/20 10:01 Freq: Status: Active Protocol: Document 12/08/20 16:07 [facility] (Rec: 12/08/20 16:58 [facility] [email or web address]) Therapeutic Exercises Other Exercises child pose Reps/Minutes hold 30-60 seconds Comments side stretch in rose pose Manual Therapy Treatment Soft Tissue Mobilization pirifmormis release Body Location pirifmormis release B Comments left greater than right sided tightness 2 Body Location STM to Lumbar paraspinals and sacral region Mobilization Type Strumming,Sustained Pressure Intensity/Depth Moderate Body Position Prone PT-OP-T Assessment and Plan Start: 10/28/20 10:01 Freq: Status: Active Protocol: Document 12/08/20 16:07 [facility] (Rec: 12/08/20 16:58 [facility] [email or web address]) Physical Therapy Assessment Assessment Summary Assessment Sophia was able to go on a week road trip without exxacerbation of her symptoms. She was tight in the elft greater than right paraspinals today, sacrum was in alignment. Physical Therapy Plan Frequency and Duration Frequency of Treatment 1x/Week Duration of Treatment 8 Plan of Care Start Date 10/28/20 Plan of Care End Date 12/23/20 Therapeutic Interventions Therapeutic Interventions Home Exercise Program,Manual Therapy,Patient/Caregiver Education,Self-Care/Home Management,Soft Tissue Mobilization,Therapeutic Exercises Next Visit Focus/Plan Next Note Type Progress Note Next Visit Plan send [place] to MD next visit
--- NOTE | 2020-12-22 17:36 | PT.OTN ---
Current Diagnoses Radiculopathy, lumbar region (12/22/20) Physical Therapy Treatment Note PT-OP-A Visit Information Start: 10/28/20 10:01 Freq: Status: Active Protocol: Document 12/22/20 17:25 [facility] (Rec: 12/22/20 17:36 [facility] [id number]) Out-Patient Physical Therapy Visit Information Visit Information Visit Type Treatment Note Visit Start Time 14:30 Visit Stop Time 15:15 Total Visit Minutes 45 Visit Number 6 PT-OP-B Current Condition Start: 10/28/20 10:01 Freq: Status: Active Protocol: Document 10/28/20 12:12 [facility] (Rec: 10/28/20 12:33 [facility] [id number]) Current Condition History of Current Condition Current Complaints low back and sacral pain with intermittent radicular symptoms History of Current Condition Pt reports she had been in pain until September she was inconstant pain. No she hasn' t had a bad day since September 15. Her gabbapenton was upped to 300 mg per day. She also started taking Malocixan pills 15 mg in the AM, she also started taking CBD capsules 25 mg in the AM and 25 mg in the evening. She is doing her exercises at least one time per day and she feels this has helped as well. She is getting massages every 3-4 weeks Prior Treatments and Tests October 09 was her second vaccine. Treatment Goals Patient/Caregiver Goals At this time Sophia would like to progress her home exercise program to include full body, she would like the position of her sacrum checked as well to make sure she is in alignment Current Functional Impairments (Reported) Functional Limitations- ADL's limited with bending and lifting type activities Functional Limitations- Recreation/ pt loves to travel and is Hobbies limited due to pain PT-OP-C Subjective Start: 10/28/20 10:01 Freq: Status: Active Protocol: Document 12/22/20 14:33 [facility] (Rec: 12/22/20 14:36 [facility] [id number]) OP-PT Subjective Patient Comments Patient Comments pt reports she hiked 2.5 miles in 1.5 hours and then she worked in the yard. She has only had two painful days since the middle of September. She has some tightness in her back today but she hardly ever has issues in her leg. Yesterday her leg was doing some tight muscle spasms. She has her massages every 3 weeks. Patient Reported Progress Improving PT-OP-F Manual Assessment Start: 10/28/20 10:01 Freq: Status: Active Protocol: Document 10/28/20 12:00 [facility] (Rec: 11/03/20 14:24 [facility] [email or web address]) Manual Assessments Soft Tissue Assessment Soft Tissue Mobility Assessment There is guarding and muscle spasm in the psoas attachments left greater than R, guarding upper lumbar spine paraspinals, pirformis guarding and tightness left greater than R Joint Mobility Assessment Joint Mobility Assessment Decreased lumbar mobility into flexion, decreased hip mobility into flexion The sacrum is help in a nutated positon PT-OP-J Posture/Palpation/Skin Start: 10/28/20 10:01 Freq: Status: Active Protocol: Document 10/28/20 12:00 [facility] (Rec: 11/03/20 14:24 [facility] [email or web address]) Posture Evaluation Comments Posture Comments 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 She does have a forward lean of her upper trunk in standing Palpation Assessment Location 3 Palpation Location low back muscles spasm and soft tissue tightness Palpation Findings Soft Tissue Tightness,Spasm, Muscle Guarding Two Palpation Location left piriformis Palpation Findings Soft Tissue Tightness,Muscle Guarding One Palpation Location sacrum Palpation Details held in a nutated position, tightness and guarding at the CONY region B PT-OP-K Range of Motion Start: 10/28/20 10:01 Freq: Status: Active Protocol: Document 10/28/20 12:00 [facility] (Rec: 11/03/20 14:24 [facility] [email or web address]) Lumbar Spine Range of Motion Lumbar Spine Active Flexion 60 Extension 5 Rotation Left 15 Rotation Right 15 Lateral Flexion Left 10 Lateral Flexion Right 5 ROM Limitations Soft Tissue Tightness PT-OP-M Strength Start: 10/28/20 10:01 Freq: Status: Active Protocol: Document 10/28/20 12:00 [facility] (Rec: 11/03/20 14:24 [facility] [email or web address]) Trunk Strength Trunk Manual Muscle Testing Core Stabilization decreased core stabilization of the transverse abdominal musculature, + ASLR test B PT-OP-Q Treatments Start: 10/28/20 10:01 Freq: Status: Active Protocol: Document 12/22/20 17:25 [facility] (Rec: 12/22/20 17:36 [facility] [email or web address]) Therapeutic Exercises Other Exercises windshield wipers Reps/Minutes x 10 reps seated sidebend stretch Reps/Minutes 3-4 reps x 30 seconds each quadraped sidebends Reps/Minutes x 10 reps Manual Therapy Treatment Soft Tissue Mobilization quadratus lumborum release Body Position Prone Comments left sided tightness pirifmormis release Body Location pirifmormis release B Comments left greater than right sided tightness 2 Body Location STM to Lumbar paraspinals and sacral region Mobilization Type Strumming,Sustained Pressure Intensity/Depth Moderate Body Position Prone Manual Techniques 2 Type manual sacral decompression and mobilizations into counter nutation Body Position Prone Comments prone on body pillow 1 Type manual piriformis stretch, hip ER Body Position Prone Comments prone on body pillow PT-OP-T Assessment and Plan Start: 10/28/20 10:01 Freq: Status: Active Protocol: Document 12/22/20 17:25 [facility] (Rec: 12/22/20 17:36 [facility] [id number]) Physical Therapy Assessment Goals reduced ROM Impairment Reduced Lumbar and hip ROM Short Term Goal (STG) PT is educated on a home flexibility program for her lumbar spine and hips to improve pain free mobillity GOAL MET Shelter Goal (LTG) Kalie is able to perform pain free lumbar pain ROM in all planes, she also demonstrates improved mobility into hip extenstion from improved flexibility of the psoas muscle GOAL MET Back pain Impairment Low back pain rated 3/10, pain prevents Kalie from standing > 1hr Bobbin Presser Goal (LTG) Kalie is educated on postural corrections that can help with standing positions and pain is reduced in standing to 1-2/ 10 GOAL MET LTG Duration 8 weeks HEP Impairment Pt does not have a overall conditioning and strengthening home program Shelter Goal (LTG) Pt will safely perform HEP independently with proper body mechanics to improve her overall flexibility and strength. GOOD PROGRESS and as patient adarsh ble to do more I have added stretches to her routine LTG Duration 8 weeks Assessment Summary Assessment Sophia is doing really well at this point. She has been able to go on walks and hike 2 .5- 3 miles. She is finding that having a appointment every 3 weeks has been very beneficial along with massage to keep her from going into her pain. This along with her medication for pain management seems to be really working for her. Along with sacral decompression I worked on releasing the left QL today as the left pelvis was upslipped just a bit. Sophia tolerated this well and she was given side bend stretches for home Physical Therapy Plan Frequency and Duration Frequency of Treatment 1x/Week Duration of Treatment 8 Plan of Care Start Date 12/22/20 Plan of Care End Date 02/17/21 Next Visit Focus/Plan Next Note Type Treatment Note Next Visit Plan continue working on manual therapy techniques every 3-4 weeks to keep the sacrum in place, progress stretches and stabilization exercises as Kalie is able to do.
--- NOTE | 2021-01-12 15:36 | PT.OTN ---
Current Diagnoses Radiculopathy, lumbar region (01/12/21) Physical Therapy Treatment Note PT-OP-A Visit Information Start: 10/28/20 10:01 Freq: Status: Active Protocol: Document 01/12/21 14:35 [facility] (Rec: 01/12/21 14:46 [facility] [id number]) Out-Patient Physical Therapy Visit Information Visit Information Visit Type Treatment Note Visit Start Time 14:35 Visit Stop Time 15:20 Total Visit Minutes 45 Visit Number 7 PT-OP-B Current Condition Start: 10/28/20 10:01 Freq: Status: Active Protocol: Document 10/28/20 12:12 [facility] (Rec: 10/28/20 12:33 [facility] [id number]) Current Condition History of Current Condition Current Complaints low back and sacral pain with intermittent radicular symptoms History of Current Condition Pt reports she had been in pain until September she was inconstant pain. No she hasn' t had a bad day since September 15. Her gabbapenton was upped to 300 mg per day. She also started taking Malocixan pills 15 mg in the AM, she also started taking CBD capsules 25 mg in the AM and 25 mg in the evening. She is doing her exercises at least one time per day and she feels this has helped as well. She is getting massages every 3-4 weeks Prior Treatments and Tests October 09 was her second vaccine. Treatment Goals Patient/Caregiver Goals At this time Sophia would like to progress her home exercise program to include full body, she would like the position of her sacrum checked as well to make sure she is in alignment Current Functional Impairments (Reported) Functional Limitations- ADL's limited with bending and lifting type activities Functional Limitations- Recreation/ pt loves to travel and is Hobbies limited due to pain PT-OP-C Subjective Start: 10/28/20 10:01 Freq: Status: Active Protocol: Document 01/12/21 14:35 [facility] (Rec: 01/12/21 14:46 [facility] [id number]) OP-PT Subjective Patient Comments Patient Comments pt reports she has done more hiking, she hiked 5.5 miles and was a little sore the next day. She has diana napping and stretching and it helps. Her last massage was 12/31/20 and not until the middle of February . She seepaul Hinkle the end of February. PT-OP-F Manual Assessment Start: 10/28/20 10:01 Freq: Status: Active Protocol: Document 10/28/20 12:00 [facility] (Rec: 11/03/20 14:24 [facility] [email or web address]) Manual Assessments Soft Tissue Assessment Soft Tissue Mobility Assessment There is guarding and muscle spasm in the psoas attachments left greater than R, guarding upper lumbar spine paraspinals, pirformis guarding and tightness left greater than R Joint Mobility Assessment Joint Mobility Assessment Decreased lumbar mobility into flexion, decreased hip mobility into flexion The sacrum is help in a nutated positon PT-OP-J Posture/Palpation/Skin Start: 10/28/20 10:01 Freq: Status: Active Protocol: Document 10/28/20 12:00 [facility] (Rec: 11/03/20 14:24 [facility] [email or web address]) Posture Evaluation Comments Posture Comments 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 She does have a forward lean of her upper trunk in standing Palpation Assessment Location 3 Palpation Location low back muscles spasm and soft tissue tightness Palpation Findings Soft Tissue Tightness,Spasm, Muscle Guarding Two Palpation Location left piriformis Palpation Findings Soft Tissue Tightness,Muscle Guarding One Palpation Location sacrum Palpation Details held in a nutated position, tightness and guarding at the CONY region B PT-OP-K Range of Motion Start: 10/28/20 10:01 Freq: Status: Active Protocol: Document 10/28/20 12:00 [facility] (Rec: 11/03/20 14:24 [facility] [email or web address]) Lumbar Spine Range of Motion Lumbar Spine Active Flexion 60 Extension 5 Rotation Left 15 Rotation Right 15 Lateral Flexion Left 10 Lateral Flexion Right 5 ROM Limitations Soft Tissue Tightness PT-OP-M Strength Start: 10/28/20 10:01 Freq: Status: Active Protocol: Document 10/28/20 12:00 [facility] (Rec: 11/03/20 14:24 [facility] [email or web address]) Trunk Strength Trunk Manual Muscle Testing Core Stabilization decreased core stabilization of the transverse abdominal musculature, + ASLR test B PT-OP-Q Treatments Start: 10/28/20 10:01 Freq: Status: Active Protocol: Document 01/12/21 15:33 [facility] (Rec: 01/12/21 15:36 [facility] [id number]) Manual Therapy Treatment Soft Tissue Mobilization quadratus lumborum release Body Position Prone Comments left sided tightness pirifmormis release Body Location pirifmormis release B Comments left greater than right sided tightness 1 Body Location sacral decompression STM Joint Mobilizations 2 Joint thoracic spinal mobilizations Grade II Body Position Prone 1 Joint sacral mobs into counternutation Grade II Body Position Prone Comments pt positioned on the prone body pillow PT-OP-T Assessment and Plan Start: 10/28/20 10:01 Freq: Status: Active Protocol: Document 01/12/21 15:33 [facility] (Rec: 01/12/21 15:36 [facility] [id number]) Physical Therapy Assessment Assessment Summary Assessment Kalie continues to be able to manage her symptoms. She was a little tighter this visit as she had done more. She has needed to rest for a few more days in between her activities . She has not been experiencing the phan pain that she was feeling Physical Therapy Plan Frequency and Duration Frequency of Treatment 1x/Week Duration of Treatment 8 Plan of Care Start Date 12/22/20 Plan of Care End Date 02/17/21 Therapeutic Interventions Therapeutic Interventions Home Exercise Program,Manual Therapy,Patient/Caregiver Education,Self-Care/Home Management,Soft Tissue Mobilization,Therapeutic Exercises Next Visit Focus/Plan Next Note Type Treatment Note Next Visit Plan continue working on manual therapy techniques every 3-4 weeks to keep the sacrum in place, progress stretches and stabilization exercises as Kalie is able to do.
--- NOTE | 2021-01-26 17:32 | PT.OTN ---
Current Diagnoses Radiculopathy, lumbar region (01/26/21) Physical Therapy Treatment Note PT-OP-A Visit Information Start: 10/28/20 10:01 Freq: Status: Active Protocol: Document 01/26/21 14:37 [facility] (Rec: 01/26/21 14:40 [facility] [id number]) Out-Patient Physical Therapy Visit Information Visit Information Visit Type Treatment Note Visit Start Time 14:30 Visit Stop Time 15:15 Total Visit Minutes 45 Visit Number 8 PT-OP-B Current Condition Start: 10/28/20 10:01 Freq: Status: Active Protocol: Document 10/28/20 12:12 [facility] (Rec: 10/28/20 12:33 [facility] [id number]) Current Condition History of Current Condition Current Complaints low back and sacral pain with intermittent radicular symptoms History of Current Condition Pt reports she had been in pain until September she was inconstant pain. No she hasn' t had a bad day since September 15. Her gabbapenton was upped to 300 mg per day. She also started taking Malocixan pills 15 mg in the AM, she also started taking CBD capsules 25 mg in the AM and 25 mg in the evening. She is doing her exercises at least one time per day and she feels this has helped as well. She is getting massages every 3-4 weeks Prior Treatments and Tests October 09 was her second vaccine. Treatment Goals Patient/Caregiver Goals At this time Sophia would like to progress her home exercise program to include full body, she would like the position of her sacrum checked as well to make sure she is in alignment Current Functional Impairments (Reported) Functional Limitations- ADL's limited with bending and lifting type activities Functional Limitations- Recreation/ pt loves to travel and is Hobbies limited due to pain PT-OP-C Subjective Start: 10/28/20 10:01 Freq: Status: Active Protocol: Document 01/26/21 14:37 [facility] (Rec: 01/26/21 14:40 [facility] [id number]) OP-PT Subjective Patient Comments Patient Comments has been walking [place] [address] , she will be achey and tight that evening, today she can tell its tight but its not bad . Her goal is to go around [place]. She is now down to taking the gabapenton 200 mg per day. Patient Reported Progress Improving PT-OP-F Manual Assessment Start: 10/28/20 10:01 Freq: Status: Active Protocol: Document 10/28/20 12:00 [facility] (Rec: 11/03/20 14:24 [facility] [email or web address]) Manual Assessments Soft Tissue Assessment Soft Tissue Mobility Assessment There is guarding and muscle spasm in the psoas attachments left greater than R, guarding upper lumbar spine paraspinals, pirformis guarding and tightness left greater than R Joint Mobility Assessment Joint Mobility Assessment Decreased lumbar mobility into flexion, decreased hip mobility into flexion The sacrum is help in a nutated positon PT-OP-J Posture/Palpation/Skin Start: 10/28/20 10:01 Freq: Status: Active Protocol: Document 10/28/20 12:00 [facility] (Rec: 11/03/20 14:24 [facility] [email or web address]) Posture Evaluation Comments Posture Comments 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 She does have a forward lean of her upper trunk in standing Palpation Assessment Location 3 Palpation Location low back muscles spasm and soft tissue tightness Palpation Findings Soft Tissue Tightness,Spasm, Muscle Guarding Two Palpation Location left piriformis Palpation Findings Soft Tissue Tightness,Muscle Guarding One Palpation Location sacrum Palpation Details held in a nutated position, tightness and guarding at the [place] region B PT-OP-K Range of Motion Start: 10/28/20 10:01 Freq: Status: Active Protocol: Document 10/28/20 12:00 [facility] (Rec: 11/03/20 14:24 [facility] [email or web address]) Lumbar Spine Range of Motion Lumbar Spine Active Flexion 60 Extension 5 Rotation Left 15 Rotation Right 15 Lateral Flexion Left 10 Lateral Flexion Right 5 ROM Limitations Soft Tissue Tightness PT-OP-M Strength Start: 10/28/20 10:01 Freq: Status: Active Protocol: Document 10/28/20 12:00 [facility] (Rec: 11/03/20 14:24 [facility] [email or web address]) Trunk Strength Trunk Manual Muscle Testing Core Stabilization decreased core stabilization of the transverse abdominal musculature, + ASLR test B PT-OP-Q Treatments Start: 10/28/20 10:01 Freq: Status: Active Protocol: Document 01/26/21 14:30 [facility] (Rec: 01/26/21 17:31 [facility] [email or web address]) Manual Therapy Treatment Soft Tissue Mobilization quadratus lumborum release Body Position Prone Comments left sided tightness pirifmormis release Body Location pirifmormis release B Comments left greater than right sided tightness 2 Body Location STM to Lumbar paraspinals and sacral region Mobilization Type Strumming,Sustained Pressure Intensity/Depth Moderate Body Position Prone 1 Body Location sacral decompression STM PT-OP-T Assessment and Plan Start: 10/28/20 10:01 Freq: Status: Active Protocol: Document 01/26/21 14:30 [facility] (Rec: 01/26/21 17:31 [facility] [email or web address]) Physical Therapy Assessment Assessment Summary Assessment Kalie has done really well managing her symptoms. At this point she is going to continue to work on her stretches and get in for massage therapy every 3-4 weeks to keep her back the way it is now. She is not currently having any radicular symptoms and is really faithful about doing her home stretching and stabilization program Physical Therapy Plan Discharge Physical Therapy Discharge Reasons Patient Request Discharge Comments pt to work independently on her home program as she is currently able to manage her symptoms
== END 2021-01-27 07:28 | disposition home or self-care (01) ==
LOC: PHYS 14:30
PROVIDERS: PCP Family Medicine; Referring Provider Family Medicine; Visit Provider Family Medicine
DX: M54.16 Radiculopathy, lumbar region (principal)
CPT/HCPCS: 97110; 97140; 97161

== ENCOUNTER → 2021-06-21 10:58 | Outpatient (CLI) | payer MEDICARE, OTHER, SELFPAY ==
[2021-06-21 12:27] LABS: COVID19 -Nasal RAPID Negative (Negative)
== END ==
PROVIDERS: PCP Family Medicine; Visit Provider Nurse Practitioner Family
DX: Z20.822 Contact with and (suspected) exposure to COVID-19 (principal)
CPT/HCPCS: 87635; C9803

== ENCOUNTER 2021-06-23 08:32 | Day surgery (SDC) | payer MEDICARE, OTHER, SELFPAY ==
--- NOTE | 2021-06-22 19:38 | P.OP_ITS ---
Operative Date/Time/Diagnoses Date of procedure: 06/23/21 Time of procedure: 09:45 Procedure & Clinicians Procedure: Preoperative diagnoses: 1. Left advanced nuclear sclerotic and cortical cataract. 2. Desire to reduce dependency on glasses at all distances with a multifocal Synergy implant. 3. Spinal stenosis 4. Noise induced tinnitus Postoperative diagnoses: 1. ComplexCataract removed by phacoemulsification with placement of posterior chamber intraocular lens. Use of capsular dye. 2. Placement of a multifocal posterior chamber intra-ocular lens implant. Procedure: Complex Phacoemulsification with multifocal posterior chamber intraocular lens implant Surgeon: Bella cMneil MD Complications: None Specimen: None Implant: [id number]+21.5. non-toric Blood loss: None Anesthesia: Retrobulbar with monitored standby Description of procedure: Patient presents with a complaint of decreased vision due to cataract which is affecting activities of daily living with problems with night driving. The patient wants surgery to improve vision at all distances with a multifocal intraocular lens. She understands she may still require glasses after surgery. The patient understands the extra risk of surgery during the COVID-19 epidemic and wishes to proceed. They have tested negative for active virus within 72 hours of the procedure. She has diffuse cortical changes and poor red reflex and will need capsular dye for surgery. The patient was taken to the operating room and given IV sedation. A retrobulbar block consisting of 6 cc of 2% xylocaine without epinephrine mixed half and half with 0.5% Marcaine with 1 cc of hyaluronidase added is placed between the medial and lateral 1/3 of the inferior orbital rim. The eye is manually massaged for 30 sec, prepped using Betadine solution, and draped in the usual sterile fashion. Temporal approach was made, a 1 mm side-port incision was made 90? from the proposed clear corneal incision position. Phenylephrine 1.5% mixed with 1% xylocaine 0.2 cc was placed into the anterior chamber. There was no red reflex. An air bubble was placed followed by vision blue dye. The dye was then irrigated out with BSS. EndoCoat followed by Healon was then placed. A 2.6 mm clear incision with a 2.6 mm blade was placed. A 360 degree capsulorrhexis style capsulotomy was then performed with a cystitome needle on a Healon greatly aided by the capsular dye Hydrodelineation and hydrodissection were performed. The phacoemulsification unit is introduced, and sculpting notice used to groove the central lens. It is then removed in chopping mode. Epi nucleus is removed with epinuclear mode and irrigation aspiration was used to remove the peripheral cortex. The posterior capsule is polished. The intraocular lens is selected, inspected, power confirmed, and placed in the posterior chamber and carefully centered. The wound was stromally hydrated and tested for leaks, there was none and it was left sutureless. Intracameral moxifloxacin 0.1 cc was placed into the anterior chamber. Kenalog 0.2 cc was placed in the superior subconjunctival space. A drop of antibiotic and was placed and the eye was patched and shielded. The patient was stable and returned to the recovery room in excellent condition. Dictated by: Bella Mcneil MD Copy to: [facility] Same procedure as scheduled: Yes
--- NOTE | 2021-06-22 19:38 | PM.PREOP ---
Pre-operative Note COVID-19 COVID-19 status: Negative Interval Note History & Physical reviewed/Exam performed by Physician: Yes Changes to H&P: No
[2021-06-23] MEDS: PROPARACAINE 0.5% OPHTH SOL 2 DROPS EYE-OP (08:59)
[2021-06-23] MEDS: CATARACT EYE COMPOUND (10 DROPS/SYRINGE) 3 DROPS EYE-OP (08:59)
[2021-06-23 09:00] VITALS: BP 172/93; PULSE 61; RESP 18; TEMP 36.1; O2SAT 97; BMI 23.9
[2021-06-23] MEDS: LIDOCAINE 2% 4 ML, BUPIVACAINE 0.5% (PF) 4 ML, HYALURONIDASE 150 UNIT INJ (10:21)
[2021-06-23] MEDS: HYALURONATE SODIUM 30 MG-10 MG/ML SYRINGES 1 BOX INTRAOCULA (10:31)
[2021-06-23] MEDS: ERYTHROMYCIN OPHTH 1 GM OINT 1 APPLIC EYE-LEFT (10:31)
[2021-06-23] MEDS: MOXIFLOXACIN INJ 4 MG/0.8 ML VIAL 0.5 MG EYE-OP (10:31)
[2021-06-23] MEDS: TRYPAN BLUE 0.5 ML SYRINGE INJ (10:32)
[2021-06-23] MEDS: TRIAMCINOLONE 50 MG/5 ML VIAL INJ (10:32)
[2021-06-23] MEDS: PHENYLEPHRINE/LIDOCAINE VIAL (OR) 0.2 ML EYE-OP (10:32)
[2021-06-23] MEDS: BALANCED SALT IRRIG SOLN NO.2 500 ML, EPINEPHrine 1 MG IRR (10:33)
[2021-06-23 10:58] VITALS: BP 152/84; PULSE 54; RESP 16; TEMP 36.8; O2SAT 100
[2021-06-23 11:11] VITALS: BP 163/82; PULSE 55; RESP 16; O2SAT 97
== END 2021-06-23 11:30 | disposition home or self-care (01) ==
LOC: OR 08:34
PROVIDERS: PCP Family Medicine; Referring Provider Ophthalmology; Visit Provider Ophthalmology
PROC: (CPT 66984; principal; 2021-06-23 09:45)
DX: H25.812 Combined forms of age-related cataract, left eye (principal); H93.19 Tinnitus, unspecified ear; F41.9 Anxiety disorder, unspecified
CPT/HCPCS: 66984; J0171; J2704; J3301; J3470; V2788

== ENCOUNTER → 2021-06-28 11:09 | Outpatient (CLI) | payer MEDICARE, OTHER, SELFPAY ==
[2021-06-28 13:16] LABS: COVID19 -Nasal RAPID Negative (Negative)
== END ==
PROVIDERS: PCP Family Medicine; Visit Provider Nurse Practitioner Family
DX: Z20.822 Contact with and (suspected) exposure to COVID-19 (principal)
CPT/HCPCS: 87635; C9803

== ENCOUNTER 2021-06-30 07:28 | Day surgery (SDC) | payer MEDICARE, OTHER, SELFPAY ==
--- NOTE | 2021-06-29 17:24 | PM.PREOP ---
Pre-operative Note COVID-19 COVID-19 status: Negative Interval Note History & Physical reviewed/Exam performed by Physician: Yes Changes to H&P: No
--- NOTE | 2021-06-29 17:25 | PM.OP.1 ---
Operative Date/Time/Diagnoses Date of procedure: 06/30/21 Time of procedure: 08:45 Procedure & Clinicians Procedure: Preoperative diagnoses: 1. Right complex surgery with use of capsular dye. 2. Mature or advanced nuclear sclerotic and cortical cataract with poor visibility of the anterior capsule increasing surgical risks of complications. 3. These are for a multifocal lens to reduce dependency on glasses. 4. Spinal stenosis 5. Noise induced tinnitus. Postoperative diagnoses: 1.Right Complex surgery with use of capsular dye, 2. Placement of a posterior chamber intraocular lens implant. Surgeon: Bella Mcneil MD Complications: none Specimen: None Implant: DFRooV +21.5 Blood loss: None Anesthesia: Retrobulbar with monitored standby. Description of procedure: Dictated by: Bella Mcneil MD Post operative diagnoses: 1. Right cataract removed with use of capsular dye . 2. Placement of a posterior chamber intraocular lens. Procedure: Phacoemulsification with posterior chamber intraocular lens implant Surgeon: Bella Mcneil MD Blood loss: None Anesthesia: Retrobulbar with monitored standby Description of procedure: Patient has presented with decreased vision due to cataract which is affecting activities of daily living especially driving. The patient wants surgery to improve vision. They understand the extra risk of surgery during the COVID-19 epidemic and wished to proceed. The patient has tested negative for active COVID-19 virus within 72 hours of the procedure. The patient was taken to the operating room and given IV sedation. A retrobulbar block consisting of 6 cc of 2% xylocaine without epinephrine mixed half and half with 0.5% Marcaine with 1 cc of hyaluronidase added is placed between the medial and lateral 1/3 of the inferior orbital rim. The eye is manually massaged for 30 sec, prepped using Betadine solution, and draped in the usual sterile fashion. Temporal approach was made, a 1 mm side-port incision was performed 90 degrees from the planned corneal wound. Phenylephrine 1.5% mixed with 1% xylocaine 0.2 cc was placed into the anterior chamber. [An air bubble was placed and capsular blue dye was placed to improve visibility of the anterior capsule. The dye was irrigated out to reduce bubbles. ]Endocoat followed by Healon was then placed. A 2.6 mm clear incision with a 2.6 mm blade was placed. A 360 degree capsulorrhexis style capsulotomy was then performed with a cystitome needle on a Healon greatly aided by the capsular dye. Hydrodelineation and hydrodissection were performed. The phacoemulsification unit is introduced, and sculpting used to groove the central lens. It is then removed in chopping mode. Epi nucleus is removed with epinuclear mode and irrigation aspiration was used to remove the peripheral cortex. The posterior capsule is polished. The intraocular lens is selected, inspected, power confirmed, and placed in the posterior chamber. The wound was stromally hydrated and tested for leaks, there was none and was left sutureless. Intracameral moxifloxacin 0.1 cc was placed into the anterior chamber. Kenalog 0.2 cc was placed in the superior subconjunctival space. A drop of antibiotic and was placed and the eye was patched and shielded. The patient was stable and returned to the recovery room in excellent condition. Dictated by: Bella Mcneil MD Copy to: [facility] Same procedure as scheduled: Yes
[2021-06-30] MEDS: PROPARACAINE 0.5% OPHTH SOL 2 DROPS EYE-OP (07:59)
[2021-06-30] MEDS: CATARACT EYE COMPOUND (10 DROPS/SYRINGE) 3 DROPS EYE-OP (08:06)
[2021-06-30 08:10] VITALS: BMI 24.1
[2021-06-30 08:19] VITALS: BP 181/88; PULSE 64; RESP 14; TEMP 36.5; O2SAT 98
[2021-06-30] MEDS: HYALURONATE SODIUM 30 MG-10 MG/ML SYRINGES 1 BOX INTRAOCULA (09:12)
[2021-06-30] MEDS: MOXIFLOXACIN INJ 4 MG/0.8 ML VIAL 0.5 MG EYE-OP (09:12)
[2021-06-30] MEDS: PHENYLEPHRINE/LIDOCAINE VIAL (OR) 0.2 ML EYE-OP (09:12)
[2021-06-30] MEDS: TRYPAN BLUE 0.5 ML SYRINGE INJ (09:13)
[2021-06-30] MEDS: ERYTHROMYCIN OPHTH 1 GM OINT 1 APPLIC EYE-RIGHT (09:13)
[2021-06-30] MEDS: BALANCED SALT IRRIG SOLN NO.2 500 ML, EPINEPHrine 1 MG IRR (09:13)
[2021-06-30] MEDS: TRIAMCINOLONE 50 MG/5 ML VIAL INJ (09:13)
[2021-06-30] MEDS: LIDOCAINE 2% 4 ML, BUPIVACAINE 0.5% (PF) 4 ML, HYALURONIDASE 150 UNIT INJ (09:14)
--- NOTE | 2021-06-30 09:18 | SUR.OPER ---
Supine on eye stretcher, head on extension cradle and foam donut then secured with tape. Arms tucked at sides with blanket. Pillow under knees.
[2021-06-30 09:37] VITALS: BP 155/80; PULSE 52; RESP 16; TEMP 36.4; O2SAT 97
== END 2021-06-30 09:57 | disposition home or self-care (01) ==
LOC: OR 07:30
PROVIDERS: PCP Family Medicine; Referring Provider Ophthalmology; Visit Provider Ophthalmology
PROC: (CPT 66984; principal; 2021-06-30 08:45)
DX: H25.811 Combined forms of age-related cataract, right eye (principal)
CPT/HCPCS: 66984; J0171; J2250; J3010; J3301; J3470; V2788

== ENCOUNTER → 2021-09-22 11:14 | Outpatient (CLI) | payer MEDICARE, OTHER, SELFPAY ==
--- NOTE | 2021-09-22 | DI.MG.S_ITS ---
BILATERAL DIGITAL SCREENING MAMMOGRAM 3D/2D WITH CAD: 09/22/2021 CLINICAL: Routine screening. Family history of breast cancer. Comparison is made to exams dated: 07/23/2020 mammogram, 05/31/2019 mammogram, and 05/07/2018 mammogram - [facility]. There are scattered fibroglandular elements in both breasts. Current study was also evaluated with a Computer Aided Detection (CAD) system. No significant masses, calcifications, or other findings are seen in either breast. There has been no significant interval change. IMPRESSION: NEGATIVE There is no mammographic evidence of malignancy. A 1 year screening mammogram is recommended. This exam was interpreted at Station ID: [id number]. NOTE: For mammograms, a report in lay terms will be sent to the patient. Approximately 15% of breast malignancies will not be visualized mammographically. In the management of a palpable breast mass, a negative mammogram must not discourage biopsy of a clinically suspicious lesion. Electronically Signed By: Tyra espino/allie:09/22/2021 12:50:52 letter sent: Normal Exam ACR BI-RADS Category 1: Negative 3341F
== END ==
PROVIDERS: PCP Family Medicine; Referring Provider Family Medicine; Visit Provider Family Medicine
DX: Z12.31 Encounter for screening mammogram for malignant neoplasm of breast (principal); Z80.3 Family history of malignant neoplasm of breast
CPT/HCPCS: 77063; 77067

== ENCOUNTER 2021-10-06 13:12 | Emergency (ER) | payer MEDICARE, OTHER, SELFPAY ==
[2021-10-06 13:16] VITALS: BP 158/91; PULSE 99; RESP 18; TEMP 36.6; O2SAT 99; BMI 24.3
--- NOTE | 2021-10-06 13:23 | DI.RAD.S_ITS ---
PROCEDURE: XR CHEST 1V INDICATIONS: chest pain TECHNIQUE: One view of the chest was acquired. COMPARISON: [facility], , CHEST 1 VIEW, 01/20/2010, 18:55. FINDINGS: Surgical changes and devices: None. Lungs and pleura: Lungs are clear. No pleural effusions or pneumothorax. Mediastinum: Mediastinal contours appear normal. Heart size is normal. Bones and chest wall: No suspicious bony lesions. Overlying soft tissues appear unremarkable. IMPRESSION: No acute cardiopulmonary abnormality. Dictated by: Wagner Ruiz M.D. on 10/06/2021 at 12:53 Approved by: Wagner Ruiz M.D. on 10/06/2021 at 12:54
[2021-10-06 13:47] VITALS: BP 124/87; PULSE 82; RESP 20; O2SAT 99
[2021-10-06 13:56] LABS: Add Manual Diff / Slide Review NO; Basophils Absolute Auto 100 /uL (0-100); Basophils Percent Auto 0.8 % (0-2); Eosinophils Absolute Auto 100 /uL (0-450); Eosinophils Percent Auto 1.7 % (2-4); Hematocrit 37.5 % (36-46); Hemoglobin 12.7 g/dL (12.0-16.0); Lymphocytes Absolute Auto 1300 /uL (1100-4500); Lymphocytes Percent Auto 19.4 % (25-40); Mean Corpuscular HGB Conc 33.8 % (30-36); Mean Corpuscular Hemoglobin 29.6 PG (26-34); Mean Corpuscular Volume 87.7 fL (80-100); Monocytes Absolute Auto 400 /uL (0-900); Monocytes Percent Auto 6.5 % (3-14); Neutrophils Absolute Auto 4800 /uL (1500-7000); Neutrophils Percent Auto 71.6 % (50-75); Platelet Count 264 X10^3/uL (150-400); Red Blood Cell Count 4.27 X10^6/uL (4.0-5.2); Red Cell Distribution Width 13.3 % (11.6-14.8); White Blood Cell Count 6.7 X10^3/uL (4.5-11.0)
[2021-10-06 14:00] VITALS: BP 128/82; PULSE 80; RESP 19; O2SAT 99
[2021-10-06 14:10] LABS: Alanine Aminotransferase 23 IU/L (<35); Albumin 4.5 g/dL (3.5-5.0); Albumin Globulin Ratio 1.7 (1.0-2.8); Alkaline Phosphatase 87 U/L (38-126); Aspartate Aminotransferase 28 IU/L (14-36); BUN Creatinine Ratio 27.4 (6-22); Bilirubin Total 0.3 mg/dL (0.2-1.3); Blood Urea Nitrogen 32 mg/dL (7-17); Calcium 9.2 mg/dL (8.4-10.2); Carbon Dioxide 23 mmol/L (22-32); Chloride 106 mmol/L (98-107); Creatine Kinase 66 U/L (30-135); Estimated Glomerular Filt Rate 45.2 mL/min (>60); Globulin 2.7 g/dL (1.7-4.1); Glucose 129 mg/dL (80-110); HEMOLYSIS < 15 (0-50); Lipase 75 U/L (23-300); Magnesium 2.1 mg/dL (1.6-2.3); Potassium 4.4 mmol/L (3.4-5.1); Sodium 137 mmol/L (137-145); Total Protein 7.2 g/dL (6.3-8.2)
--- NOTE | 2021-10-06 14:15 | ED_ITS ---
HPI - Arrhythmia/Palpitations General Chief Complaint: Arrhythmia/Palpitations Stated Complaint: pulse is all over the place for 45 mins Time Seen by Provider: 10/06/21 13:50 Source: patient Mode of arrival: Ambulatory History of Present Illness HPI narrative: 76-year-old female here for evaluation approximately 45 minutes of feeling like her heart is beating fast and skipping beats. Her symptoms have resolved. No chest pain. No shortness of breath. No lightheadedness. She has never had anything like this in the past. She states that her mother has atrial fibrillation. Related Data Home Medications Medication Instructions Recorded Confirmed ascorbate calcium (vitamin C) 500 1,000 mg PO BID 11/08/18 06/30/21 mg tablet aspirin 81 mg tablet,delayed 81 mg PO DAILY 11/08/18 06/30/21 release biotin 1 mg capsule 1 mg PO DAILY 11/08/18 06/30/21 cholecalciferol (vitamin D3) 25 2,000 unit PO DAILY 11/08/18 06/30/21 mcg (1,000 unit) capsule d-mannose 1 each PO DAILY gram 11/08/18 06/30/21 flaxseed oil 1,000 mg capsule 1,000 mg PO BID 11/08/18 06/30/21 fluticasone propionate 50 1 spray NASAL DAILY 11/08/18 06/30/21 mcg/actuation nasal spray,suspension lactobacillus combination no.8 3 3,000 mmu cells PO DAILY 11/08/18 06/30/21 billion cell capsule (Adult Probiotic) lutein 20 mg capsule 20 mg PO DAILY 11/08/18 06/30/21 meloxicam 7.5 mg tablet 7.5 mg PO DAILY 11/08/18 06/30/21 trazodone 100 mg tablet 100 mg PO BEDTIME PRN 11/08/18 06/30/21 vitamin B complex (B 1 tab PO DAILY 11/08/18 06/30/21 Complex-Vitamin B12) gabapentin 100 mg capsule 100 mg PO BID 07/15/20 06/30/21 Allergies Allergy/AdvReac Type Severity Reaction Status Date / Time nitrofurantoin Allergy Intermediate Rash Verified 10/06/21 13:22 [NITROFURANTOIN] Penicillins [PENICILLINS] Allergy Intermediate Rash Verified 10/06/21 13:22 Sulfa (Sulfonamide Allergy Intermediate Rash Verified 10/06/21 13:22 Antibiotics) [SULFA (SULFONAMIDE ANTIBIOTICS)] sulfamethoxazole Allergy Intermediate Rash Verified 10/06/21 13:22 [SULFAMETHOXAZOLE] trimethoprim [TRIMETHOPRIM] Allergy Intermediate Rash Verified 10/06/21 13:22 Review of Systems Cardiovascular Cardiovascular: Reports as per HPI and Reports system reviewed and no additional complaints, except as documented Respiratory Respiratory: Reports system reviewed and no additional complaints, except as documented Gastrointestinal Gastrointestinal: Reports system reviewed and no additional complaints, except as documented Integumentary/Breasts Skin/Breast: Reports system reviewed and no additional complaints, except as documented Hematologic/Lymphatic On Anticoagulants: No Patient History Medical History Facet arthropathy, lumbar Hearing impairment Herniated nucleus pulposus, L4-5 Scoliosis Social History household members: none Smoking Status: Never smoker alcohol intake: current Smoking Status: Never smoker alcohol intake frequency: a few times a month Substance Use Type: does not use Exam Initial Vital Signs Initial Vital Signs: Vital Signs Temperature 97.9 F 10/06/21 13:16 Pulse Rate 99 H 10/06/21 13:16 Respiratory Rate 18 10/06/21 13:16 Blood Pressure 158/91 H 10/06/21 13:16 Pulse Oximetry 99 10/06/21 13:16 HENMT Head: normal to inspection Resp Effort & Inspection: normal respiratory effort Auscultation: clear to auscultation bilaterally Cardio Rate: regular rate Rhythm: regular rhythm Neuro General: patient alert and patient awake Extrem General: capillary refill normal Psych Appearance: grossly normal and well kempt Course Orders Ordered: ED Orders 10/06/21 13:23 XR chest 1V Stat 10/06/21 13:28 EKG-12 Lead Stat 10/06/21 13:45 Complete Blood Count AUTO DIFF Stat Comprehensive Metabolic Panel Stat Lipase Stat Magnesium Stat Troponin & CK Cardiac Panel Stat Vital Signs Vital signs: Vital Signs - 8 hr 10/06/21 13:16 10/06/21 13:47 10/06/21 14:00 Temperature 97.9 F Pulse Rate 99 H 82 80 Respiratory Rate 18 20 19 Blood Pressure 158/91 H 124/87 128/82 Pulse Oximetry 99 99 99 10/06/21 14:30 Temperature Pulse Rate 73 Respiratory Rate Blood Pressure Pulse Oximetry 99 MDM - Arrhythmia/Palpitations Lab Data Result diagrams: 10/06/21 13:45 10/06/21 13:45 Labs: Lab Results 10/06/21 10/06/21 Range/Units 13:45 13:45 WBC 6.7 (4.5-11.0) X10^3/uL RBC 4.27 (4.0-5.2) X10^6/uL Hgb 12.7 (12.0-16.0) g/dL Hct 37.5 (36-46) % MCV 87.7 (80-100) fL MCH 29.6 (26-34) PG MCHC 33.8 (30-36) % RDW 13.3 (11.6-14.8) % Plt Count 264 (150-400) X10^3/uL Neut % (Auto) 71.6 (50-75) % Lymph % (Auto) 19.4 L (25-40) % [place] % (Auto) 6.5 (3-14) % Eos % (Auto) 1.7 L (2-4) % Baso % (Auto) 0.8 (0-2) % Neut # (Auto) 4800 (4892-2714) /uL Lymph # (Auto) 1300 (0657-3711) /uL [place] # (Auto) 400 (0-900) /uL Eos # (Auto) 100 (0-450) /uL Baso # (Auto) 100 (0-100) /uL Sodium 137 (137-145) mmol/L Potassium 4.4 (3.4-5.1) mmol/L Chloride 106 (98-107) mmol/L Carbon Dioxide 23 (22-32) mmol/L BUN 32 H (7-17) mg/dL Creatinine 1.17 H (0.52-1.04) mg/dL Estimated GFR 45.2 L (>60) mL/min BUN/Creatinine Ratio 27.4 H (6-22) Glucose 129 H (80-110) mg/dL Calcium 9.2 (8.4-10.2) mg/dL Magnesium 2.1 (1.6-2.3) mg/dL Total Bilirubin 0.3 (0.2-1.3) mg/dL AST 28 (14-36) IU/L ALT 23 (<35) IU/L Alkaline Phosphatase 87 (38-126) U/L Total Creatine Kinase 66 (30-135) U/L CK-MB (CK-2) TNP CK-MB (CK-2) Rel Index TNP Troponin I < 0.012 (0.01-0.034) ng/mL Total Protein 7.2 (6.3-8.2) g/dL Albumin 4.5 (3.5-5.0) g/dL Globulin 2.7 (1.7-4.1) g/dL Albumin/Globulin Ratio 1.7 (1.0-2.8) Lipase 75 (23-300) U/L Imaging Data Chest x-ray: Radiologist's Impresson: [address] [id number] XRay Report Signed Patient: Sophia Florez MR#: [id number] : 1945 Acct:[id number] Age/Sex: 76 / F Date of Service: 10/06/21 Loc: ED Accession Number: [id number] ?? Procedure: XR chest 1V Ordering Provider: Luis Alfredo Gomez D.O. PROCEDURE:? XR CHEST 1V ? INDICATIONS:? chest pain ? TECHNIQUE:? One view of the chest was acquired.? ? COMPARISON:? [facility], , CHEST 1 VIEW, 01/20/2010, 18:55. ? FINDINGS:? ? Surgical changes and devices:? None.? ? Lungs and pleura:? Lungs are clear.? No pleural effusions or pneumothorax.? ? Mediastinum:? Mediastinal contours appear normal.? Heart size is normal.? ? Bones and chest wall:? No suspicious bony lesions.? Overlying soft tissues appear unremarkable.? ? IMPRESSION:? No acute cardiopulmonary abnormality. ? ? Dictated by: Wagner Ruiz M.D. on 10/06/2021 at 12:53 ? ? Approved by: Wagner Ruiz M.D. on 10/06/2021 at 12:54? ECG Data Attestation: I personally reviewed and interpreted this ECG as follows: Interpretation: Sinus rhythm Ventricular rate 89 Normal axis Normal QRS Normal QTC No ST T wave changes MDM Narrative Medical decision making narrative: Currently asymptomatic. EKG and labs unremarkable. Has had no ectopy on the monitor since being here. Hold on further workup for now. Discussed with her strict return precautions. She expressed understanding and agreement. Discharge Plan Departure Patient Disposition: Home Clinical Impression: Palpitations Instructions: Arrhythmias Activity Restrictions/Additional Instructions: Recommend that you continue to take all of your medications as directed and keep your scheduled follow-up appoint with your primary doctor so that she can discuss the indications for a Holter monitor. Return to the emergency depa rtment for any new or worsening symptoms. Prescriptions: No Action meloxicam 7.5 mg tablet 7.5 mg PO DAILY 0RF flaxseed oil 1,000 mg capsule 1,000 mg PO BID 0RF trazodone 100 mg tablet 100 mg PO BEDTIME PRN (Reason: Sleep) 0RF fluticasone propionate 50 mcg/actuation spray,suspension 1 spray NASAL DAILY 0RF Label Comments: one spray each nostril daily, for allergy symptoms aspirin 81 mg tablet,delayed release (DR/EC) 81 mg PO DAILY 0RF ascorbate calcium (vitamin C) 500 mg tablet 1,000 mg PO BID 0RF vitamin B complex [B Complex-Vitamin B12] tablet 1 tab PO DAILY 0RF cholecalciferol (vitamin D3) 1,000 unit capsule 2,000 unit PO DAILY 0RF lutein 20 mg capsule 20 mg PO DAILY 0RF d-mannose powder 1 each PO DAILY 0RF Adult Probiotic 3 billion cell capsule 3,000 mmu cells PO DAILY 0RF biotin 1 mg capsule 1 mg PO DAILY 0RF gabapentin 100 mg capsule 100 mg PO BID 0RF Referrals: Clare Hinkle MD [Primary Care Provider] -
[2021-10-06 14:21] LABS: Troponin I < 0.012 ng/mL (0.01-0.034)
[2021-10-06 14:30] VITALS: PULSE 73; O2SAT 99
== END 2021-10-06 14:33 | disposition home or self-care (01) ==
PROVIDERS: Emergency Provider Emergency Medicine; PCP Family Medicine
DX: R00.2 Palpitations (principal)
CPT/HCPCS: 36415; 71045; 80053; 82550; 83690; 83735; 84484; 85025; 93005; 99284

== ENCOUNTER → 2021-11-09 07:42 | Outpatient (CLI) | payer MEDICARE, OTHER, SELFPAY ==
--- NOTE | 2021-11-24 11:05 | P.HOLT.S_ITS ---
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 There were 53 runs of SVT the fastest being an 8 beat run as noted above, the longest lasting 10.1 seconds There were no episodes of atrial fibrillation or pauses of 3.0 seconds or longer identified on this study Impression: 12 day equipment monitor phototypesetting demonstrating rare brief runs of SVT
== END ==
PROVIDERS: Family Provider Family Medicine; PCP Family Medicine; Referring Provider Family Medicine; Visit Provider Family Medicine
DX: R00.2 Palpitations (principal)
CPT/HCPCS: 93246; 93248

== ENCOUNTER → 2022-01-21 14:06 | Outpatient (CLI) | payer MEDICARE, OTHER, SELFPAY ==
--- NOTE | 2022-01-21 | DI.ECHO.S_ITS ---
[place] [facility]---------+ [facility] +---------+ : : [address] : : : : [phone] : : : : Phone: [phone] Echocardiogram Report + + :Name: BERONICA CORNEJO Study Date: 01/21/2022 Height: 65 in : :[facility] ReadingLocation: Weight: 147 lb : : Gender: Female BSA: 1.7 m2 : :: 1945 Age: 76 yrs BP: 156/95 mmHg: :Reason For Study: Tachycardia : :Ordering Physician: RADHA, : :MARKIE Performed By: Charly Valle : :Referring: MARKIE GARCIA : + + Interpretation Summary The left ventricle is normal in size and wall thickness. The ejection fraction is estimated to be 55-60%. The right ventricle is normal in size and function. No significant valvular pathology seen. The IVC is of normal diameter and collapses greater than 50% with a sniff. This suggests a low right atrial pressure of 3 mm Hg. Procedure: A two-dimensional transthoracic echocardiogram with color flow and Doppler was performed. The study quality was technically adequate. There is no prior echocardiogram noted for this patient. The patient was in normal sinus rhythm during the exam. The heart rate ranged between 52-64 bpm during the study. Left Ventricle: The left ventricle is normal in size and wall thickness. There is no thrombus. The ejection fraction is estimated to be 55-60%. There are no focal wall motion abnormalities. Diastolic parameters suggest a relaxation abnormality of the left ventricle, consistent with probable normal filling pressures. Right Ventricle: The right ventricle is normal in size and function. Atria: Both atria are normal in size. The interatrial septum grossly appears intact with no obvious evidence for an atrial septal defect. Mitral Valve: The mitral valve is normal in structure and function. There is trace mitral regurgitation. Aortic Valve: The aortic valve is normal in structure and function. The aortic valve is trileaflet. There is no aortic valve stenosis. No aortic regurgitation is present. Tricuspid Valve: The tricuspid valve is normal in structure and function. Pulmonary artery pressures cannot be estimated because of the lack of a measurable TR jet velocity. There is trace tricuspid regurgitation. Pulmonic Valve: The pulmonic valve is not well visualized. Great Vessels: The aortic root is normal size. The dimensions of the ascending aorta are normal. The IVC is of normal diameter and collapses greater than 50% with a sniff. This suggests a low right atrial pressure of 3 mm Hg. Pericardium/ Pleura There is a trivial pericardial effusion noted. There are no echocardiographic indications of cardiac tamponade. There is no pleural effusion. MMode/2D Measurements & Calculations LVIDd: 4.7 cm LVOT diam: 2.0 cm LVIDs: 3.2 cm Ao root diam: 3.0 cm FS: 31.9 % asc Aorta Diam: 3.0 cm IVSd: 0.70 cm LVPWd: 0.80 cm LV wray. diameter/BSA (cm/m^2): 2.7 LV sys. diameter/BSA (cm/m^2): 1.8 LA dimension: 3.4 cm RA long axis: 3.9 cm LA A2 area: 14.3 cm2 LA A4 area: 13.5 cm2 LA length (vol): 4.5 cm LA vol: 36.0 ml LA vol index: 20.8 ml/m2 TAPSE_phl: 2.5 cm Doppler Measurements & Calculations Ao V2 max: 116.0 cm/sec LVOT Max Simba: 108.0 cm/sec Ao V2 mean: 81.3 cm/sec LV V1 max P.7 mmHg Ao max P.0 mmHg LV V1 VTI: 26.1 cm Ao mean P.0 mmHg LISETTE(I,D): 3.0 cm2 Ao V2 VTI: 27.1 cm LISETTE(V,D): 2.9 cm2 sev ratio: 0.96 LISETTE indexed to BSA (cm^2/m^2): 1.7 MV E max simba: 75.0 cm/sec SV(LVOT): 82.0 ml MV A max simba: 83.1 cm/sec MV E/A: 0.90 Med Peak E' Simba: 8.0 cm/sec E/E' med: 9.3 Lat Peak E' Simba: 11.0 cm/sec E/E' lat: 6.8 E/e' average: 8.1 MV dec time: 0.25 sec AV VR_phl: 0.93 MV P1/2t-pr_phl: 73.0 msec LISETTE(EZEQUIEL)/BSA_phl: 1.7 Reading Physician:04:24 PM
== END ==
PROVIDERS: Family Provider Family Medicine; PCP Family Medicine; Referring Provider Family Medicine; Visit Provider Family Medicine
DX: Z78.0 Asymptomatic menopausal state (principal); I47.1 Supraventricular tachycardia; M85.89 Other specified disorders of bone density and structure, multiple sites
CPT/HCPCS: 77080; 93306

== ENCOUNTER → 2023-05-03 13:01 | Outpatient (CLI) | payer MEDICARE, OTHER, SELFPAY ==
--- NOTE | 2023-05-03 | DI.MG.S_ITS ---
BILATERAL DIGITAL SCREENING MAMMOGRAM 3D/2D WITH CAD: 05/03/2023 CLINICAL: Routine screening. Family history of breast cancer. Comparison is made to exams dated: 09/22/2021 mammogram, 07/23/2020 mammogram, and 05/31/2019 mammogram - [facility]. There are scattered areas of fibroglandular density in both breasts (category b / 25%-50% glandular tissue). Current study was also evaluated with a Computer Aided Detection (CAD) system. No significant masses, calcifications, or other findings are seen in either breast. IMPRESSION: NEGATIVE There is no mammographic evidence of malignancy. A 1 year screening mammogram is recommended. Based on the Tyrer Cuzick model (a risk assessment model) the patient's lifetime risk is 3.6% and her 10 year risk is 0.0%. According to the ACR, ACS, and NCCN guidelines, an annual breast MRI exam along with mammogram is recommended if the patient's lifetime risk is 20% or greater. This exam was interpreted at Station ID: [id number]. NOTE: For mammograms, a report in lay terms will be sent to the patient. Approximately 15% of breast malignancies will not be visualized mammographically. In the management of a palpable breast mass, a negative mammogram must not discourage biopsy of a clinically suspicious lesion. Electronically Signed By: Quiana garcia/allie:05/03/2023 22:09:42 letter sent: Normal Exam ACR BI-RADS Category 1: Negative 3341F
== END ==
PROVIDERS: Family Provider Family Medicine; PCP Family Medicine; Referring Provider Family Medicine; Visit Provider Family Medicine
DX: Z12.31 Encounter for screening mammogram for malignant neoplasm of breast (principal); Z80.3 Family history of malignant neoplasm of breast
CPT/HCPCS: 77063; 77067

== ENCOUNTER → 2024-01-16 10:40 | Outpatient (CLI) | payer MEDICARE, OTHER, SELFPAY ==
--- NOTE | 2024-01-16 10:42 | DI.RAD.S_ITS ---
PROCEDURE: XR DEXA AXIAL SKELETON INDICATIONS: Other specified disorders of bone COMPARISON: [facility], [place], XR DEXA AXIAL SKELETON, 01/21/2022, 14:27. FINDINGS: Lumbar Spine: L1, L2, L4 Bone mineral density 0.694 g/cm2, T score -0.6. Left Hip: Bone mineral density 0.886 g/cm2, T score -0.5. Left Femoral Neck: Bone mineral density 0.619 g/cm2, T score -2.1. Right Hip: Bone mineral density 0.803 g/cm2, T score -1.1. Right Femoral Neck: Bone mineral density 0.657 g/cm2, T score -1.7. Fracture Risk Calculation (when applicable): 10-year fracture risk of a major osteoporotic fracture 36% and of a hip fracture 22%. (T score greater or equal to -1.0 to: NORMAL) (T score from -1.1 to -2.4: OSTEOPENIA) (T score less than or equal to -2.5: OSTEOPOROSIS) IMPRESSION: Osteopenia. Follow-up guidelines as follows: Osteoporosis: Consider a repeat DEXA and Vertebral Fracture Assessment (VFA) exam in 2 years or sooner if medically necessary, to reassess this patient's status. Osteopenia: Consider a repeat DEXA in 2-3 years to reassess this patient's status, or if there is a new clinical indication. Normal: Consider a repeat DEXA in 5 years or sooner, or if there is a new clinical indication. All treatment decisions require clinical judgment and consideration of individual patient factors, including patient preferences, comorbidities, previous drug use, risk factors not captured in the FRAX model (e.g., frailty, falls, vitamin D deficiency, increased bone turnover, interval significant decline in bone density ) and possible under- or over-estimation of fracture risk by FRAX. In addition, the NOF Guide recommends that FDA-approved medical therapies be considered in postmenopausal women and men age >= 50 years with a: * Hip or vertebral (clinical or morphometric) fracture * T-score of <=-2.5 at the spine or hip * Ten-year fracture probability by FRAX of >= 3% for hip fracture or >=20% for major osteoporotic fracture. People with diagnosed cases of osteoporosis or at high risk for fracture should have regular bone mineral density tests. For patients eligible for Medicare, routine testing is allowed once every 2 years. The testing frequency can be increased to one year for patients who have rapidly progressing disease, those who are receiving or discontinuing medical therapy to restore bone mass, or have additional risk factors. Dictated by: Michael Velazquez M.D. on 01/16/2024 at 13:13 Approved by: Michael Velazquez M.D. on 01/16/2024 at 13:16
== END ==
LOC: RAD 10:41
PROVIDERS: Family Provider Family Medicine; PCP Family Medicine; Referring Provider Family Medicine; Visit Provider Family Medicine
DX: M85.89 Other specified disorders of bone density and structure, multiple sites (principal); Z82.62 Family history of osteoporosis
CPT/HCPCS: 77080

== ENCOUNTER → 2024-08-24 14:11 | Outpatient (CLI) | payer MEDICARE, OTHER, SELFPAY ==
--- NOTE | 2024-08-24 14:14 | DI.MG.S_ITS ---
BILATERAL DIGITAL SCREENING MAMMOGRAM 3D/2D WITH CAD: 08/24/2024 CLINICAL: Routine screening. Family history of breast cancer. Comparison is made to exams dated: 05/03/2023 mammogram, 09/22/2021 mammogram, and 07/23/2020 mammogram - [facility]. The breasts are heterogeneously dense, which may obscure small masses (category c / 51-75% glandular tissue). Current study was also evaluated with a Computer Aided Detection (CAD) system. No significant masses, calcifications, or other findings are seen in either breast. There has been no significant interval change. IMPRESSION: NEGATIVE There is no mammographic evidence of malignancy. A 1 year screening mammogram is recommended. Based on the Tyrer Cuzick model (a risk assessment model) the patient's lifetime risk is 4.9% and her 10 year risk is 0.0%. According to the ACR, ACS, and NCCN guidelines, an annual breast MRI exam along with mammogram is recommended if the patient's lifetime risk is 20% or greater. This exam was interpreted at Station ID: [id number]. NOTE: For mammograms, a report in lay terms will be sent to the patient. Approximately 15% of breast malignancies will not be visualized mammographically. In the management of a palpable breast mass, a negative mammogram must not discourage biopsy of a clinically suspicious lesion. Electronically Signed By: Jd sloan/allie:08/26/2024 07:45:11 letter sent: Normal Exam ACR BI-RADS Category 1: Negative
== END ==
PROVIDERS: Family Provider Family Medicine; PCP Family Medicine; Referring Provider Family Medicine; Visit Provider Family Medicine
DX: Z12.31 Encounter for screening mammogram for malignant neoplasm of breast (principal); Z80.3 Family history of malignant neoplasm of breast; R92.333 Mammographic heterogeneous density, bilateral breasts
CPT/HCPCS: 77063; 77067

== ENCOUNTER → 2025-05-28 07:50 | Outpatient (CLI) | payer MEDICARE, OTHER, SELFPAY ==
[2025-05-28 08:55] LABS: Alanine Aminotransferase 16 IU/L (<35); Albumin 4.5 g/dL (3.5-5.0); Albumin Globulin Ratio 1.8 (1.0-2.8); Alkaline Phosphatase 90 U/L (38-126); Blood Urea Nitrogen 18 mg/dL (7-17); Calcium 9.5 mg/dL (8.4-10.2); Carbon Dioxide 24 mmol/L (22-32); Chloride 103 mmol/L (98-107); Estimated Glomerular Filt Rate 58 mL/min (>60); Globulin 2.5 g/dL (1.7-4.1); Glucose 88 mg/dL (70-99); HEMOLYSIS < 15 (0-50); Potassium 4.5 mmol/L (3.4-5.1); Sodium 137 mmol/L (137-145); Total Protein 7.0 g/dL (6.3-8.2)
== END ==
PROVIDERS: Family Provider Family Medicine; PCP Family Medicine; Referring Provider Family Medicine; Visit Provider Family Medicine
DX: I12.9 Hypertensive chronic kidney disease with stage 1 through stage 4 chronic kidney disease, or unspecified chronic kidney disease (principal); N18.31 Chronic kidney disease, stage 3a
CPT/HCPCS: 36415; 80053